=== PATIENT | male | born 1960 | race Caucasian/White ===

== ENCOUNTER → 2019-06-30 11:39 | Outpatient (BNVA) | payer MEDICARE, SELFPAY | PROVIDERS: Family Provider Family Medicine; PCP Family Medicine; Referring Provider Family Medicine; Visit Provider Family Medicine | DX: E11.42 Type 2 diabetes mellitus with diabetic polyneuropathy (principal); M14.60 Charcot's joint, unspecified site; L03.012 Cellulitis of left finger | CPT/HCPCS: 80053; 83036; 84550; 85025 ==

== ENCOUNTER → 2020-03-09 10:37 | Outpatient (BNVA) | payer MEDICARE, SELFPAY | PROVIDERS: Family Provider Family Medicine; PCP Family Medicine; Visit Provider Family Medicine | DX: E11.42 Type 2 diabetes mellitus with diabetic polyneuropathy (principal); I10 Essential (primary) hypertension; E78.00 Pure hypercholesterolemia, unspecified; Z00.00 Encounter for general adult medical examination without abnormal findings; E11.65 Type 2 diabetes mellitus with hyperglycemia; Z79.4 Long term (current) use of insulin; I73.9 Peripheral vascular disease, unspecified | CPT/HCPCS: 80053; 80061; 83036; 83721; 85025 ==

== ENCOUNTER → 2020-03-11 10:19 | Outpatient (BNVA) | payer MEDICARE, SELFPAY | PROVIDERS: Family Provider Family Medicine; PCP Family Medicine; Visit Provider Nurse Practitioner Family | DX: Z20.828 Contact with and (suspected) exposure to other viral communicable diseases (principal); J06.9 Acute upper respiratory infection, unspecified; R43.0 Anosmia | CPT/HCPCS: 87635 ==

== ENCOUNTER 2020-03-16 10:55 | Emergency (ER) | payer MEDICARE, SELFPAY ==
[2020-03-16 11:16] VITALS: BP 192/90; PULSE 70; RESP 18; TEMP 36.2; O2SAT 91; BMI 42.7
--- NOTE | 2020-03-16 11:27 | ED_ITS ---
HPI - COVID General: Chief Complaint: COVID symptoms Stated Complaint: COVID +/needing an infusion Time Seen by Provider: 03/16/20 11:10 Source: patient Mode of arrival: ambulatory Limitations: no limitations Triage information: No fever, cough or shortness of breath . No known COVID + exposure last 14 days History of Present Illness: HPI Narrative: Mr. Springer is a very nice 59-year-old male who comes in with a complaint of increased shortness of breath, cough and flulike symptoms. He tested positive for the Covid virus at the urgent care 2 days ago. He was referred here for the Bamlinivimab infusion. Patient meets criteria by being a diabetic and has body weight. Patient is not hypoxic and not requiring oxygen. I reviewed at length the risks and benefits and possible complications of this infusion and the patient does want to move ahead with this. COVID 19 common symptoms: positive fever(s), chills, non-productive cough, fatigue, body aches and throat pain; negative productive cough, dyspnea, headache(s), nausea, vomiting or diarrhea COVID 19 other sytmptoms: negative chest pain or confusion COVID Results: SARS-CoV-2 RNA (RT-PCR) Detected (NOT DETECTED) A 03/11/20 10:19 03/11/20 Review of Systems Const: Reports: fever(s), chills, body aches, fatigue and malaise; Denies: diaphoresis Eyes: Denies: change in vision, blurry vision, photophobia, eye discomfort, eye discharge, eye redness or yellow eyes ENMT: Reports: throat pain and hoarseness; Denies: odynophagia, swelling of lips/tongue, ear or mastoid pain, ear discharge, change in hearing or nasal discharge Card: Denies: chest pain, palpitations, irregular heart rhythm, edema, lightheadedness, syncope, pre-syncope, dyspnea on exertion or orthopnea Resp: Reports: non-productive cough; Denies: dyspnea, productive cough, wheezing, hemoptysis or chest congestion GI: Denies: abdominal pain, nausea, vomiting, hematemesis, coffee ground emesis, heartburn, diarrhea, constipation, GI cramping, hematochezia or melena : Denies: flank pain, dysuria, urinary frequency, urinary urgency or hematuria Musc: Denies: neck pain, back pain, extremity pain, extremity swelling, joint pain, joint swelling, joint redness, joint warmth or joint stiffness Skin/Breast: Denies: rash, pruritus, erythema, skin pain or skin tenderness Neuro: Denies: headache(s), numbness in extremities, weakness in extremities, sensory changes, lack of coordination, difficulty walking, dizziness, vertigo, confusion, Slurred speech present or seizure-like activity Mike/Lymph: Denies: easy bruising, easy bleeding, petechiae, purpura or enlarged lymph nodes All/Imm: Denies: urticaria, throat swelling, tongue swelling, facial swelling or acute wheezing PFSH ED PFSH: Medical History Acquired absence of other toe(s), unspecified side Cellulitis and abscess of foot Charcot ankle Closed displaced fracture of navicular bone of right foot with routine healing Controlled diabetes mellitus with diabetic polyneuropathy, with long-term current use of insulin Hypercholesteremia Hyperchylomicronemia Hypertension Onychodystrophy Other deformities of toe(s) (acquired), left foot Polyneuropathy, unspecified Tick fever Type 2 diabetes mellitus Family History Other CAD (coronary artery disease) Cancer Diabetes Hypertension Denies family history of Clotting disorder Dementia Hyperlipidemia Psychiatric illness Chronic kidney disease (CKD) Suicide Anesthesia complication Bleeding disorder Family history of premature coronary artery disease Lung disease Stroke Social History Smoking and tobacco status: never smoked Second hand smoke exposure: No Alcohol intake: never Physical Exam Const: COMMON NORMALS: no acute distress, patient oriented x3, no limitations and alert GENERAL APPEARANCE: cooperative HENMT: COMMON NORMALS: normocephalic, atraumatic, external ears normal, EAC's normal and Normal external nose present HEAD & SCALP: normal to inspection, normocephalic and atraumatic FACE & SINUS: normal facial exam and face symmetric NOSE: Normal external nose present and Normal nares present EXTERNAL EAR: Yes external ears normal EXTERNAL AUDITORY CANAL: EAC's normal MOUTH: Normal oral and palatal mucosa present, lip normal and tongue normal Eye: COMMON NORMALS: Equal, round and reactive pupils present and conjunctivae normal GENERAL EYE: appearance normal, both eyes and all related structures ALIGNMENT: Yes alignment normal PERIORBITAL: periorbital findings normal EYELID: eyelids normal CONJUNCTIVA: Yes conjunctivae normal SCLERA: sclerae normal PUPIL: Yes Equal, round and reactive pupils present Neck/C-Spine: COMMON NORMALS: full ROM, no lymphadenopathy, supple, no meningeal signs and no JVD GENERAL: Yes normal visual inspection and Yes trachea midline Chest: COMMONS NORMALS: normal inspection of the chest and normal palpation of entire chest wall Resp: COMMON NORMALS: normal respiratory effort, No retractions, No use of accessory muscles and clear to auscultation bilaterally EFFORT & INSPECTION: Yes able to speak in complete sentences and Yes symmetric chest movement AUSCULTATION: clear to auscultation bilaterally, no crackles, no rales, rhonchi and no wheezes Cardio: COMMON NORMALS: no JVD, regular rate, regular rhythm, S1 normal heart sound present and S2 normal heart sound present RATE: regular rate RHYTHM: regular rhythm HEART SOUNDS: S1 normal heart sound present, S2 normal heart sound present, no click, no gallops, no murmurs and no rubs GI: COMMON NORMALS: Soft to palpation and No hepatosplenomegaly present PALPATION: Yes Soft to palpation, No Tenderness to palpation present (GI), No Guarding due to palpation present (GI), No Rigid due to palpation, Yes No hepatosplenomegaly present, No Hernia present, No Palpable mass present and No Pulsatile mass present : COMMON NORMALS: Yes no CVA tenderness BLADDER/KIDNEY EXAM: Yes no CVA tenderness Back/Pelvis: COMMON NORMALS: no CVA tenderness, thoracic and lumbar spine normal to inspection, no thoracic nor lumbar tenderness and thoraco-lumbar ROM normal Extremity: COMMON NORMALS: normal to inspection, full ROM, capillary refill normal, no joint enlargement, no clubbing, cyanosis or edema and no calf tenderness Neuro: COMMON NORMALS: patient oriented x3, CN's II-XII intact bilaterally, moves all extremities, no focal motor deficits and no sensory deficits noted SENSORIUM/ORIENTATION: Yes alert MENINGEAL SIGNS: Yes no meningeal signs SPEECH: speech normal Psych: COMMON NORMALS: mental status grossly normal, Normal thought process present, cooperative, normal affect, speech normal and activity/motor behavior normal SPEECH: Yes normal speech THOUGHT PROCESS: Normal thought process present Skin: COMMON NORMALS: no rashes or lesions noted, turgor normal, no jaundice, no petechiae and no mottling GENERAL SKIN EXAM: no rashes or lesions noted and turgor normal Course Vital Signs: Vital signs: Vital Signs Temperature 97.2 F L 03/16/20 11:16 Pulse Rate 70 03/16/20 11:16 Respiratory Rate 18 03/16/20 11:16 Blood Pressure 192/90 03/16/20 11:16 Pulse Oximetry 91 03/16/20 11:16 MDM - COVID MDM Narrative: Medical decision making narrative: Patient is appropriate for the Bamlanivimab infusion. I see no need of acute oxygen therapy or lab work or other work-up. Patient wants to go ahead with this infusion. He will be moved to the appropriate bed and we will get him taken care of Differential Diagnosis: Differential diagnosis: Likely COVID 19, influenza, other viral infection, bacterial infection, pneumonia and copd exacerbation COVID Results: SARS-CoV-2 RNA (RT-PCR) Detected (NOT DETECTED) A 03/11/20 10:19 03/11/20 Monoclonal Antibody Treatments Inclusion/Exclusion Criteria weight >/= 40 kg and + direct Sars-Cov-2 test less than 7-10 days ago BMI >/= 35 and has diabetes not requiring hospitalization, not requiring oxygen (if not chronically on oxygen) and no increase oxygen requirement (if chronically on oxygen) Patient education patient/family/caregiver received/reviewed fact sheet, Emergency Use Authorization/unapproved drug status discussed with patient/family/caregiver, alternatives to this treatment discussed with patient/family/caregiver, risks and benefits of medication reviewed with patient/family/caregiver, patient/family/caregiver given opportunity for questions, which were answered and patient consents to receiving Monoclonal Antibody Treatment Plan for treatment Meets criteria for Monoclonal Antibody infusion Ordering Monoclonal Antibody infusion for today and Monoclonal antibody information given Discharge Plan Discharge Patient Disposition: Home Clinical Impression: Viral pneumonia, COVID-19 virus infection Condition: Stable Prescriptions: New Tessalon Perles 100 mg capsule 200 mg PO TID PRN (Reason: cough) Qty: 60 RF: 0 Zofran 4 mg tablet 4 mg PO Q6H PRN (Reason: nausea and vomiting) Qty: 20 RF: 0 No Action mupirocin 2 % ointment 1 applic TOPICAL BID 14 Days Qty: 15 RF: 0 milk thistle 500 mg capsule 500 mg PO BID RF: 0 cholecalciferol (vitamin D3) 25 mcg (1,000 unit) capsule 25 mcg PO DAILY RF: 0 B-complex with vitamin C [Super B Complex-Vitamin C] Tablet 1 tab PO DAILY RF: 0 alpha lipoic acid 200 mg capsule 200 mg PO BID RF: 0 multivitamin [id number] Tablet PO RF: 0 lutein 20 mg capsule 20 mg PO DAILY RF: 0 astragalus root 470 mg capsule PO RF: 0 olive leaf extract 250 mg capsule PO RF: 0 Tonalin CLA 1,000 mg capsule PO RF: 0 Cosamin [place] (with Boswellia) 500-500-33.3-70 mg tablet PO RF: 0 aloe vera 5,000 mg capsule PO RF: 0 morinda citrifolia fruit 250 mg capsule PO RF: 0 cascara sagrada 450 mg capsule PO RF: 0 ashwagandha root extract 300 mg capsule PO RF: 0 methylsulfonylmethane [MSM] 1,000 mg tablet 1,000 mg PO BID RF: 0 acai winslow extract 500 mg capsule PO RF: 0 omega-3 fatty acids 1,000 mg capsule 1,000 mg PO DAILY RF: 0 turmeric root extract 500 mg capsule 500 mg PO DAILY RF: 0 ascorbate calcium (vitamin C) 500 mg tablet 500 mg PO BID RF: 0 ginkgo biloba 120 mg tablet 120 mg PO DAILY RF: 0 selenium 200 mcg capsule 200 mcg PO DAILY RF: 0 metoprolol tartrate 100 mg tablet 100 mg PO DAILY RF: 0 lisinopril 20 mg tablet 20 mg PO BID RF: 0 polyethylene glycol 3350 [Miralax] 17 gram powder in packet 17 gm PO DAILY RF: 0 furosemide 40 mg tablet 40 mg PO DAILY RF: 0 promethazine 25 mg tablet 25 mg PO Q6H PRNRF: 0 ranitidine HCl [Zantac] 150 mg tablet 150 mg PO BID RF: 0 gabapentin 300 mg capsule 300 mg PO BID RF: 0 magnesium oxide 500 mg capsule 500 mg PO DAILY RF: 0 melatonin 3 mg capsule 3 mg PO DAILY RF: 0 potassium 99 mg tablet PO RF: 0 aspirin 81 mg tablet,delayed release (DR/EC) 81 mg PO DAILY RF: 0 hydrochlorothiazide 12.5 mg tablet 12.5 mg PO BID 90 Days Qty: 180 RF: 3 Levemir U-100 Insulin 100 unit/mL solution 80 unit SUBCUT BID 30 Days Qty: 48 RF: 11 insulin aspart U-100 [Novolog U-100 Insulin aspart] 100 unit/mL solution 5 unit SUBCUT TID 30 Days Qty: 4.5 RF: 5 metformin 1,000 mg tablet 1,000 mg PO BID Qty: 180 RF: 0 simvastatin 40 mg tablet 40 mg PO DAILY Qty: 90 RF: 1 ondansetron 4 mg tablet,disintegrating 4 mg PO TID Qty: 20 RF: 0 Discharge Orders: Discharge ED (Routine); Ordered 03/16/20 Ordered By: Tonia Nina Referrals: Leandra Reddy MD [Primary Care Provider] - 4-7 days Discharge Diet: Advance as tolerated Discharge Activity: Increase activity as tolerated Patient Instructions: Viral Pneumonia (ED) Activity Restrictions/Additional Instructions: Please return to the ER immediately for any of the signs or symptoms listed on your discharge instruction sheets, worsening/changing of your symptoms, you are not getting better as quickly as expected, or for ANY other cause or concerns. If you are breathing gets worse at all, your pulse oximetry that you monitor at home falls below 90% for more than 30 seconds continuously or you feel you need to be evaluated for any reason please return to the ER immediately. The health department will contact you about when you are cleared to return to your normal activities. Coding Level of Care Code ED Plastic Cnc Machine Operator for Shira Gamboa
--- NOTE | 2020-03-23 13:34 | DCPLANNER ---
Addendum entered by Veena Arreola 03/30/20 13:21: distributed generation project manager called to check on patient 10 days after infusion. Patient stated that he is doing good. Stated that he davian to his primary care followup, feeling much better. Patient stated that he has not been admitted to the hospital. Addendum entered by Veena Arreola 03/23/20 13:36: distributed generation project manager called [facility], a follow up appointment is scheduled for Sunday, March 29, 2020 at 10:30. distributed generation project manager called patient with appointment information. distributed generation project manager called to check on patient, he stated that he is feeling much better. Stated that his nausea is better not all the way gone but better, still no fever, he is feeling much better all over. Original Note: distributed generation project manager had message that patient received the BAM infusion. distributed generation project manager spoke with patient on 03.18.20 made note on spreadsheet, forgot to make note in chart. late entry -Patient stated that he tolorated the infusion well. Stated that before the infusion that he was really nausetated, did not feel good at all, and was feeling rough all over. He stated that he did not have a fever. After the infusion, patient stated that he does not feel as bad as he did.
== END 2020-03-16 12:00 | disposition home or self-care (01) ==
PROVIDERS: Emergency Provider Emergency Medicine; PCP Family Medicine
DX: U07.1 COVID-19 (principal); J12.89 Other viral pneumonia; Z79.82 Long term (current) use of aspirin; Z79.4 Long term (current) use of insulin; E11.42 Type 2 diabetes mellitus with diabetic polyneuropathy; I10 Essential (primary) hypertension; E11.9 Type 2 diabetes mellitus without complications; Z82.49 Family history of ischemic heart disease and other diseases of the circulatory system; Z83.3 Family history of diabetes mellitus
CPT/HCPCS: 12345; 96365; 99281; J7050

== ENCOUNTER 2020-03-16 12:43 | Day surgery (SDC) | payer MEDICARE, SELFPAY ==
[2020-03-16 12:10] VITALS: BP 197/87; PULSE 78; RESP 18; TEMP 36.7; O2SAT 90
[2020-03-16 12:45] VITALS: BP 200/87; PULSE 72; RESP 18; TEMP 37; O2SAT 90
[2020-03-16 12:58] VITALS: BP 211/98; PULSE 75; RESP 18; TEMP 37; O2SAT 91
[2020-03-16 13:27] VITALS: BP 205/93; PULSE 76; RESP 18; TEMP 37; O2SAT 91
--- NOTE | 2020-03-16 13:30 | SUR.OPER ---
1330 Bam infusion complete. Pt tolerated well. No signs of reaction noted. Pt to be observed for 1 hour and discharged per protocol.
[2020-03-16 14:30] VITALS: BP 200/85; PULSE 74; RESP 18; TEMP 37; O2SAT 91
== END 2020-03-16 14:30 ==
PROVIDERS: PCP Family Medicine; Visit Provider Family Medicine
DX: U07.1 COVID-19 (principal); E11.9 Type 2 diabetes mellitus without complications; I10 Essential (primary) hypertension; Z82.49 Family history of ischemic heart disease and other diseases of the circulatory system; Z83.3 Family history of diabetes mellitus
CPT/HCPCS: 96365; J7050

== ENCOUNTER 2020-05-05 06:19 | Day surgery (SDC) | payer MEDICARE, SELFPAY ==
[2020-05-04 11:10] VITALS: BMI 40.6
[2020-05-05 06:41] VITALS: BP 183/88; PULSE 71; RESP 18; TEMP 36.4; O2SAT 96
[2020-05-05] MEDS: sodium chloride 0.9% 1,000 ML 30 ML IV (07:04)
--- NOTE | 2020-05-05 08:02 | ANES.PREANE2 ---
Pre-Anesthetic Assessment Pre-Anesthetic Assessment: Height/Weight: Height 1.83 m Weight 136.078 kg Temp Pulse Resp BP Pulse Ox 97.5 F L 71 18 183/88 96 05/05/20 06:41 05/05/20 06:41 05/05/20 06:41 05/05/20 06:41 05/05/20 06:41 Preop Diagnosis: screening colonoscopy Proposed Procedure: Operation Date: 05/05/20 08:10 Proposed Procedures p Colonoscopy 57473 Z12.11(Not Applicable) - Joshua Oscar MD Was Beta Buck taken within 24 hours: Yes Last intake: Intake Last Liquid Date 05/04/20 Last Liquid Time 23:30 Last Solid Date 05/03/20 Last Solid Time 21:00 Social: Social History: No alcohol and No tobacco Exam: Pre-Anes Outpt Exam: alert, oriented x 3, clear to auscultation bilaterally and regular rate & rhythm Airway: Submandibular: WNL Cervical ROM: WNL MP: 2 Additional comments: poor dentition Pulmonary: Pulmonary: COPD CV/HEM: CV/HEM: HTN Metabolic: Metabolic: DM and Morbid obesity Anesthetic Plan: ASA status: 3 Anesthesia: MAC Risk of > 500 ml blood loss (7ml/kg in children): No Meds/Allergies Current Medications: Current Medications Generic Name Dose Route Start Last Admin Trade Name Freq PRN Reason Stop Dose Admin Sodium Chloride 1,000 mls @ 30 ml s/hr 05/05/20 06:30 05/05/20 07:04 Sodium Chloride 0.9% IV 05/06/20 06:29 30 mls/hr .Q24H NAM Administration PFSH Anesthesia PFSH: Medical History (Updated 04/19/20 @ 09:57 by Joshua Oscar MD) Acquired absence of other toe(s), unspecified side Cellulitis and abscess of foot Charcot ankle Closed displaced fracture of navicular bone of right foot with routine healing Controlled diabetes mellitus with diabetic polyneuropathy, with long-term current use of insulin COVID-19 virus infection Hypercholesteremia Hyperchylomicronemia Hypertension Onychodystrophy Other deformities of toe(s) (acquired), left foot Polyneuropathy, unspecified Tick fever Type 2 diabetes mellitus Surgical History (Updated 04/19/20 @ 09:53 by Joshua Oscar MD) History of foot surgery History of knee surgery Family History Other CAD (coronary artery disease) Cancer Diabetes Hypertension Denies family history of Clotting disorder Dementia Hyperlipidemia Psychiatric illness Chronic kidney disease (CKD) Suicide Anesthesia complication Bleeding disorder Family history of premature coronary artery disease Lung disease Stroke Social History Smoking and tobacco status: never smoked Second hand smoke exposure: No Alcohol intake: never Data Anesthesia Cardiac Studies: No Data to Display
--- NOTE | 2020-05-05 08:57 | W.PM.OPSUD ---
Surgery/Procedure H&P Update DATE OF PROCEDURE: May 05, 2020 DATE H&P PERFORMED: 04/19/20 H&P UPDATE INFORMATION: I have reviewed H&P completed within last 30 days, I have examined patient prior to procedure and No changes to prior documentation PREOP DIAGNOSIS: screening colonoscopy PLANNED PROCEDURE: Operation Date: 05/05/20 08:10 Proposed Procedures p Colonoscopy 44277 Z12.11(Not Applicable) - Joshua Oscar MD
[2020-05-05 09:29] VITALS: BP 124/55; PULSE 64; RESP 18; TEMP 36.4; O2SAT 96
[2020-05-05 09:44] VITALS: BP 132/74; PULSE 62; RESP 18; O2SAT 97
--- NOTE | 2020-05-05 11:59 | ANE.PACU2 ---
Inpatient post-anesthesia follow up: Airway intact: Yes Vital signs: Temperature 97.6 F Pulse Rate 62 Respiratory Rate 18 Blood Pressure 132/74 Pulse Oximetry 97 Oxygen Delivery Me thod Room Air Oxygen Flow Rate Fraction of Inspir ed Oxygen Hydration adequate: Yes Nausea and vomiting: No Pain level: 1 Mental status: Baseline
[2020-05-05 12:20] LABS: Glucose Point of Care 185 mg/dL (70-110)
== END 2020-05-05 10:04 | disposition home or self-care (01) ==
PROVIDERS: PCP Family Medicine; Visit Provider Surgery
PROC: 0DJD8ZZ Inspection of Lower Intestinal Tract, Via Natural or Artificial Opening Endoscopic (ICD-10-PCS; CPT 45378; principal; 2020-05-05 08:10)
DX: Z12.11 Encounter for screening for malignant neoplasm of colon (principal); K64.8 Other hemorrhoids; K63.5 Polyp of colon; J44.9 Chronic obstructive pulmonary disease, unspecified; I10 Essential (primary) hypertension; E66.01 Morbid (severe) obesity due to excess calories; Z68.41 Body mass index [BMI] 40.0-44.9, adult; E11.42 Type 2 diabetes mellitus with diabetic polyneuropathy; Z79.4 Long term (current) use of insulin; Z86.16 Personal history of COVID-19
CPT/HCPCS: 12345; 36416; 45378; 82962; J7030

== ENCOUNTER → 2020-07-05 10:18 | Outpatient (BNVA) | payer MEDICARE, SELFPAY | PROVIDERS: PCP Family Medicine; Visit Provider Family Medicine | DX: E11.42 Type 2 diabetes mellitus with diabetic polyneuropathy (principal); E78.00 Pure hypercholesterolemia, unspecified; I10 Essential (primary) hypertension; E11.65 Type 2 diabetes mellitus with hyperglycemia; Z79.4 Long term (current) use of insulin | CPT/HCPCS: 36416; 80053; 80061; 82962; 83036 ==

== ENCOUNTER → 2020-11-09 13:58 | Outpatient (BNVA) | payer MEDICARE, SELFPAY | PROVIDERS: PCP Family Medicine; Visit Provider Family Medicine | DX: Z00.00 Encounter for general adult medical examination without abnormal findings (principal); E11.65 Type 2 diabetes mellitus with hyperglycemia; Z79.4 Long term (current) use of insulin | CPT/HCPCS: 83036 ==

== ENCOUNTER 2021-01-04 13:02 | Outpatient (CLI) | payer MEDICARE, SELFPAY | END 2021-01-04 13:03 | disposition home or self-care (01) | LOC: WOUND 13:06 | PROVIDERS: PCP Family Medicine; Visit Provider Nurse Practitioner Family | DX: E11.621 Type 2 diabetes mellitus with foot ulcer (principal); L97.512 Non-pressure chronic ulcer of other part of right foot with fat layer exposed; L97.521 Non-pressure chronic ulcer of other part of left foot limited to breakdown of skin; Z87.891 Personal history of nicotine dependence | CPT/HCPCS: 11042; 87070; 87077; 87176; 87186; 87205; G0463 ==

== ENCOUNTER 2021-01-06 12:58 | Outpatient (CLI) | payer MEDICARE, SELFPAY ==
--- NOTE | 2021-01-06 13:10 | XR_ITS ---
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 Hammertoe deformities. Demineralization. Diffus e soft tissue edema. Vascular calcification. Progressed joint space narrowing involving the first DIP joint with loss of joint space and a few per iarticular erosions. Periarticular lucencies in the adjacent first proximal phalanx. This is new sin e 2019. This may be degenerative in etiology but osteomyelitis not excluded. Recommend correlation wi th area of ulceration. Left second distal phalanx not well visualized due to contracture deformity. Vascular calcification. XR/XR foot LT min 3V* [id number] IMPRESSION: 1. 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 2. Progressed joint space narrowing involving the first DIP joint great toe wi th loss of joint space and a few periarticular erosions. Periarticular lucencie s in the adjacent first proximal phalanx. This may be degenerative in etiology but osteomyelitis not excluded. Recommend correlation with area of ulceration. 3. Left second distal phalanx not well visualized due to contracture. 4. No bony destruction to indicate acute osteomyelitis.
--- NOTE | 2021-01-06 13:10 | XR_ITS ---
WS: [id number] FOOT RIGHT TECHNIQUE: 3 views of the right foot CLINICAL INFORMATION: TYPE II DIABETES WITH FOOT ULCER, R/O OSTEOMYELITIS COMPARISON: 2019 FINDINGS: Diffuse soft tissue edema. Demineralization. Charcot joints with chronic destructive changes involvin g the midfoot tarsal bones and talonavicular articulation. Pes planus. Vascular calcification. No sig nificant changes since 2019 XR/XR foot RT min 3V* [id number] IMPRESSION: 1. No definite evidence of acute osteomyelitis. 2. 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 3. Diffuse soft tissue edema. 4. Pes planus. 5. Demineralization. 6. Vascular calcification.
== END 2021-01-06 12:59 | disposition home or self-care (01) ==
PROVIDERS: PCP Family Medicine; Visit Provider Nurse Practitioner Family
DX: E11.621 Type 2 diabetes mellitus with foot ulcer (principal); Z89.422 Acquired absence of other left toe(s)
CPT/HCPCS: 73630

== ENCOUNTER 2021-01-11 07:40 | Observation (INO) | payer MEDICARE, SELFPAY ==
[2021-01-11] VITALS (20 sets, daily range): BP systolic 165–207; BP diastolic 73–108; PULSE 74–90; RESP 9–20; TEMP 36.6–37; O2SAT 91–98; BMI 43.4
--- NOTE | 2021-01-11 07:47 | ECG_ITS ---
[facility] Test Date: 2021-01-11 Pat Name: Jack Springer Department: Room: Gender: Male Bagman/Woman: : 1960 Requested By: Tyrese Enrique Order Number: [id number] Reading MD: JEFF DANIEL Measurements Intervals [place] Rate: 88 P: 62 MS: 181 QRS: 53 QRSD: 105 T: -13 QT: 368 QTc: 447 Interpretive Statements SINUS RHYTHM NONSPECIFIC ST & T-WAVE ABNORMALITY No previous ECG available for comparison Electronically Signed On 01-11-2021 22:57:19 CDT by JEFF DANIEL [id number]
--- NOTE | 2021-01-11 08:07 | CT_ITS ---
WS: [id number] CT HEAD TECHNIQUE: Noncontrast CT of the head obtained from the skullbase to the vertex. CLINICAL INFORMATION: closed head injury w LOC COMPARISON: None. DLP: 1252.[address] scans at [facility] use at least one of these dose optimization techniques: automated e xposure control; mA and/or kV adjustment per patient size (includes targeted exams where dose is matc hed to clinical indication); or iterative reconstruction. FINDINGS: No evidence of intracranial hemorrhage or mass effect. Ventricular system and basal cisterns are sullivan nt. Mild small vessel changes with moderate parenchymal volume loss. No extra-axial fluid collections . Chronic lacunar infarct right lateral basal ganglia. Chronic lacunar infarct right thalamus. No aliya dence of mass or mass effect. Normal barnard-white differentiation. Paranasal sinuses and mastoid air cells are well aerated. . Soft tissue edema and small scalp hematom a overlying the right frontal calvarium. CT/CT head wo con* [id number] IMPRESSION: 1. No evidence of intracranial hemorrhage or mass effect. 2. Mild small vessel changes. Moderate parenchymal loss. 3. No acute intracranial findings.
--- NOTE | 2021-01-11 08:14 | W.ED.CHESTPA ---
HPI - Chest Pain General: Chief Complaint: Chest Pain Stated Complaint: B/P 213/94 CHEST PAINS AND SOB Time Seen by Provider: 01/11/21 07:46 History of Present Illness: HPI narrative: 60-year-old male presents emergency room with complaints of chest discomfort. 2 days ago he had a syncopal episode he has an abrasion on his right side of his forehead is actually fairly large and he has some ecchymosis around that right eye. There was a brief loss of consciousness. He is not evaluated after this. He is not on any anticoagulants. He is diabetic on insulin and Metformin he states his blood sugars have been erratic lately. He is not had any fever sweats or chills he has had a few episodes of some chest discomfort not related to exertion they are not relieved or exacerbated by any particular activities. He has no known heart disease he cannot recall last time he had an evaluation. Patient had Covid in February 2020 and he has been vaccinated. His blood pressures were markedly elevated at home he has been taking all of his regular antihypertensives. He has not had any recent changes. He is not noticing difficulty speech swallowing gait or coordination. MD complaint: chest discomfort Pertinent past history: other (Diabetes mellitus.) Timing of current episode: episodic Prior episodes: No Onset: during rest Pain location: left chest Pain radiation: none Severity: mild Quality: tightness and aching Relieving factors: nothing Exacerbating factors: nothing Associated symptoms: Deny abdominal pain, diaphoresis, dyspnea, fever(s), leg edema, nausea, palpitations, sense of impending doom, syncope or vomiting Treatment prior to arrival: none Review of Systems Const: Denies: fever(s) or diaphoresis ENMT: Denies: throat pain, ear or mastoid pain, nasal discharge or nasal congestion Card: Denies: palpitations or syncope Resp: Denies: dyspnea GI: Denies: abdominal pain, nausea or vomiting : Denies: flank pain, dysuria, urinary frequency or urinary urgency Skin/Breast: Denies: rash or pruritus PFS ED PFSH: Medical History Acquired absence of other toe(s), unspecified side Cellulitis and abscess of foot Charcot ankle Closed displaced fracture of navicular bone of right foot with routine healing Controlled diabetes mellitus with diabetic polyneuropathy, with long-term current use of insulin COVID-19 virus infection Hypercholesteremia Hyperchylomicronemia Hypertension Onychodystrophy Other deformities of toe(s) (acquired), left foot Polyneuropathy, unspecified Tick fever Type 2 diabetes mellitus Surgical History History of foot surgery History of knee surgery Status post colonoscopy (05/05/20) normal Family History Other CAD (coronary artery disease) Cancer Diabetes Hypertension Denies family history of Clotting disorder Dementia Hyperlipidemia Psychiatric illness Chronic kidney disease (CKD) Suicide Anesthesia complication Bleeding disorder Family history of premature coronary artery disease Lung disease Stroke Social History Smoking and tobacco status: former smoker Second hand smoke exposure: No Alcohol intake: never Physical Exam Const: COMMON NORMALS: no acute distress GENERAL APPEARANCE: cooperative and comfortable ORIENTATION/CONSCIOUSNESS: Yes awake, Yes oriented to person, Yes oriented to place and Yes oriented to time HENMT: COMMON NORMALS: normocephalic, atraumatic and hearing grossly normal bilaterally HEAD & SCALP: normocephalic and atraumatic Eye: COMMON NORMALS: Equal, round and reactive pupils present, EOMs intact bilaterally, conjunctivae normal and no scleral icterus CONJUNCTIVA: Yes conjunctivae normal PUPIL: Yes Equal, round and reactive pupils present Neck/C-Spine: COMMON NORMALS: full ROM, no lymphadenopathy, supple and no JVD Lymph: LYMPHATIC: no lymphadenopathy noted and no lymphedema noted Resp: COMMON NORMALS: normal respiratory effort, No retractions, No use of accessory muscles and clear to auscultation bilaterally AUSCULTATION: clear to auscultation bilaterally Cardio: COMMON NORMALS: no JVD, regular rate, regular rhythm and No murmurs present (Cardio) RATE: regular rate RHYTHM: regular rhythm GI: COMMON NORMALS: Soft to palpation and No hepatosplenomegaly present AUSCULTATION: Yes normoactive bowel sounds PALPATION: Yes Soft to palpation, No Tenderness to palpation present (GI), No Guarding due to palpation present (GI) and Yes No hepatosplenomegaly present Extremity: COMMON NORMALS: normal to inspection, capillary refill normal, no clubbing, cyanosis or edema, no calf tenderness and no pedal edema Neuro: SENSORIUM/ORIENTATION: Yes oriented to person, Yes oriented to place and Yes oriented to time Skin: OTHER: Large abrasion right forehead. Right there is ecchymosis over the upper and lower eyelids. Sclera and conjunctiva are normal there is no subconjunctival hematoma Course Vital Signs: Vital signs: Vital Signs Temperature 98.6 F 01/11/21 08:00 Pulse Rate 81 01/11/21 16:54 Respiratory Rate 16 01/11/21 16:54 Blood Pressure 173/83 01/11/21 16:54 Pulse Oximetry 92 01/11/21 16:54 MDM - Chest Pain MDM Narrative: Medical decision making narrative: Labs and imaging reviewed as found on the chart. No acute ST changes noted on the EKG. Given the patient's significant risk factors and of the syncopal episode combined with episodes of chest pain while at rest we will go ahead and admit him for complete rule out and cardiac stress testing. Lab Data: Labs: Lab Results 01/11/21 01/11/21 01/11/21 08:20 08:20 08:20 WBC 6.7 10^3/uL 10^3/ uL (4.0-10.0) RBC 3.89 10^6/uL L 10 ^6/uL (4.1-5.3) Hgb 11.8 g/dL g/dL (11.7-16.6) Hct 35.3 % L % (42.0-52.0) MCV 90.7 fl fl (80-94) MCH 30.3 pg pg (28.0-34.0) MCHC 33.4 g/dL g/dL (30.0-36.0) RDW 13.5 % % (12.1-15.1) Plt Count 255 10^3/cmm 10^3 /cmm (130-400) MPV 10.5 fL H fL (7.4-10.4) Neut % (Auto) 72.7 % % Lymph % (Auto) 16.3 % % [place] % (Auto) 7.0 % % Eos % (Auto) 2.5 % % Baso % (Auto) 0.6 % % Neut # (Auto) 4.86 10^3/uL 10^3 /uL (1.8-7.7) Lymph # (Auto) 1.1 10^3/uL 10^3/ uL (0.8-4.8) [place] # (Auto) 0.5 10^3/uL 10^3/ uL (0.2-0.9) Eos # (Auto) 0.2 10^3/uL 10^3/ uL (0.0-0.8) Baso # (Auto) 0.0 10^3/uL 10^3/ uL (0.0-0.1) Nucleated RBC % (a uto) 0 % % Nucleated RBCs # 0.0 /100WBC /100W BC Sodium 139 mmol/L mmol/L (136-145) Potassium 4.0 mmol/L mmol/L (3.5-5.1) Chloride 101 mmol/L mmol/L (98-107) Carbon Dioxide 27 mmol/L mmol/L (22-29) Anion Gap 15.0 (5-19) BUN 23 mg/dL mg/dL (8-23) Creatinine 1.2 mg/dL mg/dL (0.7-1.2) GFR Calculation 61.8 mL/min L mL/ min (90-130) Glucose 235 mg/dL H mg/dL (65-115) POC Glucose Calculated Osmolal ity 299 mOsm/kg H mOs m/kg (285-295) Calcium 8.8 mg/dL mg/dL (8.5-10.5) Magnesium Total Bilirubin 0.7 mg/dL mg/dL (0.15-1.2) AST 18 U/L U/L (0-40) ALT 17 U/L U/L (0-41) Alkaline Phosphata se 114 IU/L IU/L (40-130) Troponin T Baselin e 44 ng/L H ng/L (0-15) Troponin T 120 Min nondalton Delta Troponin T NT-Pro-B Natriuret Pep Total Protein 6.8 g/dL g/dL (6.6-8.7) Albumin 3.8 g/dL g/dL (3.5-5.2) Globulin 3.0 g/dL g/dL (1.3-4.6) TSH 01/11/21 01/11/21 01/11/21 11:30 11:30 12:22 WBC RBC Hgb Hct MCV MCH MCHC RDW Plt Count MPV Neut % (Auto) Lymph % (Auto) [place] % (Auto) Eos % (Auto) Baso % (Auto) Neut # (Auto) Lymph # (Auto) [place] # (Auto) Eos # (Auto) Baso # (Auto) Nucleated RBC % (a uto) Nucleated RBCs # Sodium Potassium Chloride Carbon Dioxide Anion Gap BUN Creatinine GFR Calculation Glucose POC Glucose 216 mg/dL H mg/dL (70-110) Calculated Osmolal ity Calcium Magnesium 1.9 mg/dL mg/dL (1.7-2.3) Total Bilirubin AST ALT Alkaline Phosphata se Troponin T Baselin e Troponin T 120 Min nondalton 44.69 ng/L H ng/L (0-15) Delta Troponin T 0.69 ABS# ABS# (0-10) NT-Pro-B Natriuret Pep 2105 pg/mL H pg/m L (0-125) Total Protein Albumin Globulin TSH 4.53 uIU/mL H uIU /mL (0.27-4.20) Discharge Plan Discharge Patient Disposition: Admitted As Inpatient Admit Provider: Ryan Dumont Clinical Impression: Syncope and collapse, Chest pain, Type 2 diabetes mellitus, Hypercholesteremia, Diabetic peripheral neuropathy associated with type 2 diabetes mellitus, Hypertension Condition: Stable Coding Level of Care Code ED 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
[2021-01-11 08:34] LABS: Basophils % 0.6 %; Eosinophils # 0.2 10^3/uL (0.0-0.8); Eosinophils % 2.5 %; Hematocrit 35.3 % (42.0-52.0); Hemoglobin 11.8 g/dL (11.7-16.6); Lymphocytes # 1.1 10^3/uL (0.8-4.8); Lymphocytes % 16.3 %; Mean Corpuscular HGB Conc 33.4 g/dL (30.0-36.0); Mean Corpuscular Hemoglobin 30.3 pg (28.0-34.0); Mean Corpuscular Volume 90.7 fl (80-94); Mean Platelet Volume 10.5 fL (7.4-10.4); Monocytes # 0.5 10^3/uL (0.2-0.9); Neutrophils # 4.86 10^3/uL (1.8-7.7); Neutrophils % 72.7 %; Nucleated Red Blood Cells % 0 %; Platelet Count 255 10^3/cmm (130-400); Red Blood Count 3.89 10^6/uL (4.1-5.3); Red Cell Distribution Width 13.5 % (12.1-15.1); White Blood Count 6.7 10^3/uL (4.0-10.0)
[2021-01-11] MEDS: amlodipine 10 mg Tablet PO (08:42)
[2021-01-11] MEDS: metoprolol tartrate 1 mg/1 mL SDV 5 mL 5 MG IVP (08:43)
[2021-01-11] MEDS: aspirin 81 mg Chew Tablet 324 MG PO (08:52)
[2021-01-11] MEDS: lisinopril 10 mg Tablet 20 MG PO (08:53)
[2021-01-11 09:01] LABS: Troponin(5th) Baseline 44 ng/L (0-15)
[2021-01-11 09:02] LABS: Alanine Aminotransferase 17 U/L (0-41); Albumin Level 3.8 g/dL (3.5-5.2); Alkaline Phosphatase 114 IU/L (40-130); Aspartate Amino Transferase 18 U/L (0-40); Blood Urea Nitrogen 23 mg/dL (8-23); Calcium 8.8 mg/dL (8.5-10.5); Carbon Dioxide 27 mmol/L (22-29); Chloride 101 mmol/L (98-107); Glomerular Filtration Rate 61.8 mL/min (90-130); Glucose 235 mg/dL (65-115); Osmolality Calculated 299 mOsm/kg (285-295); Sodium 139 mmol/L (136-145); Total Bilirubin 0.7 mg/dL (0.15-1.2); Total Protein 6.8 g/dL (6.6-8.7)
--- NOTE | 2021-01-11 09:47 | ECG_ITS ---
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
[2021-01-11] MEDS: hyDRALAzine 20 mg/mL INJ 1 mL IVP (11:55)
[2021-01-11 12:00] LABS: Troponin 5 2HR 44.69 ng/L (0-15); Troponin 5 2HR Delta 0.69 ABS# (0-10)
--- NOTE | 2021-01-11 12:09 | PC.PHAR ---
PT STATES HE TAKES CARE OF HIS OWN MEDICATIONS-PTS VERIFIED ALL HIS MEDS
[2021-01-11 12:26] LABS: Glucose Point of Care 216 mg/dL (70-110)
--- NOTE | 2021-01-11 12:34 | XRR_ITS ---
PROCEDURE INFORMATION: Exam: XR Chest Exam date and time: 01/11/2021 12:34 PM Age: 60 years old Clinical indication: Cough and dyspnea; Additional info: Dyspnea/cough TECHNIQUE: Imaging protocol: XR of the chest. Views: 1 view. COMPARISON: No relevant prior studies available. FINDINGS: Lungs: Unremarkable. No consolidation. Pleural spaces: Unremarkable. No pleural effusion. No pneumothorax. Heart/Mediastinum: Unremarkable. No cardiomegaly. Bones/joints: Unremarkable. XR/XR chest 1V portable [id number] IMPRESSION: No acute findings. Radiation Dose CTDIVOL = (mGy): DLP = (mGy-cm)
[2021-01-11] MEDS: isosorbide mononitrate ER 60 mg Tablet PO (12:59)
--- NOTE | 2021-01-11 13:47 | ECG_ITS ---
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1960 Requested By: Tyrese Enrique Order Number: [id number] Reading MD: JEFF DANIEL Measurements Intervals [place] Rate: 78 P: 53 RI: 177 QRS: 25 QRSD: 106 T: -14 QT: 385 QTc: 439 Interpretive Statements SINUS RHYTHM INFERIOR MYOCARDIAL INFARCTION , OF INDETERMINATE AGE [40+ ms Q WAVE AND/OR ST/T ABNORMALITY IN II/aVF] Compared to ECG 01/11/2021 11:34:18 Myocardial infarct finding now present T-wave abnormality no longer present Electronically Signed On 01-11-2021 22:57:42 CDT by JEFF DANIEL [id number]
--- NOTE | 2021-01-11 14:44 | P.HP_ITS ---
Providers/Chief Complaint Primary Care Provider: Leandra Reddy MD Chief Complaint: B/P 213/94 CHEST PAINS AND SOB History of Present Illness Jack Springer is a 60 year old male with a past medical history of insulin- dependent type 2 diabetes mellitus, hypertension, hyperlipidemia, who presents to [facility] due to complaints of syncope, collapse, chest pain. Patient tells me that about a week ago, he was in his kitchen, and all of a sudden he did not feel well, he might of felt some chest palpitations, some chest tightness, he is on sure, and he slowly sliding to the floor, he denies any head trauma, but he thinks he was on the floor for about a minute, he lost consciousness, when he came to he called his , who came back from work to check up on him. Throughout the week he was not feeling well but is not anxious exactly sure why, he does report intermittent chest palpitations, intermittent chest tightness. Then on Sunday during the anglican service, he was sitting down, when all of a sudden he became pale, diaphoretic, lost consciousness, and fell forward hitting the floor, he had a significant hematoma in carpet rash on his right forehead, and around his orbit, he was passed out for about a minute to 2 minutes, his witnessed this, no preceding seizure-like episodes, no postictal confusion, no strokelike symptoms, no facial droop, no slurring of his words, he immediately came back to consciousness, on the floor he did look quite pale, diaphoretic, were unsure if he had a pulse, or about his breathing status. He does tell me that before passing out he did feel a bit lightheaded and feels unwell. He tells me that when he got home, he continued to have intermittent episodes of chest tightness, and the chest chest tightness and the feeling unwell only increased throughout the morning. In the emergency room, his baseline troponin was 44, EKG no acute ST-T wave changes, hospitalist team was called for admission for chest pain. Review of Systems Const: Reports: malaise; Denies: fever(s), chills or fatigue Eyes: Denies: change in vision or blurry vision ENMT: Denies: nasal congestion Card: Reports: chest pain, palpitations, lightheadedness and syncope; Denies: edema, dyspnea on exertion or orthopnea Resp: Denies: dyspnea, productive cough, non-productive cough or wheezing GI: Denies: abdominal pain, nausea, vomiting, hematemesis, diarrhea, cons tipation, hematochezia or melena : Denies: flank pain, difficulty urinating, dysuria or urinary frequency Musc: Denies: neck pain or back pain Skin/Breast: Denies: rash Neuro: Denies: headache(s), dizziness or vertigo Psych: Denies: anxiety or depression Endo: Denies: polyuria or polydipsia Medications/Allergies Home Medications Medication Instructions Recorded Confirmed Last Taken Type aspirin 81 mg tablet,delayed 81 mg PO BID 06/10/19 01/11/21 01/11/21 06:00 History release B-complex with vitamin C 1 tab PO DAILY 03/09/20 01/11/21 01/10/21 History hydrochlorothiazide 12.5 mg tablet 12.5 mg PO BID 90 Days #180 tab 03/29/20 01/11/21 01/11/21 06:00 Rx Levemir U-100 Insulin 80 unit SUBCUT BID 05/04/20 01/11/21 01/10/21 History ascorbic acid (vitamin C) [Vitamin 1,000 mg PO DAILY 05/04/20 01/11/21 01/10/21 History C] insulin aspart U-100 [Novolog 40 unit SUBCUT BID 05/04/20 01/11/21 01/10/21 History U-100 Insulin aspart] metformin 500 mg tablet 500 mg PO BID 30 Days #60 tab 07/06/20 01/11/21 01/10/21 Rx lisinopril 20 mg PO BID 01/11/21 01/11/21 01/11/21 06:00 History magnesium oxide 400 mg PO DAILY 01/11/21 01/11/21 Unknown History melatonin 10 mg PO BEDTIME 01/11/21 01/11/21 Unknown History metoprolol tartrate 100 mg PO QAM 01/11/21 01/11/21 01/10/21 History morinda citrifolia fruit [Kamilla] 250 mg PO BEDTIME 01/11/21 01/11/21 01/10/21 History multivitamin 1 tab PO QAM 01/11/21 01/11/21 Unknown History potassium gluconate 595 mg PO DAILY 01/11/21 01/11/21 01/10/21 History simvastatin 40 mg PO QAM 01/11/21 01/11/21 01/10/21 History sitagliptin [Januvia] 50 mg PO QAM 01/11/21 01/11/21 01/10/21 History Allergies Allergy/AdvReac Type Severity Reaction Status Date / Time No Known Allergies Allergy Verified 12/01/20 15:40 PFSH Acute PFSH: Medical History Acquired absence of other toe(s), unspecified side Cellulitis and abscess of foot Charcot ankle Closed displaced fracture of navicular bone of right foot with routine healing Controlled diabetes mellitus with diabetic polyneuropathy, with long-term current use of insulin COVID-19 virus infection Hypercholesteremia Hyperchylomicronemia Hypertension Onychodystrophy Other deformities of toe(s) (acquired), left foot Polyneuropathy, unspecified Tick fever Type 2 diabetes mellitus Surgical History History of foot surgery History of knee surgery Status post colonoscopy (05/05/20) normal Family History Other CAD (coronary artery disease) Cancer Diabetes Hypertension Denies family history of Clotting disorder Dementia Hyperlipidemia Psychiatric illness Chronic kidney disease (CKD) Suicide Anesthesia complication Bleeding disorder Family history of premature coronary artery disease Lung disease Stroke Social History Smoking and tobacco status: former smoker Second hand smoke exposure: No Alcohol intake: never Vitals/I&O/Wt Last Vital Signs Temp 98.6 F 01/11/21 08:00 Pulse 77 01/11/21 13:00 Resp 17 01/11/21 12:11 BP 207/91 01/11/21 13:00 Pulse Ox 96 01/11/21 13:00 Weight last 48 hrs Weight 145.15 kg Physical Exam Const: COMMON NORMALS: no acute distress and patient oriented x3 GENERAL APPEARANCE: cooperative and comfortable HENMT: COMMON NORMALS: normocephalic HEAD & SCALP: normocephalic Eye: COMMON NORMALS: Equal, round and reactive pupils present and EOMs intact bilaterally GENERAL EYE: appearance normal, both eyes and all related structures PUPIL: Yes Equal, round and reactive pupils present Neck/C-Spine: COMMON NORMALS: full ROM, no lymphadenopathy, no JVD and Thyroid normal THYROID: Thyroid normal Lymph: LYMPHATIC: no lymphadenopathy noted Resp: COMMON NORMALS: normal respiratory effort, No retractions, No use of accessory muscles and clear to auscultation bilaterally AUSCULTATION: clear t o auscultation bilaterally Cardio: COMMON NORMALS: no JVD, regular rate, regular rhythm, S1 normal heart sound present, S2 normal heart sound present, No gallops present (Cardio), No clicks present (Cardio) and No murmurs present (Cardio) RATE: regular rate RHYTHM: regular rhythm HEART SOUNDS: S1 normal heart sound present and S2 normal heart sound present GI: COMMON NORMALS: Normal to inspection, nondistended, normoactive bowel sounds present, Soft to palpation, non-tender and No hepatosplenomegaly present PALPATION: Yes Soft to palpation and Yes No hepatosplenomegaly present Extremity: COMMON NORMALS: normal to inspection, full ROM and no pedal edema Neuro: COMMON NORMALS: patient oriented x3, CN's II-XII intact bilaterally, moves all extremities and no focal motor deficits Psych: COMMON NORMALS: mental status grossly normal, Normal thought process present and cooperative THOUGHT PROCESS: Normal thought process present Skin: NARRATIVE SKIN EXAM: Patient has a periorbital hematoma, with superficial rash or irritation around her forehead Left lower extremity, big toe, 1 x 1cm erythema, Data : 01/11/21 08:20 01/11/21 08:20 A&P Assessment and plan (1) Syncope and collapse: -Concerning for cardiac etiology, ventricular arrhythmia, NSTEMI, cardiac event Plan: -Admit to cardiac stepdown unit -Currently on nitro drip for hypertensive urgency -Aspirin, statin, beta-sinan, therapeutic Lovenox -Cardiac echo, carotid artery ultrasound -Serial EKGs, serial troponins, monitor for chest pain -Neurochecks -Cardiology consulted for consideration of cardiac catheterization -Full code -Lovenox for DVT prophylaxis Hypertensive urgency, start nitro drip, goal is to lower mean arterial pressure by 25% for the first 2 to 4 hours, goal less than 160/100 Chest pain, as above Type 2 diabetes mellitus, continue Levemir 60 units twice daily, NovoLog 30 units twice daily Hypertension, continue home medications Status: Acute (2) Type 2 diabetes mellitus: Status: Acute Qualifiers: Diabetes mellitus director long term care insulin use: with director long term care use Diabetes mellitus complication status: with hyperglycemia Qualified Code(s): E11.65 - Type 2 diabetes mellitus with hyperglycemia; Z79.4 - 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 (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) use of insulin (3) Hypercholesteremia: Status: Acute (4) Hypertension: Status: Acute Qualifiers: Hypertension type: essential hypertension Qualified Code(s): I10 - Essential (primary) hypertension (5) PVD (peripheral vascular disease): Status: Acute (6) Chest pain: Status: Acute Attestations Medical Necessity Statement*: Requires hospitalization, outpatient with ob servation, for syncope and collapse, chest pain Coding Level of Care Code Acute Negative Spotter for [facility] Fwd Diagnoses Syncope and collapse R55 Type 2 diabetes mellitus E11.65; Z79.4 Diabetes mellitus director long term care insulin use: with jail use Diabetes mellitus complication status: with hyperglycemia Hypercholesteremia E78.00 Hypertension I10 Hypertension type: essential hypertension PVD (peripheral vascular disease) I73.9 Chest pain R07.9
[2021-01-11 15:09] LABS: Magnesium 1.9 mg/dL (1.7-2.3); NT Pro B Type Natriuretic Pept 2105 pg/mL (0-125); Thyroid Stimulating Hormone 4.53 uIU/mL (0.27-4.20)
--- NOTE | 2021-01-11 17:20 | P.CONIM_ITS ---
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 Patient has big bruise around the right eye. According to the patient this is second time when he passed out first time few weeks ago while walking around in his kitchen, this time patient was not feeling well he was little bit sick to stomach because of the constipation sitting in restorationist and all of a sudden his noted him to be on the floor he was out of conscious for 2 minutes. Today they decided to come to emergency room. He was admitted for further evaluation. We have been asked to assist in his care. According to patient occasionally he feels some chest pressure but he denies any chest pain per se. He denies any exertional component to it he denies any chest pain with diaphoresis or any referred pain to the arm or jaw. He denies any palpitation pounding or racing of the heart. Twelve-lead EKG is not significant for any ST?T changes suggestive of ischemia at the moment. There is no significant bump in the troponin, however it is borderline elevated. He was also noted to have high BNP. Review of Systems Const: Reports: malaise; Denies: fever(s), chills, fatigue or diaphoresis Eyes: Denies: change in vision, blurry vision or photophobia ENMT: Denies: throat pain, ear or mastoid pain, nasal discharge or nasal congestion Card: Reports: chest pain, palpitations, lightheadedness and syncope; Denies: edema, dyspnea on exertion or orthopnea Resp: Denies: dyspnea, productive cough, non-productive cough or wheezing GI: Denies: abdominal pain, nausea, vomiting, hematemesis, diarrhea, constipation, hematochezia or melena : Denies: flank pain, difficulty urinating, dysuria, urinary frequency or urinary urgency Musc: Denies: neck pain, back pain or joint warmth Skin/Breast: Denies: rash or pruritus Neuro: Denies: headache(s), dizziness or vertigo Psych: Denies: anxiety or depression Endo: Denies: polyuria or polydipsia All/Imm: Denies: acute wheezing Meds/Allergies Home Medications and Allergies Home Medications Medication Instructions Recorded Confirmed Last Taken Type aspirin 81 mg tablet,delayed 81 mg PO BID 06/10/19 01/11/21 01/11/21 06:00 History release B-complex with vitamin C 1 tab PO DAILY 03/09/20 01/11/21 01/10/21 History hydrochlorothiazide 12.5 mg tablet 12.5 mg PO BID 90 Days #180 tab 03/29/20 01/11/21 01/11/21 06:00 Rx Levemir U-100 Insulin 80 unit SUBCUT BID 05/04/20 01/11/21 01/10/21 History ascorbic acid (vitamin C) [Vitamin 1,000 mg PO DAILY 05/04/20 01/11/21 01/10/21 History C] insulin aspart U-100 [Novolog 40 unit SUBCUT BID 05/04/20 01/11/21 01/10/21 History U-100 Insulin aspart] metformin 500 mg tablet 500 mg PO BID 30 Days #60 tab 07/06/20 01/11/21 01/10/21 Rx lisinopril 20 mg PO BID 01/11/21 01/11/21 01/11/21 06:00 History magnesium oxide 400 mg PO DAILY 01/11/21 01/11/21 Unknown History melatonin 10 mg PO BEDTIME 01/11/21 01/11/21 Unknown History metoprolol tartrate 100 mg PO QAM 01/11/21 01/11/21 01/10/21 History morinda citrifolia fruit [Kamilla] 250 mg PO BEDTIME 01/11/21 01/11/21 01/10/21 History multivitamin 1 tab PO QAM 01/11/21 01/11/21 Unknown History potassium gluconate 595 mg PO DAILY 01/11/21 01/11/21 01/10/21 History simvastatin 40 mg PO QAM 01/11/21 01/11/21 01/10/21 History sitagliptin [Januvia] 50 mg PO QAM 01/11/21 01/11/21 01/10/21 History Allergies Allergy/AdvReac Type Severity Reaction Status Date / Time No Known Allergies Allergy Verified 12/01/20 15:40 PFSH Acute PFSH: Medical History Acquired absence of other toe(s), unspecified side Cellulitis and abscess of foot Charcot ankle Closed displaced fracture of navicular bone of right foot with routine healing Controlled diabetes mellitus with diabetic polyneuropathy, with long-term current use of insulin COVID-19 virus infection Hypercholesteremia Hyperchylomicronemia Hypertension Onychodystrophy Other deformities of toe(s) (acquired), left foot Polyneuropathy, unspecified Tick fever Type 2 diabetes mellitus Surgical History History of foot surgery History of knee surgery Status post colonoscopy (05/05/20) normal Family History Other CAD (coronary artery disease) Cancer Diabetes Hypertension Denies family history of Clotting disorder Dementia Hyperlipidemia Psychiatric illness Chronic kidney disease (CKD) Suicide Anesthesia complication Bleeding disorder Family history of premature coronary artery disease Lung disease Stroke Social History Smoking and tobacco status: former smoker Second hand smoke exposure: No Alcohol intake: never Vitals/I&O/Wt Last Vital Signs Temp 98.6 F 01/11/21 08:00 Pulse 81 01/11/21 16:54 Resp 16 01/11/21 16:54 BP 173/83 01/11/21 16:54 Pulse Ox 92 01/11/21 16:54 Weight last 48 hrs Weight 320 lb Physical Exam Narrative: EXAM NARRATIVE: GENERAL: Patient is alert, awake and oriented x3. NECK: No jugular vein distension. HEENT: No cyanosis. No icterus. No pallor. HEART: Regular S1 and S2. No murmur, rub or gallop. LUNGS: Clear to auscultate bilaterally. ABDOMEN: Soft, nontender and nondistended. Positive bowel sounds. No guarding, rebound or tenderness. CENTRAL NERVOUS SYSTEM: Grossly nonfocal. EXTREMITIES: Lower extremities without edema bilaterally. A&P Assessment and plan (1) Syncope: It appeared to me that patient may have vagal syncope however cannot rule out arrhythmia therefore we will will monitor patient on telemetry. I would like to ask for echocardiogram to assess LV function wall motion abnormality or any valvular abnormality or any structural heart problem that can lead to syncope. Further plan will be devised Status: Acute Qualifiers: Syncope type: unspecified Qualified Code(s): R55 - Syncope and collapse (2) Hypertension: Blood pressure not well controlled we will optimize medicine. Status: Acute Qualifiers: Hypertension type: unspecified Qualified Code(s): I10 - Essential (primary) hypertension (3) Hypercholesteremia: Advised continuing atorvastatin Status: Acute (4) CHF (congestive heart failure): Patient BNP is elevated patient may have slight decompensated heart failure will diurese with 40 mg of IV Lasix. Will ask for echocardiogram to assess LV function. Once reviewing the echo data and telemetry data will decide regarding patient may need to be ruled out from ischemic perspective such as stress test versus left heart cath. Status: Acute Qualifiers: Heart failure chronicity: chronic Heart failure type: unspecified Qualified Code(s): I50.9 - Heart failure, unspecified Consult Attestations Medical Necessity Statement: Patient require continuation hospitalization for above defined care. 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
--- NOTE | 2021-01-11 17:30 | PC.NURSE ---
Pt admitted to room 112-2. Pt resp even and non-labored no distress noted. Pts right eye bruised with abrasion on right side of forehead. Pt stated he fell in latter-day. Pt had no c/o pain or discomfort at the present time. No needs voiced. Call light in reach.
[2021-01-11] MEDS: enoxaparin 150 mg/mL Syringe SUBCUT (20:34)
[2021-01-11] MEDS: docusate sodium 100 mg Capsule PO (20:34)
[2021-01-11] MEDS: famotidine 20 mg Tablet PO (20:34)
[2021-01-11] MEDS: lactulose oral liq 20 gm/30 mL UDC 10 GM PO (20:34)
[2021-01-11] MEDS: lisinopril 20 mg Tablet PO (20:34)
[2021-01-11] MEDS: insulin lispro 100 unit/1 mL 40 UNIT SUBCUT (20:35)
[2021-01-11 21:02] LABS: Glucose Point of Care 307 mg/dL (70-110)
--- NOTE | 2021-01-11 21:52 | PC.NURSE ---
Dr. Laurent notified of patient asking for something to help him sleep. Patient takes Melatonin at home, but we do not carry it in our pharmacy. Ordered Xanax x1.
[2021-01-11] MEDS: ALPRAZolam 0.5 mg Tablet 0.25 MG PO (22:24)
[2021-01-11] MEDS: nitroglycerin drip 50 MG/250 ML PREMIX IV (22:35)
[2021-01-12] VITALS (29 sets, daily range): BP systolic 144–189; BP diastolic 65–88; PULSE 63–81; RESP 12–18; TEMP 36.4–36.9; O2SAT 92–94
--- NOTE | 2021-01-12 02:14 | PC.NURSE ---
Patient c/o chest pain around 2300, stating that it's not bad, it just feels like an ache. One hour later, the pain was gone.
[2021-01-12] MEDS: multivitamin therapeutic Tablet 1 TAB PO (04:38)
[2021-01-12] MEDS: enoxaparin 150 mg/mL Syringe SUBCUT ×2 (04:38→17:31)
[2021-01-12] MEDS: atorvastatin 40 mg Tablet 20 MG PO (04:38)
[2021-01-12] MEDS: metoprolol tartrate 50 mg Tablet 100 MG PO (04:38)
[2021-01-12] MEDS: ondansetron 2 mg/ML SDV 2 mL 4 MG IVP (04:42)
[2021-01-12 04:50] LABS: Basophils # 0.1 10^3/uL (0.0-0.1); Basophils % 0.9 %; Eosinophils # 0.2 10^3/uL (0.0-0.8); Eosinophils % 2.7 %; Hemoglobin 11.5 g/dL (11.7-16.6); Lymphocytes # 1.3 10^3/uL (0.8-4.8); Mean Corpuscular HGB Conc 31.9 g/dL (30.0-36.0); Mean Corpuscular Hemoglobin 29.9 pg (28.0-34.0); Mean Corpuscular Volume 93.5 fl (80-94); Mean Platelet Volume 10.3 fL (7.4-10.4); Monocytes # 0.6 10^3/uL (0.2-0.9); Monocytes % 9.5 %; Neutrophils # 4.14 10^3/uL (1.8-7.7); Neutrophils % 65.3 %; Nucleated Red Blood Cells % 0 %; Platelet Count 257 10^3/cmm (130-400); Red Blood Count 3.85 10^6/uL (4.1-5.3); Red Cell Distribution Width 13.8 % (12.1-15.1); White Blood Count 6.3 10^3/uL (4.0-10.0)
[2021-01-12 05:10] LABS: Anion Gap 15.7 (5-19); Blood Urea Nitrogen 22 mg/dL (8-23); Calcium 8.8 mg/dL (8.5-10.5); Carbon Dioxide 25 mmol/L (22-29); Chloride 104 mmol/L (98-107); Glomerular Filtration Rate 47.7 mL/min (90-130); Glucose 127 mg/dL (65-115); Osmolality Calculated 297 mOsm/kg (285-295); Potassium 3.7 mmol/L (3.5-5.1); Sodium 141 mmol/L (136-145)
[2021-01-12 06:08] LABS: Glucose Point of Care 175 mg/dL (70-110)
[2021-01-12] MEDS: docusate sodium 100 mg Capsule PO ×2 (08:29→17:30)
[2021-01-12] MEDS: b-complex-vitamin c Tablet 1 EACH PO (08:29)
[2021-01-12] MEDS: ascorbic acid 500 mg Tablet 1000 MG PO (08:29)
[2021-01-12] MEDS: lisinopril 20 mg Tablet PO (08:29)
[2021-01-12] MEDS: magnesium oxide 400 mg tablet PO (08:29)
[2021-01-12] MEDS: famotidine 20 mg Tablet PO ×2 (08:30→17:30)
[2021-01-12] MEDS: aspirin 81 mg EC Tablet PO (08:30)
[2021-01-12] MEDS: insulin lispro 100 unit/1 mL 40 UNIT SUBCUT ×2 (08:31→17:31)
[2021-01-12] MEDS: hyDRALAzine 10 mg Tablet PO ×3 (08:48→20:02)
[2021-01-12] MEDS: polyethylene glycol 3350 Pkt 17 gm PO (08:48)
--- NOTE | 2021-01-12 09:20 | PC.NURSE ---
Pts BP 124/51 Pts nitro drip titrated down to 30mcg/min at approximately 0855.
--- NOTE | 2021-01-12 09:41 | PC.CHAP ---
Pastoral Care Encounter/Spiritual Assessment Type of Contact [] Declined sock mender visit [] Patient/Family/Request visit [] Outpatient visit [] Follow-up visit [] Physician referral [] Code/Alert [x] Routine visit [] Staff referral [] Actively dying [] Patient sleeping [] Family support [] [] Out of room [] Palliative care [] [x] Receiving care in room [] Pre-surgical visit [] Trauma [] Long length of stay [] ICU visit [] Other: Relational/Emotional Strength [] Patient feels connected with others/family/visitors/staff [] Distress [] Loneliness/isolation [] Abandonment Spirituality of Patient [] Person of Shona [] Attends Faith of their Sh[place] [] Believes in Prayer [] Reads Bible or Sabianism materials [] There are Spiritual issues to be addressed Supervisor [place]mill Interventions [x] Prayer [] Active listening [] Non-anxious presence [] Spiritual/emotional support [] Crisis/trauma care [] Spiritual counseling [] Bereavement support [] Provided bereavement packet [] Provided Bible/devotional materials [] Provided toy/stuffed animal, coloring book to patient or family member [] Provided Communion [] Anointing/[place] [] Salvation [x] Completed spiritual assessment [] Other: Impact on Illness or Injury [] Angry [] Fearful [] Anxious [] Often cries [] Exhaustion [] Unable to work [] Unable to attend sikh [] Unable to walk/stand [] Unable to read [] Unable to drive [] Unable to eat/drink [] Unable to sleep [] Unable to be with family [] Patient intubated [] Other: Summary Time spent with patient
[2021-01-12 11:00] LABS: Glucose Point of Care 188 mg/dL (70-110)
[2021-01-12] MEDS: spironolactone 25 mg Tablet 50 MG PO (11:46)
--- NOTE | 2021-01-12 13:37 | PM.PN ---
Subjective Subjective: Interval history: Patient was seen this morning, he had one episode of chest tightness this morning, no lightheadedness, dizziness, no nausea, no vomiting Vitals/I&O/Wt Last Vital Signs Temp 97.5 F L 01/12/21 12:00 Pulse 65 01/12/21 12:00 Resp 12 01/12/21 12:00 BP 152/75 01/12/21 12:00 Pulse Ox 94 01/12/21 04:00 01/11/21 01/12/21 01/12/21 22:59 06:59 14:59 Intake Total 0.35 / 0.35 1250.925 / 7526.509 5294 / 1066 Balance 0.35 / 0.35 1250.925 / 8630.390 6291 / 1066 Weight last 48 hrs Weight 145.15 kg Physical Exam Const: COMMON NORMALS: no acute distress and patient oriented x3 Resp: COMMON NORMALS: normal respiratory effort, No retractions, No use of accessory muscles and clear to auscultation bilaterally AUSCULTATION: clear to auscultation bilaterally Cardio: COMMON NORMALS: regular rate, regular rhythm, S1 normal heart sound present and S2 normal heart sound present RATE: regular rate RHYTHM: regular rhythm HEART SOUNDS: S1 normal heart sound present and S2 normal heart sound present GI: COMMON NORMALS: Normal to inspection, nondistended, normoactive bowel sounds present, Soft to palpation and non-tender PALPATION: Yes Soft to palpation Extremity: COMMON NORMALS: no pedal edema Neuro: COMMON NORMALS: patient oriented x3 Psych: COMMON NORMALS: mental status grossly normal Skin: NARRATIVE SKIN EXAM: Patient has a periorbital hematoma, with superficial rash or irritation around her forehead Left lower extremity, big toe, 1 x 1cm erythema, Data : 01/12/21 04:34 01/12/21 04:34 A&P Assessment and plan (1) Syncope and collapse: -Concerning for cardiac etiology, ventricular arrhythmia, NSTEMI, cardiac event Plan: -Admit to cardiac stepdown unit -Currently on nitro drip for hypertensive urgency, being weaned off add hydralazine, spironolactone -Aspirin, statin, beta-sinan, therapeutic Lovenox -Cardiac echo, carotid artery ultrasound pending -Troponin 43.8, delta 0.[address] or T wave changes -Neurochecks -Cardiology consulted for consideration of cardiac catheterization versus stress testing -Full code -Lovenox for DVT prophylaxis Hypertensive urgency, weaning off nitro drip Chest pain, as above Type 2 diabetes mellitus, continue Levemir 60 units twice daily, NovoLog 30 units twice daily Hypertension, continue home medications Left lower extremity diabetic ulcers, consult podiatry Status: Acute (2) Type 2 diabetes mellitus: Status: Acute (3) Hypercholesteremia: Status: Acute (4) Hypertension: Status: Acute Qualifiers: Hypertension type: unspecified Qualified Code(s): I10 - Essential (primary) hypertension (5) PVD (peripheral vascular disease): Status: Acute (6) Chest pain: Status: Acute Attestations Medical Necessity Statement*: Patient requires hospitalization, inpatient, greater than 2 midnights, for syncope and collapse Coding Level of Care Code Acute Fruit Room Hand for [facility] Fwd Diagnoses Syncope and collapse R55 Type 2 diabetes mellitus E11.9 Hypercholesteremia E78.00 Hypertension I10 Hypertension type: unspecified PVD (peripheral vascular disease) I73.9 Chest pain R07.9
[2021-01-12 17:00] LABS: Glucose Point of Care 133 mg/dL (70-110)
--- NOTE | 2021-01-12 17:18 | USCV_ITS ---
Jack Springer Age: 60 Gender: M : 1960 Exam Date: 01/12/2021 06:10 Ordering Phys: Ryan Dumont MD Technologist: Cora Gordillo Exam Location: [facility] [place] Indication: Syncope BP: 159 / 71 HR: 57 Rhythm: Sinus Technical Quality: Technically difficult study MEASUREMENTS (Male / Female) Normal Values 2D ECHO LV Diastolic Diameter PLAX 4.2 cm 4.2 - 5.9 / 3.9 - 5.3 cm LV Systolic Diameter PLAX 3.0 cm IVS Diastolic Thickness 1.4 cm 0.6 - 1.0 / 0.6 - 0.9 cm IVS Systolic Thickness 1.8 cm LVPW Diastolic Thickness 1.8 cm 0.6 - 1.0 / 0.6 - 0.9 cm LVPW Systolic Thickness 2.3 cm LVOT Diameter 2.0 cm LV Ejection Fraction 2D Teich 54.3 % LV Ejection Fraction MOD 2C 39.3 % LV Ejection Fraction 2C AL 45.2 % LA Diameter 3.2 cm LA Width 3.7 cm LA Height 4.7 cm RA Width 3.3 cm RA Height 5.1 cm Aorta at Sinotubular Diameter 2.5 cm DOPPLER AV Peak Velocity 111.0 cm/s LVOT Peak Velocity 95.0 cm/s AV Area Cont Eq vti 2.5 cm squared AV Area Cont Eq pk 2.8 cm squared MV Area PHT 4.2 cm squared Mitral E to A Ratio 1.6 MV E' Velocity 54.2 cm/s Mitral E to MV E' Ratio 15.0 Mitral E to LV E' Lateral Ratio 17.1 Mitral E to LV E' Septal Ratio 13.4 TR Peak Velocity 213.0 cm/s TR Peak Gradient 18.1 mmHg TV Peak E Velocity 56.0 cm/s Right Atrial Pressure 8.0 mmHg Pulmonary Artery Systolic Pressu 26.1 mmHg PV Peak Velocity 92.0 cm/s RV Acceleration Time 0.1 s RV Ejection Time 0.3 s RV AcT/ET 0.2 FINDINGS Left Ventricle Small ventricular cavity, severe left ventricular hypertrophy of concentric type. Left ventricular ejection fraction is estimated at 65 %. Grade II/IV diastolic dysfunction, moderately elevated filling pressures. No systolic anterior motion of mitral valve was noted, left ventricle cavity near obliteration during systole however no significant LVOT obstruction noted, please note that this study suboptimal quality therefore may need transesophageal echocardiogram for further details at some point. Right Ventricle The right ventricle is normal in size and function. Right Atrium The right atrium is normal in size. Left Atrium The left atrium is normal in size. Mitral Valve Structurally normal mitral valve without significant stenosis or prolapse. There is no mitral regurgitation. Aortic Valve Structurally normal aortic valve without significant sclerosis or stenosis. There is no aortic regurgitation. Tricuspid Valve Structurally normal tricuspid valve without significant stenosis or regurgitation. Pulmonary artery systolic pressure is normal. Pulmonic Valve Structurally normal pulmonic valve without significant stenosis. There is no pulmonic regurgitation. Pericardium Normal pericardium without effusion. Aorta Normal ascending aorta dimension. CONCLUSIONS 1-Small ventricular cavity, severe left ventricular hypertrophy of concentric type. Left ventricular ejection fraction is estimated at 65 %. Grade II/IV diastolic dysfunction, moderately elevated filling pressures. No systolic anterior motion of mitral valve was noted, left ventricle cavity near obliteration during systole however no significant LVOT obstruction noted, please note that this study suboptimal quality therefore may need transesophageal echocardiogram for further details at some point. 2-No significant valve abnormalities. 3-There is no pericardial effusion. 4-Pulmonary artery systolic pressure is within normal limits. 5-Right atrial pressure is around 0-5 mm of mercury. 6-There are no prior echocardiogram studies to compare. Charlie Pardo MD (Electronically Signed) Final Date: 12 January 2021 19:38 S
--- NOTE | 2021-01-12 17:18 | USCV_ITS ---
Jack Springer Age: 60 Gender: M : 1960 Exam Date: 01/12/2021 05:50 Ordering Phys: Ryan Dumont MD Technologist: Cora Gordillo Exam Location: [facility] [place] Indication: Syncope Risk Factors: Previous Vascular Surgery: Right Brachial BP: / Left Brachial BP: / Right Left Velocity (cm/s) Spectral Plaque Velocity (cm/s) Spectral Plaque Syst/Diast Broadening Syst/Diast Broadening 68.90/ 16.60 Prox CCA 72.80 / 14.30 86.20/ 20.20 Mid CCA 75.00 / 13.20 74.60/ 9.30 Distal CCA 91.50 / 15.40 77.20/ 17.60 Prox ICA 82.70 / 18.70 66.20/ 18.70 Mid ICA 73.90 / 17.60 72.80/ 18.70 Distal ICA 44.70 / 16.10 121.30 ECA 90.40 0.90 ICA/CCA 1.10 Antegrade Vertebral Antegrade 81.05/ 22.65 cm/s 81.60/ 22.10 cm/s Tri Subclavian Tri 102.5 101.4 0 0 CONCLUSIONS Right ICA stenosis <50%. Mild atheromatous plaque right carotid bulb/ICA. Left ICA stenosis <50%. Mild atheromatous plaque left carotid bulb/ICA. Normal antegrade Doppler flow noted in the right vertebral artery. Normal antegrade Doppler flow noted in the left vertebral artery. Alvin José MD (Electronically Signed) Final Date: 12 January 2021 17:32 S
[2021-01-12] MEDS: cefdinir 300 MG CAPSULE PO (17:30)
[2021-01-12] MEDS: lactulose oral liq 20 gm/30 mL UDC PO (17:53)
[2021-01-12] MEDS: cloNIDine 0.1 mg Tablet PO (17:53)
[2021-01-12 20:30] LABS: Glucose Point of Care 122 mg/dL (70-110)
--- NOTE | 2021-01-12 22:26 | PM.PN ---
Subjective Subjective: Interval history: No overnight event recorded no arrhythmia or heart block noted on the telemetry. Vitals/I&O/Wt Last Vital Signs Temp 98.3 F 01/12/21 19:54 Pulse 79 01/12/21 19:54 Resp 12 01/12/21 19:54 BP 162/76 01/12/21 19:54 Pulse Ox 92 01/12/21 19:54 01/12/21 01/12/21 01/12/21 06:59 14:59 22:59 Intake Total 1250.925 / 6680.464 5181.6 / 1159.6 Balance 1250.925 / 0208.082 7637.6 / 1159.6 Weight last 48 hrs Weight 320 lb Physical Exam Narrative: EXAM NARRATIVE: GENERAL: Patient is alert, awake and oriented x3. NECK: No jugular vein distension. HEENT: No cyanosis. No icterus. No pallor. HEART: Regular S1 and S2. No murmur, rub or gallop. LUNGS: Clear to auscultate bilaterally. ABDOMEN: Soft, nontender and nondistended. Positive bowel sounds. No guarding, rebound or tenderness. CENTRAL NERVOUS SYSTEM: Grossly nonfocal. EXTREMITIES: Lower extremities without edema bilaterally. Data : 01/12/21 04:34 01/12/21 04:34 A&P Assessment and plan (1) Syncope: Echocardiogram is suggestive of severe left ventricle concentric hypertrophy. It may can explain syncope as patient is on diuretics, volume contraction may can lead to further sinking of cavity and LVOT obstruction. At this point we will discontinue spironolactone and hydrochlorothiazide. BNP can be misleading. We will start patient on IV fluid. 100 mL/h for next 12 hours. Status: Acute Qualifiers: Syncope type: unspecified Qualified Code(s): R55 - Syncope and collapse (2) Hypertension: Hydralazine is increased to 25 mg 3 times daily. Status: Acute Qualifiers: Hypertension type: unspecified Qualified Code(s): I10 - Essential (primary) hypertension (3) Hypercholesteremia: Advised continuing atorvastatin Status: Acute (4) CHF (congestive heart failure): Patient appeared to be dry now discontinue diuretics continue IV fluid Status: Acute Qualifiers: Heart failure type: unspecified Heart failure chronicity: chronic Qualified Code(s): I50.9 - Heart failure, unspecified (5) MATEO (acute kidney injury): Discontinue diuretics continue IV fluid Status: Acute Attestations Medical Necessity Statement*: Patient require continuation hospitalization for above defined care. 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
[2021-01-12] MEDS: hyDRALAzine 10 mg Tablet 15 MG PO (23:03)
[2021-01-12] MEDS: sodium chloride 0.9% 1,000 ML 100 ML IV (23:03)
--- NOTE | 2021-01-12 23:59 | PC.NURSE ---
Dr. Laurent notified of blood pressure of 171/81. Ordered PO Amlodipine x1.
[2021-01-13] VITALS (15 sets, daily range): BP systolic 168–192; BP diastolic 69–96; PULSE 70–85; RESP 18–26; TEMP 36.8; O2SAT 94–96
[2021-01-13] MEDS: amlodipine 10 mg Tablet PO ×2 (00:26→09:24)
--- NOTE | 2021-01-13 01:22 | PC.NURSE ---
Dr. Laurent notified of blood pressure of 185/96. Patient is asymptomatic.
--- NOTE | 2021-01-13 01:29 | PC.NURSE ---
Dr. Laurent notified of patient asking for a suppository, stating that he still has not had a bowel movement and that he feels very impacted.
--- NOTE | 2021-01-13 03:51 | PC.NURSE ---
Awaiting pharmacy to verify nitropaste and suppository.
[2021-01-13] MEDS: enoxaparin 150 mg/mL Syringe SUBCUT (04:09)
[2021-01-13] MEDS: lactulose oral liq 20 gm/30 mL UDC PO (04:09)
[2021-01-13] MEDS: bisacodyl 10 mg Supp PR (04:09)
[2021-01-13] MEDS: multivitamin therapeutic Tablet 1 TAB PO (04:09)
[2021-01-13] MEDS: nitroglycerin 1 gm/inch oint Pkt 1 INCH TOPICAL ×2 (04:09→08:51)
[2021-01-13] MEDS: atorvastatin 40 mg Tablet 20 MG PO (04:10)
[2021-01-13] MEDS: metoprolol tartrate 50 mg Tablet 100 MG PO (04:10)
[2021-01-13 06:45] LABS: Glucose Point of Care 169 mg/dL (70-110)
--- NOTE | 2021-01-13 07:22 | PM.CONSULT ---
Providers/Reason For Consult Consulting Physician/Specialty*: Jeromy Capps D.P.M. Reason for Consult*: Diabetic foot ulcer left and right foot. Attending Physician: Ryan Dumont MD Primary Care Provider: Leandra Reddy MD History of Present Illness History of Present Illness Jack Springer is a 60 year old male admitted to the hospital service due to a syncopal episode 01/11/2021 occurred at home. Due to being admitted to the hospital he missed his follow-up at wound care in regards to wounds at his feet. He has a wound at his right great toe and left second toe. He is anticipating possible discharge today. Patient denies any subjective nausea, vomiting, fever, chills, shortness of breath or chest pain. Review of Systems General: Reports: 10 or more systems reviewed and unremarkable except in HPI and below Const: Denies: fever(s) or chills Card: Denies: chest pain or palpitations Resp: Denies: productive cough GI: Denies: abdominal pain, nausea or vomiting : Denies: flank pain Musc: Reports: extremity swelling, joint pain, joint stiffness, limited range of motion and deformity Skin/Breast: Reports: nail changes and change in hair; Denies: rash or sores Neuro: Reports: numbness in extremities, sensory changes and difficulty walking Psych: Denies: suicidal ideation Mike/Lymph: Denies: easy bruising Meds/Allergies Home Medications and Allergies Home Medications Medication Instructions Recorded Confirmed Last Taken Type aspirin 81 mg tablet,delayed 81 mg PO BID 06/10/19 01/11/21 01/11/21 06:00 History release B-complex with vitamin C 1 tab PO DAILY 03/09/20 01/11/21 01/10/21 History hydrochlorothiazide 12.5 mg tablet 12.5 mg PO BID 90 Days #180 tab 03/29/20 01/11/21 01/11/21 06:00 Rx Levemir U-100 Insulin 80 unit SUBCUT BID 05/04/20 01/11/21 01/10/21 History ascorbic acid (vitamin C) [Vitamin 1,000 mg PO DAILY 05/04/20 01/11/21 01/10/21 History C] insulin aspart U-100 [Novolog 40 unit SUBCUT BID 05/04/20 01/11/21 01/10/21 History U-100 Insulin aspart] metformin 500 mg tablet 500 mg PO BID 30 Days #60 tab 07/06/20 01/11/21 01/10/21 Rx lisinopril 20 mg PO BID 01/11/21 01/11/21 01/11/21 06:00 History magnesium oxide 400 mg PO DAILY 01/11/21 01/11/21 Unknown History melatonin 10 mg PO BEDTIME 01/11/21 01/11/21 Unknown History metoprolol tartrate 100 mg PO QAM 01/11/21 01/11/21 01/10/21 History morinda citrifolia fruit [Kamilla] 250 mg PO BEDTIME 01/11/21 01/11/21 01/10/21 History multivitamin 1 tab PO QAM 01/11/21 01/11/21 Unknown History potassium gluconate 595 mg PO DAILY 01/11/21 01/11/21 01/10/21 History simvastatin 40 mg PO QAM 01/11/21 01/11/21 01/10/21 History sitagliptin [Januvia] 50 mg PO QAM 01/11/21 01/11/21 01/10/21 History Allergies Allergy/AdvReac Type Severity Reaction Status Date / Time No Known Allergies Allergy Verified 12/01/20 15:40 Current Medications Current Medications Generic Name Dose Route Start Last Admin Trade Name Freq PRN Reason Stop Dose Admin Ascorbic Acid 1,000 mg 01/12/21 09:00 01/12/21 08:29 Ascorbic Acid 500 Mg Tablet PO 1,000 mg DAILY NAM Administration Aspirin 81 mg 01/12/21 09:00 01/12/21 08:30 Aspirin 81 Mg Ec Tablet PO 81 mg DAILY NAM Administration Atorvastatin Calcium 20 mg 01/12/21 06:00 01/13/21 04:10 Atorvastatin 40 Mg Tablet PO 20 mg QAM NAM Administration Bisacodyl 10 mg 01/13/21 02:51 01/13/21 04:09 Bisacodyl 10 Mg Supp [place] 10 mg DAILY PRN Administration CONSTIPATION Cefdinir 300 mg 01/12/21 18:00 01/12/21 17:30 Cefdinir 300 Mg Capsule PO 300 mg BID NAM Administration Protocol Clonidine HCl 0.1 mg 01/12/21 18:00 01/12/21 17:53 Clonidine 0.1 Mg Tablet PO 0.1 mg BID NAM Administration Docusate Sodium 100 mg 01/11/21 18:00 01/12/21 17:30 Docusate Sodium 100 Mg Capsule PO 100 mg BID [facility] Administration Enoxaparin Sodium 150 mg 01/11/21 17:18 01/13/21 04:09 Enoxaparin 150 Mg/Ml Syringe SUBCUT 150 mg Q12H NAM Administration Famotidine 20 mg 01/11/21 18:00 01/12/21 17:30 Famotidine 20 Mg Tablet PO 20 mg BID NAM Administration Hydralazine HCl 25 mg 01/12/21 22:30 01/12/21 22:37 Hydralazine 10 Mg Tablet PO Not Given TID [facility] Sodium Chloride 1,000 mls @ 100 mls/hr 01/12/21 22:30 01/12/21 23:03 Sodium Chloride 0.9% IV 100 mls/hr .Q10H NAM Administration Insulin Detemir 60 unit 01/11/21 18:00 01/12/21 17:31 Insulin Detemir 100 Units/1 Ml SUBCUT 60 unit BID NAM Administration Insulin Human Lispro 40 unit 01/11/21 18:00 01/12/21 17:31 Insulin Lispro 100 Unit/1 Ml SUBCUT 40 unit BID NAM Administration Lactulose 20 gm 01/12/21 18:00 01/13/21 04:09 Lactulose Oral Liq 20 Gm/30 Ml Udc PO 20 gm Q12H NAM Administration Lisinopril 20 mg 01/11/21 18:00 01/12/21 08:29 Lisinopril 20 Mg Tablet PO 20 mg BID NAM Administration Magnesium Oxide 400 mg 01/12/21 09:00 01/12/21 08:29 Magnesium Oxide 400 Mg Tablet PO 400 mg DAILY NAM Administration Metoprolol Tartrate 100 mg 01/12/21 06:00 01/13/21 04:10 Metoprolol Tartrate 50 Mg Tablet PO 100 mg QAM [facility] Administration Multivitamins 1 each 01/12/21 09:00 01/12/21 08:29 N-Zqwqxsz-Vquqpyl C Tablet PO 1 each DAILY NAM Administration Multivitamins Therapeutic 1 tab 01/12/21 06:00 01/13/21 04:09 Multivitamin Therapeutic Tablet PO 1 tab QAM [facility] Administration Nitroglycerin 1 inch 01/13/21 03:00 01/13/21 04:09 Nitroglycerin 1 Gm/Inch Oint Pkt TOPICAL 1 inch Q6H NAM Administration Ondansetron HCl 4 mg 01/11/21 17:18 01/12/21 04:42 Ondansetron 2 Mg/Ml Sdv 2 Ml IVP 4 mg Q6H PRN Administration NAUSEA AND VOMITING Polyethylene Glycol 17 gm 01/12/21 09:00 01/12/21 08:48 Polyethylene Glycol 3350 Pkt 17 Gm PO 17 gm DAILY NAM Administration PFSH Acute PFSH: Medical History Acquired absence of other toe(s), unspecified side Cellulitis and abscess of foot Charcot ankle Closed displaced fracture of navicular bone of right foot with routine healing Controlled diabetes mellitus with diabetic polyneuropathy, with long-term current use of insulin COVID-19 virus infection Hypercholesteremia Hyperchylomicronemia Hypertension Onychodystrophy Other deformities of toe(s) (acquired), left foot Polyneuropathy, unspecified Tick fever Type 2 diabetes mellitus Surgical History History of foot surgery History of knee surgery Status post colonoscopy (05/05/20) normal Family History Other CAD (coronary artery disease) Cancer Diabetes Hypertension Denies family history of Clotting disorder Dementia Hyperlipidemia Psychiatric illness Chronic kidney disease (CKD) Suicide Anesthesia complication Bleeding disorder Family history of premature coronary artery disease Lung disease Stroke Social History Smoking and tobacco status: former smoker Second hand smoke exposure: No Alcohol intake: never Vitals/I&O/Wt Last Vital Signs Temp 98.3 F 01/13/21 03:51 Pulse 78 01/13/21 05:10 Resp 26 H 01/13/21 03:51 BP 168/84 01/13/21 05:28 Pulse Ox 94 01/13/21 03:51 01/12/21 01/13/21 01/13/21 22:59 06:59 14:59 Intake Total 800 / 1959.6 Output Total 1100 / 1100 Balance -300 / 859.6 Weight last 48 hrs Weight 320 lb Physical Exam Narrative: EXAM NARRATIVE: GENERAL: Patient is alert and oriented ?3 and in no acute distress. The following is a focused bilateral lower extremity exam. VASCULAR: Dorsalis pedis palpable bilaterally, posterior tibial arteries palpable. Capillary refill time less than 3 seconds to the distal hallux bilaterally. Calf is supple and nontender proximally and distally. Decreased pedal hair growth. Mild pitting edema to the lower extremities. Tested at the lower one third of the anterior tibial crest. NEUROLOGICAL: Protective sensation intact 0/10 sites, tested with [place] monofilament to bilateral feet. DERMATOLOGICAL: Grade 2 ulcer distal tuft of left second toe measures 3 mm x 3 mm x 2 mm has fibrogranular base and does not probe to bone, tunnel or undermine. No surrounding erythema no purulence. Grade 2 ulcer at the right great toe plantarly measures 1.5 cm x 1.2 cm x 0.2 cm with fibrogranular base, localized erythema without purulent drainage, does not probe to bone. Ingrowing medial border of the right great toe with mild purulence and localized erythema. No wound at the right midfoot. Chronic skin pigmentation changes in a gaiter distribution bilateral legs without open wounds. No water blisters no weeping. MUSCULOSKELETAL: Status post left second toe amputation. Digital contractures of toes 2, 4 and 5 on the left and 2 through 5 on the right. Hallux valgus bilaterally. Collapse of the medial longitudinal arch right foot, no rocker-bottom deformity. Muscle strength 5 out of 5 in all 3 cardinal planes to the bilateral foot and ankle. Data Other Data: Other data: Jack Springer 60 M [address] [id number] ReportSigned Patient: Jack Springer MUn #: [id number]: 1Acct#:[id number]/Sex: 60 / MADM Date: 01/06/21Loc: [facility]/Bed:Attending Dr: Edelmira Hernandez RN Ordering Provider/Ordering MD: Edelmira Hernandez NP Date of Service: 01/06/21 Procedure(s): XR foot RT min 3V* 92437 Accession Number(s): [id number] Report Number: [id number] WS: [id number] FOOT RIGHT TECHNIQUE: 3 views of the right foot CLINICAL INFORMATION: TYPE II DIABETES WITH FOOT ULCER, R/O OSTEOMYELITIS COMPARISON: 2019 FINDINGS: Diffuse soft tissue edema. Demineralization. Charcot joints with chronic destructive changes involving the midfoot tarsal bones and talonavicular articulation. Pes planus. Vascular calcification. No significant changes since 2019 XR/XR foot RT min 3V* 35612 IMPRESSION: 1. No definite evidence of acute osteomyelitis. 2. Neuropathic arthropathy involving the talonavicular and tarsal articulations. 3. Diffuse soft tissue edema. 4. Pes planus. 5. Demineralization. 6. Vascular calcification. Dictated By:Alvin José MDSigned By:Alvin José MDSigned Date/Time:01/06/211446DD/ [address] [id number] ReportSigned Patient: Jack Springer #: [id number]: 1960cct#:[id number]/Sex: 60 / MADM Date: 01/06/21Loc: [facility]/Bed:Attending Dr: Edelmira Hernandez RN Ordering Provider/Ordering MD: Edelmira Hernandez NP Date of Service: 01/06/21 Procedure(s): XR foot LT min 3V* 65888 Accession Number(s): [id number] Report Number: [id number] WS: [id number] FOOT LEFT TECHNIQUE: 3 views of the left foot CLINICAL INFORMATION: TYPE II DIABETES WITH FOOT ULCER, R/O OSTEOMYELITIS COMPARISON: 2019 FINDINGS: Prior amputation of the third digit at the MTP joint. Hammertoe deformities. Demineralization. Diffuse soft tissue edema. Vascular calcification. Progressed joint space narrowing involving the first DIP joint with loss of joint space and a few periarticular erosions. Periarticular lucencies in the adjacent first proximal phalanx. This is new since 2019. This may be degenerative in etiology but osteomyelitis not excluded. Recommend correlation with area of ulceration. Left second distal phalanx not well visualized due to contracture deformity. Vascular calcification. XR/XR foot LT min 3V* 89601 IMPRESSION: 1. 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 2. Progressed joint space narrowing involving the first DIP joint great toe with loss of joint space and a few periarticular erosions. Periarticular lucencies in the adjacent first proximal phalanx. This may be degenerative in etiology but osteomyelitis not excluded. Recommend correlation with area of ulceration. 3. Left second distal phalanx not well visualized due to contracture. 4. No bony destruction to indicate acute osteomyelitis. Dictated By:Alvin José MDSigned By:Alvin José MDSigned Date/Time:01/06/21 1453DD/ 1447 A&P Assessment and plan (1) History of amputation of toe: Status: Acute (2) Diabetic peripheral neuropathy associated with type 2 diabetes mellitus: Status: Acute (3) PVD (peripheral vascular disease): Status: Acute (4) Charcot's arthropathy: Status: Acute (5) Chronic ulcer of great toe of right foot with fat layer exposed: Status: Acute (6) Chronic ulcer of left foot with fat layer exposed: Status: Acute 60-year-old insulin-dependent diabetic male admitted to the hospital service for syncopal episode. I was consulted for evaluation and management of diabetic foot ulcer left and right. X-rays negative for osteomyelitis, clinically wounds do not probe to bone, stable wound at the right plantar hallux and distal tuft of the left second toe, ingrowing medial border right hallux with some purulence when nail was avulsed. Ulceration to the right hallux and left second toe sharply debrided excisionally nature utilizing a sterile dermal curette down to and including subcutaneous tissue and fat layer. Wound was debrided of hyperkeratosis, biofilm, fibrin, slough, devitalized epidermis, dermis and subcutaneous tissue. Hemostasis via manual pressure, no anesthesia was required secondary to neuropathy. Wounds were dressed with Hydrofera Blue, sterile gauze and Kerlix. Ingrowing medial border right hallux was avulsed and some purulence was encountered no remaining purulence expressed following avulsion, no anesthesia was required secondary to neuropathy patient tolerated procedure well. This was also dressed with Hydrofera Blue. Will send a 7-day course of Keflex to [facility] pharmacy for the ingrowing nail at the right hallux medial border. Patient currently scheduled follow-up in wound care he will be seen in wound care Sunday next week for continued management of bilateral diabetic foot ulcers. Patient has appointment scheduled in podiatry clinic for routine follow-up as well. Consult Attestations Medical Necessity Statement: Diabetic foot ulcer left and right, onychocryptosis. 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
--- NOTE | 2021-01-13 07:53 | PC.NURSE ---
During bedside report Pt presents sitting up in bed talking to staff. Pt had no c/o pain or discomfort at the present time. No needs voiced. Call light in reach. Will cont to monitor.
[2021-01-13] MEDS: sodium chloride 0.9% 1,000 ML 100 ML IV (08:48)
[2021-01-13] MEDS: ascorbic acid 500 mg Tablet 1000 MG PO (08:51)
[2021-01-13] MEDS: magnesium oxide 400 mg tablet PO (08:51)
[2021-01-13] MEDS: aspirin 81 mg EC Tablet PO (08:51)
[2021-01-13] MEDS: b-complex-vitamin c Tablet 1 EACH PO (08:51)
[2021-01-13] MEDS: famotidine 20 mg Tablet PO (08:51)
[2021-01-13] MEDS: docusate sodium 100 mg Capsule PO (08:51)
[2021-01-13] MEDS: cloNIDine 0.1 mg Tablet PO (08:52)
[2021-01-13] MEDS: cefdinir 300 MG CAPSULE PO (08:52)
[2021-01-13] MEDS: hyDRALAzine 10 mg Tablet 25 MG PO (08:53)
[2021-01-13] MEDS: polyethylene glycol 3350 Pkt 17 gm PO (08:54)
[2021-01-13] MEDS: insulin lispro 100 unit/1 mL 40 UNIT SUBCUT (08:54)
[2021-01-13] MEDS: magnesium citrate Btl 296 mL 150 ML PO (09:24)
[2021-01-13 09:51] LABS: Basophils # 0.1 10^3/uL (0.0-0.1); Basophils % 0.7 %; Eosinophils # 0.2 10^3/uL (0.0-0.8); Hematocrit 37.9 % (42.0-52.0); Hemoglobin 11.9 g/dL (11.7-16.6); Lymphocytes # 1.3 10^3/uL (0.8-4.8); Lymphocytes % 18.7 %; Mean Corpuscular HGB Conc 31.4 g/dL (30.0-36.0); Mean Corpuscular Hemoglobin 29.6 pg (28.0-34.0); Mean Corpuscular Volume 94.3 fl (80-94); Mean Platelet Volume 10.4 fL (7.4-10.4); Monocytes # 0.5 10^3/uL (0.2-0.9); Monocytes % 7.6 %; Neutrophils # 4.64 10^3/uL (1.8-7.7); Neutrophils % 69.4 %; Nucleated Red Blood Cells % 0 %; Platelet Count 278 10^3/cmm (130-400); Red Blood Count 4.02 10^6/uL (4.1-5.3); Red Cell Distribution Width 13.6 % (12.1-15.1); White Blood Count 6.7 10^3/uL (4.0-10.0)
[2021-01-13 10:27] LABS: Alanine Aminotransferase 11 U/L (0-41); Albumin Level 3.6 g/dL (3.5-5.2); Alkaline Phosphatase 88 IU/L (40-130); Anion Gap 12.7 (5-19); Aspartate Amino Transferase 12 U/L (0-40); Blood Urea Nitrogen 22 mg/dL (8-23); Calcium 9.1 mg/dL (8.5-10.5); Carbon Dioxide 28 mmol/L (22-29); Chloride 101 mmol/L (98-107); Globulin 2.8 g/dL (1.3-4.6); Glomerular Filtration Rate 51.7 mL/min (90-130); Glucose 276 mg/dL (65-115); Osmolality Calculated 297 mOsm/kg (285-295); Potassium 4.7 mmol/L (3.5-5.1); Sodium 137 mmol/L (136-145); Total Bilirubin 0.8 mg/dL (0.15-1.2); Total Protein 6.4 g/dL (6.6-8.7)
--- NOTE | 2021-01-13 13:33 | PM.PN ---
Subjective Subjective: Interval history: No overnight event Vitals/I&O/Wt Last Vital Signs Temp 98.3 F 01/13/21 03:51 Pulse 78 01/13/21 13:28 Resp 18 01/13/21 13:28 BP 168/84 01/13/21 13:28 Pulse Ox 96 01/13/21 13:28 01/12/21 01/13/21 01/13/21 22:59 06:59 14:59 Intake Total 800 / 1959.6 975 / 975 Output Total 1100 / 1100 175 / 175 Balance -300 / 859.6 800 / 800 Physical Exam Narrative: EXAM NARRATIVE: GENERAL: Patient is alert, awake and oriented x3. NECK: No jugular vein distension. HEENT: No cyanosis. No icterus. No pallor. HEART: Regular S1 and S2. No murmur, rub or gallop. LUNGS: Clear to auscultate bilaterally. ABDOMEN: Soft, nontender and nondistended. Positive bowel sounds. No guarding, rebound or tenderness. CENTRAL NERVOUS SYSTEM: Grossly nonfocal. EXTREMITIES: Lower extremities without edema bilaterally. Data : 01/13/21 09:23 01/13/21 09:23 A&P Assessment and plan (1) Syncope: Echocardiogram is suggestive of severe left ventricle concentric hypertrophy. It may can explain syncope as patient is on diuretics, volume contraction may can lead to further sinking of cavity and LVOT obstruction. At this point we will discontinue spironolactone and hydrochlorothiazide. BNP can be misleading. We will start patient on IV fluid. 100 mL/h for next 12 hours. Continue plan as above we will discontinue diuretics Status: Acute Qualifiers: Syncope type: unspecified Qualified Code(s): R55 - Syncope and collapse (2) Hypertension: Hydralazine is increased to 25 mg 3 times daily. [facility]imize medicine unable switch patient to valsartan and as an outpatient upon discharge we will add valsartan 160 mg daily. Status: Acute Qualifiers: Hypertension type: unspecified Qualified Code(s): I10 - Essential (primary) hypertension (3) Hypercholesteremia: Advised continuing atorvastatin Status: Acute (4) CHF (congestive heart failure): Appear to be on the dry side will discontinue any diuretics we will see him back in our clinic in couple of weeks with myself Status: Acute Qualifiers: Heart failure type: unspecified Heart failure chronicity: chronic Qualified Code(s): I50.9 - Heart failure, unspecified (5) MATEO (acute kidney injury): Discontinue diuretics continue IV fluid Status: Acute Attestations Medical Necessity Statement*: From cardiovascular perspective patient can discharge home Coding Level of Care Code Acute Compliance Field Technician for [facility] Fwd Diagnoses Syncope R55 Syncope type: unspecified Hypertension I10 Hypertension type: unspecified Hypercholesteremia E78.00 CHF (congestive heart failure) I50.9 Heart failure type: unspecified Heart failure chronicity: chronic MATEO (acute kidney injury) N17.9
--- NOTE | 2021-01-13 14:04 | P.DS_ITS ---
Discharge Providers Date of Admission: 01/11/21 12:34 Date of Discharge: January 13, 2021 Attending Provider at Admission: Ryan Dumont MD Attending Provider at Discharge: Ryan Dumont MD Primary Care Provider: Leandra Reddy MD Diagnoses at Discharge Discharge Diagnosis (1) Syncope: Status: Acute Qualifiers: Syncope type: unspecified Qualified Code(s): R55 - Syncope and collapse (2) Hypertension: Status: Acute Qualifiers: Hypertension type: unspecified Qualified Code(s): I10 - Essential (primary) hypertension (3) Hypercholesteremia: Status: Acute (4) CHF (congestive heart failure): Status: Acute Qualifiers: Heart failure chronicity: chronic Heart failure type: unspecified Qualified Code(s): I50.9 - Heart failure, unspecified (5) MATEO (acute kidney injury): Status: Acute Reason for Visit Reason for Visit: B/P 213/94 CHEST PAINS AND SOB Hospital Course Hospital Course Jack Springer is a 60 year old male with a past medical history of insulin- dependent type 2 diabetes mellitus, hypertension, hyperlipidemia, who presents to [facility] due to complaints of syncope, collapse, chest pain. Patient was admitted to [facility] for syncope and chest pain secondary to left ventricular concentric hypertrophy, with dehydration leading to volume contraction sinking of cavity and left ventricular up outflow obstruction. CT of the head was negative for acute stroke, carotid artery ultrasound did not show hemodynamically significant stenosis, no clinically significant delta troponin, EKG did show slight ST depressions in lateral leads. Patient's diuretics were discharged continued on discharge including spironolactone, hydrochlorothiazide. Patient will follow with cardiology in 1 week, discharged with event monitor, if you have recurrent syncope or chest pain come back to emergency room. For hypertensive urgency, managed with nitro drip as inpatient, discharged on clonidine 0.1 twice daily, Norvasc 10 mg daily, hydralazine 25 mg 3 times daily, valsartan 80 mg twice daily, metoprolol 100 mg daily, with close follow-up with primary care provider for recheck blood pressure Patient was also found to have diabetic wounds, bilateral lower extremities, podiatry was consulted, had bedside debridement, discharged on cefdinir for 7 remaining days, follow-up with wound care. Physical Exam Const: COMMON NORMALS: no acute distress and patient oriented x3 Resp: COMMON NORMALS: normal respiratory effort, No retractions, No use of accessory muscles and clear to auscultation bilaterally AUSCULTATION: clear to auscultation bilaterally Cardio: COMMON NORMALS: regular rate, regular rhythm, S1 normal heart sound present and S2 normal heart sound present RATE: regular rate RHYTHM: regular rhythm HEART SOUNDS: S1 normal heart sound present and S2 normal heart sound present GI: COMMON NORMALS: Normal to inspection, nondistended, normoactive bowel sounds present, Soft to palpation and non-tender PALPATION: Yes Soft to palpation Extremity: COMMON NORMALS: no pedal edema Neuro: COMMON NORMALS: patient oriented x3 Psych: COMMON NORMALS: mental status grossly normal Discharge Data Data Completed and Pending: Completed Studies During Hospitalization Category Date Time Status CT head wo con* 7 0450 Stat Cat Scan 01/11/21 08:07 Completed XR chest 1V argenis ble [id number] Stat Exams 01/11/21 12:34 Completed CV carotid duplex BI* [id number] Routine Ultrasound 01/12/21 17:18 Completed CV. echo complete * [id number] Routine Ultrasound 01/12/21 17:18 Completed Labs from last 24 hours 01/13/21 01/13/21 01/13/21 09:23 09:23 06:38 WBC 6.7 RBC 4.02 L Hgb 11.9 Hct 37.9 L MCV 94.3 H MCH 29.6 MCHC 31.4 RDW 13.6 Plt Count 278 MPV 10.4 Neut % (Auto) 69.4 Lymph % (Auto) 18.7 [place] % (Auto) 7.6 Eos % (Auto) 3.0 Baso % (Auto) 0.7 Neut # (Auto) 4.64 Lymph # (Auto) 1.3 [place] # (Auto) 0.5 Eos # (Auto) 0.2 Baso # (Auto) 0.1 Nucleated RBC % (a uto) 0 Nucleated RBCs # 0.0 Sodium 137 Potassium 4.7 Chloride 101 Carbon Dioxide 28 Anion Gap 12.7 BUN 22 Creatinine 1.4 H GFR Calculation 51.7 L Glucose 276 H POC Glucose 169 H Calculated Osmolal ity 297 H Calcium 9.1 Total Bilirubin 0.8 AST 12 ALT 11 Alkaline Phosphata se 88 Total Protein 6.4 L Albumin 3.6 Globulin 2.8 01/12/21 01/12/21 20:01 16:51 WBC RBC Hgb Hct MCV MCH MCHC RDW Plt Count MPV Neut % (Auto) Lymph % (Auto) [place] % (Auto) Eos % (Auto) Baso % (Auto) Neut # (Auto) Lymph # (Auto) [place] # (Auto) Eos # (Auto) Baso # (Auto) Nucleated RBC % (a uto) Nucleated RBCs # Sodium Potassium Chloride Carbon Dioxide Anion Gap BUN Creatinine GFR Calculation Glucose POC Glucose 122 H 133 H Calculated Osmolal ity Calcium Total Bilirubin AST ALT Alkaline Phosphata se Total Protein Albumin Globulin Vitals: Last Vital Signs Temp 98.3 F 01/13/21 03:51 Pulse 78 01/13/21 13:28 Resp 18 01/13/21 13:28 BP 168/84 01/13/21 13:28 Pulse Ox 96 01/13/21 13:28 Discharge Plan Discharge Patient Disposition: Home Condition: Stable Prescriptions: New clonidine HCl 0.1 mg Tablet 0.1 mg PO BID 30 Days Qty: 60 RF: 0 polyethylene glycol 3350 17 gram Powder In Packet 17 g PO DAILY 30 Days Qty: 30 RF: 0 amlodipine 10 mg Tablet 10 mg PO DAILY 30 Days Qty: 30 RF: 0 cefdinir 300 mg Capsule 300 mg PO BID 7 Days Qty: 14 RF: 0 hydralazine 25 mg tablet 25 mg PO TID 30 Days Qty: 90 RF: 0 valsartan 80 mg tablet 80 mg PO BID Qty: 60 RF: 4 Continued B-complex with vitamin C [Super B Complex-Vitamin C] Tablet 1 tab PO DAILY RF: 0 aspirin 81 mg tablet,delayed release (DR/EC) 81 mg PO BID RF: 0 metformin 500 mg tablet 500 mg PO BID 30 Days Qty: 60 RF: 5 ascorbic acid (vitamin C) [Vitamin C] 1,000 mg Tablet 1,000 mg PO DAILY RF: 0 insulin aspart U-100 [Novolog U-100 Insulin aspart] 100 unit/mL solution 40 unit SUBCUT BID RF: 0 Levemir U-100 Insulin 100 unit/mL solution 80 unit SUBCUT BID RF: 0 multivitamin Tablet 1 tab PO QAM RF: 0 potassium gluconate 595 mg (99 mg) Tablet 595 mg PO DAILY RF: 0 morinda citrifolia fruit 250 mg Capsule 250 mg PO BEDTIME RF: 0 melatonin 10 mg Tablet 10 mg PO BEDTIME RF: 0 magnesium oxide 200 mg magnesium Tablet 400 mg PO DAILY RF: 0 metoprolol tartrate 100 mg tablet 100 mg PO QAM RF: 0 simvastatin 40 mg tablet 40 mg PO QAM RF: 0 Januvia 50 mg tablet 50 mg PO QAM RF: 0 Discontinued hydrochlorothiazide 12.5 mg tablet 12.5 mg PO BID 90 Days Qty: 180 RF: 3 lisinopril 20 mg tablet 20 mg PO BID RF: 0 Discharge Orders: Discharge Order (Routine); Ordered 01/13/21 Ordered By: Ryan Dumont Other Ambulatory Orders: CA cardiac event monitor (Routine) Timeframe: 1 Day Facility: [facility] - Location: Cardiac Diagnostic Laboratory Ordered By: Ryan Dumont Referrals: Barbara Irvin FNP [Nurse Practitioner] - 01/20/21 12:45 pm (You have an appointment with MINERVA Lemon at [facility] on , January 20 12:45pm) WOUND [facility]ARE [facility], [Staff Physician] - 01/18/21 1:15 pm (Please keep your appintment at Wound Care on January 18 at 1:15pm [phone]) Discharge Diet: Cardiac Discharge Activity: Resume usual activity Patient Instructions: Lisinopril (By mouth), Clonidine (By mouth), Hydralazine (By mouth), Amlodipine (By mouth), Cefdinir (By mouth), Polyethylene Glycol 3350 (By mouth), Opioid Safety Activity Restrictions/Additional Instructions: -For now avoid Lasix or diuretics -If you have recurrent syncopal episodes please go to the emergency room -Monitor blood pressures twice daily, bring blood pressure log to primary care physician's office -Follow-up with wound care Upon Discharge, Please go directly Down to Heart Care Services to bw fitted with a Cardiac Event Monitor. Thank you Discharge Attestations Time Spent in Discharge Care*: less than 30 min Quality Metrics Clinical Quality Measures During this hospital stay, did patient experience: None Coding Level of Care Code Acute Chg FW DC note Exam Detailed Diagnoses Syncope R55 Syncope type: unspecified Hypertension I10 Hypertension type: unspecified Hypercholesteremia E78.00 CHF (congestive heart failure) I50.9 Heart failure chronicity: chronic Heart failure type: unspecified MATEO (acute kidney injury) N17.9
--- NOTE | 2021-01-13 14:45 | PC.NURSE ---
Pt discharged home. IV removed no redness or swelling noted. Pts discharge instructions given along with prescriptions and follow up appointments. Pt had no c/o pain or discomfort at the time of discharge.
== END 2021-01-13 14:40 | disposition home or self-care (01) ==
LOC: ER 13:16 → CSU 15:57
PROVIDERS: Admitting Provider Family Medicine; Emergency Provider Family Medicine; PCP Family Medicine; Visit Provider Family Medicine
DX: R55 Syncope and collapse (principal); E78.00 Pure hypercholesterolemia, unspecified; I11.0 Hypertensive heart disease with heart failure; I50.9 Heart failure, unspecified; N17.9 Acute kidney failure, unspecified; E11.42 Type 2 diabetes mellitus with diabetic polyneuropathy; E78.5 Hyperlipidemia, unspecified; Z79.82 Long term (current) use of aspirin; Z79.4 Long term (current) use of insulin; Z89.429 Acquired absence of other toe(s), unspecified side; I73.9 Peripheral vascular disease, unspecified; M14.60 Charcot's joint, unspecified site; L97.512 Non-pressure chronic ulcer of other part of right foot with fat layer exposed; L97.522 Non-pressure chronic ulcer of other part of left foot with fat layer exposed; I65.23 Occlusion and stenosis of bilateral carotid arteries; Z86.16 Personal history of COVID-19; Z82.49 Family history of ischemic heart disease and other diseases of the circulatory system; Z83.3 Family history of diabetes mellitus; Z87.891 Personal history of nicotine dependence
CPT/HCPCS: 36415; 36416; 70450; 71045; 80048; 80053; 82962; 83735; 83880; 84443; 84484; 85025; 93005; 93306; 93880; 96361; 96365; 96366; 96372; 96375; 99285; G0378; J0360; J1650; J1815; J2405; J3490; J7030

== ENCOUNTER 2021-01-25 08:23 | Outpatient (CLI) | payer MEDICARE, SELFPAY | END 2021-01-25 08:24 | disposition home or self-care (01) | LOC: WOUND 08:24 | PROVIDERS: PCP Family Medicine; Visit Provider Thoracic Surgery (Cardiothoracic Vascular Surgery) | DX: E11.621 Type 2 diabetes mellitus with foot ulcer (principal); L97.512 Non-pressure chronic ulcer of other part of right foot with fat layer exposed; L97.521 Non-pressure chronic ulcer of other part of left foot limited to breakdown of skin; I10 Essential (primary) hypertension; Z87.891 Personal history of nicotine dependence | CPT/HCPCS: 11042; 97597 ==

== ENCOUNTER 2021-01-27 08:46 | Outpatient (CLI) | payer MEDICARE, SELFPAY ==
--- NOTE | 2021-01-27 08:53 | USCV_ITS ---
Jack Springer Age: 60 Gender: M : 1960 Exam Date: 01/27/2021 09:26 Ordering Phys: Edelmira Hernandez RN Technologist: Anayeli Carlos [place] [facility] [place]: HISTORY: Lower extremity swelling. PROCEDURES: Venous duplex imaging was performed in bilateral lower extremities. Serial compression, augmentation maneuvers, and spectral Doppler flow evaluation were performed. Grayscale and doppler images were obtained. Reflux maneuvers were performed with patient in the standing position. Bilateral duplex Venous Insufficiency study of the Deep and Superficial systems was carried out according to normal protocol with the patient in supine positon for deep system and dependent position for the superficial system. FINDINGS: Significant venous reflux were noted of the right popliteal, distal to the greater saphenous and below-knee greater saphenous vein segments. On the left side, significant venous reflux were noted to the mid, distal and below-knee segments of the greater saphenous vein CONCLUSIONS 1. Significant venous reflux of greater than 500 ms were noted in the right popliteal vein. 2. Significant venous reflux were noted at the distal and below-knee segments of the greater saphenous vein on the right side. However these segments were found to be less than 1 cm deep from the surface. 3. On the left side, no significant of deep venous reflux were noted. The mid, distal and below-knee greater saphenous vein segments were found to have significant reflux. The venous segments where greater than 1 cm at the mid and distal greater saphenous vein segment. Below knee segment of the greater saphenous vein was found to be less than 1 cm deep from the surface. 4. The reflux time were found to be greater than 2000 ms bilaterally in the superficial veins. The venous segments were measuring .35 to 0[address] Cory Gomez MD [facility] (Electronically Signed) Final Date: 28 January 2021 00:59 S
== END 2021-01-27 08:47 | disposition home or self-care (01) ==
LOC: RAD 08:49
PROVIDERS: PCP Family Medicine; Visit Provider Nurse Practitioner Family
DX: E11.621 Type 2 diabetes mellitus with foot ulcer (principal); M79.89 Other specified soft tissue disorders; I87.2 Venous insufficiency (chronic) (peripheral)
CPT/HCPCS: 93970

== ENCOUNTER 2021-02-01 14:34 | Outpatient (CLI) | payer MEDICARE, SELFPAY | END 2021-02-01 14:35 | disposition home or self-care (01) | LOC: WOUND 14:35 | PROVIDERS: PCP Family Medicine; Visit Provider Thoracic Surgery (Cardiothoracic Vascular Surgery) | DX: E11.621 Type 2 diabetes mellitus with foot ulcer (principal); L97.511 Non-pressure chronic ulcer of other part of right foot limited to breakdown of skin; L97.521 Non-pressure chronic ulcer of other part of left foot limited to breakdown of skin; Z87.891 Personal history of nicotine dependence | CPT/HCPCS: 97597 ==

== ENCOUNTER 2021-02-07 08:46 | Outpatient (CLI) | payer MEDICARE, SELFPAY ==
--- NOTE | 2021-02-07 09:30 | USCV_ITS ---
Racheal Jack Age: 60 Gender: M : 1960 Exam Date: 02/07/2021 09:38 Ordering Phys: Edelmira Hernandez RN Technologist: Yuki Ewing [place] [facility] [facility] [place]ication: bilateral toe ulcers , diabetes Risk Factors: diabetes, foot ulcer, bilateral Previous Vascular Surgery: RIGHT LEFT BP: 195.0 / BP: 195.0/ 0 0 Waveform Velocity (cm/s) Velocity (cm/s) Waveform Triphasic 78.0 Iliac Prox 134.9 Triphasic Triphasic 90.0 Iliac Mid 145.7 Triphasic Triphasic 77.0 Iliac Distal 131.3 Triphasic Triphasic 83.7 DIE ATTACHING MACHINE TENDER 101.0 Triphasic Triphasic 82.7 SFA Prox 153.8 Triphasic Triphasic 93.7 SFA Mid 118.1 Triphasic Triphasic 83.8 SFA Dist 88.7 Triphasic Triphasic 47.4 POP 102.5 Triphasic Biphasic 154.7 BAND MAKER 102.5 Biphasic Monophasic 91.7 DPA 28.9 Monophasic FINDINGS pressures greater than 220 bilaterally. No LORELEI done TBI and pressures are on separate study Polyphasic waveforms bilaterally Noncompressible vessels at the ankle bilaterally CONCLUSIONS 1. Patent iliac, femoral, popliteal and infrapopliteal vessels bilaterally with no evidence of any significant obstruction Dr Cory Gomez MD [facility] (Electronically Signed) Final Date: 07 February 2021 20:36 S
== END 2021-02-07 08:47 | disposition home or self-care (01) ==
LOC: US 08:49
PROVIDERS: PCP Family Medicine; Visit Provider Nurse Practitioner Family
DX: E11.621 Type 2 diabetes mellitus with foot ulcer (principal); L97.529 Non-pressure chronic ulcer of other part of left foot with unspecified severity; L97.519 Non-pressure chronic ulcer of other part of right foot with unspecified severity
CPT/HCPCS: 93925

== ENCOUNTER 2021-02-08 08:12 | Outpatient (CLI) | payer MEDICARE, SELFPAY | END 2021-02-08 08:13 | disposition home or self-care (01) | PROVIDERS: PCP Family Medicine; Visit Provider Emergency Medicine | DX: E11.621 Type 2 diabetes mellitus with foot ulcer (principal); L97.522 Non-pressure chronic ulcer of other part of left foot with fat layer exposed; I10 Essential (primary) hypertension; Z87.891 Personal history of nicotine dependence; R60.0 Localized edema | CPT/HCPCS: 11042; 73630; 87070; 87176; 87205; 99212 ==

== ENCOUNTER 2021-02-08 13:23 | Outpatient (CLI) | payer MEDICARE, SELFPAY ==
--- NOTE | 2021-02-08 13:51 | XR_ITS ---
WS: [id number] LEFT FOOT: 3 VIEW(S) TECHNIQUE: AP, oblique and lateral. HISTORY: TYPE II DIABETES MELLITUS WITH FOOT ULCER COMPARISON: 05/09/2020 Marked deformity with hyperflexion at the second DIP joint. There is overlying soft tissue swelling a round the distal second toe. No acute fracture is identified. Severe joint space narrowing at the fir st IP joint with partial subluxation. The lucency at the head of the proximal phalanx is similar to t he prior study. Prior amputation of the third toe. Extensive soft tissue edema. Extensive peripheral arterial calcifications. XR/XR foot LT min 3V* [id number] IMPRESSION: 1. No acute fracture identified involving the second toe. 2. Soft tissue edema around the second toe with marked hyperflexion of the sec ond DIP joint. 3. Partial subluxation at the first IP joint and the lucencies are stable.
== END 2021-02-08 13:24 | disposition home or self-care (01) ==
PROVIDERS: PCP Family Medicine; Visit Provider Emergency Medicine
DX: E11.621 Type 2 diabetes mellitus with foot ulcer (principal); R60.0 Localized edema
CPT/HCPCS: 73630

== ENCOUNTER 2021-02-15 07:53 | Outpatient (CLI) | payer MEDICARE, SELFPAY | END 2021-02-15 07:54 | disposition home or self-care (01) | LOC: WOUND 07:54 | PROVIDERS: PCP Family Medicine; Visit Provider Nurse Practitioner Family | DX: E11.621 Type 2 diabetes mellitus with foot ulcer (principal); L97.512 Non-pressure chronic ulcer of other part of right foot with fat layer exposed; L97.522 Non-pressure chronic ulcer of other part of left foot with fat layer exposed; I10 Essential (primary) hypertension; Z87.891 Personal history of nicotine dependence | CPT/HCPCS: 11042 ==

== ENCOUNTER 2021-02-22 08:13 | Outpatient (CLI) | payer MEDICARE, SELFPAY | END 2021-02-22 08:14 | disposition home or self-care (01) | LOC: WOUND 08:14 | PROVIDERS: PCP Family Medicine; Visit Provider Nurse Practitioner Family | DX: E11.621 Type 2 diabetes mellitus with foot ulcer (principal); L97.511 Non-pressure chronic ulcer of other part of right foot limited to breakdown of skin; L97.522 Non-pressure chronic ulcer of other part of left foot with fat layer exposed; I10 Essential (primary) hypertension; Z87.891 Personal history of nicotine dependence | CPT/HCPCS: 11042 ==

== ENCOUNTER 2021-03-01 08:01 | Outpatient (CLI) | payer MEDICARE, SELFPAY | END 2021-03-01 08:02 | disposition home or self-care (01) | LOC: WOUND 08:05 | PROVIDERS: PCP Family Medicine; Visit Provider Thoracic Surgery (Cardiothoracic Vascular Surgery) | DX: E11.621 Type 2 diabetes mellitus with foot ulcer (principal); L97.511 Non-pressure chronic ulcer of other part of right foot limited to breakdown of skin; L97.521 Non-pressure chronic ulcer of other part of left foot limited to breakdown of skin; S80.812A Abrasion, left lower leg, initial encounter; X58.XXXA Exposure to other specified factors, initial encounter; Z87.891 Personal history of nicotine dependence | CPT/HCPCS: 97597 ==

== ENCOUNTER → 2021-03-02 12:23 | Outpatient (BNVA) | payer MEDICARE, SELFPAY | PROVIDERS: PCP Family Medicine; Visit Provider Family Medicine | DX: E11.51 Type 2 diabetes mellitus with diabetic peripheral angiopathy without gangrene (principal); Z79.4 Long term (current) use of insulin | CPT/HCPCS: 36416; 82962 ==

== ENCOUNTER 2021-03-08 07:58 | Outpatient (CLI) | payer MEDICARE, SELFPAY | END 2021-03-08 07:59 | disposition home or self-care (01) | LOC: WOUND 07:59 | PROVIDERS: PCP Family Medicine; Visit Provider Thoracic Surgery (Cardiothoracic Vascular Surgery) | DX: E11.621 Type 2 diabetes mellitus with foot ulcer (principal); Z11.52 Encounter for screening for COVID-19; L97.512 Non-pressure chronic ulcer of other part of right foot with fat layer exposed; Z20.822 Contact with and (suspected) exposure to COVID-19; L97.522 Non-pressure chronic ulcer of other part of left foot with fat layer exposed; R55 Syncope and collapse; S80.812A Abrasion, left lower leg, initial encounter; X58.XXXA Exposure to other specified factors, initial encounter; Z87.891 Personal history of nicotine dependence | CPT/HCPCS: 87635; 97597 ==

== ENCOUNTER 2021-03-08 08:49 | Outpatient (CLI) | payer MEDICARE, SELFPAY ==
[2021-03-08 09:33] LABS: Basophils # 0.1 10^3/uL (0.0-0.1); Basophils % 0.7 %; Eosinophils # 0.2 10^3/uL (0.0-0.8); Eosinophils % 2.9 %; Hematocrit 37.4 % (42.0-52.0); Hemoglobin 12.1 g/dL (11.7-16.6); Lymphocytes # 1.1 10^3/uL (0.8-4.8); Mean Corpuscular HGB Conc 32.4 g/dL (30.0-36.0); Mean Corpuscular Hemoglobin 28.9 pg (28.0-34.0); Mean Corpuscular Volume 89.5 fl (80-94); Mean Platelet Volume 10.5 fL (7.4-10.4); Monocytes # 0.5 10^3/uL (0.2-0.9); Monocytes % 7.2 %; Neutrophils # 5.53 10^3/uL (1.8-7.7); Neutrophils % 73.5 %; Nucleated Red Blood Cells % 0 %; Platelet Count 263 10^3/cmm (130-400); Red Blood Count 4.18 10^6/uL (4.1-5.3); White Blood Count 7.5 10^3/uL (4.0-10.0)
[2021-03-08 09:45] LABS: INR 0.95 (0.83-1.21)
[2021-03-08 09:50] LABS: Anion Gap 18.6 (5-19); Blood Urea Nitrogen 38 mg/dL (8-23); Calcium 8.8 mg/dL (8.5-10.5); Carbon Dioxide 24 mmol/L (22-29); Chloride 104 mmol/L (98-107); Glomerular Filtration Rate 38.7 mL/min (90-130); Glucose 116 mg/dL (65-115); Osmolality Calculated 304 mOsm/kg (285-295); Potassium 4.6 mmol/L (3.5-5.1); Sodium 142 mmol/L (136-145)
== END 2021-03-08 08:50 | disposition home or self-care (01) ==
LOC: LAB 08:53
PROVIDERS: PCP Family Medicine; Visit Provider Internal Medicine Cardiovascular Disease
DX: R55 Syncope and collapse (principal)
CPT/HCPCS: 36415; 80048; 85025; 85610; 86850; 86900

== ENCOUNTER 2021-03-10 05:30 | Outpatient (CLI) | payer MEDICARE, SELFPAY ==
[2021-03-10] VITALS (11 sets, daily range): BP systolic 117–162; BP diastolic 65–92; PULSE 65–77; RESP 9–23; TEMP 36.8; O2SAT 90–94; BMI 44.6
--- NOTE | 2021-03-10 07:25 | W.PM.OPSUD ---
Surgery/Procedure H&P Update DATE OF PROCEDURE: March 10, 2021 DATE H&P PERFORMED: 02/28/21 H&P UPDATE INFORMATION: I have reviewed H&P completed within last 30 days, I have examined patient prior to procedure and No changes to prior documentation PREOP DIAGNOSIS: Sinus node dysfunction PRIMARY INDICATION FOR PROCEDURE: Syncope/symptomatic bradycardia PLANNED PROCEDURE: Operation Date: 03/10/21 07:00 Proposed Procedures p Pacemaker Insertion(Bilateral) - Cory Gomez MD PATIENT REASSESSED PRIOR TO SEDATION, WITH NO CHANGE NOTED: Yes PHYSICAL EXAM: alert, clear to auscultation bilaterally, regular rate & rhythm and operative site marked AIRWAY EVAL/ANESTHESIA PLAN: normal airway, see other exam findings, ASA II, Monitored Anesthesia, Local Anesthesia, Risks, benefits & alternatives of sedation and/or procedure discussed and Patient agrees to continue as planned
--- NOTE | 2021-03-10 09:00 | PC.NURSE ---
Verbal order received from Dr. Gomez for NS to run at 100ml/hr until discharge home in 2 hrs.
--- NOTE | 2021-03-10 09:11 | XR_ITS ---
WS: [id number] XR chest 1V portable [id number] REASON FOR EXAM: post procedure/ r/o pneumothorax FINDINGS: The chest is essentially unchanged compared to the previous examination of 01/11/2021. There is cardiomegaly and moderate tortuosity and ectasia of the thoracic aorta. There is calcified granulomatous disease in both hemithoraces. No active pulmonary parenchymal or pleural disease. No pneumothorax. XR/XR chest 1V portable [id number] IMPRESSION: Stable chest. No pneumothorax.
--- NOTE | 2021-03-10 09:18 | PC.NURSE ---
Received patient from post pacemaker insertion. During procedure access was unobtainable and procedure was stopped. Pressure dressing noted to left upper chest. No signs of hematoma, dressing clean dry and intact. Pt placed on bedside career center director. Orders placed for portable chest xray as verbal order from Dr. Gomez. Patient home in 2 hours as verbal orders by Dr. Gomez. Patient drowsy but awakens easliy to verbal stimuli. Breathing even and non-labored with no reports of pain.
--- NOTE | 2021-03-10 09:30 | PC.NURSE ---
Left chest dressing remains clean, dry, and intact. No signs of hematoma. Pt reports no pain
--- NOTE | 2021-03-10 10:29 | PC.NURSE ---
Left chest dressing clean, dry ,and intact. No signs of hematoma. Pt reports no pain.
== END 2021-03-10 11:15 | disposition home or self-care (01) ==
PROVIDERS: PCP Family Medicine; Visit Provider Internal Medicine Cardiovascular Disease
DX: R55 Syncope and collapse (principal); R00.1 Bradycardia, unspecified; Z53.8 Procedure and treatment not carried out for other reasons; E11.621 Type 2 diabetes mellitus with foot ulcer; E11.42 Type 2 diabetes mellitus with diabetic polyneuropathy; E78.00 Pure hypercholesterolemia, unspecified; I10 Essential (primary) hypertension; E78.5 Hyperlipidemia, unspecified; Z79.82 Long term (current) use of aspirin; Z79.84 Long term (current) use of oral hypoglycemic drugs; Z86.16 Personal history of COVID-19; Z79.4 Long term (current) use of insulin
CPT/HCPCS: 36415; 71045; C1769; C1894; J0690; J2250; J3010; J7030; J7050; Q9967

== ENCOUNTER 2021-03-14 19:54 | Observation (INO) | payer MEDICARE, SELFPAY ==
[2021-03-14 19:56] VITALS: BP 134/60; PULSE 39; RESP 20; TEMP 36.6; O2SAT 96; BMI 43.4
--- NOTE | 2021-03-14 20:03 | ECG_ITS ---
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 Measurements Intervals [place] Rate: 70 P: 66 IA: 199 QRS: 47 QRSD: 106 T: 3 QT: 392 QTc: 423 Interpretive Statements SINUS RHYTHM Compared to ECG 01/11/2021 15:48:34 Myocardial infarct finding no longer present Electronically Signed On 03-15-2021 17:55:36 SECURITY OPERATIONS MANAGER by Mya Covarrubias M.D. [id number]
--- NOTE | 2021-03-14 20:03 | XRR_ITS ---
PROCEDURE INFORMATION: Exam: XR Chest Exam date and time: 03/14/2021 8:03 PM Age: 60 years old Clinical indication: Cough; Additional info: Bradycardia TECHNIQUE: Imaging protocol: XR of the chest. Views: 1 view. COMPARISON: CR XR chest 1V portable [id number] 03/10/2021 9:15 AM FINDINGS: Lungs: Mild left basilar bronchopneumonia. Pleural spaces: Unremarkable. No pleural effusion. No pneumothorax. Heart/Mediastinum: Unremarkable. No cardiomegaly. Bones/joints: Unremarkable. Other findings: Patient rotation to the left. XR/XR chest 1V portable [id number] IMPRESSION: Mild left basilar bronchopneumonia.
--- NOTE | 2021-03-14 20:10 | W.ED.GENADLT ---
HPI - General Adult General: Chief complaint: General Medical Stated complaint: low BP, and HR Time Seen by Provider: 03/14/21 19:55 Source: patient Mode of arrival: ambulatory Limitations: no limitations History of Present Illness: HPI narrative: 60-year-old male does have a history of hypertension states he has been having some bradycardia lately they tried to place a pacemaker last week and was unsuccessful. States that today he had some slight lightheadedness his blood pressure 190s his heart rate was in the 30s and 40s he is on metoprolol 100 mg daily. He denies any worsening improving factors he states that he feels better currently heart rate right now is in the 50s. He never had any chest pain or shortness of breath. Associated symptoms: Deny chest pain, dyspnea, headache(s), nausea, rash or vomiting Review of Systems Const: Denies: fever(s), chills, body aches or change in appetite Eyes: Denies: blurry vision or eye discomfort ENMT: Denies: throat pain or dental pain Card: Denies: chest pain Resp: Denies: dyspnea GI: Denies: abdominal pain, nausea, vomiting or diarrhea : Denies: dysuria Musc: Denies: neck pain or back pain Skin/Breast: Denies: rash Neuro: Denies: headache(s) Psych: Denies: depression Mike/Lymph: Denies: easy bruising All/Imm: Denies: urticaria PFSH ED PFSH: Medical History Acquired absence of other toe(s), unspecified side Cellulitis and abscess of foot Charcot ankle Closed displaced fracture of navicular bone of right foot with routine healing Controlled diabetes mellitus with diabetic polyneuropathy, with long-term current use of insulin COVID-19 virus infection Hypercholesteremia Hyperchylomicronemia Hypertension Onychodystrophy Other deformities of toe(s) (acquired), left foot Polyneuropathy, unspecified Tick fever Type 2 diabetes mellitus Surgical History History of foot surgery History of knee surgery Status post colonoscopy (05/05/20) normal Family History Mother CAD (coronary artery disease) in older years, pacemaker Other Cancer Diabetes Hypertension Denies family history of Clotting disorder Dementia Hyperlipidemia Psychiatric illness Chronic kidney disease (CKD) Suicide Anesthesia complication Bleeding disorder Family history of premature coronary artery disease Lung disease Stroke Social History Smoking and tobacco status: never smoked Second hand smoke exposure: No Alcohol intake: never Physical Exam Const: COMMON NORMALS: no acute distress, patient oriented x3 and healthy appearing HENMT: COMMON NORMALS: normocephalic and atraumatic HEAD & SCALP: normocephalic and atraumatic Eye: COMMON NORMALS: Equal, round and reactive pupils present and EOMs intact bilaterally PUPIL: Yes Equal, round and reactive pupils present Neck/C-Spine: COMMON NORMALS: full ROM and supple Chest: COMMONS NORMALS: normal inspection of the chest and normal palpation of entire chest wall Resp: COMMON NORMALS: normal respiratory effort, No retractions, No use of accessory muscles and clear to auscultation bilaterally AUSCULTATION: clear to auscultation bilaterally Cardio: COMMON NORMALS: regular rate, regular rhythm and No murmurs present (Cardio) RATE: regular rate and bradycardic RHYTHM: regular rhythm GI: COMMON NORMALS: Normal to inspection, nondistended, normoactive bowel sounds present, Soft to palpation, non-tender and no masses PALPATION: Yes Soft to palpation Extremity: COMMON NORMALS: normal to inspection and full ROM Neuro: COMMON NORMALS: patient oriented x3, moves all extremities and no focal motor deficits Psych: COMMON NORMALS: mental status grossly normal, Normal thought process present and cooperative THOUGHT PROCESS: Normal thought process present Skin: COMMON NORMALS: no rashes or lesions noted and no wounds GENERAL SKIN EXAM: no rashes or lesions noted Course Vital Signs: Vital signs: Vital Signs Temperature 97.9 F 03/14/21 19:56 Pulse Rate 39 L 03/14/21 19:56 Respiratory Rate 20 H 03/14/21 19:56 Blood Pressure 134/60 03/14/21 19:56 Pulse Oximetry 96 03/14/21 19:56 MDM - General Adult MDM Narrative: Medical decision making narrative: Patient presents with bradycardia had bradycardia into the 30s at home initial pressure here was 39 but was unable to EKG at that time an EKG was done 15 minutes later patient is now in normal sinus rhythm heart rate is 70. He has had no such monitor showing sinus pauses he had an attempted pacemaker last week but did not have the pacemaker placed. He is on metoprolol could be causing his bradycardia although an arrhythmia could be possible that we did not catch. Patient also here has slight acute kidney injury with creatinine of 2.1 and hyperkalemia with potassium of 5.8 spoke to hospitalist will admit for observation due to his bradycardia and his hyperkalemia. Lab Data: Labs: Lab Results 03/14/21 03/14/21 03/14/21 20:10 20:10 20:10 WBC 11.0 10^3/uL H 10 ^3/uL (4.0-10.0) RBC 4.15 10^6/uL 10^6 /uL (4.1-5.3) Hgb 12.3 g/dL g/dL (11.7-16.6) Hct 36.9 % L % (42.0-52.0) MCV 88.9 fl fl (80-94) MCH 29.6 pg pg (28.0-34.0) MCHC 33.3 g/dL g/dL (30.0-36.0) RDW 14.2 % % (12.1-15.1) Plt Count 292 10^3/cmm 10^3 /cmm (130-400) MPV 10.7 fL H fL (7.4-10.4) Neut % (Auto) 81.3 % % Lymph % (Auto) 12.2 % % [place] % (Auto) 4.1 % % Eos % (Auto) 1.3 % % Baso % (Auto) 0.5 % % Neut # (Auto) 8.97 10^3/uL H 10 ^3/uL (1.8-7.7) Lymph # (Auto) 1.4 10^3/uL 10^3/ uL (0.8-4.8) [place] # (Auto) 0.5 10^3/uL 10^3/ uL (0.2-0.9) Eos # (Auto) 0.1 10^3/uL 10^3/ uL (0.0-0.8) Baso # (Auto) 0.1 10^3/uL 10^3/ uL (0.0-0.1) Nucleated RBC % (a uto) 0 % % Nucleated RBCs # 0.0 /100WBC /100W BC Sodium 133 mmol/L L mmol /L (136-145) Potassium 5.8 mmol/L H mmol /L (3.5-5.1) Chloride 98 mmol/L mmol/L (98-107) Carbon Dioxide 19 mmol/L L mmol/ L (22-29) Anion Gap 21.8 H (5-19) BUN 37 mg/dL H mg/dL (8-23) Creatinine 2.1 mg/dL H mg/dL (0.7-1.2) GFR Calculation 32.4 mL/min L mL/ min (90-130) Glucose 320 mg/dL H mg/dL (65-115) Calculated Osmolal ity 297 mOsm/kg H mOs m/kg (285-295) Calcium 8.4 mg/dL L mg/dL (8.5-10.5) Total Bilirubin 0.6 mg/dL mg/dL (0.15-1.2) AST 16 U/L U/L (0-40) ALT 13 U/L U/L (0-41) Alkaline Phosphata se 93 IU/L IU/L (40-130) Troponin T Baselin e 44 ng/L H ng/L (0-15) Total Protein 7.6 g/dL g/dL (6.6-8.7) Albumin 4.2 g/dL g/dL (3.5-5.2) Globulin 3.4 g/dL g/dL (1.3-4.6) EKG Data^: EKG 1: Attestation: I personally reviewed and interpreted this EKG as follows: EKG interpretation date: 03/14/21 EKG interpretation time: 20:19 Interpretation: nsr hr [address] or t wave abnormalities qrs 106 qtc 412 Computer generated interpretation: Chest X-Ray 03/14/21 20:03 IMPRESSION: Mild left basilar bronchopneumonia. Discharge Plan Discharge Patient Disposition: Placed in Observation Admit Provider: Kevan Kramer Clinical Impression: Bradycardia, Hyperkalemia, Acute kidney injury Coding Level of Care Code ED Physically Impaired Teacher for Chg Fwd Exam Comprehensive
[2021-03-14 20:22] LABS: Basophils # 0.1 10^3/uL (0.0-0.1); Basophils % 0.5 %; Eosinophils # 0.1 10^3/uL (0.0-0.8); Eosinophils % 1.3 %; Hematocrit 36.9 % (42.0-52.0); Hemoglobin 12.3 g/dL (11.7-16.6); Lymphocytes # 1.4 10^3/uL (0.8-4.8); Lymphocytes % 12.2 %; Mean Corpuscular HGB Conc 33.3 g/dL (30.0-36.0); Mean Corpuscular Hemoglobin 29.6 pg (28.0-34.0); Mean Corpuscular Volume 88.9 fl (80-94); Mean Platelet Volume 10.7 fL (7.4-10.4); Monocytes # 0.5 10^3/uL (0.2-0.9); Monocytes % 4.1 %; Neutrophils # 8.97 10^3/uL (1.8-7.7); Neutrophils % 81.3 %; Nucleated Red Blood Cells % 0 %; Platelet Count 292 10^3/cmm (130-400); Red Blood Count 4.15 10^6/uL (4.1-5.3); Red Cell Distribution Width 14.2 % (12.1-15.1)
[2021-03-14 20:45] LABS: Troponin(5th) Baseline 44 ng/L (0-15)
[2021-03-14 20:47] LABS: Alanine Aminotransferase 13 U/L (0-41); Albumin Level 4.2 g/dL (3.5-5.2); Alkaline Phosphatase 93 IU/L (40-130); Anion Gap 21.8 (5-19); Aspartate Amino Transferase 16 U/L (0-40); Blood Urea Nitrogen 37 mg/dL (8-23); Calcium 8.4 mg/dL (8.5-10.5); Carbon Dioxide 19 mmol/L (22-29); Chloride 98 mmol/L (98-107); Globulin 3.4 g/dL (1.3-4.6); Glomerular Filtration Rate 32.4 mL/min (90-130); Glucose 320 mg/dL (65-115); Osmolality Calculated 297 mOsm/kg (285-295); Potassium 5.8 mmol/L (3.5-5.1); Sodium 133 mmol/L (136-145); Total Bilirubin 0.6 mg/dL (0.15-1.2); Total Protein 7.6 g/dL (6.6-8.7)
[2021-03-14 21:02] VITALS: BP 171/73; PULSE 66; RESP 18; O2SAT 97
[2021-03-14] MEDS: sodium chloride 0.9% 1,000 ML 999 ML IV (21:11)
[2021-03-14] MEDS: insulin regular-human 100 units/1 mL 5 UNIT IVP (21:12)
[2021-03-14 22:00] VITALS: BP 174/84; PULSE 65; RESP 18; O2SAT 97
[2021-03-14 22:19] LABS: Troponin 5 2HR 42.09 ng/L (0-15)
[2021-03-14 22:20] LABS: Troponin 5 2HR Delta -1.91 ABS# (0-10)
[2021-03-14 23:02] VITALS: BP 169/83; PULSE 64; RESP 18; O2SAT 98
--- NOTE | 2021-03-14 23:08 | PM.HP ---
Providers/Chief Complaint Admitting Physician: Kevan Kramer Primary Care Provider: Leandra Reddy MD Chief Complaint: low BP, and HR History of Present Illness 60 year old male with past medical history significant for hypertension, hyperlipidemia, chronic stage 3 kidney disease with creatinine of 1.8, diabetes mellitus, CHF, recurrent syncopal episodes, paroxysmal atrial fibrillation with multiple sinus pauses who is presenting to ER with bradycardia. Patient stated this has been an ongoing issues. Previously was on metoprolol which was discontinued a few weeks prior and clonidine which as discontinued 1 day prior. He was also on valstartan dose of which was cut in half due to hypotension. He was seen by Dr. Gomez on 03/10 during which time a pacemaker placement was attempted however unsuccessful. He noted his HR in the 30s which prompted ER eval. Denied chest pain or dyspnea. Also noted mild lightheadedness however denied syncopal episode. Also denied recent fever, chills, nausea or vomiting. Review of Systems General: Reports: 10 or more systems reviewed and unremarkable except in HPI and below Medications/Allergies Home Medications Medication Instructions Recorded Confirmed Last Taken Type aspirin 81 mg tablet,delayed 81 mg PO BID 06/10/19 03/15/21 03/14/21 09:00 History release B-complex with vitamin C 1 tab PO DAILY 03/09/20 03/15/21 03/14/21 09:00 History ascorbic acid (vitamin C) [Vitamin 1,000 mg PO DAILY 05/04/20 03/15/21 03/14/21 09:00 History C] insulin aspart U-100 [Novolog 40 unit SUBCUT BID 05/04/20 03/15/21 03/14/21 09:00 History U-100 Insulin aspart] Januvia 50 mg PO QAM 01/11/21 03/15/21 03/14/21 09:00 History magnesium oxide 400 mg PO DAILY 01/11/21 03/15/21 03/14/21 09:00 History melatonin 10 mg PO BEDTIME 01/11/21 03/15/21 03/13/21 21:00 History multivitamin 1 tab PO QAM 01/11/21 03/15/21 03/14/21 09:00 History potassium gluconate 595 mg PO DAILY 01/11/21 03/15/21 03/14/21 09:00 History simvastatin 40 mg PO QAM 01/11/21 03/15/21 03/14/21 09:00 History metformin 500 mg tablet See Rx Instructions .ROUTE 01/18/21 03/15/21 03/14/21 12:00 Rx .COMPLEX #60 tab furosemide 20 mg tablet 20 mg PO DAILY #90 tab 01/20/21 03/15/21 03/14/21 09:00 Rx amlodipine 10 mg tablet 10 mg PO DAILY #90 tab 02/14/21 03/15/21 03/14/21 09:00 Rx hydralazine 100 mg tablet 100 mg PO TID #90 tab 02/28/21 03/15/21 03/14/21 12:00 Rx insulin detemir U-100 100 unit/mL See Rx Instructions .ROUTE 02/28/21 03/15/21 03/14/21 09:00 Rx subcutaneous solution .COMPLEX #50 ml dapagliflozin 5 mg tablet 5 mg PO DAILY #30 tab 03/02/21 03/15/21 03/14/21 09:00 Rx valsartan 160 mg tablet 80 mg PO BID #90 tab 03/14/21 03/15/21 03/14/21 09:00 Rx Allergies Allergy/AdvReac Type Severity Reaction Status Date / Time No Known Allergies Allergy Verified 03/09/21 10:40 PFSH Acute PFSH: Medical History Acquired absence of other toe(s), unspecified side Cellulitis and abscess of foot Charcot ankle Closed displaced fracture of navicular bone of right foot with routine healing Controlled diabetes mellitus with diabetic polyneuropathy, with long-term current use of insulin COVID-19 virus infection Hypercholesteremia Hyperchylomicronemia Hypertension Onychodystrophy Other deformities of toe(s) (acquired), left foot Polyneuropathy, unspecified Tick fever Type 2 diabetes mellitus Surgical History History of foot surgery History of knee surgery Status post colonoscopy (05/05/20) normal Family History Mother CAD (coronary artery disease) in older years, pacemaker Other Cancer Diabetes Hypertension Denies family history of Clotting disorder Dementia Hyperlipidemia Psychiatric illness Chronic kidney disease (CKD) Suicide Anesthesia complication Bleeding disorder Family history of premature coronary artery disease Lung disease Stroke Social History Smoking and tobacco status: never smoked Second hand smoke exposure: No Alcohol intake: never Vitals/I&O/Wt Last Vital Signs Temp 97.4 F L 03/15/21 04:26 Pulse 98 03/15/21 04:26 Resp 16 03/15/21 04:26 BP 165/70 03/15/21 04:26 Pulse Ox 97 03/15/21 04:26 03/14/21 03/14/21 03/15/21 14:59 22:59 06:59 Intake Total 240 / 240 Balance 240 / 240 Weight last 48 hrs Weight 145.15 kg Weight 145.15 kg Physical Exam Narrative: EXAM NARRATIVE: General : Alert awake, no distress HEENT : Grossly unremarkable CVS : RRR Chest : CTABL ABD; Soft NT,ND Ext. B/L LE edema Data : 03/15/21 02:22 03/15/21 02:22 A&P Assessment and plan (1) Bradycardia: Status: Acute (2) Hyperkalemia: Status: Acute (3) CHF (congestive heart failure): Status: Acute Qualifiers: Heart failure type: unspecified Heart failure chronicity: chronic Qualified Code(s): I50.9 - Heart failure, unspecified (4) Type 2 diabetes mellitus: Status: Acute Qualifiers: Diabetes mellitus retirement insulin use: with retirement use Diabetes mellitus complication status: with circulatory complication Diabetes mellitus complication detail: with peripheral angiopathy without gangrene Qualified Code(s): E11.51 - Type 2 diabetes mellitus with diabetic peripheral angiopathy without gangrene; Z79.4 - snf (current) use of insulin (5) Hypertension: Status: Acute Qualifiers: Hypertension type: unspecified Qualified Code(s): I10 - Essential (primary) hypertension (6) Hypercholesteremia: Status: Acute (7) PVD (peripheral vascular disease): Status: Acute (8) Diabetic peripheral neuropathy associated with type 2 diabetes mellitus: Status: Acute Additional A&P Information Sinus Bradycardia Metoprolol/Clonidine discontinue Unsuccessful PPM placement attempted 1 wk prior Consult cardiology in am Currently asymptomatic Monitor on telemetry Hyperkalemia K 5.8 - Repeat 4.8 Repeat BMP in am Additional Medical Problems Paroxysmal Atrial Fib Hypertension Dyslipidemia Diabetes Mellitus Hx of COVID-19 DVT ppx Heparin Attestations Medical Necessity Statement*: Anticipate less than 2 midnight stay in hospital for eval and treatment Time Spent in Patient Care: Greater than 35 minutes (>than 50% of time spent in counselling and/or direct pt care on unit). Coding Level of Care Code Acute Electrical Engineering Director for g Fwd Diagnoses Bradycardia R00.1 Hyperkalemia E87.5 CHF (congestive heart failure) I50.9 Heart failure type: unspecified Heart failure chronicity: chronic Type 2 diabetes mellitus E11.51; Z79.4 Diabetes mellitus watermelon inspector insulin use: with retirement use Diabetes mellitus complication status: with circulatory complication Diabetes mellitus complication detail: with peripheral angiopathy without gangrene Hypertension I10 Hypertension type: unspecified Hypercholesteremia E78.00 PVD (peripheral vascular disease) I73.9 Diabetic peripheral neuropathy associated with type 2 diabetes mellitus E11.42
[2021-03-14 23:18] LABS: Anion Gap 19.8 (5-19); Blood Urea Nitrogen 36 mg/dL (8-23); Calcium 8.4 mg/dL (8.5-10.5); Carbon Dioxide 20 mmol/L (22-29); Chloride 102 mmol/L (98-107); Glomerular Filtration Rate 36.3 mL/min (90-130); Glucose 243 mg/dL (65-115); Osmolality Calculated 300 mOsm/kg (285-295); Potassium 4.8 mmol/L (3.5-5.1); Sodium 137 mmol/L (136-145)
[2021-03-15] VITALS (11 sets, daily range): BP systolic 157–188; BP diastolic 69–91; PULSE 46–98; RESP 16–22; TEMP 36.2–37; O2SAT 92–97; BMI 43.4
--- NOTE | 2021-03-15 02:03 | ECG_ITS ---
[facility] Test Date: 2021-03-15 Pat Name: Jack Springer Department: Room: 250 Gender: Male Legal Recovery Specialist: : 1960 Requested By: Linda Ayala Order Number: [id number] Mary MD: Mya Covarrubias M.D. Measurements Intervals Thomson Rate: 59 P: 67 IA: 176 QRS: 42 QRSD: 92 T: 9 QT: 410 QTc: 409 Interpretive Statements SINUS BRADYCARDIA WITH SINUS ARRHYTHMIA Compared to ECG 03/14/2021 20:19:28 Sinus rhythm no longer present Electronically Signed On 03-15-2021 17:57:21 HANGING FLAGS DECORATOR by Mya Covarrubias M.D. [email or web address] merced dominican campusMy Study [email or web address]/store/[id number]
[2021-03-15 03:24] LABS: Troponin 5 6HR 42.96 ng/L (0-15)
[2021-03-15 03:26] LABS: Troponin 5 6HR Delta -1.04 ng/L (0-12)
[2021-03-15 04:13] LABS: Basophils % 0.5 %; Eosinophils # 0.2 10^3/uL (0.0-0.8); Eosinophils % 2.3 %; Hematocrit 35.9 % (42.0-52.0); Hemoglobin 11.8 g/dL (11.7-16.6); Lymphocytes # 1.4 10^3/uL (0.8-4.8); Lymphocytes % 18.8 %; Mean Corpuscular HGB Conc 32.9 g/dL (30.0-36.0); Mean Corpuscular Hemoglobin 29.3 pg (28.0-34.0); Mean Corpuscular Volume 89.1 fl (80-94); Mean Platelet Volume 10.7 fL (7.4-10.4); Monocytes # 0.5 10^3/uL (0.2-0.9); Monocytes % 6.5 %; Neutrophils # 5.48 10^3/uL (1.8-7.7); Neutrophils % 71.4 %; Nucleated Red Blood Cells % 0 %; Platelet Count 241 10^3/cmm (130-400); Red Blood Count 4.03 10^6/uL (4.1-5.3); Red Cell Distribution Width 14.1 % (12.1-15.1); White Blood Count 7.7 10^3/uL (4.0-10.0)
[2021-03-15 04:24] LABS: Anion Gap 19.6 (5-19); Blood Urea Nitrogen 36 mg/dL (8-23); Calcium 8.3 mg/dL (8.5-10.5); Carbon Dioxide 19 mmol/L (22-29); Chloride 105 mmol/L (98-107); Glomerular Filtration Rate 41.3 mL/min (90-130); Glucose 180 mg/dL (65-115); Magnesium 2.6 mg/dL (1.7-2.3); Osmolality Calculated 301 mOsm/kg (285-295); Potassium 4.6 mmol/L (3.5-5.1); Sodium 139 mmol/L (136-145)
[2021-03-15] MEDS: heparin 5,000 unit/mL INJ 1 mL 5000 UNIT SUBCUT ×2 (04:55→11:07)
[2021-03-15 06:48] LABS: Glucose Point of Care 198 mg/dL (70-110)
[2021-03-15 08:29] LABS: Magnesium 2.6 mg/dL (1.7-2.3); Thyroid Stimulating Hormone 8.72 uIU/mL (0.27-4.20)
[2021-03-15] MEDS: aspirin 81 mg EC Tablet PO ×2 (09:09→17:12)
[2021-03-15] MEDS: hyDRALAzine 50 mg Tablet PO ×3 (09:09→20:12)
[2021-03-15] MEDS: FUROsemide 20 mg Tablet PO (09:09)
[2021-03-15] MEDS: insulin glargine 100 units/1 mL 40 UNIT SUBCUT ×2 (09:09→17:13)
[2021-03-15] MEDS: insulin lispro 100 unit/1 mL SUBCUT ×4 (09:10→20:12)
--- NOTE | 2021-03-15 10:32 | PC.NURSE ---
notified Dr Hernandez that patient's heart rate is running between 38-48
--- NOTE | 2021-03-15 11:01 | PC.NURSE ---
report called to CSU and given to ANITA Tejada
[2021-03-15 11:03] LABS: Glucose Point of Care 340 mg/dL (70-110)
--- NOTE | 2021-03-15 12:00 | PM.PN ---
Subjective Subjective: Interval history: Patient was seen and examined this morning, heart rate is ranging between 40 to 60s, he is asymptomatic, blood pressure is stable, no active shortness of breath chest pain or confusion Patient is stating that he would like to see Dr. Gomez who is coming in tomorrow, he does not want to see on-call scheduling manager today Telemetry shows sinus bradycardia Requested nurse to transfer him to CSU, apply pacer pads, patient is asymptomatic Vitals/I&O/Wt Last Vital Signs Temp 97.5 F L 03/15/21 11:16 Pulse 46 L 03/15/21 11:16 Resp 16 03/15/21 11:16 BP 160/70 03/15/21 11:16 Pulse Ox 92 03/15/21 11:16 03/14/21 03/15/21 03/15/21 22:59 06:59 14:59 Intake Total 240 / 240 1360 / 1360 Balance 240 / 240 1360 / 1360 Weight last 48 hrs Weight 145.15 kg Weight 145.15 kg Physical Exam Narrative: EXAM NARRATIVE: Sitting in his bed Saturating well on room air No active chest pain or shortness of breath Patient does have clinical signs of fluid overload which is chronic 1+ pitting edema bilateral lower extremity Venous stasis dermatitis No audible stridor or wheezing Distended abdomen, visceral obesity Data : 03/15/21 02:22 03/15/21 02:22 A&P Assessment and plan (1) Hyperkalemia: Status: Acute (2) Acute kidney injury: Status: Acute (3) Somnolence, daytime: Status: Acute (4) Bradycardia: Status: Acute (5) Recurrent syncope: Status: Acute Additional A&P Information Bradycardia Sinus rhythm Requested mag level, potassium improved Requested TSH which came back abnormal, will request free T4 level Patient would like to follow-up with Dr. Gomez, Dr. Gomez is not available today, he will consult him tomorrow, Transfer him to CSU apply pacer pads, patient is asymptomatic Clinically looks fluid overloaded Would use low-dose diuretics for now Clinical signs of fluid overload Would use CPAP overnight We will make him n.p.o. after midnight Hold DVT prophylaxis in anticipation of pacemaker placement tomorrow full code Attestations Medical Necessity Statement*: continue med management Time Spent in Patient Care: less than 15 minutes Coding Level of Care Code Acute Hydrogen Power Plant Engineer for Chg Fwd Diagnoses Hyperkalemia E87.5 Acute kidney injury N17.9 Somnolence, daytime R40.0 Bradycardia R00.1 Recurrent syncope R55
[2021-03-15 12:40] LABS: Free T4 Free Thyroxine 0.96 ng/dL (0.82-1.77)
--- NOTE | 2021-03-15 12:47 | PC.NURSE ---
patient taken to CSU 103.
--- NOTE | 2021-03-15 15:20 | PC.NURSE ---
Patient arrived to the floor at 1300. Patient alert and oriented. Patient has been oriented to surroundings and use of call smith. Patient is doing well and resting in bed at this time. Vital signs are stable.
[2021-03-15 16:45] LABS: Glucose Point of Care 318 mg/dL (70-110)
--- NOTE | 2021-03-15 19:30 | PC.NURSE ---
Received report from ANITA Tejada. Patient resting in bed. Spouse at bedside. Patient denies any discomforts. Patient's heart rate in the upper 70s at this time. Discussed plan for the night. Patient verbalized complete understanding. New IV obtained to left wrist as documented. Pacer pads placed. No distress observed. Will continue to monitor.
[2021-03-15] MEDS: atorvastatin 40 mg Tablet PO (20:12)
[2021-03-15 20:44] LABS: Glucose Point of Care 305 mg/dL (70-110)
--- NOTE | 2021-03-15 21:16 | PC.NURSE ---
Observed patient SpO2 at 83% sustained. Assessed patient and found him to lying on his left side snoring. Asked patient if he uses CPAP at home and patient denies this. Placed NC at 1.5L. Patient's SpO2 is currently 97%. Informed RT of change. No other distress observed. Will continue to monitor.
--- NOTE | 2021-03-15 23:16 | PC.NURSE ---
Noted patient's heart rate dropping into the 30s. Patient denies any dizziness or lightheadedness. He said he might feel dizzy if up walking. No distress observed. Pacer pads are in place. BP elevated to 188/89. Informed Dr Kramer and waiting for orders.
[2021-03-16] VITALS (18 sets, daily range): BP systolic 133–195; BP diastolic 66–102; PULSE 52–80; RESP 1–22; TEMP 36.6–36.9; O2SAT 93–97
[2021-03-16] MEDS: atropine 0.1 mg/mL Syr 10 mL 0.5 MG IVP (00:11)
--- NOTE | 2021-03-16 00:13 | PC.NURSE ---
Noted patient to be having 3sec pauses on telemetry with decreased heart rate to 30s. On initial assessment patient denies any symptoms. With multiple pauses however patient is starting to feel dizzy, lightheaded and nauseous stating, I just don't feel good. Informed Dr Kramer of patient's condition and doctor placed transfer orders to ICU for possible transcutaneous pacing. Patient current BP down to 138/68 with heart rate at 45. Atropine 0.5mg IVP was given per Dr Kramer's instructions. Heart currently at 53. Instructed patient on use of Atropine and move to ICU for closer monitoring and possible external pacing. Patient verbalized complete understanding.
--- NOTE | 2021-03-16 00:43 | PC.NURSE ---
Report called to DORA Faith. Updates to DORA Miles. Patient taken to ICU via bed by ICU staff. Patient AAOx4 and verbalized complete understanding of transfer.
[2021-03-16] MEDS: ondansetron 2 mg/ML SDV 2 mL 4 MG IVP (01:44)
--- NOTE | 2021-03-16 02:48 | ECG_ITS ---
[facility] Test Date: 2021-03-16 Pat Name: Jack Springer Department: Room: [facility] Gender: Male Application Integration Specialist: : [id number] Requested By: Kevan Kramer Order Number: [id number] Mary MD: Pancho Vergara M.D. Measurements Intervals Terry Rate: 76 P: 43 MT: 192 QRS: 30 QRSD: 107 T: 43 QT: 383 QTc: 432 Interpretive Statements SINUS RHYTHM Compared to ECG 03/15/2021 02:05:34 Sinus bradycardia no longer present Sinus arrhythmia no longer present Electronically Signed On 03-17-2021 8:52:44 FRICTION WELDING MACHINE OPERATOR by Pancho Vergara M.D. [id number]
[2021-03-16] MEDS: hyDRALAzine 50 mg Tablet 100 MG PO ×4 (04:51→20:52)
[2021-03-16 05:16] LABS: Basophils % 0.4 %; Eosinophils # 0.2 10^3/uL (0.0-0.8); Hematocrit 36.7 % (42.0-52.0); Hemoglobin 11.7 g/dL (11.7-16.6); Lymphocytes # 1.1 10^3/uL (0.8-4.8); Lymphocytes % 14.7 %; Mean Corpuscular HGB Conc 31.9 g/dL (30.0-36.0); Mean Corpuscular Hemoglobin 28.8 pg (28.0-34.0); Mean Corpuscular Volume 90.4 fl (80-94); Mean Platelet Volume 10.6 fL (7.4-10.4); Monocytes # 0.5 10^3/uL (0.2-0.9); Monocytes % 6.1 %; Neutrophils # 5.71 10^3/uL (1.8-7.7); Neutrophils % 75.1 %; Nucleated Red Blood Cells % 0 %; Platelet Count 251 10^3/cmm (130-400); Red Blood Count 4.06 10^6/uL (4.1-5.3); Red Cell Distribution Width 14.1 % (12.1-15.1); White Blood Count 7.6 10^3/uL (4.0-10.0)
[2021-03-16 05:48] LABS: Anion Gap 17.7 (5-19); Blood Urea Nitrogen 34 mg/dL (8-23); Calcium 8.5 mg/dL (8.5-10.5); Carbon Dioxide 21 mmol/L (22-29); Chloride 104 mmol/L (98-107); Glomerular Filtration Rate 38.7 mL/min (90-130); Glucose 174 mg/dL (65-115); Magnesium 2.4 mg/dL (1.7-2.3); Osmolality Calculated 298 mOsm/kg (285-295); Potassium 4.7 mmol/L (3.5-5.1); Sodium 138 mmol/L (136-145)
--- NOTE | 2021-03-16 06:01 | PC.NURSE ---
Patient condition improved. Patient no longer nauseated and no longer experiencing pauses in cardiac rhythm. Patient's blood pressure remains elevated. Hydralazine dosage doubled. If patient continues to be hypertensive, RN will need to call to receive orders for Nitro drip per
[2021-03-16 07:42] LABS: Glucose Point of Care 178 mg/dL (70-110)
[2021-03-16] MEDS: insulin lispro 100 unit/1 mL SUBCUT ×3 (08:49→20:54)
[2021-03-16] MEDS: aspirin 81 mg EC Tablet PO ×2 (08:49→17:19)
[2021-03-16] MEDS: FUROsemide 20 mg Tablet PO (08:49)
[2021-03-16] MEDS: insulin glargine 100 units/1 mL 40 UNIT SUBCUT ×2 (09:14→17:19)
--- NOTE | 2021-03-16 09:48 | PC.CHAP ---
Pastoral Care Encounter/Spiritual Assessment Type of Contact [] Declined software development leader visit [] Patient/Family/Request visit [] Outpatient visit [] Follow-up visit [] Physician referral [] Code/Alert [x] Routine visit [] Staff referral [] Actively dying [] Patient sleeping [x] Family support [] [] Out of room [] Palliative care [] [] Receiving care in room [] Pre-surgical visit [] Trauma [] Long length of stay [x] ICU visit [] Other: Relational/Emotional Strength [] Patient feels connected with others/family/visitors/staff [] Distress [] Loneliness/isolation [] Abandonment Spirituality of Patient [] Person of Shona [] Attends Jehovah'S Witness of their Shona [] Believes in Prayer [] Reads Bible or Catholic materials [] There are Spiritual issues to be addressed Deposition Operator Interventions [x] Prayer [x] Active listening [x] Non-anxious presence [x] Spiritual/emotional support [] Crisis/trauma care [] Spiritual counseling [] Bereavement support [] Provided bereavement packet [] Provided Bible/devotional materials [] Provided toy/stuffed animal, coloring book to patient or family member [] Provided Communion [] Anointing/Sherman [] Salvation [x] Completed spiritual assessment [] Other: Impact on Illness or Injury [] Angry [] Fearful [] Anxious [] Often cries [] Exhaustion [] Unable to work [] Unable to attend anabaptist [] Unable to walk/stand [] Unable to read [] Unable to drive [] Unable to eat/drink [] Unable to sleep [] Unable to be with family [] Patient intubated [] Other: Summary patient feeling somewhat stronger... gifted with chocolate Time spent with patient 10 min
--- NOTE | 2021-03-16 11:44 | PM.PN ---
Subjective Subjective: Interval history: Patient is a dose of atropine for bradycardia however he was asymptomatic, after atropine he became hypotensive, no chest pain shortness of breath, he still has fluid overloaded state, requested Dr. Gomez to evaluate him today, Dr. Gomez recommended him to go to [facility] however his insurance would not cover, Vitals/I&O/Wt Last Vital Signs Temp 98.2 F 03/16/21 07:00 Pulse 79 03/16/21 09:00 Resp 14 03/16/21 09:00 BP 156/75 03/16/21 09:00 Pulse Ox 94 03/16/21 09:00 03/15/21 03/16/21 03/16/21 22:59 06:59 14:59 Intake Total 336 / 1696 100 / 100 Output Total 1400 / 1400 750 / 750 Balance -1064 / 296 -650 / -650 Weight last 48 hrs Weight 145.15 kg Weight 145.15 kg Physical Exam Narrative: EXAM NARRATIVE: Patient is laying comfortably in his bed He is n.p.o. S1, S2 Heart rate in 70s Telemetry showed bradycardia in low 50s No active chest pain or shortness of breath Clinically fluid overloaded EOMI, PERRLA Nonfocal neuro exam Data : 03/16/21 04:29 03/16/21 04:29 A&P Assessment and plan (1) Hyperkalemia: Status: Acute (2) Acute kidney injury: Status: Acute (3) Recurrent syncope: Status: Acute (4) Bradycardia: Status: Acute (5) Sinus pause: Status: Acute Additional A&P Information Hyperkalemia: Improved Sinus bradycardia, needs pacemaker, sinus pauses, Dr. Gomez to evaluate him today Full code We will keep him n.p.o. until Dr. Gomez's recommendation Acute on chronic kidney injury cardiorenal continue diuretics N.p.o. Advance diet if no plan for intervention by Dr. Jason Gomez has spoken with a pharmaceutical laboratory technician in [place], we are waiting for their call back, for now we will monitor in ICU, in case patient becomes unstable overnight please update Dr. Gomez Attestations Medical Necessity Statement*: Continue management Time Spent in Patient Care: less than 15 minutes Coding Level of Care Code Acute Trial Consultant for [facility] Fwd Diagnoses Hyperkalemia E87.5 Acute kidney injury N17.9 Recurrent syncope R55 Bradycardia R00.1 Sinus pause I45.5
[2021-03-16 12:21] LABS: Glucose Point of Care 160 mg/dL (70-110)
[2021-03-16 17:17] LABS: Glucose Point of Care 190 mg/dL (70-110)
--- NOTE | 2021-03-16 18:29 | PM.TDS ---
Transfer Summary Providers Date of Admission: 03/15/21 00:22 Date of Discharge: 03/16/21 Attending Provider at Admission: Kevan Kramer Attending Provider at Transfer: Charlie Hernandez MD Primary Care Provider: Leandra Reddy MD Anticipated Date of Transfer: Anticipated date of transfer: 03/16/21 Receiving Facility & Provider: Receiving Provider: [] Receiving facility: [] Diagnoses at Discharge Discharge Diagnosis (1) Hyperkalemia: Status: Acute (2) Acute kidney injury: Status: Acute (3) Recurrent syncope: Status: Acute (4) Bradycardia: Status: Acute (5) Sinus pause: Status: Acute Reason for Visit Reason for Visit: low BP, and HR Hospital Course Hospital Course History of Present Illness by Dr. Patterson 60 year old male with past medical history significant for hypertension, hyperlipidemia, chronic stage 3 kidney disease with creatinine of 1.8, diabetes mellitus, CHF, recurrent syncopal episodes, paroxysmal atrial fibrillation with multiple sinus pauses who is presenting to ER with bradycardia. Patient stated this has been an ongoing issues. Previously was on metoprolol which was discontinued a few weeks prior and clonidine which as discontinued 1 day prior. He was also on valstartan dose of which was cut in half due to hypotension. He was seen by Dr. Gomez on 03/10 during which time a pacemaker placement was attempted however unsuccessful. He noted his HR in the 30s which prompted ER eval. Denied chest pain or dyspnea. Also noted mild lightheadedness however denied syncopal episode. Also denied recent fever, chills, nausea or vomiting. Hospital course Patient was admitted for evaluation and management of sinus bradycardia, on telemetry sinus pauses of 3 to 5 seconds were noted, patient wanted to see Dr. Gomez who evaluated him on Sunday and recommended transfer to [place] as previous pacemaker placement attempt was unsuccessful. Dr. Gomez talked with Dr. Dumas at [facility] because his insurance is not covering visit at [facility]. Dr. Dumas has accepted and planning for outpatient procedure/pacemaker placement before noon on 03/17. Reason to transfer the patient: Unsuccessful pacemaker placement attempt by Dr. Jason Gomez has spoken with Dr. Dumas and updated me Patient and his updated in ICU around 6:30 PM, ICU nurse updated as well Physical Exam Narrative: EXAM NARRATIVE: Patient is laying comfortably in his bed He is n.p.o. S1, S2 Heart rate in 70s Telemetry showed bradycardia in low 50s No active chest pain or shortness of breath Clinically fluid overloaded EOMI, PERRLA Nonfocal neuro exam Patient is hemodynamically stable at the time of transfer TS Data Data Completed and Pending: Completed Studies During Hospitalization Category Date Time Status XR chest 1V argenis ble [id number] Stat Exams 03/14/21 20:03 Completed Pending at discharge Category Date Time Status Basic Metabolic P kun AM LABS Lab 03/17/21 04:00 Ordered Labs from last 24 hours 03/16/21 03/16/21 03/16/21 17:14 12:09 07:36 WBC RBC Hgb Hct MCV MCH MCHC RDW Plt Count MPV Neut % (Auto) Lymph % (Auto) [place] % (Auto) Eos % (Auto) Baso % (Auto) Neut # (Auto) Lymph # (Auto) [place] # (Auto) Eos # (Auto) Baso # (Auto) Nucleated RBC % (a uto) Nucleated RBCs # Sodium Potassium Chloride Carbon Dioxide Anion Gap BUN Creatinine GFR Calculation Glucose POC Glucose 190 H 160 H 178 H Calculated Osmolal ity Calcium Magnesium 03/16/21 03/16/21 03/15/21 04:29 04:29 19:47 WBC 7.6 RBC 4.06 L Hgb 11.7 Hct 36.7 L MCV 90.4 MCH 28.8 MCHC 31.9 RDW 14.1 Plt Count 251 MPV 10.6 H Neut % (Auto) 75.1 Lymph % (Auto) 14.7 [place] % (Auto) 6.1 Eos % (Auto) 3.0 Baso % (Auto) 0.4 Neut # (Auto) 5.71 Lymph # (Auto) 1.1 [place] # (Auto) 0.5 Eos # (Auto) 0.2 Baso # (Auto) 0.0 Nucleated RBC % (a uto) 0 Nucleated RBCs # 0.0 Sodium 138 Potassium 4.7 Chloride 104 Carbon Dioxide 21 L Anion Gap 17.7 BUN 34 H Creatinine 1.8 H GFR Calculation 38.7 L Glucose 174 H POC Glucose 305 H Calculated Osmolal ity 298 H Calcium 8.5 Magnesium 2.4 H Vitals: Last Vital Signs Temp 98.4 F 03/16/21 15:00 Pulse 77 03/16/21 16:00 Resp 15 03/16/21 16:00 BP 166/83 03/16/21 16:00 Pulse Ox 95 03/16/21 16:00 TS Medications Medications Home Medications aspirin 81 mg tablet,delayed release 81 mg PO BID 06/10/19 [History Confirmed 03/15/21] B-complex with vitamin C 1 tab PO DAILY 03/09/20 [History Confirmed 03/15/21] ascorbic acid (vitamin C) [Vitamin C] 1,000 mg PO DAILY 05/04/20 [History Confirmed 03/15/21] insulin aspart U-100 [Novolog U-100 Insulin aspart] 40 unit SUBCUT BID 05/04/20 [History Confirmed 03/15/21] Januvia 50 mg PO QAM 01/11/21 [History Confirmed 03/15/21] magnesium oxide 400 mg PO DAILY 01/11/21 [History Confirmed 03/15/21] melatonin 10 mg PO BEDTIME 01/11/21 [History Confirmed 03/15/21] multivitamin 1 tab PO QAM 01/11/21 [History Confirmed 03/15/21] potassium gluconate 595 mg PO DAILY 01/11/21 [History Confirmed 03/15/21] simvastatin 40 mg PO QAM 01/11/21 [History Confirmed 03/15/21] metformin 500 mg tablet See Rx Instructions .ROUTE .COMPLEX #60 tab 01/18/21 [Rx Confirmed 03/15/21] furosemide 20 mg tablet 20 mg PO DAILY #90 tab 01/20/21 [Rx Confirmed 03/15/21] amlodipine 10 mg tablet 10 mg PO DAILY #90 tab 02/14/21 [Rx Confirmed 03/15/21] hydralazine 100 mg tablet 100 mg PO TID #90 tab 02/28/21 [Rx Confirmed 03/15/21] insulin detemir U-100 100 unit/mL subcutaneous solution See Rx Instructions .ROUTE .COMPLEX #50 ml 02/28/21 [Rx Confirmed 03/15/21] dapagliflozin 5 mg tablet 5 mg PO DAILY #30 tab 03/02/21 [Rx Confirmed 03/15/21] valsartan 160 mg tablet 80 mg PO BID #90 tab 03/14/21 [Rx Confirmed 03/15/21] Active Medications Acetaminophen (Acetaminophen 325 Mg Tablet) 650 mg PO Q6H PRN PRN Reason: Mild/Mod Pain Or Temp >/= 101 Aspirin (Aspirin 81 Mg Ec Tablet) 81 mg PO BID [facility] Last Admin: 03/16/21 17:19 Dose: 81 mg Documented by: Atorvastatin Calcium (Atorvastatin 40 Mg Tablet) 40 mg PO BEDTIME [facility] Last Admin: 03/15/21 20:12 Dose: 40 mg Documented by: Atropine Sulfate (Atropine 0.1 Mg/Ml Syr 10 Ml) 0.5 mg IVP ONCE PRN PRN Reason: Symptomatic bradycardia Last Admin: 03/16/21 00:11 Dose: 0.5 mg Documented by: Dextrose (Dextrose 50% Syringe 50 Ml) 25 ml IVP ONCE PRN; Protocol PRN Reason: hypoglycemia protocol Dextrose (Dextrose 50% Syringe 50 Ml) 50 ml IVP PRN PRN; Protocol PRN Reason: hypoglycemia protocol Furosemide (Furosemide 20 Mg Tablet) 20 mg PO DAILY [facility] Last Admin: 03/16/21 08:49 Dose: 20 mg Documented by: Glucagon (Glucagon 1 Mg/Ml Inj 1 Ml) 1 mg IM ONCE PRN; Protocol PRN Reason: Adult Acute Hypoglycemia Prot. Hydralazine HCl (Hydralazine 50 Mg Tablet) 100 mg PO TID [facility] Last Admin: 03/16/21 15:08 Dose: 100 mg Documented by: Dextrose (D5w) 500 mls @ 100 mls/hr IV ONCE PRN; Protocol PRN Reason: Adult Acute Hypoglycemia Prot Insulin Glargine (Insulin Glargine 100 Units/1 Ml) 40 unit SUBCUT BID [facility] Last Admin: 03/16/21 17:19 Dose: 40 unit Documented by: Insulin Human Lispro (Insulin Lispro 100 Unit/1 Ml) 0 unit SUBCUT WM&BEDTIME [facility]; Protocol Last Admin: 03/16/21 17:19 Dose: 4 unit Documented by: Ondansetron HCl (Ondansetron 2 Mg/Ml Sdv 2 Ml) 4 mg IVP Q8H PRN PRN Reason: vomiting, or N/V if npo Last Admin: 03/16/21 01:44 Dose: 4 mg Documented by: Discharge Plan Discharge Patient Disposition: Home Condition: Stable Prescriptions: Continued B-complex with vitamin C [Super B Complex-Vitamin C] Tablet 1 tab PO DAILY RF: 0 Farxiga 5 mg tablet 5 mg PO DAILY Qty: 30 RF: 0 aspirin 81 mg tablet,delayed release (DR/EC) 81 mg PO BID RF: 0 furosemide 20 mg tablet 20 mg PO DAILY Qty: 90 RF: 2 hydralazine 100 mg tablet 100 mg PO TID Qty: 90 RF: 3 metformin 500 mg tablet See Rx Instructions .ROUTE .COMPLEX Qty: 60 RF: 4 Hold Instructions: Resume on 03/13/21. amlodipine 10 mg tablet 10 mg PO DAILY Qty: 90 RF: 2 Levemir U-100 Insulin 100 unit/mL solution See Rx Instructions .ROUTE .COMPLEX Qty: 50 RF: 10 valsartan 160 mg tablet 80 mg PO BID Qty: 90 RF: 4 ascorbic acid (vitamin C) [Vitamin C] 1,000 mg Tablet 1,000 mg PO DAILY RF: 0 insulin aspart U-100 [Novolog U-100 Insulin aspart] 100 unit/mL solution 40 unit SUBCUT BID RF: 0 multivitamin Tablet 1 tab PO QAM RF: 0 potassium gluconate 595 mg (99 mg) Tablet 595 mg PO DAILY RF: 0 melatonin 10 mg Tablet 10 mg PO BEDTIME RF: 0 magnesium oxide 200 mg magnesium Tablet 400 mg PO DAILY RF: 0 simvastatin 40 mg tablet 40 mg PO QAM RF: 0 Januvia 50 mg tablet 50 mg PO QAM RF: 0 Discharge Orders: Transfer Out of Facility (Order); Ordered 03/16/21 Ordered By: Charlie Hernandez Referrals: Leandra Reddy MD [Primary Care Provider] - Patient Instructions: Opioid Safety Transfer Attestations Time Spent in Transfer Care*: other Quality Metrics Clinical Quality Measures: During this hospital stay, did patient experience: None Coding Level of Care Code Acute Turf Manager for g Fwd Diagnoses Hyperkalemia E87.5 Acute kidney injury N17.9 Recurrent syncope R55 Bradycardia R00.1 Sinus pause I45.5
--- NOTE | 2021-03-16 19:17 | PM.CONSULT ---
Providers/Reason For Consult Consulting Physician/Specialty*: MILA Gomez MD/cardiology Reason for Consult*: Patient with a symptomatic bradycardia/pauses Attending Physician: Charlie Hernandez MD Primary Care Provider: Leandra Reddy MD History of Present Illness History of Present Illness Jack Springer is a 60 year old male with a history of hypertension, diabetes, dyslipidemia, history of diastolic heart failure, presented with recurrent episodes of near syncope. He was found to have episodes of bradycardia with a heart rate in the 30s and 40s. He also had prolonged pauses of up to 7 seconds on the event monitor. His clinical features are consistent with a sinus ayden dysfunction. Patient was brought to the outpatient department last week for elective pacemaker implantation. Multiple attempts were made to have venous access to the left subclavian. Because of the difficulty in getting the access, the procedure was aborted. The plan was to have perform this procedure with a surgical backup at a later time. Our cardiac surgeon is currently not available. This patient was seen in the emergency room day before yesterday when he presents with complaints of dizziness/weakness and uncontrolled blood pressure. His systolic blood pressure was in the 190s. Heart rate was in the 30s and 40s. For these complaints, he is admitted to the hospital. On the telemetry, he was found to have pauses of more than 3 seconds multiple times. He denies any chest pain or chest tightness. His blood pressure seems to be slowly getting under control. He is known to have chronic kidney disease as well, of stage III. Patient was on beta-sinan in the past that was taken off. Currently he is not on any AV ayden blocking agents. Review of Systems Narrative: CONSTITUTIONAL: No fever or chills. Feeling of fatigue/tiredness EYES: No blurring of vision or other visual disturbances lately. ENT: No hoarseness of voice, auditory disturbances or sore throat. CARDIOVASCULAR: As mentioned above. RESPIRATORY: No significant cough. GASTROINTESTINAL: No hematemesis or melena. GENITOURINARY: History of chronic kidney disease INTEGUMENTARY: No skin rashes or history of skin cancer. NEURO: No transient ischemic attacks or amaurosis. PSYCHIATRIC: No history of psychosis or major depression. HEMATOLOGIC: No bleeding disorders or significant anemia. ENDOCRINE: History of type 2 diabetes MUSCULOSKELETAL: No recent joint pain or swelling. ALLERGY/IMMUNOLOGY: As mentioned above. Meds/Allergies Home Medications and Allergies Home Medications Medication Instructions Recorded Confirmed Last Taken Type aspirin 81 mg tablet,delayed 81 mg PO BID 06/10/19 03/15/21 03/14/21 09:00 History release B-complex with vitamin C 1 tab PO DAILY 03/09/20 03/15/21 03/14/21 09:00 History ascorbic acid (vitamin C) [Vitamin 1,000 mg PO DAILY 05/04/20 03/15/21 03/14/21 09:00 History C] insulin aspart U-100 [Novolog 40 unit SUBCUT BID 05/04/20 03/15/21 03/14/21 09:00 History U-100 Insulin aspart] Januvia 50 mg PO QAM 01/11/21 03/15/21 03/14/21 09:00 History magnesium oxide 400 mg PO DAILY 01/11/21 03/15/21 03/14/21 09:00 History melatonin 10 mg PO BEDTIME 01/11/21 03/15/21 03/13/21 21:00 History multivitamin 1 tab PO QAM 01/11/21 03/15/21 03/14/21 09:00 History potassium gluconate 595 mg PO DAILY 01/11/21 03/15/21 03/14/21 09:00 History simvastatin 40 mg PO QAM 01/11/21 03/15/21 03/14/21 09:00 History metformin 500 mg tablet See Rx Instructions .ROUTE 01/18/21 03/15/21 03/14/21 12:00 Rx .COMPLEX #60 tab furosemide 20 mg tablet 20 mg PO DAILY #90 tab 01/20/21 03/15/21 03/14/21 09:00 Rx amlodipine 10 mg tablet 10 mg PO DAILY #90 tab 02/14/21 03/15/21 03/14/21 09:00 Rx hydralazine 100 mg tablet 100 mg PO TID #90 tab 02/28/21 03/15/21 03/14/21 12:00 Rx insulin detemir U-100 100 unit/mL See Rx Instructions .ROUTE 02/28/21 03/15/21 03/14/21 09:00 Rx subcutaneous solution .COMPLEX #50 ml dapagliflozin 5 mg tablet 5 mg PO DAILY #30 tab 03/02/21 03/15/21 03/14/21 09:00 Rx valsartan 160 mg tablet 80 mg PO BID #90 tab 03/14/21 03/15/21 03/14/21 09:00 Rx Allergies Allergy/AdvReac Type Severity Reaction Status Date / Time No Known Allergies Allergy Verified 03/09/21 10:40 Current Medications Current Medications Generic Name Dose Route Start Last Admin Trade Name Freq PRN Reason Stop Dose Admin Aspirin 81 mg 03/15/21 09:00 03/16/21 17:19 Aspirin 81 Mg Ec Tablet PO 81 mg BID NAM Administration Atorvastatin Calcium 40 mg 03/15/21 21:00 03/15/21 20:12 Atorvastatin 40 Mg Tablet PO 40 mg BEDTIME NAM Administration Atropine Sulfate 0.5 mg 03/15/21 18:10 03/16/21 00:11 Atropine 0.1 Mg/Ml Syr 10 Ml IVP 0.5 mg ONCE PRN Administration Symptomatic bradycardia Furosemide 20 mg 03/15/21 09:00 03/16/21 08:49 Furosemide 20 Mg Tablet PO 20 mg DAILY NAM Administration Hydralazine HCl 100 mg 03/16/21 04:00 03/16/21 15:08 Hydralazine 50 Mg Tablet PO 100 mg TID NAM Administration Insulin Glargine 40 unit 03/15/21 09:00 03/16/21 17:19 Insulin Glargine 100 Units/1 Ml SUBCUT 40 unit BID NAM Administration Insulin Human Lispro 0 unit 03/15/21 08:00 03/16/21 17:19 Insulin Lispro 100 Unit/1 Ml SUBCUT 4 unit WM&BEDTIME NAM Administration Protocol Ondansetron HCl 4 mg 03/15/21 04:03 03/16/21 01:44 Ondansetron 2 Mg/Ml Sdv 2 Ml IVP 4 mg Q8H PRN Administration vomiting, or N/V if npo PFSH Acute PFSH: Medical History Acquired absence of other toe(s), unspecified side Cellulitis and abscess of foot Charcot ankle Closed displaced fracture of navicular bone of right foot with routine healing Controlled diabetes mellitus with diabetic polyneuropathy, with long-term current use of insulin COVID-19 virus infection Hypercholesteremia Hyperchylomicronemia Hypertension Onychodystrophy Other deformities of toe(s) (acquired), left foot Polyneuropathy, unspecified Tick fever Type 2 diabetes mellitus Surgical History History of foot surgery History of knee surgery Status post colonoscopy (05/05/20) normal Family History Mother CAD (coronary artery disease) in older years, pacemaker Other Cancer Diabetes Hypertension Denies family history of Clotting disorder Dementia Hyperlipidemia Psychiatric illness Chronic kidney disease (CKD) Suicide Anesthesia complication Bleeding disorder Family history of premature coronary artery disease Lung disease Stroke Social History Smoking and tobacco status: never smoked Second hand smoke exposure: No Alcohol intake: never Vitals/I&O/Wt Last Vital Signs Temp 98.4 F 03/16/21 15:00 Pulse 77 03/16/21 16:00 Resp 15 03/16/21 16:00 BP 166/83 03/16/21 16:00 Pulse Ox 95 03/16/21 16:00 03/16/21 03/16/21 03/16/21 06:59 14:59 22:59 Intake Total 100 / 100 500 / 600 Output Total 1550 / 1550 900 / 2450 Balance -1450 / -1450 -400 / -1850 Weight last 48 hrs Weight 320 lb Weight 320 lb Physical Exam Narrative: EXAM NARRATIVE: GENERAL: The patient is alert and oriented times three. Not in any acute distress. HEENT: No significant pallor, icterus or lymphadenopathy.Oral cavity: There are no mucous membrane lesions. NECK: Trachea appears to be central. No masses noted. No JVD or thyromegaly appreciated. RESPIRATORY: Chest is symmetrical. No intercostals muscle retraction or any accessory muscle activation. There is no chest wall tenderness. Breath sounds are heard bilaterally. No rales or rhonchi heard. No evidence of any consolidation. BREASTS: Deferred. HEART: The heart sounds are normal. No S3 or S4. No significant murmurs. No pericardial rub ABDOMEN: No vessel pulsations or distention. No tenderness. No organomegaly appreciated. Bowel sounds are normally heard. : Deferred. RECTAL: Deferred. LYMPHATIC: No lymphadenopathy noted in the neck or groin. EXTREMITIES: No edema or cyanosis. No clubbing. Peripheral pulses are palpated in fairly good volume and amplitude MUSCULOSKELETAL: No acute joint deformities or swelling SKIN: There are no significant rashes or ecchymosis NEUROPSYCHIATRIC: The patient is alert and oriented x3. Appears to be in a good mood. No tremors or rigidity noted. Data Labs: Other Labs: Laboratory Last Values WBC 7.6 10^3/uL (4.0- 10.0) 03/16/21 04:29 RBC 4.06 10^6/uL (4.1 -5.3) L 03/16/21 04:29 Hgb 11.7 g/dL (11.7-1 6.6) 03/16/21 04:29 Hct 36.7 % (42.0-52.0 ) L 03/16/21 04:29 MCV 90.4 fl (80-94) 03/16/21 04:29 MCH 28.8 pg (28.0-34. 0) 03/16/21 04:29 MCHC 31.9 g/dL (30.0-3 6.0) 03/16/21 04:29 RDW 14.1 % (12.1-15.1 ) 03/16/21 04:29 Plt Count 251 10^3/cmm (130 -400) 03/16/21 04:29 MPV 10.6 fL (7.4-10.4 ) H 03/16/21 04:29 Neut % (Auto) 75.1 % 03/16/21 04:29 Lymph % (Auto) 14.7 % 03/16/21 04:29 [place] % (Auto) 6.1 % 03/16/21 04:29 Eos % (Auto) 3.0 % 03/16/21 04:29 Baso % (Auto) 0.4 % 03/16/21 04:29 Neut # (Auto) 5.71 10^3/uL (1.8 -7.7) 03/16/21 04:29 Lymph # (Auto) 1.1 10^3/uL (0.8- 4.8) 03/16/21 04:29 [place] # (Auto) 0.5 10^3/uL (0.2- 0.9) 03/16/21 04:29 Eos # (Auto) 0.2 10^3/uL (0.0- 0.8) 03/16/21 04:29 Baso # (Auto) 0.0 10^3/uL (0.0- 0.1) 03/16/21 04:29 Nucleated RBC % (a uto) 0 % 03/16/21 04:29 Nucleated RBCs # 0.0 /100WBC 03/16/21 04:29 Sodium 138 mmol/L (136-1 45) 03/16/21 04:29 Potassium 4.7 mmol/L (3.5-5 .1) 03/16/21 04:29 Chloride 104 mmol/L (98-10 7) 03/16/21 04:29 Carbon Dioxide 21 mmol/L (22-29) L 03/16/21 04:29 Anion Gap 17.7 (5-19) 03/16/21 04:29 BUN 34 mg/dL (8-23) H 03/16/21 04:29 Creatinine 1.8 mg/dL (0.7-1. 2) H 03/16/21 04:29 GFR Calculation 38.7 mL/min (90-1 30) L 03/16/21 04:29 Glucose 174 mg/dL (65-115 ) H 03/16/21 04:29 POC Glucose 248 mg/dL (70-110 ) H 03/16/21 19:25 Calculated Osmolal ity 298 mOsm/kg (285- 295) H 03/16/21 04:29 Calcium 8.5 mg/dL (8.5-10 .5) 03/16/21 04:29 Magnesium 2.4 mg/dL (1.7-2. 3) H 03/16/21 04:29 Total Bilirubin 0.6 mg/dL (0.15-1 .2) 03/14/21 20:10 AST 16 U/L (0-40) 03/14/21 20:10 ALT 13 U/L (0-41) 03/14/21 20:10 Alkaline Phosphata se 93 IU/L (40-130) 03/14/21 20:10 Troponin T Baselin e 44 ng/L (0-15) H 03/14/21 20:10 Troponin T 120 Min dolores 42.09 ng/L (0-15) H 03/14/21 21:52 Delta Troponin T -1.91 ABS# (0-10) L 03/14/21 21:52 Troponin T Hi Sens 6Hr 42.96 ng/L (0-15) H 03/15/21 02:22 Troponin T Hi Sens 6Hr Delta -1.04 ng/L (0-12) L 03/15/21 02:22 Total Protein 7.6 g/dL (6.6-8.7 ) 03/14/21 20:10 Albumin 4.2 g/dL (3.5-5.2 ) 03/14/21 20:10 Globulin 3.4 g/dL (1.3-4.6 ) 03/14/21 20:10 TSH 8.72 uIU/mL (0.27 -4.20) H 03/15/21 02:22 Free T4 0.96 ng/dL (0.82- 1.77) 03/15/21 02:22 Imaging^: Echo: My impression: 01/12/21 Echo complete 1-Small ventricular cavity, severe left ventricular hypertrophy of concentric type. Left ventricular ejection fraction is estimated at 65 %. Grade II/IV diastolic dysfunction, moderately elevated filling pressures. No systolic anterior motion of mitral valve was noted, left ventricle cavity near obliteration during systole however no significant LVOT obstruction noted, please note that this study suboptimal quality therefore may need transesophageal echocardiogram for further details at some point. 2-No significant valve abnormalities. 3-There is no pericardial effusion. 4-Pulmonary artery systolic pressure is within normal limits. 5-Right atrial pressure is around 0-5 mm of mercury. 6-There are no prior echocardiogram studies to compare. EKG^: EKG 1: My Interpretation: Done on 03/15/2021 revealed Sinus bradycardia at the rate of [address] Ts. Patient had telemetry rhythm strips today which revealed a several episodes of pauses of more than 3 seconds, through the night. A&P Assessment and plan (1) Symptomatic bradycardia: Patient has clinical features of sinus node dysfunction. In view of his symptomatic bradycardia, prolonged pauses on telemetry, he requires a permanent pacemaker plantation, for further management of his condition. In view of the difficulty in getting the venous access, I the procedure needs to be done with surgical backup. Since we do not have cardiac surgery available it would be better to have this done at a facility where his surgical backup is available. This was discussed with the patient detail which is understood well. Status: Acute (2) Type 2 diabetes mellitus: May continue on the current management. Status: Acute Qualifiers: Diabetes mellitus equipment operator intermodal yard insulin use: with detention use Diabetes mellitus complication status: with circulatory complication Diabetes mellitus complication detail: with peripheral angiopathy without gangrene Qualified Code(s): E11.51 - Type 2 diabetes mellitus with diabetic peripheral angiopathy without gangrene; Z79.4 - terminal carman (current) use of insulin (3) Hypercholesteremia: Continue on the current medications. Status: Acute (4) Hypertension: The blood pressure is a stage II. Try to optimize the antihypertensive medications. Status: Acute Qualifiers: Hypertension type: unspecified Qualified Code(s): I10 - Essential (primary) hypertension (5) CHF (congestive heart failure): Currently he is compensated. Status: Acute Qualifiers: Heart failure type: unspecified Heart failure chronicity: chronic Qualified Code(s): I50.9 - Heart failure, unspecified Additional A&P Information I contacted the on-call cardiology service at the [facility]. Dr. Dumas, the cosmetic counselor accepted his transfer for further management. It was advised to transfer the patient in the morning . He will be kept n.p.o. after midnight. Consult Attestations Medical Necessity Statement: Patient requires continued hospital stay for close monitoring and further management Coding Level of Care Code Acute Handstitching Machine Armhole Feller for g Fwd History Detailed Exam Detailed Medical Decision Making Moderate Complexity Diagnoses Symptomatic bradycardia R00.1 Type 2 diabetes mellitus E11.51; Z79.4 Diabetes mellitus equipment operator intermodal yard insulin use: with equipment operator intermodal yard use Diabetes mellitus complication status: with circulatory complication Diabetes mellitus complication detail: with peripheral angiopathy without gangrene Hypercholesteremia E78.00 Hypertension I10 Hypertension type: unspecified CHF (congestive heart failure) I50.9 Heart failure type: unspecified Heart failure chronicity: chronic
[2021-03-16 19:29] LABS: Glucose Point of Care 248 mg/dL (70-110)
[2021-03-16] MEDS: atorvastatin 40 mg Tablet PO (20:52)
[2021-03-17] VITALS (7 sets, daily range): BP systolic 116–174; BP diastolic 70–89; PULSE 76–85; RESP 10–16; TEMP 36.8; O2SAT 94–96
--- NOTE | 2021-03-17 00:19 | PC.NURSE ---
This nurse contacted [facility] per dr. granados, and spoke to [facility] who informed this nurse the primary physician has not contacted them and need to happen prior to accepting but file will be kept open. this nurse will pass to next shift.
[2021-03-17 05:00] LABS: Blood Urea Nitrogen 24 mg/dL (8-23); Calcium 8.7 mg/dL (8.5-10.5); Carbon Dioxide 22 mmol/L (22-29); Chloride 105 mmol/L (98-107); Glomerular Filtration Rate 47.7 mL/min (90-130); Glucose 104 mg/dL (65-115); Osmolality Calculated 296 mOsm/kg (285-295); Sodium 141 mmol/L (136-145)
[2021-03-17 08:21] LABS: Glucose Point of Care 123 mg/dL (70-110)
[2021-03-17] MEDS: hyDRALAzine 50 mg Tablet 100 MG PO (08:26)
[2021-03-17] MEDS: FUROsemide 20 mg Tablet PO (08:26)
--- NOTE | 2021-04-05 08:41 | P.OP_ITS ---
Operative Report Date of procedure: April 05, 2021 Pre-op Diagnosis: Sinus node dysfunction Procedure: Jack Springer is a 60 year old male , brought to the cardiac catheterization lab today for a scheduled permanent pacer implantation. Patient was prepped and draped in a sterile fashion in the cardiac Mobile Application Developer. We performed a left subclavian venogram by injecting 20 cc of dye into the basilic vein on the left side. The subclavian vein was visualized. I made multiple attempts to access the vein using a micropuncture needle system. Apparently I could not get the venous access. The vein appears to be very deep. Since multiple attempts were unsuccessful, I decided to abort the procedure. It was thought to be appropriate to repeat the procedure with surgical backup. I discussed this with the patient in detail. Patient understood this well. Patient remained stable throughout the hospital stay. There were no complications. Plan: Discharge home today. I contacted Dr. Navarrete at the [facility] in [place]. Dr. Navarrete's office will be arranging for this procedure, and contacting the patient.
== END 2021-03-17 10:33 | disposition home or self-care (01) ==
LOC: ER 21:35 → MEDSURG 22:21 → CSU 03-15 12:52 → ICU 03-16 07:46 → MEDSURG 03-16 07:46
PROVIDERS: Admitting Provider Hospitalist; Emergency Provider Emergency Medicine; PCP Family Medicine; Visit Provider Internal Medicine
DX: R00.1 Bradycardia, unspecified (principal); E87.5 Hyperkalemia; I45.5 Other specified heart block; E11.22 Type 2 diabetes mellitus with diabetic chronic kidney disease; N18.30 Chronic kidney disease, stage 3 unspecified; I10 Essential (primary) hypertension; E78.5 Hyperlipidemia, unspecified; I48.0 Paroxysmal atrial fibrillation; Z79.82 Long term (current) use of aspirin; Z79.84 Long term (current) use of oral hypoglycemic drugs; Z79.4 Long term (current) use of insulin; Z86.16 Personal history of COVID-19; E78.00 Pure hypercholesterolemia, unspecified; E11.51 Type 2 diabetes mellitus with diabetic peripheral angiopathy without gangrene
CPT/HCPCS: 36415; 36416; 71045; 80048; 80053; 82962; 83735; 84439; 84443; 84484; 85025; 93005; 96361; 96372; 96374; 99285; G0378; J0461; J1644; J1815 ×2; J2405; J7030

== ENCOUNTER 2021-03-28 08:40 | Outpatient (CLI) | payer MEDICARE, SELFPAY | END 2021-03-28 08:41 | disposition home or self-care (01) | LOC: WOUND 08:41 | PROVIDERS: PCP Family Medicine; Visit Provider Thoracic Surgery (Cardiothoracic Vascular Surgery) | DX: E11.621 Type 2 diabetes mellitus with foot ulcer (principal); L97.511 Non-pressure chronic ulcer of other part of right foot limited to breakdown of skin; L97.521 Non-pressure chronic ulcer of other part of left foot limited to breakdown of skin; Z87.891 Personal history of nicotine dependence | CPT/HCPCS: 97597 ==

== ENCOUNTER 2021-03-28 16:26 | Outpatient (CLI) | payer MEDICARE, SELFPAY ==
--- NOTE | 2021-03-28 | USR_ITS ---
PROCEDURE INFORMATION: Exam: US Duplex Left Upper Extremity Veins, Limited Exam date and time: 03/28/2021 4:37 PM Age: 60 years old Clinical indication: Swelling (edema) of limb; Upper extremity, left; Prior surgery; Surgery date: <1 month; Surgery type: Patient had pace maker placed 03/17/2021; Additional info: Pain left forearm, swelling left arm TECHNIQUE: Imaging protocol: Real-time Duplex ultrasound of the Left Upper Extremity with 2-D barnard scale, color Doppler flow and spectral waveform analysis with image documentation. Limited exam focused on the left upper extremity veins. COMPARISON: No relevant prior studies available. FINDINGS: Left deep veins: Unremarkable. Axillary and brachial veins are patent throughout without thrombus. Normal Doppler waveforms. Normal compressibility and/or augmentation response. Visualized internal jugular and subclavian veins are patent. Left superficial veins: Unremarkable. Visualized cephalic and basilic veins are patent without thrombus. Soft tissues: Unremarkable. US/[place] [id number] IMPRESSION: No evidence of deep vein thrombosis.
== END 2021-03-28 16:27 | disposition home or self-care (01) ==
LOC: RAD 16:32
PROVIDERS: PCP Family Medicine; Visit Provider Thoracic Surgery (Cardiothoracic Vascular Surgery)
DX: M79.632 Pain in left forearm (principal); R22.32 Localized swelling, mass and lump, left upper limb
CPT/HCPCS: 93971

== ENCOUNTER 2021-04-04 07:58 | Outpatient (CLI) | payer MEDICARE, SELFPAY | END 2021-04-04 07:59 | disposition home or self-care (01) | LOC: WOUND 07:59 | PROVIDERS: PCP Family Medicine; Visit Provider Thoracic Surgery (Cardiothoracic Vascular Surgery) | DX: E11.621 Type 2 diabetes mellitus with foot ulcer (principal); L97.519 Non-pressure chronic ulcer of other part of right foot with unspecified severity; L97.521 Non-pressure chronic ulcer of other part of left foot limited to breakdown of skin; I10 Essential (primary) hypertension; Z87.891 Personal history of nicotine dependence | CPT/HCPCS: 36416; 82962; 87070; 87077; 87176; 87186; 87205; 97597 ==

== ENCOUNTER 2021-04-04 10:53 | Emergency (ER) | payer MEDICARE, SELFPAY ==
[2021-04-04 10:54] VITALS: BP 190/86; PULSE 75; RESP 18; TEMP 36.6; O2SAT 97; BMI 44.7
[2021-04-04 11:06] LABS: Glucose Point of Care 116 mg/dL (70-110)
--- NOTE | 2021-04-04 11:17 | W.ED.GENADLT ---
HPI - General Adult General: Chief complaint: General Medical Stated complaint: AMS Time Seen by Provider: 04/04/21 10:59 Source: patient and EMS Mode of arrival: EMS Limitations: no limitations History of Present Illness: HPI narrative: 60-year-old male presents to the emergency department chief complaint of low blood sugar. The patient was in on a routine physical work-up by his primary care doctor that noted his blood sugar was 38 mg/dL patient reported he had no symptoms. He reports he did eat this morning as well as take his insulin as prescribed patient reports he recently went through a pacemaker replacement due to having a low heart rate within the past couple of weeks he reports uneventful postoperative period reporting he has been dealing with a mild infection noted to his left arm since the surgery that he is currently on antibiotics for the patient does not report having any other associated symptoms. Upon EMS arrival patient had an IV established in which he was provided dextrose which his blood sugar raised up. Onset (ago): hour(s) (1) Associated symptoms: Deny chest pain, dyspnea, headache(s), malaise, nausea, rash, palpitations or vomiting Review of Systems General: Reports: 10 or more systems reviewed and unremarkable except in HPI and below Const: Denies: fever(s), chills, fatigue or malaise Eyes: Denies: change in vision or blurry vision Card: Denies: chest pain or palpitations Resp: Denies: dyspnea or productive cough GI: Denies: abdominal pain, nausea or vomiting : Denies: flank pain Musc: Denies: extremity pain or extremity swelling Skin/Breast: Denies: rash or pruritus Neuro: Denies: headache(s) Psych: Denies: anxiety or depression Mike/Lymph: Denies: easy bleeding All/Imm: Denies: urticaria, throat swelling or facial swelling PFS ED PFSH: Medical History Acquired absence of other toe(s), unspecified side Bradycardia Cellulitis and abscess of foot Charcot ankle CHF (congestive heart failure) Closed displaced fracture of navicular bone of right foot with routine healing Controlled diabetes mellitus with diabetic polyneuropathy, with long-term current use of insulin COVID-19 virus infection Diabetic peripheral neuropathy associated with type 2 diabetes mellitus Hypercholesteremia Hyperchylomicronemia Hypertension Onychodystrophy Other deformities of toe(s) (acquired), left foot Polyneuropathy, unspecified PVD (peripheral vascular disease) Recurrent syncope Somnolence, daytime Tick fever Type 2 diabetes mellitus Surgical History History of foot surgery History of knee surgery Status post colonoscopy (05/05/20) normal Family History Mother CAD (coronary artery disease) in older years, pacemaker Other Cancer Diabetes Hypertension Denies family history of Clotting disorder Dementia Hyperlipidemia Psychiatric illness Chronic kidney disease (CKD) Suicide Anesthesia complication Bleeding disorder Family history of premature coronary artery disease Lung disease Stroke Social History Smoking and tobacco status: never smoked Second hand smoke exposure: No Alcohol intake: never Physical Exam Narrative: EXAM NARRATIVE: Patient appears nontoxic appears no acute distress with no focal neurodeficits appreciated. Const: COMMON NORMALS: no acute distress, patient oriented x3 and healthy appearing HENMT: COMMON NORMALS: normocephalic and atraumatic HEAD & SCALP: normocephalic and atraumatic Eye: COMMON NORMALS: Equal, round and reactive pupils present and EOMs intact bilaterally PUPIL: Yes Equal, round and reactive pupils present Neck/C-Spine: COMMON NORMALS: full ROM, supple and no JVD Lymph: LYMPHATIC: no lymphadenopathy noted Chest: COMMONS NORMALS: normal inspection of the chest and normal palpation of entire chest wall Resp: COMMON NORMALS: normal respiratory effort, No retractions and clear to auscultation bilaterally EFFORT & INSPECTION: Yes able to speak in complete sentences and Yes symmetric chest movement AUSCULTATION: clear to auscultation bilaterally Cardio: COMMON NORMALS: no JVD, regular rate and regular rhythm RATE: regular rate RHYTHM: regular rhythm GI: COMMON NORMALS: Normal to inspection, nondistended, normoactive bowel sounds present, Soft to palpation and non-tender INSPECTION: Yes normal to inspection PALPATION: Yes Soft to palpation : COMMON NORMALS: Yes no CVA tenderness BLADDER/KIDNEY EXAM: Yes no CVA tenderness Back/Pelvis: COMMON NORMALS: no CVA tenderness Extremity: COMMON NORMALS: normal to inspection and full ROM Neuro: COMMON NORMALS: patient oriented x3, CN's II-XII intact bilaterally, moves all extremities and no focal motor deficits Psych: COMMON NORMALS: mental status grossly normal, Normal thought process present, cooperative and normal affect THOUGHT PROCESS: Normal thought process present Skin: COMMON NORMALS: no rashes or lesions noted GENERAL SKIN EXAM: no rashes or lesions noted Course ED course: Due to the patient's symptom condition IV will be established basic lab work will be obtained while patient will go through an observation period to reconfirm his blood sugar will not drop. We will continue to follow. Patient was observed emergency department for over 2 hours no additional episodes of hypoglycemia were noted patient was able to eat and drink lab work also came back reassuring. At this time patient will be subsequently discharged home we did advise any further follow-up with his primary care doctor in 2 to 3 days for further assessment and management and to frequently check his blood sugar throughout the daytime and document the current findings. Patient was advised to return in the interim if any of the symptoms persist or worsen. Vital Signs: Vital signs: Vital Signs Temperature 97.8 F 04/04/21 13:35 Pulse Rate 80 04/04/21 13:35 Respiratory Rate 18 04/04/21 13:35 Blood Pressure 181/80 04/04/21 13:35 Pulse Oximetry 96 04/04/21 13:35 MDM - General Adult Lab Data: Labs: Lab Results 04/04/21 04/04/21 04/04/21 11:02 11:38 11:39 WBC 7.7 10^3/uL 10^3/ uL (4.0-10.0) RBC 3.62 10^6/uL L 10 ^6/uL (4.1-5.3) Hgb 10.3 g/dL L g/dL (11.7-16.6) Hct 32.6 % L % (42.0-52.0) MCV 90.1 fl fl (80-94) MCH 28.5 pg pg (28.0-34.0) MCHC 31.6 g/dL g/dL (30.0-36.0) RDW 13.5 % % (12.1-15.1) Plt Count 307 10^3/cmm 10^3 /cmm (130-400) MPV 10.1 fL fL (7.4-10.4) Neut % (Auto) 81.4 % % Lymph % (Auto) 8.0 % % [place] % (Auto) 7.2 % % Eos % (Auto) 2.2 % % Baso % (Auto) 0.5 % % Neut # (Auto) 6.23 10^3/uL 10^3 /uL (1.8-7.7) Lymph # (Auto) 0.6 10^3/uL L 10^ 3/uL (0.8-4.8) [place] # (Auto) 0.6 10^3/uL 10^3/ uL (0.2-0.9) Eos # (Auto) 0.2 10^3/uL 10^3/ uL (0.0-0.8) Baso # (Auto) 0.0 10^3/uL 10^3/ uL (0.0-0.1) Nucleated RBC % (a uto) 0 % % Nucleated RBCs # 0.0 /100WBC /100W BC Sodium Potassium Chloride Carbon Dioxide Anion Gap BUN Creatinine GFR Calculation Glucose POC Glucose 116 mg/dL H mg/dL 105 mg/dL mg/dL (70-110) (70-110) Calculated Osmolal ity Calcium Total Bilirubin AST ALT Alkaline Phosphata se Total Protein Albumin Globulin Urine Color Urine Appearance Urine pH Ur Specific Gravit y Urine Protein Urine Glucose (UA) Urine Ketones Urine Blood Urine Nitrate Urine Bilirubin Urine Urobilinogen Ur Leukocyte Hope ase Urine RBC Urine WBC Ur Squamous Epith Cells Amorphous Sediment Urine Bacteria 04/04/21 04/04/21 04/04/21 11:39 12:15 13:01 WBC RBC Hgb Hct MCV MCH MCHC RDW Plt Count MPV Neut % (Auto) Lymph % (Auto) [place] % (Auto) Eos % (Auto) Baso % (Auto) Neut # (Auto) Lymph # (Auto) [place] # (Auto) Eos # (Auto) Baso # (Auto) Nucleated RBC % (a uto) Nucleated RBCs # Sodium 141 mmol/L mmol/L (136-145) Potassium 3.9 mmol/L mmol/L (3.5-5.1) Chloride 102 mmol/L mmol/L (98-107) Carbon Dioxide 27 mmol/L mmol/L (22-29) Anion Gap 15.9 (5-19) BUN 43 mg/dL H mg/dL (8-23) Creatinine 2.0 mg/dL H mg/dL (0.7-1.2) GFR Calculation 34.3 mL/min L mL/ min (90-130) Glucose 94 mg/dL mg/dL (65-115) POC Glucose 142 mg/dL H mg/dL (70-110) Calculated Osmolal ity 303 mOsm/kg H mOs m/kg (285-295) Calcium 8.7 mg/dL mg/dL (8.5-10.5) Total Bilirubin 0.3 mg/dL mg/dL (0.15-1.2) AST 13 U/L U/L (0-40) ALT 9 U/L U/L (0-41) Alkaline Phosphata se 90 IU/L IU/L (40-130) Total Protein 6.6 g/dL g/dL (6.6-8.7) Albumin 3.9 g/dL g/dL (3.5-5.2) Globulin 2.7 g/dL g/dL (1.3-4.6) Urine Color Straw (Yellow) Urine Appearance Clear (CLEAR) Urine pH 6.5 (5-7) Ur Specific Gravit y 1.005 (1.005-1.030) Urine Protein 1+ H (Negative) Urine Glucose (UA) Norm (Normal) Urine Ketones Negative (Negative) Urine Blood Neg (Negative) Urine Nitrate Negative (Negative) Urine Bilirubin Neg (Negative) Urine Urobilinogen Norm mg/dL mg/dL (Negative) Ur Leukocyte Hope ase Negative (Negative) Urine RBC None /hpf /hpf (0-2) Urine WBC None /hpf /hpf (0-5) Ur Squamous Epith Cells None /hpf /hpf (0-5) Amorphous Sediment Not Reportable Urine Bacteria Trace /hpf /hpf (NONE) Discharge Plan Discharge Patient Disposition: Home Clinical Impression: Hypoglycemic episode in patient with diabetes mellitus Condition: Stable Prescriptions: No Action B-complex with vitamin C [Super B Complex-Vitamin C] Tablet 1 tab PO DAILY RF: 0 Farxiga 5 mg tablet 5 mg PO DAILY Qty: 30 RF: 0 aspirin 81 mg tablet,delayed release (DR/EC) 81 mg PO BID RF: 0 hydralazine 100 mg tablet 100 mg PO TID Qty: 90 RF: 3 furosemide 40 mg tablet 40 mg PO DAILY Qty: 90 RF: 1 potassium gluconate 595 mg (99 mg) tablet 1,785 mg PO DAILY Qty: 90 RF: 0 cefdinir 300 mg capsule 300 mg PO BID Qty: 20 RF: 0 metformin 500 mg tablet See Rx Instructions .ROUTE .COMPLEX Qty: 60 RF: 4 Hold Instructions: Resume on 03/13/21. amlodipine 10 mg tablet 10 mg PO DAILY Qty: 90 RF: 2 Levemir U-100 Insulin 100 unit/mL solution See Rx Instructions .ROUTE .COMPLEX Qty: 50 RF: 10 valsartan 160 mg tablet 80 mg PO BID Qty: 90 RF: 4 ascorbic acid (vitamin C) [Vitamin C] 1,000 mg Tablet 1,000 mg PO DAILY RF: 0 insulin aspart U-100 [Novolog U-100 Insulin aspart] 100 unit/mL solution 40 unit SUBCUT BID RF: 0 multivitamin Tablet 1 tab PO QAM RF: 0 melatonin 10 mg Tablet 10 mg PO BEDTIME RF: 0 magnesium oxide 200 mg magnesium Tablet 400 mg PO DAILY RF: 0 simvastatin 40 mg tablet 40 mg PO QAM RF: 0 Januvia 50 mg tablet 50 mg PO QAM RF: 0 Discharge Orders: Discharge ED (Routine); Ordered 04/04/21 Ordered By: Beto Kaur Referrals: Leandra Reddy MD [Primary Care Provider] - Discharge Activity: Resume usual activity Patient Instructions: Hypoglycemia in a Person with Diabetes (ED) Activity Restrictions/Additional Instructions: Is advised for you to further follow-up with primary care doctor in 2 to 3 days as needed take your medications as prescribed as well as your blood sugar several times throughout the day to confirm your sugars do not continue to drop in which you advised to return the interim if any of your symptoms persist or worse. Coding Level of Care Code ED Operations Controller for Shira Fwd Exam Comprehensive
[2021-04-04 11:40] LABS: Glucose Point of Care 105 mg/dL (70-110)
--- NOTE | 2021-04-04 11:45 | PC.NURSE ---
patient given turkey sandwich and two orange juices. patient with intermittent dozing off upon talking to patient. Provider [employer].
[2021-04-04 12:05] LABS: Basophils % 0.5 %; Eosinophils # 0.2 10^3/uL (0.0-0.8); Eosinophils % 2.2 %; Hematocrit 32.6 % (42.0-52.0); Hemoglobin 10.3 g/dL (11.7-16.6); Lymphocytes # 0.6 10^3/uL (0.8-4.8); Mean Corpuscular HGB Conc 31.6 g/dL (30.0-36.0); Mean Corpuscular Hemoglobin 28.5 pg (28.0-34.0); Mean Corpuscular Volume 90.1 fl (80-94); Mean Platelet Volume 10.1 fL (7.4-10.4); Monocytes # 0.6 10^3/uL (0.2-0.9); Monocytes % 7.2 %; Neutrophils # 6.23 10^3/uL (1.8-7.7); Neutrophils % 81.4 %; Nucleated Red Blood Cells % 0 %; Platelet Count 307 10^3/cmm (130-400); Red Blood Count 3.62 10^6/uL (4.1-5.3); Red Cell Distribution Width 13.5 % (12.1-15.1); White Blood Count 7.7 10^3/uL (4.0-10.0)
[2021-04-04 12:14] LABS: Alanine Aminotransferase 9 U/L (0-41); Albumin Level 3.9 g/dL (3.5-5.2); Alkaline Phosphatase 90 IU/L (40-130); Anion Gap 15.9 (5-19); Aspartate Amino Transferase 13 U/L (0-40); Blood Urea Nitrogen 43 mg/dL (8-23); Calcium 8.7 mg/dL (8.5-10.5); Carbon Dioxide 27 mmol/L (22-29); Chloride 102 mmol/L (98-107); Globulin 2.7 g/dL (1.3-4.6); Glomerular Filtration Rate 34.3 mL/min (90-130); Glucose 94 mg/dL (65-115); Osmolality Calculated 303 mOsm/kg (285-295); Potassium 3.9 mmol/L (3.5-5.1); Sodium 141 mmol/L (136-145); Total Bilirubin 0.3 mg/dL (0.15-1.2); Total Protein 6.6 g/dL (6.6-8.7)
[2021-04-04 12:34] LABS: Bilirubin Urine Neg (Negative); Blood Urine Neg (Negative); Glucose Urine UA Norm (Normal); Ketones Urine Negative (Negative); Leukocyte Esterase Urine Negative (Negative); Nitrate Urine Negative (Negative); Protein Urine 1+ (Negative); Specific Gravity, Urine 1.005 (1.005-1.030); Urine Appearance Clear (CLEAR); Urine Color Straw (Yellow); Urobilinogen Urine Norm (Negative); pH Urine 6.5 (5-7)
[2021-04-04 12:35] LABS: Add Urine Microscopic? YES
[2021-04-04 12:36] LABS: Add Urine Culture? No; Bacteria Urine TRACE /hpf
[2021-04-04 13:02] VITALS: BP 147/63; PULSE 78; RESP 18; TEMP 36.4; O2SAT 96
[2021-04-04 13:35] VITALS: BP 181/80; PULSE 80; RESP 18; TEMP 36.6; O2SAT 96
[2021-04-04 13:37] LABS: Glucose Point of Care 142 mg/dL (70-110)
[2021-04-04 13:38] VITALS: BP 181/80; PULSE 76; RESP 18; TEMP 36.6; O2SAT 96
== END 2021-04-04 13:39 | disposition home or self-care (01) ==
PROVIDERS: Emergency Provider Emergency Medicine; PCP Family Medicine
DX: E11.649 Type 2 diabetes mellitus with hypoglycemia without coma (principal); Z79.4 Long term (current) use of insulin; Z79.84 Long term (current) use of oral hypoglycemic drugs; Z79.82 Long term (current) use of aspirin; I11.0 Hypertensive heart disease with heart failure; I50.9 Heart failure, unspecified; E11.42 Type 2 diabetes mellitus with diabetic polyneuropathy; E11.621 Type 2 diabetes mellitus with foot ulcer; L97.519 Non-pressure chronic ulcer of other part of right foot with unspecified severity; L97.521 Non-pressure chronic ulcer of other part of left foot limited to breakdown of skin; I10 Essential (primary) hypertension; Z87.891 Personal history of nicotine dependence
CPT/HCPCS: 36416; 80053; 81001; 82962; 85025; 87070; 87077; 87176; 87186; 87205; 97597; 99283

== ENCOUNTER 2021-04-11 08:00 | Outpatient (CLI) | payer MEDICARE, SELFPAY | END 2021-04-11 08:01 | disposition home or self-care (01) | PROVIDERS: PCP Family Medicine; Visit Provider Nurse Practitioner Family | DX: E11.621 Type 2 diabetes mellitus with foot ulcer (principal); L97.522 Non-pressure chronic ulcer of other part of left foot with fat layer exposed; I10 Essential (primary) hypertension; Z87.891 Personal history of nicotine dependence | CPT/HCPCS: 11042 ==

== ENCOUNTER 2021-04-18 08:02 | Outpatient (CLI) | payer MEDICARE, SELFPAY | END 2021-04-18 08:03 | disposition home or self-care (01) | LOC: WOUND 08:03 | PROVIDERS: PCP Family Medicine; Visit Provider Thoracic Surgery (Cardiothoracic Vascular Surgery) | DX: E11.621 Type 2 diabetes mellitus with foot ulcer (principal); L97.521 Non-pressure chronic ulcer of other part of left foot limited to breakdown of skin; I10 Essential (primary) hypertension; Z87.891 Personal history of nicotine dependence | CPT/HCPCS: 97597 ==

== ENCOUNTER 2021-04-25 07:54 | Outpatient (CLI) | payer MEDICARE, SELFPAY | END 2021-04-25 07:55 | disposition home or self-care (01) | LOC: WOUND 07:55 | PROVIDERS: PCP Family Medicine; Visit Provider Thoracic Surgery (Cardiothoracic Vascular Surgery) | DX: Z09 Encounter for follow-up examination after completed treatment for conditions other than malignant neoplasm (principal); E11.9 Type 2 diabetes mellitus without complications; I10 Essential (primary) hypertension; Z87.891 Personal history of nicotine dependence | CPT/HCPCS: 99212 ==

== ENCOUNTER 2021-04-30 11:21 | Emergency (ER) | payer MEDICARE, SELFPAY ==
[2021-04-30 12:15] VITALS: BP 190/84; PULSE 74; RESP 18; TEMP 36.7; O2SAT 96; BMI 43.5
[2021-04-30 14:32] LABS: Add Urine Microscopic? YES; Bilirubin Urine Neg (Negative); Blood Urine Neg (Negative); Glucose Urine UA 4+ (Normal); Ketones Urine Negative (Negative); Leukocyte Esterase Urine Negative (Negative); Nitrate Urine Negative (Negative); Protein Urine Trace (Negative); Urine Appearance Clear (CLEAR); Urine Color Colorless (Yellow); Urobilinogen Urine Norm (Negative); pH Urine 5 (5-7)
[2021-04-30 14:33] LABS: Add Urine Culture? No; Bacteria Urine TRACE /hpf
[2021-04-30 15:47] LABS: Basophils % 0.3 %; Eosinophils # 0.2 10^3/uL (0.0-0.8); Eosinophils % 2.9 %; Hematocrit 34.3 % (42.0-52.0); Hemoglobin 11.3 g/dL (11.7-16.6); Lymphocytes % 15.7 %; Mean Corpuscular HGB Conc 32.9 g/dL (30.0-36.0); Mean Corpuscular Volume 87.9 fl (80-94); Mean Platelet Volume 10.9 fL (7.4-10.4); Monocytes # 0.5 10^3/uL (0.2-0.9); Monocytes % 7.7 %; Neutrophils # 4.83 10^3/uL (1.8-7.7); Neutrophils % 73.1 %; Nucleated Red Blood Cells % 0 %; Platelet Count 230 10^3/cmm (130-400); Red Cell Distribution Width 13.7 % (12.1-15.1); White Blood Count 6.6 10^3/uL (4.0-10.0)
--- NOTE | 2021-04-30 15:53 | ED_ITS ---
HPI - Weakness General: Chief complaint: Weakness Stated complaint: R thumb swelling; decreased mobility; sent from Time Seen by Provider: 04/30/21 15:18 History of Present Illness: right thumb pain and swelling, increased weakness MD Complaint: generalized weakness Review of Systems General: Reports: 10 or more systems reviewed and unremarkable except in HPI and below Musc: Reports: joint pain (right thumb DIP ), joint stiffness and muscle weakness PFSH ED PFSH: Medical History Acquired absence of other toe(s), unspecified side Bradycardia Cellulitis and abscess of foot Charcot ankle CHF (congestive heart failure) Closed displaced fracture of navicular bone of right foot with routine healing Controlled diabetes mellitus with diabetic polyneuropathy, with long-term curren t use of insulin COVID-19 virus infection Diabetic peripheral neuropathy associated with type 2 diabetes mellitus Hypercholesteremia Hyperchylomicronemia Hypertension Onychodystrophy Other deformities of toe(s) (acquired), left foot Polyneuropathy, unspecified PVD (peripheral vascular disease) Recurrent syncope Somnolence, daytime Tick fever Type 2 diabetes mellitus Surgical History History of foot surgery History of knee surgery Status post colonoscopy (05/05/20) normal Family History Mother CAD (coronary artery disease) in older years, pacemaker Other Cancer Diabetes Hypertension Denies family history of Clotting disorder Dementia Hyperlipidemia Psychiatric illness Chronic kidney disease (CKD) Suicide Anesthesia complication Bleeding disorder Family history of premature coronary artery disease Lung disease Stroke Social History Smoking and tobacco status: former smoker Second hand smoke exposure: No Alcohol intake: never Physical Exam Const: COMMON NORMALS: no acute distress, patient oriented x3, no limitations and alert GENERAL APPEARANCE: cooperative and comfortable ORIENTATION/ CONSCIOUSNESS: Yes awake, Yes oriented to person, Yes oriented to place and Yes oriented to time HENMT: COMMON NORMALS: normocephalic, atraumatic, external ears normal, EAC's normal, TM's normal bilaterally and Normal external nose present HEAD & SCALP: normal to inspection, normocephalic and atraumatic FACE & SINUS: normal facial exam, sinuses nontender and face symmetric NOSE: Normal external nose present, Normal nares present and No nasal discharge present EXTERNAL EAR: Yes external ears normal EXTERNAL AUDITORY CANAL: EAC's normal TYMPANIC MEMBRANE: TM's normal bilaterally MOUTH: Normal oral and palatal mucosa present, lip normal and tongue normal THROAT: posterior oropharynx normal, tonsils normal and uvula midline Eye: COMMON NORMALS: Equal, round and reactive pupils present, EOMs intact bilaterally and conjunctivae normal GENERAL EYE: appearance normal, both eyes and all related structures and normal light reflex EYELID: eyelids normal CONJUNCTIVA: Yes conjunctivae normal PUPIL: Yes Equal, round and reactive pupils present EOM: Yes EOM abnormal DIRECT OPHTHALMOSCOPY: Yes normal light reflex Neck/C-Spine: COMMON NORMALS: full ROM, no lymphadenopathy, supple, no meningeal signs, no JVD and Thyroid normal GENERAL: Yes normal visual inspection THYROID: Thyroid normal CERVICAL SPINE: Yes cervical ROM normal and Yes normal cervical lordosis Lymph: LYMPHATIC: no lymphadenopathy noted Chest: COMMONS NORMALS: normal inspection of the chest and normal palpation of entire chest wall Resp: COMMON NORMALS: normal respiratory effort, No retractions and clear to auscultation bilaterally AUSCULTATION: clear to auscultation bilaterally Cardio: COMMON NORMALS: no JVD, regular rate, regular rhythm, S1 normal heart sound present, S2 normal heart sound present, No gallops present (Cardio), No clicks present (Cardio), No murmurs present (Cardio), No rub (Cardio) and Peripheral pulses 2+ throughout RATE: regular rate RHYTHM: regular rhythm HEART SOUNDS: S1 normal heart sound present and S2 normal heart sound present PERIPHERAL PULSES: Peripheral pulses 2+ throughout GI: COMMON NORMALS: Normal to inspection, nondistended, normoactive bowel s ounds present, Soft to palpation, non-tender and no masses PALPATION: Yes Soft to palpation : COMMON NORMALS: Yes no CVA tenderness BLADDER/KIDNEY EXAM: Yes no CVA tenderness Back/Pelvis: COMMON NORMALS: no CVA tenderness, thoracic and lumbar spine normal to inspection, no thoracic nor lumbar tenderness and thoraco-lumbar ROM normal Extremity: COMMON NORMALS: normal to inspection, full ROM, capillary refill normal, no joint enlargement, no clubbing, cyanosis or edema, no calf tenderness and no pedal edema GENERAL: Yes normal exam except as noted RIGHT UPPER EXTREMITY: Yes hand & digits (right thumb DIP swelling and redness ) Neuro: COMMON NORMALS: patient oriented x3, moves all extremities, no focal motor deficits, no sensory deficits noted and gait normal SENSORIUM/ORIENTATION: Yes alert, Yes oriented to person, Yes oriented to place and Yes oriented to time MENINGEAL SIGNS: Yes no meningeal signs Psych: COMMON NORMALS: mental status grossly normal, Normal thought process present, cooperative, normal affect, speech normal and activity/motor behavior normal SPEECH: Yes normal speech THOUGHT PROCESS: Normal thought process present Skin: COMMON NORMALS: no rashes or lesions noted, no wounds and turgor normal GENERAL SKIN EXAM: no rashes or lesions noted and turgor normal Course ED course: Pt presents with right thumb pain and increased weakness x 1 week. He was sent from with stable vitals but requiring further work up. Reevaluation(s): Reevaluation #1: Pt labs are reflective of his CKD but all are stable. Due to his kidney function we will do steroids to help with his right thumb likely gout. He will follow up with PCP on Sunday. Vital Signs: Vital signs: Vital Signs Temperature 98.1 F 04/30/21 12:15 Pulse Rate 74 04/30/21 12:15 Respiratory Rate 18 04/30/21 12:15 Blood Pressure 190/84 04/30/21 12:15 Pulse Oximetry 96 04/30/21 12:15 MDM - Weakness Medical Decision Making needs follow up with CKD and gout tx Lab Data : 04/30/21 15:07 04/30/21 15:07 Laboratory Results WBC 6.6 10^3/uL (4.0-10.0) 04/30/21 15:07 RBC 3.90 10^6/uL (4.1-5.3) L 04/30/21 15:07 Hgb 11.3 g/dL (11.7-16.6) L 04/30/21 15:07 Hct 34.3 % (42.0-52.0) L 04/30/21 15:07 MCV 87.9 fl (80-94) 04/30/21 15:07 MCH 29.0 pg (28.0-34.0) 04/30/21 15:07 MCHC 32.9 g/dL (30.0-36.0) 04/30/21 15:07 RDW 13.7 % (12.1-15.1) 04/30/21 15:07 Plt Count 230 10^3/cmm (130-400) 04/30/21 15:07 MPV 10.9 fL (7.4-10.4) H 04/30/21 15:07 Neut % (Auto) 73.1 % 04/30/21 15:07 Lymph % (Auto) 15.7 % 04/30/21 15:07 Granite % (Auto) 7.7 % 04/30/21 15:07 Eos % (Auto) 2.9 % 04/30/21 15:07 Baso % (Auto) 0.3 % 04/30/21 15:07 Neut # (Auto) 4.83 10^3/uL (1.8-7.7) 04/30/21 15:07 Lymph # (Auto) 1.0 10^3/uL (0.8-4.8) 04/30/21 15:07 [place]ite # (Auto) 0.5 10^3/uL (0.2-0.9) 04/30/21 15:07 Eos # (Auto) 0.2 10^3/uL (0.0-0.8) 04/30/21 15:07 Baso # (Auto) 0.0 10^3/uL (0.0-0.1) 04/30/21 15:07 Nucleated RBC % (auto) 0 % 04/30/21 15:07 Nucleated RBCs # 0.0 /100WBC 04/30/21 15:07 Sodium 136 mmol/L (136-145) 04/30/21 15:07 Potassium 4.4 mmol/L (3.5-5.1) 04/30/21 15:07 Chloride 100 mmol/L (98-107) 04/30/21 15:07 Carbon Dioxide 22 mmol/L (22-29) 04/30/21 15:07 Anion Gap 18.4 (5-19) 04/30/21 15:07 BUN 34 mg/dL (8-23) H 04/30/21 15:07 Creatinine 1.9 mg/dL (0.7-1.2) H 04/30/21 15:07 GFR Calculation 36.3 mL/min (90-130) L 04/30/21 15:07 Glucose 251 mg/dL (65-115) H 04/30/21 15:07 Calculated Osmolality 298 mOsm/kg (285-295) H 04/30/21 15:07 Uric Acid 8.9 mg/dL (3.4-7.0) H 04/30/21 15:07 Calcium 9.4 mg/dL (8.5-10.5) 04/30/21 15:07 Total Bilirubin 0.6 mg/dL (0.15-1.2) 04/30/21 15:07 AST 12 U/L (0-40) 04/30/21 15:07 ALT 10 U/L (0-41) 04/30/21 15:07 Alkaline Phosphatase 127 IU/L (40-130) 04/30/21 15:07 Creatine Kinase 48 U/L (39-308) 04/30/21 15:07 NT-Pro-B Natriuret Pep 305 pg/mL (0-125) H 04/30/21 15:07 Total Protein 6.8 g/dL (6.6-8.7) 04/30/21 15:07 Albumin 4.4 g/dL (3.5-5.2) 04/30/21 15:07 Globulin 2.4 g/dL (1.3-4.6) 04/30/21 15:07 TSH 4.19 uIU/mL (0.27-4.20) 04/30/21 15:07 Urine Color Colorless (Yellow) 04/30/21 14:05 Urine Appearance Clear (CLEAR) 04/30/21 14:05 Urine pH 5 (5-7) 04/30/21 14:05 Ur Specific [place] 1.010 (1.005-1.030) 04/30/21 14:05 Urine Protein Trace (Negative) 04/30/21 14:05 Urine Glucose (UA) 4+ (Normal) H 04/30/21 14:05 Urine Ketones Negative (Negative) 04/30/21 14:05 Urine Blood Neg (Negative) 04/30/21 14:05 Urine Nitrate Negative (Negative) 04/30/21 14:05 Urine Bilirubin Neg (Negative) 04/30/21 14:05 Urine Urobilinogen Norm mg/dL (Negative) 04/30/21 14:05 Ur Leukocyte Esterase Negative (Negative) 04/30/21 14:05 Urine RBC None /hpf (0-2) 04/30/21 14:05 Urine WBC 5-10 /hpf (0-5) H 04/30/21 14:05 Ur Squamous Epith Cells None /hpf (0-5) 04/30/21 14:05 Amorphous Sediment Not Reportable 04/30/21 14:05 Urine Bacteria Trace /hpf (NONE) 04/30/21 14:05 Discharge Plan Discharge Patient Disposition: Home Clinical Impression: Gout Condition: Stable Prescriptions: New methylprednisolone [Medrol (Cj)] 4 mg tablets,dose pack See Rx Instructions .ROUTE .COMPLEX Qty: 21 0RF Rx Instructions: orally per package directions cephalexin [Keflex] 750 mg capsule 750 mg PO BID 7 Days Qty: 14 0RF No Action B-complex with vitamin C [Super B Complex-Vitamin C] Tablet 1 tab PO DAILY 0RF Farxiga 5 mg tablet 5 mg PO DAILY Qty: 90 1RF Rx Instructions: 340 B: this in addition to januvia and insulin. aspirin 81 mg tablet,delayed release (DR/EC) 81 mg PO BID 0RF hydralazine 100 mg tablet 100 mg PO TID Qty: 90 3RF furosemide 40 mg tablet 40 mg PO DAILY Qty: 90 1RF potassium gluconate 595 mg (99 mg) tablet 1,785 mg PO DAILY Qty: 90 0RF cefdinir 300 mg capsule 300 mg PO BID Qty: 20 0RF metformin 500 mg tablet See Rx Instructions .ROUTE .COMPLEX Qty: 60 4RF Hold Instructions: Resume on 03/13/21. Dose Instruction: TAKE 1 TABLET BY MOUTH TWICE DAILY Rx Instructions: TAKE 1 TABLET BY MOUTH TWICE DAILY amlodipine 10 mg tablet 10 mg PO DAILY Qty: 90 2RF Levemir U-100 Insulin 100 unit/mL solution See Rx Instructions .ROUTE .COMPLEX Qty: 50 10RF Dose Instruction: INJECT 80 UNITS SUBCUTANEOUSLY TWICE DAILY Rx Instructions: INJECT 80 UNITS SUBCUTANEOUSLY TWICE DAILY valsartan 160 mg tablet 80 mg PO BID Qty: 90 4RF ascorbic acid (vitamin C) [Vitamin C] 1,000 mg Tablet 1,000 mg PO DAILY 0RF insulin aspart U-100 [Novolog U-100 Insulin aspart] 100 unit/mL solution 40 unit SUBCUT BID 0RF multivitamin Tablet 1 tab PO QAM 0RF melatonin 10 mg Tablet 10 mg PO BEDTIME 0RF magnesium oxide 200 mg magnesium Tablet 400 mg PO DAILY 0RF simvastatin 40 mg tablet 40 mg PO QAM 0RF Januvia 50 mg tablet 50 mg PO QAM 0RF Discharge Orders: Discharge ED (Routine); Ordered 04/30/21 Ordered By: Edelmira Hernandez Referrals: Leandra Reddy MD [Primary Care Provider] - Discharge Diet: Usual diet Discharge Activity: Increase activity as tolerated Patient Instructions: Opioid Safety Coding Level of Care Code ED Sales And Marketing Assistant for Chg Fwd History Expanded Problem Focused Exam Comprehensive Medical Decision Making Straight Forward Time Spent (min) 120
[2021-04-30 16:40] LABS: NT Pro B Type Natriuretic Pept 305 pg/mL (0-125); Uric Acid 8.9 mg/dL (3.4-7.0)
[2021-04-30 16:42] LABS: Alanine Aminotransferase 10 U/L (0-41); Albumin Level 4.4 g/dL (3.5-5.2); Alkaline Phosphatase 127 IU/L (40-130); Anion Gap 18.4 (5-19); Aspartate Amino Transferase 12 U/L (0-40); Blood Urea Nitrogen 34 mg/dL (8-23); Calcium 9.4 mg/dL (8.5-10.5); Carbon Dioxide 22 mmol/L (22-29); Chloride 100 mmol/L (98-107); Creatine Phosphokinase 48 U/L (39-308); Globulin 2.4 g/dL (1.3-4.6); Glomerular Filtration Rate 36.3 mL/min (90-130); Glucose 251 mg/dL (65-115); Osmolality Calculated 298 mOsm/kg (285-295); Potassium 4.4 mmol/L (3.5-5.1); Sodium 136 mmol/L (136-145); Thyroid Stimulating Hormone 4.19 uIU/mL (0.27-4.20); Total Bilirubin 0.6 mg/dL (0.15-1.2); Total Protein 6.8 g/dL (6.6-8.7)
[2021-04-30 17:41] VITALS: PULSE 68; RESP 18; O2SAT 98
[2021-04-30] MEDS: cephALEXin 500 mg Capsule PO (17:41)
[2021-04-30] MEDS: predniSONE 20 mg Tablet 40 MG PO (17:41)
== END 2021-04-30 17:42 | disposition home or self-care (01) ==
PROVIDERS: Emergency Medicine; Emergency Provider Nurse Practitioner Family; PCP Family Medicine
DX: M10.9 Gout, unspecified (principal); Z79.82 Long term (current) use of aspirin; Z79.84 Long term (current) use of oral hypoglycemic drugs; Z79.4 Long term (current) use of insulin; I11.0 Hypertensive heart disease with heart failure; I50.9 Heart failure, unspecified; E11.42 Type 2 diabetes mellitus with diabetic polyneuropathy; Z87.891 Personal history of nicotine dependence
CPT/HCPCS: 36415; 80053; 81001; 82550; 83880; 84443; 84550; 85025; 99283; J7512

== ENCOUNTER → 2021-05-18 10:40 | Outpatient (BNVA) | payer MEDICARE, SELFPAY | PROVIDERS: PCP Family Medicine; Visit Provider Internal Medicine Cardiovascular Disease | DX: R55 Syncope and collapse (principal); R06.02 Shortness of breath; I50.33 Acute on chronic diastolic (congestive) heart failure | CPT/HCPCS: 80048; 83880 ==

== ENCOUNTER 2021-05-23 09:17 | Outpatient (CLI) | payer MEDICARE, SELFPAY | END 2021-05-23 09:18 | disposition home or self-care (01) | LOC: WOUND 09:17 | PROVIDERS: PCP Family Medicine; Visit Provider Thoracic Surgery (Cardiothoracic Vascular Surgery) | DX: Z09 Encounter for follow-up examination after completed treatment for conditions other than malignant neoplasm (principal); E11.8 Type 2 diabetes mellitus with unspecified complications; Z87.891 Personal history of nicotine dependence | CPT/HCPCS: 36416; 73120; 82962; 99212 ==

== ENCOUNTER 2021-05-25 02:08 | Observation (INO) | payer MEDICARE, SELFPAY ==
[2021-05-25] VITALS (12 sets, daily range): BP systolic 146–208; BP diastolic 52–86; PULSE 69–89; RESP 14–18; TEMP 36.5–37.2; O2SAT 91–96; BMI 43.4
--- NOTE | 2021-05-25 02:41 | CTR_ITS ---
PROCEDURE INFORMATION: Exam: CT Abdomen And Pelvis Without Contrast Exam date and time: 05/25/2021 2:41 AM Age: 60 years old Clinical indication: Nausea and vomiting; Patient HX: Patient having n/v for several days and unable to have any intake. No contrast due to non dialysis patient with creat of 2.6. ; Additional info: Diffuse abd pain, n/v TECHNIQUE: Imaging protocol: Computed tomography of the abdomen and pelvis without contrast. Radiation optimization: All CT scans at this facility use at least one of these dose optimization techniques: automated exposure control; mA and/or kV adjustment per patient size (includes targeted exams where dose is matched to clinical indication); or iterative reconstruction. COMPARISON: US gall bladder [id number] 01/10/2018 11:34 AM RADIATION DOSE METRICS: Total DLP (mGy-cm): 1769.03 FINDINGS: Tubes, catheters and devices: Pacemaker leads are seen to the heart. Liver: Normal. No mass. Gallbladder and bile ducts: Normal. No calcified stones. No ductal dilation. Pancreas: Normal. No ductal dilation. Spleen: Normal. No splenomegaly. Adrenal glands: Normal. No mass. Kidneys and ureters: Normal. No hydronephrosis. Stomach and bowel: Unremarkable. No obstruction. No mucosal thickening. Appendix: No evidence of appendicitis. Intraperitoneal space: Unremarkable. No free air. No significant fluid collection. Vasculature: Unremarkable. No abdominal aortic aneurysm. Lymph nodes: Unremarkable. No enlarged lymph nodes. Urinary bladder: Unremarkable as visualized. Reproductive: Unremarkable as visualized. Bones/joints: No acute fracture. Soft tissues: Skin thickening in periumbilical region can be correlated for infectious/inflammatory change or injection sites. CT/CT abdomen pelvis con [id number] IMPRESSION: Skin thickening in periumbilical region can be correlated for infectious/inflammatory change or injection sites. No acute intra-abdominal findings.
--- NOTE | 2021-05-25 02:42 | ECG_ITS ---
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 Measurements Intervals [place] Rate: 72 P: 58 NH: 201 QRS: 33 QRSD: 112 T: 10 QT: 375 QTc: 411 Interpretive Statements SINUS RHYTHM MODERATE INTRAVENTRICULAR CONDUCTION DELAY [110+ ms QRS DURATION] NONSPECIFIC T-WAVE ABNORMALITY Compared to ECG 03/16/2021 03:01:39 Intraventricular conduction delay now present T-wave abnormality now present Electronically Signed On 05-25-2021 16:01:06 PRE K TEACHER by Pancho Vergara M.D. [id number]
--- NOTE | 2021-05-25 02:43 | W.ED.NAVMDI ---
Documented by User: MINERVA Montelongo 05/25/21 18:07 HPI - Nausea/Vomiting/Diarrhea General: Chief complaint: Nausea/Vomiting/Diarrhea Stated complaint: dry heaving, aching Time Seen by Provider: 05/25/21 02:50 History of Present Illness: 60-year-old male patient comes in today with nausea vomiting for the last 2 days. Patient reports unable to hold anything down except a biscuit and some soup this evening. Patient reports that he has consistently vomited to the point that he is just dry heaving at this time. Patient reports unable to rest and lay down flat due to the retching. Patient does have a history of diabetes mellitus, renal insufficiency, hyperlipidemia, hypertension. Patient denies any constipation or diarrhea. Patient does report some chest tightness. Patient appears unwell but not toxic. Patient appears in moderate discomfort. Patient denies any abdominal surgery. Patient does report a pacemaker. MD elicited complaint: nausea and vomiting Onset (ago): day(s) Description of vomiting: food contents and watery Associated nausea: Yes Associated abdominal pain: Yes Location of pain: Epigastric Radiation: chest Pain consistency: intermittent Exacerbating factors: eating and vomiting Relieving factors: none Associated symtoms: Reports chest pain, malaise and nausea Review of Systems General: Reports: 10 or more systems reviewed and unremarkable except in HPI and below Const: Reports: malaise; Denies: fever(s) Card: Reports: chest pain GI: Reports: abdominal pain, nausea and vomiting [facility] ED PFSH: Medical History Acquired absence of other toe(s), unspecified side Bradycardia Cellulitis and abscess of foot Charcot ankle CHF (congestive heart failure) Closed displaced fracture of navicular bone of right foot with routine healing Controlled diabetes mellitus with diabetic polyneuropathy, with long-term current use of insulin COVID-19 virus infection Diabetic peripheral neuropathy associated with type 2 diabetes mellitus Hypercholesteremia Hyperchylomicronemia Hypertension Onychodystrophy Other deformities of toe(s) (acquired), left foot Polyneuropathy, unspecified PVD (peripheral vascular disease) Recurrent syncope Somnolence, daytime Tick fever Type 2 diabetes mellitus Surgical History History of foot surgery History of knee surgery Status post colonoscopy (05/05/20) normal Family History Mother CAD (coronary artery disease) in older years, pacemaker Other Cancer Diabetes Hypertension Denies family history of Clotting disorder Dementia Hyperlipidemia Psychiatric illness Chronic kidney disease (CKD) Suicide Anesthesia complication Bleeding disorder Family history of premature coronary artery disease Lung disease Stroke Social History Smoking and tobacco status: former smoker Second hand smoke exposure: No Alcohol intake: never Physical Exam Const: COMMON NORMALS: alert HENMT: COMMON NORMALS: atraumatic and TM's normal bilaterally HEAD & SCALP: atraumatic TYMPANIC MEMBRANE: TM's normal bilaterally MOUTH: Normal oral and palatal mucosa present THROAT: posterior oropharynx normal Resp: COMMON NORMALS: normal respiratory effort Cardio: COMMON NORMALS: regular rate and regular rhythm RATE: regular rate RHYTHM: regular rhythm GI: COMMON NORMALS: Soft to palpation INSPECTION: Yes normal to inspection (Obese) AUSCULTATION: Yes Hyperactive bowel sounds present PALPATION: Yes Soft to palpation, Yes Tenderness to palpation present (GI) Details: RUQ, No Guarding due to palpation present (GI) and No Rebound tenderness present Extremity: COMMON NORMALS: normal to inspection (+1 pedal edema) Neuro: SENSORIUM/ORIENTATION: Yes alert Psych: COMMON NORMALS: cooperative Skin: COMMON NORMALS: no rashes or lesions noted GENERAL SKIN EXAM: no rashes or lesions noted Course Vital Signs: Vital signs: Vital Signs Temperature 98.9 F 05/25/21 16:00 Pulse Rate 72 05/25/21 16:00 Respiratory Rate 14 05/25/21 16:00 Blood Pressure 176/76 05/25/21 16:00 Pulse Oximetry 93 05/25/21 16:00 MDM - Nausea/Vomiting/Diarrhea Lab Data : 05/25/21 02:45 05/25/21 14:00 Radiology Impressions Abdomen/Pelvis CT 05/25/21 02:41 IMPRESSION: Skin thickening in periumbilical region can be correlated for infectious/inflammatory change or injection sites. No acute intra-abdominal findings. Foot X-Ray 05/25/21 05:54 Impression: 1. Amputation of the left third toe. 2. Flexion deformities of the first, second fourth and fifth distal phalanges. 3. 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 Chest X-Ray 05/25/21 05:58 IMPRESSION: 1. Stable cardiomegaly. 2. Moderate chronic emphysematous changes. 3. No acute pulmonary infiltrates. No focal pneumonia or pleural fluid. Laboratory Results WBC 6.8 10^3/uL (4.0-10.0) 05/25/21 02:45 RBC 3.72 10^6/uL (4.1-5.3) L 05/25/21 02:45 Hgb 10.5 g/dL (11.7-16.6) L 05/25/21 02:45 Hct 31.6 % (42.0-52.0) L 05/25/21 02:45 MCV 84.9 fl (80-94) 05/25/21 02:45 MCH 28.2 pg (28.0-34.0) 05/25/21 02:45 MCHC 33.2 g/dL (30.0-36.0) 05/25/21 02:45 RDW 13.3 % (12.1-15.1) 05/25/21 02:45 Plt Count 262 10^3/cmm (130-400) 05/25/21 02:45 MPV 9.2 fL (7.4-10.4) 05/25/21 02:45 Neut % (Auto) 80.6 % 05/25/21 02:45 Lymph % (Auto) 12.2 % 05/25/21 02:45 Daniels % (Auto) 4.9 % 05/25/21 02:45 Eos % (Auto) 0.6 % 05/25/21 02:45 Baso % (Auto) 0.4 % 05/25/21 02:45 Neut # (Auto) 5.48 10^3/uL (1.8-7.7) 05/25/21 02:45 Lymph # (Auto) 0.8 10^3/uL (0.8-4.8) 05/25/21 02:45 Daniels # (Auto) 0.3 10^3/uL (0.2-0.9) 05/25/21 02:45 Eos # (Auto) 0.0 10^3/uL (0.0-0.8) 05/25/21 02:45 Baso # (Auto) 0.0 10^3/uL (0.0-0.1) 05/25/21 02:45 Nucleated RBC % (auto) 0 % 05/25/21 02:45 Nucleated RBCs # 0.0 /100WBC 05/25/21 02:45 Sodium 124 mmol/L (136-145) L 05/25/21 02:45 Potassium 4.9 mmol/L (3.5-5.1) 05/25/21 02:45 Chloride 87 mmol/L (98-107) L 05/25/21 02:45 Carbon Dioxide 22 mmol/L (22-29) 05/25/21 02:45 Anion Gap 19.9 (5-19) H 05/25/21 02:45 BUN 37 mg/dL (8-23) H 05/25/21 02:45 Creatinine 2.6 mg/dL (0.7-1.2) H 05/25/21 02:45 GFR Calculation 25.3 mL/min (90-130) L 05/25/21 02:45 Glucose 154 mg/dL (65-115) H 05/25/21 02:45 POC Glucose 157 mg/dL (70-110) H 05/25/21 02:41 Calculated Osmolality 270 mOsm/kg (285-295) L 05/25/21 02:45 Calcium 8.5 mg/dL (8.5-10.5) 05/25/21 02:45 Total Bilirubin 0.6 mg/dL (0.15-1.2) 05/25/21 02:45 AST 15 U/L (0-40) 05/25/21 02:45 ALT 11 U/L (0-41) 05/25/21 02:45 Alkaline Phosphatase 95 IU/L (40-130) 05/25/21 02:45 Troponin T Baseline 32 ng/L (0-15) H 05/25/21 02:45 Total Protein 6.6 g/dL (6.6-8.7) 05/25/21 02:45 Albumin 4.3 g/dL (3.5-5.2) 05/25/21 02:45 Globulin 2.3 g/dL (1.3-4.6) 05/25/21 02:45 Lipase 36 U/L (13-60) 05/25/21 02:45 Urine Color Yellow (Yellow) 05/25/21 04:10 Urine Appearance Clear (CLEAR) 05/25/21 04:10 Urine pH 7 (5-7) 05/25/21 04:10 Ur Specific [place] 1.005 (1.005-1.030) 05/25/21 04:10 Urine Protein 1+ (Negative) H 05/25/21 04:10 Urine Glucose (UA) 4+ (Normal) H 05/25/21 04:10 Urine Ketones Negative (Negative) 05/25/21 04:10 Urine Blood Neg (Negative) 05/25/21 04:10 Urine Nitrate Negative (Negative) 05/25/21 04:10 Urine Bilirubin Neg (Negative) 05/25/21 04:10 Urine Urobilinogen Norm mg/dL (Negative) 05/25/21 04:10 Ur Leukocyte Esterase Negative (Negative) 05/25/21 04:10 Urine RBC 0-4 /hpf (0-2) H 05/25/21 04:10 Urine WBC 0-4 /hpf (0-5) H 05/25/21 04:10 Ur Squamous Epith Cells 0-4 /hpf (0-5) H 05/25/21 04:10 Amorphous Sediment Not Reportable 05/25/21 04:10 Urine Bacteria Trace /hpf (NONE) 05/25/21 04:10 Serum Ketones Negative (Negative) 05/25/21 02:45 Discharge Plan Discharge Admit Provider: Barron Faust Clinical Impression: Acute hyponatremia, Vomiting Condition: Stable Coding Level of Care Code ED Regional Account Director for Chg Fwd Exam Comprehensive Documented by User: Linda Ayala MD 05/25/21 05:07 HPI - Nausea/Vomiting/Diarrhea General: Chief complaint: Nausea/Vomiting/Diarrhea Stated complaint: dry heaving, aching Time Seen by Provider: 05/25/21 02:50 PFSH ED PFSH: Medical History Acquired absence of other toe(s), unspecified side Bradycardia Cellulitis and abscess of foot Charcot ankle CHF (congestive heart failure) Closed displaced fracture of navicular bone of right foot with routine healing Controlled diabetes mellitus with diabetic polyneuropathy, with long-term current use of insulin COVID-19 virus infection Diabetic peripheral neuropathy associated with type 2 diabetes mellitus Hypercholesteremia Hyperchylomicronemia Hypertension Onychodystrophy Other deformities of toe(s) (acquired), left foot Polyneuropathy, unspecified PVD (peripheral vascular disease) Recurrent syncope Somnolence, daytime Tick fever Type 2 diabetes mellitus Surgical History History of foot surgery History of knee surgery Status post colonoscopy (05/05/20) normal Family History Mother CAD (coronary artery disease) in older years, pacemaker Other Cancer Diabetes Hypertension Denies family history of Clotting disorder Dementia Hyperlipidemia Psychiatric illness Chronic kidney disease (CKD) Suicide Anesthesia complication Bleeding disorder Family history of premature coronary artery disease Lung disease Stroke Social History Smoking and tobacco status: former smoker Second hand smoke exposure: No Alcohol intake: never Course Vital Signs: Vital signs: Vital Signs Temperature 98.9 F 05/25/21 16:00 Pulse Rate 72 05/25/21 16:00 Respiratory Rate 14 05/25/21 16:00 Blood Pressure 176/76 05/25/21 16:00 Pulse Oximetry 93 05/25/21 16:00 MDM - Nausea/Vomiting/Diarrhea Medical Decision Making Patient presents here with vomiting CT scan here shows no obstruction and is normal. Patient does have hyponatremia here will admit for further hydration and correction of his hyponatremia. Lab Data : 05/25/21 02:45 05/25/21 14:00 Radiology Impressions Abdomen/Pelvis CT 05/25/21 02:41 IMPRESSION: Skin thickening in periumbilical region can be correlated for infectious/inflammatory change or injection sites. No acute intra-abdominal findings. Foot X-Ray 05/25/21 05:54 Impression: 1. Amputation of the left third toe. 2. Flexion deformities of the first, second fourth and fifth distal phalanges. 3. 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 Chest X-Ray 05/25/21 05:58 IMPRESSION: 1. Stable cardiomegaly. 2. Moderate chronic emphysematous changes. 3. No acute pulmonary infiltrates. No focal pneumonia or pleural fluid. Laboratory Results WBC 6.8 10^3/uL (4.0-10.0) 05/25/21 02:45 RBC 3.72 10^6/uL (4.1-5.3) L 05/25/21 02:45 Hgb 10.5 g/dL (11.7-16.6) L 05/25/21 02:45 Hct 31.6 % (42.0-52.0) L 05/25/21 02:45 MCV 84.9 fl (80-94) 05/25/21 02:45 MCH 28.2 pg (28.0-34.0) 05/25/21 02:45 MCHC 33.2 g/dL (30.0-36.0) 05/25/21 02:45 RDW 13.3 % (12.1-15.1) 05/25/21 02:45 Plt Count 262 10^3/cmm (130-400) 05/25/21 02:45 MPV 9.2 fL (7.4-10.4) 05/25/21 02:45 Neut % (Auto) 80.6 % 05/25/21 02:45 Lymph % (Auto) 12.2 % 05/25/21 02:45 Daniels % (Auto) 4.9 % 05/25/21 02:45 Eos % (Auto) 0.6 % 05/25/21 02:45 Baso % (Auto) 0.4 % 05/25/21 02:45 Neut # (Auto) 5.48 10^3/uL (1.8-7.7) 05/25/21 02:45 Lymph # (Auto) 0.8 10^3/uL (0.8-4.8) 05/25/21 02:45 Daniels # (Auto) 0.3 10^3/uL (0.2-0.9) 05/25/21 02:45 Eos # (Auto) 0.0 10^3/uL (0.0-0.8) 05/25/21 02:45 Baso # (Auto) 0.0 10^3/uL (0.0-0.1) 05/25/21 02:45 Nucleated RBC % (auto) 0 % 05/25/21 02:45 Nucleated RBCs # 0.0 /100WBC 05/25/21 02:45 Sodium 124 mmol/L (136-145) L 05/25/21 02:45 Potassium 4.9 mmol/L (3.5-5.1) 05/25/21 02:45 Chloride 87 mmol/L (98-107) L 05/25/21 02:45 Carbon Dioxide 22 mmol/L (22-29) 05/25/21 02:45 Anion Gap 19.9 (5-19) H 05/25/21 02:45 BUN 37 mg/dL (8-23) H 05/25/21 02:45 Creatinine 2.6 mg/dL (0.7-1.2) H 05/25/21 02:45 GFR Calculation 25.3 mL/min (90-130) L 05/25/21 02:45 Glucose 154 mg/dL (65-115) H 05/25/21 02:45 POC Glucose 157 mg/dL (70-110) H 05/25/21 02:41 Calculated Osmolality 270 mOsm/kg (285-295) L 05/25/21 02:45 Calcium 8.5 mg/dL (8.5-10.5) 05/25/21 02:45 Total Bilirubin 0.6 mg/dL (0.15-1.2) 05/25/21 02:45 AST 15 U/L (0-40) 05/25/21 02:45 ALT 11 U/L (0-41) 05/25/21 02:45 Alkaline Phosphatase 95 IU/L (40-130) 05/25/21 02:45 Troponin T Baseline 32 ng/L (0-15) H 05/25/21 02:45 Total Protein 6.6 g/dL (6.6-8.7) 05/25/21 02:45 Albumin 4.3 g/dL (3.5-5.2) 05/25/21 02:45 Globulin 2.3 g/dL (1.3-4.6) 05/25/21 02:45 Lipase 36 U/L (13-60) 05/25/21 02:45 Urine Color Yellow (Yellow) 05/25/21 04:10 Urine Appearance Clear (CLEAR) 05/25/21 04:10 Urine pH 7 (5-7) 05/25/21 04:10 Ur Specific [place] 1.005 (1.005-1.030) 05/25/21 04:10 Urine Protein 1+ (Negative) H 05/25/21 04:10 Urine Glucose (UA) 4+ (Normal) H 05/25/21 04:10 Urine Ketones Negative (Negative) 05/25/21 04:10 Urine Blood Neg (Negative) 05/25/21 04:10 Urine Nitrate Negative (Negative) 05/25/21 04:10 Urine Bilirubin Neg (Negative) 05/25/21 04:10 Urine Urobilinogen Norm mg/dL (Negative) 05/25/21 04:10 Ur Leukocyte Esterase Negative (Negative) 05/25/21 04:10 Urine RBC 0-4 /hpf (0-2) H 05/25/21 04:10 Urine WBC 0-4 /hpf (0-5) H 05/25/21 04:10 Ur Squamous Epith Cells 0-4 /hpf (0-5) H 05/25/21 04:10 Amorphous Sediment Not Reportable 05/25/21 04:10 Urine Bacteria Trace /hpf (NONE) 05/25/21 04:10 Serum Ketones Negative (Negative) 05/25/21 02:45 EKG Data EKG 1: I personally reviewed and interpreted this EKG as follows: EKG interpretation date: 05/25/21 EKG interpretation time: 02:51 Interpretation: nsr hr [address] or t wave abnormalities qrs 112 qtc 399 EKG 2: I personally reviewed and interpreted this EKG as follows: EKG interpretation date: 05/25/21 EKG interpretation time: 04:39 Interpretation: nsr hr [address] or t wave abnormalities qrs 123 qtc 403 Discharge Plan Discharge Admit Provider: Barron Faust Clinical Impression: Acute hyponatremia, Vomiting Condition: Stable Coding Level of Care Code ED Regional Account Director for Chg Fwd Exam Comprehensive
[2021-05-25 02:45] LABS: Glucose Point of Care 157 mg/dL (70-110)
[2021-05-25] MEDS: ondansetron 2 mg/ML SDV 2 mL 4 MG IVP ×2 (02:46→06:08)
[2021-05-25] MEDS: sodium chloride 0.9% 1,000 ML 999 ML IV (02:46)
--- NOTE | 2021-05-25 02:47 | PC.NURSE ---
patient received with N/V since Sunday, states keeping some food and fluids down but not much. reports pain to abdomen and chest. history of DM. speech clear, sentences complete. respirations even equal and unlabored.
[2021-05-25 02:48] LABS: Basophils % 0.4 %; Eosinophils % 0.6 %; Hematocrit 31.6 % (42.0-52.0); Hemoglobin 10.5 g/dL (11.7-16.6); Lymphocytes # 0.8 10^3/uL (0.8-4.8); Lymphocytes % 12.2 %; Mean Corpuscular HGB Conc 33.2 g/dL (30.0-36.0); Mean Corpuscular Hemoglobin 28.2 pg (28.0-34.0); Mean Corpuscular Volume 84.9 fl (80-94); Mean Platelet Volume 9.2 fL (7.4-10.4); Monocytes # 0.3 10^3/uL (0.2-0.9); Monocytes % 4.9 %; Neutrophils # 5.48 10^3/uL (1.8-7.7); Neutrophils % 80.6 %; Nucleated Red Blood Cells % 0 %; Platelet Count 262 10^3/cmm (130-400); Red Blood Count 3.72 10^6/uL (4.1-5.3); Red Cell Distribution Width 13.3 % (12.1-15.1); White Blood Count 6.8 10^3/uL (4.0-10.0)
[2021-05-25] MEDS: morphine 4 mg/mL SDV 1 mL IVP (02:57)
[2021-05-25 03:10] LABS: Troponin(5th) Baseline 32 ng/L (0-15)
[2021-05-25 03:14] LABS: Alanine Aminotransferase 11 U/L (0-41); Albumin Level 4.3 g/dL (3.5-5.2); Alkaline Phosphatase 95 IU/L (40-130); Anion Gap 19.9 (5-19); Aspartate Amino Transferase 15 U/L (0-40); Blood Urea Nitrogen 37 mg/dL (8-23); Calcium 8.5 mg/dL (8.5-10.5); Carbon Dioxide 22 mmol/L (22-29); Chloride 87 mmol/L (98-107); Globulin 2.3 g/dL (1.3-4.6); Glomerular Filtration Rate 25.3 mL/min (90-130); Glucose 154 mg/dL (65-115); Lipase 36 U/L (13-60); Osmolality Calculated 270 mOsm/kg (285-295); Potassium 4.9 mmol/L (3.5-5.1); Sodium 124 mmol/L (136-145); Total Bilirubin 0.6 mg/dL (0.15-1.2); Total Protein 6.6 g/dL (6.6-8.7)
--- NOTE | 2021-05-25 04:42 | ECG_ITS ---
[facility] Test Date: 2021-05-25 Pat Name: Jack Springer Department: Room: Gender: Male Cell Support Operator: : 1960 Requested By: Damien Perera Order Number: [id number] Mary MD: Panhco Vergara M.D. Measurements Intervals [place] Rate: 71 P: 61 ID: [id number] QRS: 42 QRSD: 123 T: 21 QT: 381 QTc: 415 Interpretive Statements SINUS RHYTHM MODERATE INTRAVENTRICULAR CONDUCTION DELAY [110+ ms QRS DURATION] NONSPECIFIC T-WAVE ABNORMALITY Compared to ECG 05/25/2021 02:51:36 No significant changes Electronically Signed On 05-25-2021 16:06:37 PHONE CIRCUIT OPERATOR by Pancho Vergara M.D. [id number]
[2021-05-25 04:48] LABS: Add Urine Culture? No; Add Urine Microscopic? YES; Bacteria Urine TRACE /hpf; Bilirubin Urine Neg (Negative); Blood Urine Neg (Negative); Glucose Urine UA 4+ (Normal); Ketones Urine Negative (Negative); Leukocyte Esterase Urine Negative (Negative); Nitrate Urine Negative (Negative); Protein Urine 1+ (Negative); RBC Urine 0-4 /hpf (0-2); Specific Gravity, Urine 1.005 (1.005-1.030); Squamous Epithelial Cell Urine 0-4 /hpf (0-5); Urine Appearance Clear (CLEAR); Urine Color Yellow (Yellow); Urobilinogen Urine Norm (Negative); WBC Urine 0-4 /hpf (0-5); pH Urine 7 (5-7)
[2021-05-25 05:18] LABS: Troponin 5 2HR 35.59 ng/L (0-15)
[2021-05-25 05:27] LABS: Troponin 5 2HR Delta 3.59 ABS# (0-10)
--- NOTE | 2021-05-25 05:54 | XR_ITS ---
WS: [id number] Left foot, 3 views, 05/25/2021 Clinical Data: s/p amputation Comparison: Left foot, 02/08/2021. Findings: The left third toe has been amputated. There is flexion deformity of the DIP joints of the left secon d, fourth and fifth toes. There is osteoarthritic change of the left first IP joint with lateral subl uxation. No bone destruction or erosion is seen. There are no fractures or dislocations. There is vascular calcification from diabetes. XR/XR foot LT min 3V* [id number] Impression: 1. Amputation of the left third toe. 2. Flexion deformities of the first, second fourth and fifth distal phalanges. 3. 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
--- NOTE | 2021-05-25 05:54 | PM.HP ---
Providers/Chief Complaint Admitting Physician: Barron Faust DO Primary Care Provider: Leandra Reddy MD Chief Complaint: dry heaving, aching History of Present Illness The patient is a 60-year-old male who presents with chief complaint of nausea, emesis, generalized weakness. He states he started feeling unwell possibly 40 hours prior to hospitalization. He admits to onset of rigors, cough which is nonproductive, dyspnea, lightheadedness, chest pain localized to the substernal area described as a pressure. He states since the time of onset and it was constant and denies radiation. As worst is rated 5 out of 10 currently rates 5 out of 10. He did not take any medication for this pain at home. Since the time of onset of his chest pain has been intermittent. The patient denies fever, wheeze, abdominal pain, diarrhea, myalgia, dizziness, new palpitations, new sensation of rapid heartbeat, new sensation of irregular heartbeat although he has a documented history of paroxysmal atrial for ablation. He presents for further evaluation Review of Systems General: Reports: 10 or more systems reviewed and unremarkable except in HPI and below Medications/Allergies Home Medications Medication Instructions Recorded Confirmed Last Taken Type aspirin 81 mg tablet,delayed 81 mg PO BID 06/10/19 05/23/21 03/14/21 09:00 History release B-complex with vitamin C (Super B 1 tab PO DAILY 03/09/20 05/23/21 03/14/21 09:00 History Complex-Vitamin C) ascorbic acid (vitamin C) 1,000 mg 1,000 mg PO DAILY 05/04/20 05/23/21 03/14/21 09:00 History tablet (Vitamin C) magnesium oxide 400 mg PO DAILY 01/11/21 05/23/21 03/14/21 09:00 History melatonin 10 mg tablet 10 mg PO BEDTIME 01/11/21 05/23/21 03/13/21 21:00 History multivitamin 1 tab PO QAM 01/11/21 05/23/21 03/14/21 09:00 History simvastatin 40 mg tablet 40 mg PO QAM 01/11/21 05/23/21 03/14/21 09:00 History sitagliptin 50 mg tablet (Januvia) 50 mg PO QAM 01/11/21 05/23/21 03/14/21 09:00 History metformin 500 mg tablet See Rx Instructions .ROUTE 01/18/21 05/23/21 03/14/21 12:00 Rx .COMPLEX #60 tab amlodipine 10 mg tablet 10 mg PO DAILY #90 tab 02/14/21 05/23/21 03/14/21 09:00 Rx hydralazine 100 mg tablet 100 mg PO TID #90 tab 02/28/21 05/23/21 03/14/21 12:00 Rx insulin detemir U-100 100 unit/mL See Rx Instructions .ROUTE 02/28/21 05/23/21 03/14/21 09:00 Rx subcutaneous solution (Levemir .COMPLEX #50 ml U-100 Insulin) dapagliflozin 5 mg tablet (Farxiga) 5 mg PO DAILY #90 tab 04/05/21 05/23/21 Unknown Rx acetylcysteine 600 mg capsule (NAC) 600 mg PO DAILY 05/17/21 05/23/21 Unknown History sulfamethoxazole 800 1 tab PO BID #20 tab 05/17/21 05/23/21 Unknown Rx mg-trimethoprim 160 mg tablet (Bactrim DS) vitamin K2 100 mcg capsule 100 mcg PO DAILY 05/17/21 05/23/21 Unknown History acetylcarnitine 500 mg-alpha cap PO 05/18/21 05/23/21 Unknown History lipoic acid 200 mg capsule carvedilol 12.5 mg tablet (Coreg) 12.5 mg PO BID #60 tab 05/18/21 05/23/21 Unknown Rx furosemide 40 mg tablet 40 mg PO BID tab 05/18/21 05/23/21 Unknown History insulin aspart U-100 100 unit/mL See Rx Instructions .ROUTE 05/18/21 05/23/21 Unknown Rx subcutaneous solution (Novolog .COMPLEX #80 milliliter U-100 Insulin aspart) potassium gluconate 595 mg (99 mg) 1,190 mg PO TID tab 05/18/21 05/23/21 Unknown History tablet rye grass extract 500 mg-quercetin tab PO 05/18/21 05/23/21 Unknown History 250 mg tablet valsartan 160 mg tablet 160 mg PO BID #60 tab 05/18/21 05/23/21 Unknown Rx Allergies Allergy/AdvReac Type Severity Reaction Status Date / Time No Known Allergies Allergy Verified 05/23/21 10:16 PFSH Acute PFSH: Medical History Acquired absence of other toe(s), unspecified side Bradycardia Cellulitis and abscess of foot Charcot ankle CHF (congestive heart failure) Closed displaced fracture of navicular bone of right foot with routine healing Controlled diabetes mellitus with diabetic polyneuropathy, with long-term current use of insulin COVID-19 virus infection Diabetic peripheral neuropathy associated with type 2 diabetes mellitus Hypercholesteremia Hyperchylomicronemia Hypertension Onychodystrophy Other deformities of toe(s) (acquired), left foot Polyneuropathy, unspecified PVD (peripheral vascular disease) Recurrent syncope Somnolence, daytime Tick fever Type 2 diabetes mellitus Surgical History History of foot surgery History of knee surgery Status post colonoscopy (05/05/20) normal Family History Mother CAD (coronary artery disease) in older years, pacemaker Other Cancer Diabetes Hypertension Denies family history of Clotting disorder Dementia Hyperlipidemia Psychiatric illness Chronic kidney disease (CKD) Suicide Anesthesia complication Bleeding disorder Family history of premature coronary artery disease Lung disease Stroke Social History Smoking and tobacco status: former smoker Second hand smoke exposure: No Alcohol intake: never Vitals/I&O/Wt Last Vital Signs Temp 98.1 F 05/25/21 02:16 Pulse 89 05/25/21 05:09 Resp 18 05/25/21 05:09 BP 166/69 05/25/21 05:09 Pulse Ox 92 05/25/21 05:09 Weight last 48 hrs Weight 145.15 kg Physical Exam Const: COMMON NORMALS: no acute distress, average body habitus, patient oriented x3, no limitations, healthy appearing, alert and well nourished HENMT: COMMON NORMALS: normocephalic, atraumatic, hearing grossly normal bilaterally, external ears normal, EAC's normal, TM's normal bilaterally, Normal external nose present, Normal nasal mucous membranes and turbinates present, moist oral mucous membranes, oropharynx normal, dentition normal and gingiva normal HEAD & SCALP: normal to inspection FACE & SINUS: normal facial exam NOSE: Normal external nose present Eye: COMMON NORMALS: Equal, round and reactive pupils present, EOMs intact bilaterally, conjunctivae normal, no scleral icterus, no papilledema, normal visual little by confrontation and fundi normal bilaterally GENERAL EYE: appearance normal, both eyes and all related structures VISUAL ACUITY: Yes acuity normal EOM: Yes EOM abnormal Neck/C-Spine: COMMON NORMALS: full ROM, no lymphadenopathy, supple, no meningeal signs, no JVD, Thyroid normal and No carotid bruits Chest: COMMONS NORMALS: normal inspection of the chest, normal palpation of entire chest wall, normal inspection of the breasts and normal palpation of the breasts Resp: COMMON NORMALS: normal respiratory effort, No retractions, No use of accessory muscles, clear to auscultation bilaterally and percussion normal Cardio: COMMON NORMALS: no JVD, regular rate, regular rhythm, S1 normal heart sound present, S2 normal heart sound present, No gallops present (Cardio), No clicks present (Cardio), No murmurs present (Cardio), No rub (Cardio) and Peripheral pulses 2+ throughout GI: COMMON NORMALS: Normal to inspection, nondistended, normoactive bowel sounds present, Soft to palpation, non-tender, No hepatosplenomegaly present, no masses and no bruits INSPECTION: Yes normal to inspection AUSCULTATION: Yes normoactive bowel sounds : COMMON NORMALS: Yes no CVA tenderness, Yes normal external exam, Yes Testes normal, Yes scrotum normal, Yes no scrotal swelling and Yes No hernias present Back/Pelvis: COMMON NORMALS: no CVA tenderness, thoracic and lumbar spine normal to inspection, no thoracic nor lumbar tenderness, thoraco-lumbar ROM normal and straight leg raise negative bilaterally Extremity: COMMON NORMALS: normal to inspection, full ROM, capillary refill normal, no joint enlargement, no clubbing, cyanosis or edema, no calf tenderness and no pedal edema Neuro: COMMON NORMALS: patient oriented x3, CN's II-XII intact bilaterally, moves all extremities, no focal motor deficits, no sensory deficits noted, deep tendon reflexes 2+ bilaterally and gait normal SENSORIUM/ORIENTATION: Yes alert CRANIAL NERVES: Yes CN normal except as noted DEEP TENDON REFLEXES: Right triceps reflex intensity grade: 2+, Left triceps reflex intensity grade: 2+, Rt Biceps (C5, C6): 2+, Left biceps reflex intensity grade: 2+, Right brachioradialis reflex intensity grade: 2+, Left brachioradialis reflex intensity grade: 2+, Right patellar reflex intensity grade: 2+, Left patellar reflex intensity grade: 2+, Right ankle reflex intensity grade: 2+ and Left ankle reflex intensity grade: 2+ PUPIL EXAM: Normal pupillary reactivity/response: bilateral, Dilated: bilateral, Pinpoint: bilateral, Mid position: bilateral, Sluggish: bilateral and Fixed/non-reactive: bilateral Psych: COMMON NORMALS: mental status grossly normal, Normal thought process present, cooperative, normal affect, speech normal, activity/motor behavior normal, denies hallucinations, denies homicidal ideation and denies suicidal ideation Skin: COMMON NORMALS: no rashes or lesions noted, no wounds, turgor normal, no jaundice, no petechiae and no mottling Data : 05/25/21 02:45 05/25/21 02:45 A&P Assessment and plan (1) Acute hyponatremia: Status: Acute Plan Chest pain, rule out ACS. Will monitor patient on telemetry and checks her cardiac enzymes. TSH, free T4 pending. In the morning we will recheck EKG and check fasting lipid panel. Chest x-ray?portable pending. Aspirin 81 Mill grams by mouth daily plus Nitropaste 1 inch every 6 hours plus metoprolol 25 Mill grams by mouth twice a day plus Lipitor 80 Mill grams by mouth daily at bedtime. Depending on patient symptomatology and results, we may consider echocardiogram and Lexiscan scan however I do not feel it is warranted at this time Paroxysmal atrial for ablation, status post pacemaker placement. Telemetry monitoring History of sinus bradycardia, status post pacemaker placement Neuropathy Acute on chronic kidney disease. Baseline creatinine possibly 1.5. Will monitor creatinine intermittently. IV normal saline 100 ML's per hour Hyponatremia. We will monitor sodium levels every 4 hours with BMP. IV normal saline 100 ML's per hour. This likely due to continued diuretic use on top of dehydration Hypothyroidism. TSH, free T4 pending History of hyperuricemia Anemia. We will monitor hemoglobin level intermittently. Check serum ferritin, iron panel, fecal occult blood Grade 2 diastolic dysfunction Diabetes. Will check fasting glucose every before meals and at bedtime and provide insulin sliding scale plus Levemir 80 units subcu tensely twice a day Hyperlipidemia. Fasting lipid panel pending. Lipitor 80 mg by mouth daily at bedtime Hypertension/hypertensive emergency. Metoprolol 25 Mill grams by mouth twice a day +1 inch every 6 hours plus hydralazine 100 Mill grams by mouth 3 times a day Obesity. The patient becomes regarding lifestyle modification Peripheral vascular disease. Aspirin 81 Mill grams by mouth daily plus Lipitor 80 mg by mouth daily at bedtime Patient status post left third toe amputation. X-ray of the left foot pending DVT Proflex is. Bilateral SCD Attestations Medical Necessity Statement*: Hospitalization is medically necessary Coding Level of Care Code Acute Cement Based Materials Pump Tender for Shira Gamboa Diagnoses Acute hyponatremia E87.1
--- NOTE | 2021-05-25 05:58 | XR_ITS ---
WS: [id number] CHEST XRAY TECHNIQUE: Portable chest. CLINICAL INFORMATION: COMPARISON: March 14, 2021 FINDINGS: Heart: Stable cardiomegaly. Cardiac pacer. Lung: Chronic emphysematous changes. No acute pulmonary infiltrates. No focal pneumonia or pleural fl uid. Bones: Hypertrophic changes thoracic spine. XR/XR chest 1V portable [id number] IMPRESSION: 1. Stable cardiomegaly. 2. Moderate chronic emphysematous changes. 3. No acute pulmonary infiltrates. No focal pneumonia or pleural fluid.
[2021-05-25] MEDS: sodium chloride 0.9% 1,000 ML 100 ML IV ×3 (06:08→17:55)
[2021-05-25] MEDS: nitroglycerin 1 gm/inch oint Pkt 1 INCH TOPICAL ×3 (06:15→20:06)
[2021-05-25 06:17] LABS: Ketone (Acetest) Serum Negative (Negative)
[2021-05-25 06:27] LABS: Glucose Point of Care 146 mg/dL (70-110)
[2021-05-25 06:34] LABS: Blood Urea Nitrogen 34 mg/dL (8-23); Calcium 8.8 mg/dL (8.5-10.5); Carbon Dioxide 18 mmol/L (22-29); Chloride 89 mmol/L (98-107); Ferritin 316 ng/mL (30-400); Glomerular Filtration Rate 27.8 mL/min (90-130); Glucose 145 mg/dL (65-115); Iron 77 ug/dL (59-158); Osmolality Calculated 268 mOsm/kg (285-295); Percent Saturation 30.4 % (20-50); Sodium 124 mmol/L (136-145); Thyroid Stimulating Hormone 3.62 uIU/mL (0.27-4.20); Total Iron Binding Capacity 253 mcg/dl; Unsaturated Iron Binding 176 ug/dL (112-347)
[2021-05-25 06:57] LABS: Free T4 Free Thyroxine 1.15 ng/dL (0.82-1.77)
--- NOTE | 2021-05-25 07:47 | ECG_ITS ---
[facility] Test Date: 2021-05-25 Pat Name: Jack Springer Department: Room: 251 Gender: Male Credit Consultant: : 1960 Requested By: Barron Faust Order Number: [id number] Mary MD: Pancho Vergara M.D. Measurements Intervals [place] Rate: 73 P: 226 MT: 109 QRS: 17 QRSD: 117 T: 44 QT: 374 QTc: 412 Interpretive Statements SINUS RHYTHM WITH SHORT MT INTERVAL Compared to ECG 05/25/2021 04:39:05 Short MT interval now present Intraventricular conduction delay no longer present T-wave abnormality no longer present Electronically Signed On 05-25-2021 16:05:24 DESK CLERK by Pancho Vergara M.D. [id number]
[2021-05-25 09:57] LABS: Troponin 5 6HR 30.13 ng/L (0-15)
[2021-05-25 09:58] LABS: Troponin 5 6HR Delta -1.87 ng/L (0-12)
[2021-05-25] MEDS: aspirin 81 mg EC Tablet PO ×2 (10:03→17:54)
[2021-05-25] MEDS: hyDRALAzine 50 mg Tablet 100 MG PO ×3 (10:03→20:06)
--- NOTE | 2021-05-25 10:03 | PC.CHAP ---
Pastoral Care Encounter/Spiritual Assessment Type of Contact [] Declined rn ed visit [] Patient/Family/Request visit [] Outpatient visit [] Follow-up visit [] Physician referral [] Code/Alert [x] Routine visit [] Staff referral [] Actively dying [] Patient sleeping [] Family support [] [] Out of room [] Palliative care [] [] Receiving care in room [] Pre-surgical visit [] Trauma [] Long length of stay [] ICU visit [] Other: Relational/Emotional Strength [x] Patient feels connected with others/family/visitors/staff [] Distress [] Loneliness/isolation [] Abandonment Spirituality of Patient [x] Person of Shona [] Attends Mosque of their Shona [x] Believes in Prayer [] Reads Bible or Mandaeism materials [] There are Spiritual issues to be addressed Last Puller Interventions [] Prayer [] Active listening [] Non-anxious presence [] Spiritual/emotional support [] Crisis/trauma care [] Spiritual counseling [] Bereavement support [] Provided bereavement packet [] Provided Bible/devotional materials [] Provided toy/stuffed animal, coloring book to patient or family member [] Provided Communion [] Anointing/[place]ob[place] [] Salvation [x] Completed spiritual assessment [] Other: Impact on Illness or Injury [] Angry [] Fearful [x] Anxious [] Often cries [] Exhaustion [] Unable to work [] Unable to attend gnosticism [] Unable to walk/stand [] Unable to read [] Unable to drive [] Unable to eat/drink [] Unable to sleep [] Unable to be with family [] Patient intubated [] Other: Summary Time spent with patient 10 min
[2021-05-25 10:35] LABS: Blood Urea Nitrogen 33 mg/dL (8-23); Calcium 8.9 mg/dL (8.5-10.5); Carbon Dioxide 17 mmol/L (22-29); Chloride 90 mmol/L (98-107); Glomerular Filtration Rate 27.8 mL/min (90-130); Glucose 139 mg/dL (65-115); Osmolality Calculated 266 mOsm/kg (285-295); Sodium 123 mmol/L (136-145)
[2021-05-25 11:00] LABS: Glucose Point of Care 145 mg/dL (70-110)
[2021-05-25] MEDS: metoclopramide 5 mg/mL SDV 2 mL 10 MG IVP (11:21)
--- NOTE | 2021-05-25 11:47 | ECG_ITS ---
Test Date: 2021-05-25 Pat Name: Jack Springer Department: Room: 251 Gender: Male Order Picker/Assembler: : 1960 Requested By: Barron Faust Order Number: [id number] Mary MD: Pancho Vergara M.D. Measurements Intervals [place] Rate: 73 P: 55 NE: 209 QRS: 16 QRSD: 105 T: 13 QT: 364 QTc: 403 Interpretive Statements SINUS RHYTHM INFERIOR MYOCARDIAL INFARCTION , PROBABLY OLD [40+ ms Q WAVE AND/OR ST/T ABNORMALITY IN II/aVF] Compared to ECG 05/25/2021 08:03:22 Myocardial infarct finding now present Short NE interval no longer present Electronically Signed On 05-25-2021 16:04:57 PARKS AND RECREATION WORKER by Pancho Vergara M.D. [email or web address] [facility] [email or web address]/store/[id number]
[2021-05-25 14:34] LABS: Anion Gap 17.7 (5-19); Blood Urea Nitrogen 31 mg/dL (8-23); Calcium 8.1 mg/dL (8.5-10.5); Carbon Dioxide 20 mmol/L (22-29); Chloride 92 mmol/L (98-107); Glomerular Filtration Rate 32.4 mL/min (90-130); Glucose 131 mg/dL (65-115); Osmolality Calculated 268 mOsm/kg (285-295); Potassium 4.7 mmol/L (3.5-5.1); Sodium 125 mmol/L (136-145)
[2021-05-25 17:49] LABS: Glucose Point of Care 124 mg/dL (70-110)
[2021-05-25 18:34] LABS: Anion Gap 19.7 (5-19); Blood Urea Nitrogen 31 mg/dL (8-23); Calcium 9.2 mg/dL (8.5-10.5); Carbon Dioxide 18 mmol/L (22-29); Chloride 93 mmol/L (98-107); Glomerular Filtration Rate 29.2 mL/min (90-130); Glucose 132 mg/dL (65-115); Osmolality Calculated 270 mOsm/kg (285-295); Potassium 4.7 mmol/L (3.5-5.1); Sodium 126 mmol/L (136-145)
[2021-05-25] MEDS: atorvastatin 40 mg Tablet 80 MG PO (20:05)
[2021-05-25 20:35] LABS: Glucose Point of Care 204 mg/dL (70-110)
[2021-05-25] MEDS: insulin lispro 100 unit/1 mL SUBCUT (20:55)
--- NOTE | 2021-05-25 21:56 | PM.PN ---
Subjective Subjective: Nauseated, dry heaving. Reports mild headache. Denies abdominal pain. Soft stool, but not diarrhea. Some chills. Vitals/I&O/Wt Last Vital Signs Temp 98.1 F 05/25/21 19:02 Pulse 80 05/25/21 19:02 Resp 17 05/25/21 19:02 BP 171/56 05/25/21 19:02 Pulse Ox 92 05/25/21 19:02 05/25/21 05/25/21 05/25/21 06:59 14:59 22:59 Intake Total 1000 / 1000 1120.000 / 1120.000 918.333 / 2038.333 Output Total 800 / 800 Balance 1000 / 1000 320.000 / 320.000 918.333 / 1238.333 Weight last 48 hrs Weight 145.15 kg Data : 05/25/21 02:45 05/25/21 18:04 Micro: Microbiology 05/25/21 09:12 Blood Culture - Preliminary Blood SPECIMEN COLLECTED 05/25/21 09:05 Blood Culture - Preliminary Blood SPECIMEN COLLECTED A&P Assessment and plan (1) Vomiting: Possibly side effect of Bactrim. Hold. Antiemetics as needed. Bowel rest. Reports mild headache, chills Check COVID-19 PCR. Status: Acute (2) Acute hyponatremia: Possibly secondary to Bactrim. Hold. Receiving IV saline while NPO. Mild improvement. Status: Acute (3) Acute kidney injury superimposed on CKD: Fluid challenge. Monitor I&O. Possibly due to Bactrim. Hold. Hold valsartan. Avoid nephrotoxins. Status: Acute Plan Chest pressure: Reports chest pressure, no pain, not radiating anywhere. Troponin series not suggestive of acute HI. Suspect secondary to vomiting. Monitor condition. Paroxysmal atrial for ablation, status post pacemaker placement. Telemetry monitoring History of sinus bradycardia, status post pacemaker placement Neuropathy Hypothyroidism. TSH, free T4 Normal History of hyperuricemia Anemia. We will monitor hemoglobin level intermittently. Not iron deficient. Pending Hemoccult. Grade 2 diastolic dysfunction Diabetes. Continue SSI. Levemir on hold for now. Hyperlipidemia. Lipitor 80 mg by mouth daily at bedtime Hypertension/hypertensive emergency. Improved with treatment. Continue hydralazine. Obesity. Follow-up regarding lifestyle modification Peripheral vascular disease. Aspirin 81 Mill grams by mouth daily plus Lipitor 80 mg by mouth daily at bedtime Patient status post left third toe amputation. 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 Recent right hallux cellulitis: With improvement. Continue with local metabolic abnormalities, discontinue Bactrim. Avoid use with chronic kidney disease. DVT PPx bilateral SCD Attestations Medical Necessity Statement*: Continue admission for assessment and management of persistent nausea and vomiting, hyponatremia, MATEO on CKD. Coding Level of Care Code Acute Watchmaking Teacher for g Fwd Diagnoses Acute hyponatremia E87.1 Vomiting R11.10 Acute kidney injury superimposed on CKD N17.9; N18.9
[2021-05-25 22:32] LABS: Anion Gap 14.5 (5-19); Blood Urea Nitrogen 37 mg/dL (8-23); Carbon Dioxide 23 mmol/L (22-29); Chloride 93 mmol/L (98-107); Glomerular Filtration Rate 26.5 mL/min (90-130); Glucose 182 mg/dL (65-115); Osmolality Calculated 275 mOsm/kg (285-295); Potassium 4.5 mmol/L (3.5-5.1); Sodium 126 mmol/L (136-145)
[2021-05-26 01:30] LABS: Adenovirus Not Detected (NOT DETECT); Chlamydia Pneumoniae Not Detected (NOT DETECT); Coronavirus 229E,HKU1,NL63,OC4 Not Detected (NOT DETECT); Human Metapneumovirus Not Detected (NOT DETECT); Human Rhinovirus/Enterovirus Not Detected (NOT DETECT); Influenza A Not Detected (NOT DETECT); Influenza A H1 Not Detected (NOT DETECT); Influenza A H1-2009 Not Detected (NOT DETECT); Influenza A H3 Not Detected (NOT DETECT); Influenza B Not Detected (NOT DETECT); Mycoplasma Pneumoniae Not Detected (NOT DETECT); Parainfluenza Virus Type 1 Not Detected (NOT DETECT); Parainfluenza Virus Type 2 Not Detected (NOT DETECT); Parainfluenza Virus Type 3 Not Detected (NOT DETECT); Parainfluenza Virus Type 4 Not Detected (NOT DETECT); Respiratory Syncytial Virus A Not Detected (NOT DETECT); Respiratory Syncytial Virus B Not Detected (NOT DETECT); SARS-COV-2 Not Detected (NOT DETECT)
[2021-05-26] MEDS: nitroglycerin 1 gm/inch oint Pkt 1 INCH TOPICAL ×2 (02:17→08:14)
[2021-05-26 02:38] LABS: Anion Gap 13.5 (5-19); Blood Urea Nitrogen 39 mg/dL (8-23); Carbon Dioxide 23 mmol/L (22-29); Chloride 96 mmol/L (98-107); Glomerular Filtration Rate 25.3 mL/min (90-130); Glucose 124 mg/dL (65-115); Osmolality Calculated 277 mOsm/kg (285-295); Potassium 4.5 mmol/L (3.5-5.1); Sodium 128 mmol/L (136-145)
[2021-05-26] MEDS: sodium chloride 0.9% 1,000 ML 100 ML IV (03:29)
[2021-05-26 04:00] VITALS: BP 158/50; PULSE 70; RESP 17; TEMP 36.9; O2SAT 90
[2021-05-26 05:43] LABS: Basophils % 0.6 %; Eosinophils # 0.1 10^3/uL (0.0-0.8); Eosinophils % 1.7 %; Hematocrit 35.4 % (42.0-52.0); Hemoglobin 10.6 g/dL (11.7-16.6); Lymphocytes # 1.2 10^3/uL (0.8-4.8); Lymphocytes % 17.2 %; Mean Corpuscular HGB Conc 29.9 g/dL (30.0-36.0); Mean Corpuscular Hemoglobin 28.7 pg (28.0-34.0); Mean Corpuscular Volume 95.9 fl (80-94); Mean Platelet Volume 9.4 fL (7.4-10.4); Monocytes # 0.5 10^3/uL (0.2-0.9); Monocytes % 7.4 %; Neutrophils # 5.04 10^3/uL (1.8-7.7); Neutrophils % 71.8 %; Nucleated Red Blood Cells % 0 %; Platelet Count 264 10^3/cmm (130-400); Red Blood Count 3.69 10^6/uL (4.1-5.3)
[2021-05-26 05:59] VITALS: PULSE 73
--- NOTE | 2021-05-26 06:00 | ECG_ITS ---
[facility] Test Date: 2021-05-26 Pat Name: Jack Springer Department: Room: 251 Gender: Male Web Operations Specialist: : 1960 Requested By: Barron Faust Order Number: [id number] Mary MD: Cory Gomez M.D. Measurements Intervals [place] Rate: 65 P: 18 CO: 200 QRS: 44 QRSD: 111 T: 31 QT: 391 QTc: 408 Interpretive Statements SINUS RHYTHM MODERATE INTRAVENTRICULAR CONDUCTION DELAY [110+ ms QRS DURATION] NONSPECIFIC T-WAVE ABNORMALITY Compared to ECG 05/25/2021 10:43:20 Intraventricular conduction delay now present T-wave abnormality now present Myocardial infarct finding no longer present Electronically Signed On 05-26-2021 17:49:51 OUTBOARD MOTORS EXPERIMENTAL MECHANIC by Cory Gomez M.D. [id number]
[2021-05-26 06:08] LABS: Alanine Aminotransferase 9 U/L (0-41); Albumin Level 3.7 g/dL (3.5-5.2); Alkaline Phosphatase 86 IU/L (40-130); Anion Gap 16.5 (5-19); Aspartate Amino Transferase 14 U/L (0-40); Blood Urea Nitrogen 37 mg/dL (8-23); Calcium 8.3 mg/dL (8.5-10.5); Carbon Dioxide 20 mmol/L (22-29); Chloride 97 mmol/L (98-107); Chol HDL Ratio 4.36 mg/dL (1.0-5.00); Cholesterol 109 mg/dL (0-200); Globulin 2.9 g/dL (1.3-4.6); Glomerular Filtration Rate 27.8 mL/min (90-130); Glucose 142 mg/dL (65-115); HDL Cholesterol 25 mg/dL (60-100); LDL Cholesterol Calculated 45 mg/dL (50-129); Osmolality Calculated 279 mOsm/kg (285-295); Potassium 4.5 mmol/L (3.5-5.1); Sodium 129 mmol/L (136-145); Total Bilirubin 0.4 mg/dL (0.15-1.2); Total Protein 6.6 g/dL (6.6-8.7); Triglycerides 196 mg/dL (0-150)
[2021-05-26 06:19] LABS: Glucose Point of Care 156 mg/dL (70-110)
[2021-05-26 07:04] VITALS: BP 150/65; PULSE 70; RESP 13; TEMP 37.1; O2SAT 93
[2021-05-26] MEDS: insulin lispro 100 unit/1 mL SUBCUT ×2 (08:14→12:31)
[2021-05-26] MEDS: aspirin 81 mg EC Tablet PO (08:14)
[2021-05-26] MEDS: hyDRALAzine 50 mg Tablet 100 MG PO (08:14)
[2021-05-26 11:08] LABS: Anion Gap 16.9 (5-19); Blood Urea Nitrogen 37 mg/dL (8-23); Calcium 7.9 mg/dL (8.5-10.5); Carbon Dioxide 21 mmol/L (22-29); Chloride 98 mmol/L (98-107); Glomerular Filtration Rate 29.2 mL/min (90-130); Glucose 233 mg/dL (65-115); Osmolality Calculated 288 mOsm/kg (285-295); Potassium 4.9 mmol/L (3.5-5.1); Sodium 131 mmol/L (136-145)
--- NOTE | 2021-05-26 11:15 | PC.CHAP ---
Pastoral Care Encounter/Spiritual Assessment Type of Contact [] Declined critical care cns visit [] Patient/Family/Request visit [] Outpatient visit [] Follow-up visit [] Physician referral [] Code/Alert [x] Routine visit [] Staff referral [] Actively dying [] Patient sleeping [] Family support [] [] Out of room [] Palliative care [] [x] Receiving care in room [] Pre-surgical visit [] Trauma [x] Long length of stay [] ICU visit [] Other: Relational/Emotional Strength [x] Patient feels connected with others/family/visitors/staff [x] Distress [] Loneliness/isolation [] Abandonment Spirituality of Patient [x] Person of Shona [] Attends Christianity of their Shona [x] Believes in Prayer [] Reads Bible or Muslim materials [] There are Spiritual issues to be addressed Technical Manager Interventions [x] Prayer [x] Active listening [x] Non-anxious presence [x] Spiritual/emotional support [] Crisis/trauma care [x] Spiritual counseling [] Bereavement support [] Provided bereavement packet [] Provided Bible/devotional materials [] Provided toy/stuffed animal, coloring book to patient or family member [] Provided Communion [] Anointing/[place] [] Salvation [x] Completed spiritual assessment [] Other: Impact on Illness or Injury [] Angry [] Fearful [] Anxious [] Often cries [] Exhaustion [x] Unable to work [] Unable to attend jain [] Unable to walk/stand [] Unable to read [] Unable to drive [] Unable to eat/drink [] Unable to sleep [] Unable to be with family [] Patient intubated [] Other: Summary Negative feelings not sure about her health Time spent with patient 19 mins
[2021-05-26 11:55] LABS: Glucose Point of Care 205 mg/dL (70-110)
--- NOTE | 2021-05-26 15:58 | PC.NURSE ---
patient verbalized understanding of discharge instructions, home medications, and follow up appointments. Patient requested to wait for ride at [facility].
[2021-05-26 16:02] VITALS: BP 150/65; PULSE 70; RESP 13; TEMP 37.1; O2SAT 93
--- NOTE | 2021-05-26 21:06 | P.DS_ITS ---
Discharge Providers Date of Admission: 05/25/21 04:37 Date of Discharge: May 26, 2021 Attending Provider at Admission: Barron Faust DO Attending Provider at Discharge: Chato Nelson Primary Care Provider: Leandra Reddy MD Diagnoses at Discharge Discharge Diagnosis (1) Vomiting: Status: Acute (2) Acute hyponatremia: Status: Acute (3) Acute kidney injury superimposed on CKD: Status: Acute Reason for Visit Reason for Visit: dry heaving, aching Hospital Course Hospital Course Pleasant 60-year-old gentleman was observed in the hospital after presenting with nausea, vomiting, generalized weakness, also with chills, headache, substernal pain, presentation noted with acute hyponatremia, sodium down to 124. Also with acute kidney injury on chronic kidney disease, creatinine recently increased to 2.5, on presentation up to 2.6. Recent baseline difficult to determine but appears to be possibly around 2-2.4. Troponin and EKG series, symptoms were not suggestive of acute AK. He received initially supportive care with bowel rest, antiemetics, gentle IV hydration, with gradual improvement in sodium level. COVID-19 was assessed by PCR and was negative. He recently had been started on a course of Bactrim due to erythema, swelling of periarticular swelling and redness over the joint of the right thumb which was thought to be possibly due to infection, this was lanced, but no pus came out. He states he was almost done with Bactrim. He is asked to discontinue Bactrim as it appears to be temporally linked with onset of his symptoms with nausea and vomiting as well as hyponatremia. Would avoid Bactrim in the setting of chronic kidney disease. Renal function did show gradual mild improvement, with creatinine coming down as low as 2.3, with possibly component of prerenal MATEO with poor oral intake, nausea and vomiting. Would agree with follow-up with nephrology as discussed with him. Sodium improved to as high as 131 today. Nausea and vomiting resolved. He is tolerating trial of oral intake. He is feeling much better, and requests to go home. Recent periarticular swelling of right thumb, but also notes distal phalangeal joint similar swelling on the dorsal surface on the index finger, as well as in the index finger on the proximal condyle joint of the left hand, etiology of these is not clear. Erythema is nearly resolved currently, and for now he is not continued on further antibiotic therapy. Whether the etiology is infectious or inflammatory will still need to be determined. Blood cultures were requested while in the hospital, however, so far negative, but would expect would be affected by recent antibiotics. Consider reassessment with survey blood cultures. Additionally this would not be typical distribution for gout, howev er, multiple joints affected may suggest inflammatory etiology. As discussed with him we agree with referral for additional assessment by rheumatology. In case of inflammatory etiology would avoid NSAIDs due to renal dysfunction. We will also be very cautious with steroid use in case there was infectious etiology. Careful monitoring with reassessment in case of recurrence may be consideration, possible assessment by MRI. Would agree also with referral to orthopedics as had been originally considered. He also reports chronic left arm swelling which appears to have started after pacemaker placement. Etiology of this is not entirely clear currently as well. Continue follow-up. Continue follow-up of left second toe wound with wound care clinic. The wound appears clean, dry without any drainage or surrounding erythema. Physical Exam Const: COMMON NORMALS: no acute distress and patient oriented x3 GENERAL APPEARANCE: cooperative and comfortable NUTRITIONAL APPEARANCE: obese OTHER: Today he is feeling much better, he is in good spirits. HENMT: COMMON NORMALS: oropharynx normal Neck/C-Spine: COMMON NORMALS: no JVD Resp: COMMON NORMALS: normal respiratory effort and clear to auscultation bilaterally AUSCULTATION: clear to auscultation bilaterally Cardio: COMMON NORMALS: no JVD, regular rhythm, S1 normal heart sound present, S2 normal heart sound present and No murmurs present (Cardio) RHYTHM: regular rhythm HEART SOUNDS: S1 normal heart sound present and S2 normal heart sound present GI: COMMON NORMALS: Normal to inspection, nondistended, normoactive bowel sounds present, Soft to palpation and non-tender PALPATION: Yes Soft to palpation Extremity: COMMON NORMALS: no joint enlargement and no pedal edema Neuro: COMMON NORMALS: patient oriented x3 and moves all extremities Skin: WOUNDS: Yes amputation site (Healed) and Yes wounds noted (Distal second left toe, dry, clean, but with some callus formation) OTHER: Minimal/pale erythema of tissue overlying the right thumb fungal joint. Small area over the distal chondral joint on the index finger in the right, proximal collodion joint index finger in the left. Discharge Data Studies Completed and Pending Completed Studies During Hospitalization Category Date Time Status CT abdomen pelvis wo con [id number] Urgent Cat Scan 05/25/21 02:41 Completed XR chest 1V portable [id number] Routine Exams 05/25/21 05:58 Completed XR foot LT min 3V* [id number] Routine Exams 05/25/21 05:54 Completed Pending at discharge Category Date Time Status Blood Culture Stat Lab 05/25/21 09:12 Results Radiology Impressions Abdomen/Pelvis CT 05/25/21 02:41 IMPRESSION: Skin thickening in periumbilical region can be correlated for infectious/inflammatory change or injection sites. No acute intra-abdominal findings. Foot X-Ray 05/25/21 05:54 Impression: 1. Amputation of the left third toe. 2. Flexion deformities of the first, second fourth and fifth distal phalanges. 3. 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 Chest X-Ray 05/25/21 05:58 IMPRESSION: 1. Stable cardiomegaly. 2. Moderate chronic emphysematous changes. 3. No acute pulmonary infiltrates. No focal pneumonia or pleural fluid. Laboratory Results WBC 7.0 10^3/uL (4.0-10.0) 05/26/21 05:20 RBC 3.69 10^6/uL (4.1-5.3) L 05/26/21 05:20 Hgb 10.6 g/dL (11.7-16.6) L 05/26/21 05:20 Hct 35.4 % (42.0-52.0) L 05/26/21 05:20 MCV 95.9 fl (80-94) H D 05/26/21 05:20 MCH 28.7 pg (28.0-34.0) 05/26/21 05:20 MCHC 29.9 g/dL (30.0-36.0) L D 05/26/21 05:20 RDW 14.0 % (12.1-15.1) 05/26/21 05:20 Plt Count 264 10^3/cmm (130-400) 05/26/21 05:20 MPV 9.4 fL (7.4-10.4) 05/26/21 05:20 Neut % (Auto) 71.8 % 05/26/21 05:20 Lymph % (Auto) 17.2 % 05/26/21 05:20 [place] % (Auto) 7.4 % 05/26/21 05:20 Eos % (Auto) 1.7 % 05/26/21 05:20 Baso % (Auto) 0.6 % 05/26/21 05:20 Neut # (Auto) 5.04 10^3/uL (1.8-7.7) 05/26/21 05:20 Lymph # (Auto) 1.2 10^3/uL (0.8-4.8) 05/26/21 05:20 [place] # (Auto) 0.5 10^3/uL (0.2-0.9) 05/26/21 05:20 Eos # (Auto) 0.1 10^3/uL (0.0-0.8) 05/26/21 05:20 Baso # (Auto) 0.0 10^3/uL (0.0-0.1) 05/26/21 05:20 Nucleated RBC % (auto) 0 % 05/26/21 05:20 Nucleated RBCs # 0.0 /100WBC 05/26/21 05:20 Sodium 131 mmol/L (136-145) L 05/26/21 10:27 Potassium 4.9 mmol/L (3.5-5.1) 05/26/21 10:27 Chloride 98 mmol/L (98-107) 05/26/21 10:27 Carbon Dioxide 21 mmol/L (22-29) L 05/26/21 10:27 Anion Gap 16.9 (5-19) 05/26/21 10:27 BUN 37 mg/dL (8-23) H 05/26/21 10:27 Creatinine 2.3 mg/dL (0.7-1.2) H 05/26/21 10:27 GFR Calculation 29.2 mL/min (90-130) L 05/26/21 10:27 Glucose 233 mg/dL (65-115) H 05/26/21 10:27 POC Glucose 205 mg/dL (70-110) H 05/26/21 11:31 Calculated Osmolality 288 mOsm/kg (285-295) 05/26/21 10:27 Calcium 7.9 mg/dL (8.5-10.5) L 05/26/21 10:27 Iron 77 ug/dL (59-158) 05/25/21 04:43 TIBC 253 mcg/dl 05/25/21 04:43 % Saturation 30.4 % (20-50) 05/25/21 04:43 Unsat Iron Binding 176 ug/dL (112-347) 05/25/21 04:43 Ferritin 316 ng/mL (30-400) 05/25/21 04:43 Total Bilirubin 0.4 mg/dL (0.15-1.2) 05/26/21 05:20 AST 14 U/L (0-40) 05/26/21 05:20 ALT 9 U/L (0-41) 05/26/21 05:20 Alkaline Phosphatase 86 IU/L (40-130) 05/26/21 05:20 Troponin T Baseline 32 ng/L (0-15) H 05/25/21 02:45 Troponin T 120 Minute 35.59 ng/L (0-15) H 05/25/21 04:42 Delta Troponin T 3.59 ABS# (0-10) 05/25/21 04:42 Troponin T Hi Sens 6Hr 30.13 ng/L (0-15) H 05/25/21 09:05 Troponin T Hi Sens 6Hr Delta -1.87 ng/L (0-12) L 05/25/21 09:05 Total Protein 6.6 g/dL (6.6-8.7) 05/26/21 05:20 Albumin 3.7 g/dL (3.5-5.2) 05/26/21 05:20 Globulin 2.9 g/dL (1.3-4.6) 05/26/21 05:20 Triglycerides 196 mg/dL (0-150) H 05/26/21 05:20 Cholesterol 109 mg/dL (0-200) 05/26/21 05:20 LDL Cholesterol, Calc 45 mg/dL (50-129) L 05/26/21 05:20 HDL Cholesterol 25 mg/dL (60-100) L 05/26/21 05:20 LDL/HDL Ratio 1.80 RATIO (0.00-3.22) 05/26/21 05:20 Cholesterol/HDL Ratio 4.36 mg/dL (1.0-5.00) 05/26/21 05:20 Lipase 36 U/L (13-60) 05/25/21 02:45 TSH 3.62 uIU/mL (0.27-4.20) 05/25/21 04:43 Free T4 1.15 ng/dL (0.82-1.77) 05/25/21 04:43 Urine Color Yellow (Yellow) 05/25/21 04:10 Urine Appearance Clear (CLEAR) 05/25/21 04:10 Urine pH 7 (5-7) 05/25/21 04:10 Ur Specific [place] 1.005 (1.005-1.030) 05/25/21 04:10 Urine Protein 1+ (Negative) H 05/25/21 04:10 Urine Glucose (UA) 4+ (Normal) H 05/25/21 04:10 Urine Ketones Negative (Negative) 05/25/21 04:10 Urine Blood Neg (Negative) 05/25/21 04:10 Urine Nitrate Negative (Negative) 05/25/21 04:10 Urine Bilirubin Neg (Negative) 05/25/21 04:10 Urine Urobilinogen Norm mg/dL (Negative) 05/25/21 04:10 Ur Leukocyte Esterase Negative (Negative) 05/25/21 04:10 Urine RBC 0-4 /hpf (0-2) H 05/25/21 04:10 Urine WBC 0-4 /hpf (0-5) H 05/25/21 04:10 Ur Squamous Epith Cells 0-4 /hpf (0-5) H 05/25/21 04:10 Amorphous Sediment Not Reportable 05/25/21 04:10 Urine Bacteria Trace /hpf (NONE) 05/25/21 04:10 Serum Ketones Negative (Negative) 05/25/21 02:45 Coronavirus 229E (PCR) Not detected (NOT DETECT) 05/25/21 23:15 SARS-CoV-2 (PCR) Not detected (NOT DETECT) 05/25/21 23:15 Vitals Last Vital Signs Temp 98.7 F 05/26/21 16:02 Pulse 70 05/26/21 16:02 Resp 13 05/26/21 16:02 BP 150/65 05/26/21 16:02 Pulse Ox 93 05/26/21 16:02 Discharge Plan Discharge Patient Disposition: Home Condition: Stable Prescriptions: Continued B-complex with vitamin C [Super B Complex-Vitamin C] Tablet 1 tab PO DAILY 0RF Farxiga 5 mg tablet 5 mg PO DAILY Qty: 90 1RF Rx Instructions: 340 B: this in addition to januvia and insulin. aspirin 81 mg tablet,delayed release (DR/EC) 81 mg PO BID 0RF hydralazine 100 mg tablet 100 mg PO TID Qty: 90 3RF potassium gluconate 595 mg (99 mg) tablet 1,190 mg PO TID 0RF carvedilol [Coreg] 12.5 mg tablet 12.5 mg PO BID Qty: 60 5RF Rx Instructions: must administer with a meal/food acetylcysteine [NAC] 600 mg capsule 600 mg PO DAILY 0RF vitamin K2 100 mcg capsule 100 mcg PO DAILY 0RF amlodipine 10 mg tablet 10 mg PO DAILY Qty: 90 2RF pyridoxine (vitamin B6) 200 mg Tablet Extended Release 200 mg PO DAILY 0RF Colace 100 mg Capsule 100 mg PO DAILY 0RF alpha lipoic acid 1 tab PO DAILY 0RF Novolog U-100 Insulin aspart 100 unit/mL solution 40 unit SUBCUT BID 0RF Levemir U-100 Insulin 100 unit/mL solution 70 unit SUBCUT BID 0RF ascorbic acid (vitamin C) [Vitamin C] 1,000 mg Tablet 1,000 mg PO DAILY 0RF multivitamin Tablet 1 tab PO QAM 0RF melatonin 10 mg Tablet 10 mg PO BEDTIME 0RF magnesium oxide 200 mg magnesium Tablet 400 mg PO DAILY 0RF simvastatin 40 mg tablet 40 mg PO QAM 0RF Januvia 50 mg tablet 50 mg PO QAM 0RF Held furosemide 40 mg tablet 40 mg PO BID 0RF Hold Instructions: Resume on 05/31/21. valsartan 160 mg tablet 160 mg PO BID Qty: 60 5RF Hold Instructions: Resume on 06/02/21. metformin 500 mg tablet 500 mg PO BID 0RF Hold Instructions: Resume on 06/01/21. Discontinued sulfamethoxazole-trimethoprim [Bactrim DS] 800-160 mg tablet 1 tab PO BID Qty: 20 0RF Rx Instructions: rx filled 05/17/21 10d/s Discharge Orders: Discharge Order (Routine); Ordered 05/26/21 Ordered By: Chato Nelson Referrals: Leandra Reddy MD [Primary Care Provider] - 06/01/21 10:30 am Discharge Diet: Diabetic Discharge Activity: Increase activity as tolerated Patient Instructions: Acute Kidney Injury (GEN), Chronic Kidney Disease (GEN), Hyponatremia (GEN), Vomiting - Adult Activity Restrictions/Additional Instructions: Nausea, vomiting and low sodium have improved. Would avoid Bactrim in setting of chronic kidney disease, now with some acute ki dney injury as well, and with nausea, vomiting, low sodium level possibly resulting from toxic effect. Avoid NSAIDs or any minor medications that may lead to kidney injury. Agree with setting up follow-up with kidney specialist, continue arrangements with your primary doctor. Agree with consideration of additional assessment by rheumatology, possibly orthopedics given unclear cause of redness, swelling at joints of her fingers. Consider assessment by MRI. Consider follow-up survey blood cultures 2-3 weeks after antibiotic completion. Blood cultures were obtained during this hospitalization, and they are still pending final results, but may be affected by recent antibiotic treatment. Continue efforts to optimize diabetes control. Metformin, valsartan for now on hold until renal function stabilizes. Use caution with Farxiga, can sometimes cause acute kidney injury. Continue follow-up with regards to left upper extremity swelling. Continue wound care and follow-up for wound on distal left second toe. Discharge Attestations Time Spent in Discharge Care*: greater than 30 min Quality Metrics Clinical Quality Measures [ No reported AMI, CVA or VTE this stay] Coding Level of Care Code Acute Chg FW DC note Diagnoses Vomiting R11.10 Acute hyponatremia E87.1 Acute kidney injury superimposed on CKD N17.9; N18.9
== END 2021-05-26 15:55 | disposition home or self-care (01) ==
LOC: ER 04:49 → MEDSURG 05:44
PROVIDERS: Nurse Practitioner Family; Admitting Provider Internal Medicine; Emergency Provider Emergency Medicine; PCP Family Medicine; Visit Provider Internal Medicine
DX: R11.10 Vomiting, unspecified (principal); E87.1 Hypo-osmolality and hyponatremia; N17.9 Acute kidney failure, unspecified; N18.9 Chronic kidney disease, unspecified; R07.89 Other chest pain; Z95.0 Presence of cardiac pacemaker; E03.9 Hypothyroidism, unspecified; D64.9 Anemia, unspecified; E11.9 Type 2 diabetes mellitus without complications; Z79.4 Long term (current) use of insulin; Z79.84 Long term (current) use of oral hypoglycemic drugs; E78.5 Hyperlipidemia, unspecified; I10 Essential (primary) hypertension; E66.9 Obesity, unspecified; Z68.41 Body mass index [BMI] 40.0-44.9, adult; I73.9 Peripheral vascular disease, unspecified
CPT/HCPCS: 36415; 36416; 71045; 73630; 74176; 80048; 80053; 80061; 81001; 82009; 82728; 82962; 83540; 83550; 83690; 84439; 84443; 84484; 85025; 87040; 87635; 93005; 96372; G0378; J1815; J2270; J2405; J2765; J7030

== ENCOUNTER → 2021-06-03 08:11 | Outpatient (BNVA) | payer MEDICARE, SELFPAY | PROVIDERS: PCP Family Medicine; Visit Provider Family Medicine | DX: N17.9 Acute kidney failure, unspecified (principal); N18.9 Chronic kidney disease, unspecified | CPT/HCPCS: 80048 ==

== ENCOUNTER → 2021-06-08 08:34 | Outpatient (BNVA) | payer MEDICARE, SELFPAY | PROVIDERS: PCP Family Medicine; Visit Provider Family Medicine | DX: E11.42 Type 2 diabetes mellitus with diabetic polyneuropathy (principal); R60.9 Edema, unspecified; N19 Unspecified kidney failure; E11.22 Type 2 diabetes mellitus with diabetic chronic kidney disease | CPT/HCPCS: 36416; 82962 ==

== ENCOUNTER → 2021-06-10 09:07 | Outpatient (BNVA) | payer MEDICARE, SELFPAY | PROVIDERS: PCP Family Medicine; Visit Provider Family Medicine | DX: N17.9 Acute kidney failure, unspecified (principal); N18.9 Chronic kidney disease, unspecified | CPT/HCPCS: 80048 ==

== ENCOUNTER → 2021-06-27 08:52 | Outpatient (BNVA) | payer MEDICARE, SELFPAY | PROVIDERS: PCP Family Medicine; Visit Provider Family Medicine | DX: E11.65 Type 2 diabetes mellitus with hyperglycemia (principal); N17.9 Acute kidney failure, unspecified; N18.9 Chronic kidney disease, unspecified; I12.9 Hypertensive chronic kidney disease with stage 1 through stage 4 chronic kidney disease, or unspecified chronic kidney disease; E11.22 Type 2 diabetes mellitus with diabetic chronic kidney disease | CPT/HCPCS: 36416; 80048; 82962 ==

== ENCOUNTER → 2021-06-29 09:44 | Outpatient (BNVA) | payer MEDICARE, SELFPAY | PROVIDERS: PCP Family Medicine; Visit Provider Internal Medicine Rheumatology | DX: E11.610 Type 2 diabetes mellitus with diabetic neuropathic arthropathy (principal); E11.22 Type 2 diabetes mellitus with diabetic chronic kidney disease; I12.9 Hypertensive chronic kidney disease with stage 1 through stage 4 chronic kidney disease, or unspecified chronic kidney disease; N18.30 Chronic kidney disease, stage 3 unspecified; Z11.59 Encounter for screening for other viral diseases; Z11.1 Encounter for screening for respiratory tuberculosis; Z79.4 Long term (current) use of insulin; Z79.899 Other long term (current) drug therapy | CPT/HCPCS: 36415; 73130; 73630; 80076; 82306; 84550; 85025; 85651; 86038; 86140; 86200; 86431; 86480; 86704; 86803; 87340; 99214 ==

== ENCOUNTER → 2021-09-19 12:14 | Outpatient (BNVA) | payer MEDICARE, SELFPAY | PROVIDERS: PCP Family Medicine; Visit Provider Family Medicine | DX: E11.65 Type 2 diabetes mellitus with hyperglycemia (principal); I10 Essential (primary) hypertension; M19.90 Unspecified osteoarthritis, unspecified site | CPT/HCPCS: 80053; 84550 ==

== ENCOUNTER → 2021-09-28 13:02 | Outpatient (BNVA) | payer MEDICARE, SELFPAY | PROVIDERS: PCP Family Medicine; Visit Provider Internal Medicine Rheumatology | DX: M1A.9XX1 Chronic gout, unspecified, with tophus (tophi) (principal); R76.8 Other specified abnormal immunological findings in serum; M19.90 Unspecified osteoarthritis, unspecified site; E11.22 Type 2 diabetes mellitus with diabetic chronic kidney disease; N18.30 Chronic kidney disease, stage 3 unspecified; Z79.899 Other long term (current) drug therapy | CPT/HCPCS: 36415; 86160; 86162; 86235; 86255; 86376; 99214 ==

== ENCOUNTER → 2021-10-12 07:59 | Outpatient (BNVA) | payer MEDICARE, SELFPAY | PROVIDERS: PCP Family Medicine; Visit Provider Thoracic Surgery (Cardiothoracic Vascular Surgery) | DX: E11.622 Type 2 diabetes mellitus with other skin ulcer (principal); L97.821 Non-pressure chronic ulcer of other part of left lower leg limited to breakdown of skin; I96 Gangrene, not elsewhere classified | CPT/HCPCS: 97597; 97598; 99213; A6252 ==

== ENCOUNTER → 2021-10-14 11:00 | Outpatient (BNVA) | payer MEDICARE, SELFPAY | PROVIDERS: PCP Family Medicine; Visit Provider Nurse Practitioner Family | DX: I87.2 Venous insufficiency (chronic) (peripheral) (principal); E11.622 Type 2 diabetes mellitus with other skin ulcer; L97.829 Non-pressure chronic ulcer of other part of left lower leg with unspecified severity | CPT/HCPCS: 29581; A6021; A6252 ==

== ENCOUNTER → 2021-10-19 08:12 | Outpatient (BNVA) | payer MEDICARE, SELFPAY | PROVIDERS: PCP Family Medicine; Visit Provider Nurse Practitioner Family | DX: I87.2 Venous insufficiency (chronic) (peripheral) (principal); E11.622 Type 2 diabetes mellitus with other skin ulcer; L97.822 Non-pressure chronic ulcer of other part of left lower leg with fat layer exposed; I96 Gangrene, not elsewhere classified | CPT/HCPCS: 11042; 11045; 80048; A6021; A6252 ==

== ENCOUNTER → 2021-10-26 07:57 | Outpatient (BNVA) | payer MEDICARE, SELFPAY | PROVIDERS: PCP Family Medicine; Visit Provider Nurse Practitioner Family | DX: I87.2 Venous insufficiency (chronic) (peripheral) (principal); E11.622 Type 2 diabetes mellitus with other skin ulcer; L97.522 Non-pressure chronic ulcer of other part of left foot with fat layer exposed; I96 Gangrene, not elsewhere classified | CPT/HCPCS: 29581 ==

== ENCOUNTER → 2021-11-02 08:05 | Outpatient (BNVA) | payer MEDICARE, SELFPAY | PROVIDERS: PCP Family Medicine; Visit Provider Thoracic Surgery (Cardiothoracic Vascular Surgery) | DX: I87.2 Venous insufficiency (chronic) (peripheral) (principal); E11.622 Type 2 diabetes mellitus with other skin ulcer; L97.822 Non-pressure chronic ulcer of other part of left lower leg with fat layer exposed | CPT/HCPCS: 99212 ==

== ENCOUNTER → 2022-01-18 13:00 | Outpatient (BNVA) | payer MEDICARE, SELFPAY | PROVIDERS: PCP Family Medicine; Visit Provider Internal Medicine Rheumatology | DX: M1A.9XX1 Chronic gout, unspecified, with tophus (tophi) (principal); R76.8 Other specified abnormal immunological findings in serum; Z79.899 Other long term (current) drug therapy; N18.30 Chronic kidney disease, stage 3 unspecified; E11.22 Type 2 diabetes mellitus with diabetic chronic kidney disease; Z79.4 Long term (current) use of insulin | CPT/HCPCS: 99214 ==

== ENCOUNTER → 2022-03-13 16:33 | Outpatient (BNVA) | payer MEDICARE, SELFPAY | PROVIDERS: PCP Family Medicine; Visit Provider Family Medicine | DX: N19 Unspecified kidney failure (principal); E11.622 Type 2 diabetes mellitus with other skin ulcer; L97.929 Non-pressure chronic ulcer of unspecified part of left lower leg with unspecified severity; E11.65 Type 2 diabetes mellitus with hyperglycemia; I10 Essential (primary) hypertension | CPT/HCPCS: 80048 ==

== ENCOUNTER → 2023-02-22 09:42 | Outpatient (BNVA) | payer MEDICARE, SELFPAY | PROVIDERS: PCP Family Medicine; Visit Provider Family Medicine | DX: I50.9 Heart failure, unspecified (principal); E11.65 Type 2 diabetes mellitus with hyperglycemia; I10 Essential (primary) hypertension; E11.8 Type 2 diabetes mellitus with unspecified complications; N17.9 Acute kidney failure, unspecified; N18.9 Chronic kidney disease, unspecified; E11.42 Type 2 diabetes mellitus with diabetic polyneuropathy; Z95.0 Presence of cardiac pacemaker | CPT/HCPCS: 80053; 83036; 85025 ==

== ENCOUNTER → 2023-05-23 09:32 | Outpatient (BNVA) | payer MEDICARE, SELFPAY | PROVIDERS: PCP Family Medicine; Visit Provider Family Medicine | DX: E11.42 Type 2 diabetes mellitus with diabetic polyneuropathy (principal); I10 Essential (primary) hypertension; E11.65 Type 2 diabetes mellitus with hyperglycemia | CPT/HCPCS: 80053; 83036; 85025 ==

== ENCOUNTER → 2023-08-03 09:11 | Outpatient (BNVA) | payer MEDICARE, SELFPAY | PROVIDERS: PCP Family Medicine; Visit Provider Family Medicine | DX: N18.30 Chronic kidney disease, stage 3 unspecified (principal); E11.622 Type 2 diabetes mellitus with other skin ulcer; L97.929 Non-pressure chronic ulcer of unspecified part of left lower leg with unspecified severity; M19.90 Unspecified osteoarthritis, unspecified site; E78.00 Pure hypercholesterolemia, unspecified; I50.9 Heart failure, unspecified; E11.42 Type 2 diabetes mellitus with diabetic polyneuropathy; E11.65 Type 2 diabetes mellitus with hyperglycemia | CPT/HCPCS: 80053; 83036; 85025 ==

== ENCOUNTER 2023-08-09 09:41 | Outpatient (CLI) | payer MEDICARE, SELFPAY ==
--- NOTE | 2023-08-09 09:49 | XR_ITS ---
WS: [id number] PA and lateral chest, 08/09/2023 Clinical Data: productive cough worsening heart failure Comparison: Portable chest, 05/25/2021 Findings: No nodules, masses or effusions are seen. The heart remains enlarged. There is bilateral o pacity in both lungs especially the lower lobes which may represent pulmonary vascular congestion, at electasis and/or pneumonia. No pneumothorax is seen. The aortic arch and descending thoracic aorta sh ow tortuosity. There is a cardiac pacemaker unchanged in position. XR/XR chest 2V* [id number] Impression: 1. Bilateral lower lobe pulmonary opacities. 2. Cardiomegaly, atherosclerosis and cardiac pacemaker.
== END 2023-08-09 09:42 | disposition home or self-care (01) ==
LOC: RAD 09:42
PROVIDERS: PCP Family Medicine; Visit Provider Family Medicine
DX: I50.9 Heart failure, unspecified (principal); R91.8 Other nonspecific abnormal finding of lung field; E11.65 Type 2 diabetes mellitus with hyperglycemia; E11.622 Type 2 diabetes mellitus with other skin ulcer; I10 Essential (primary) hypertension; N17.9 Acute kidney failure, unspecified; N18.9 Chronic kidney disease, unspecified; L97.929 Non-pressure chronic ulcer of unspecified part of left lower leg with unspecified severity; I51.7 Cardiomegaly; Z95.0 Presence of cardiac pacemaker
CPT/HCPCS: 71046; 80053; 83880; 84484; 85025

== ENCOUNTER 2023-08-09 12:15 | Inpatient (IN) | payer MEDICARE, SELFPAY ==
--- NOTE | 2023-08-09 12:41 | USCV_ITS ---
Jack Springer Age: 62 Gender: M : 1960 Exam Date: 08/09/2023 18:15 Ordering Phys: Tyrese Benavidez DO Technologist: DANIELA Exam Location: [facility] [place] Indication: 3+ pitting edema BLE, chronic. No history of DVT per patient. HISTORY: 3+ pitting edema BLE, chronic. No history of DVT per patient. PROCEDURES: Venous duplex imaging was performed in bilateral lower extremities. The following venous structures were evaluated: common femoral vein, profunda vein, proximal portion of the greater saphenous vein, superficial femoral vein, and the popliteal vein. In addition, the posterior tibial and peroneal veins were evaluated. Serial compression, augmentation maneuvers, and spectral Doppler flow evaluation were performed, which were normal. Bilaterally, the common femoral, superficial femoral, profunda femoral, popliteal, posterior tibial, greater saphenous veins, and the peroneal veins were identified and interrogated in the standard fashion. These veins were found to be easily compressible with spontaneous blood flow. No evidence of thrombus noted. CONCLUSIONS No evidence of right lower extremity DVT. No evidence of left lower extremity DVT. Alvin José MD (Electronically Signed) Final Date: 10 Aug 2023 10:29 S
[2023-08-09 12:42] VITALS: BP 134/66; PULSE 82; RESP 18; TEMP 36.6; O2SAT 93
--- NOTE | 2023-08-09 12:42 | ECG_ITS ---
[facility] Test Date: 2023-08-09 Pat Name: Jack Springer Department: Room: Gender: Male [employer]: : 1960 Requested By: Tyrese Enrique Order Number: [id number] Mary MD: Cory Gomez M.D. Measurements Intervals [place] Rate: 81 P: 32 MA: 177 QRS: 20 QRSD: 101 T: 30 QT: 314 QTc: 367 Interpretive Statements SINUS RHYTHM NONSPECIFIC ST & T-WAVE ABNORMALITY Compared to ECG 05/26/2021 04:54:41 Intraventricular conduction delay no longer present T-wave abnormality still present Electronically Signed On 08-10-2023 0:05:22 CDT by Cory Gomez M.D. [id number]
--- NOTE | 2023-08-09 12:55 | P.HP_ITS ---
Providers/Chief Complaint Primary Care Provider: Leandra Reddy MD Chief Complaint: dr davila, sob, swelling and wounds on legs History of Present Illness Jack Springer is a 62 year old male with history of diastolic CHF, status p ost pacemaker, presented from PCP clinic for worsening of congestive heart failure, patient takes 80 mg of Lasix in the morning and 40 at night, he has been noticing orthopnea PND, he does not watch his sodium intake for eats frozen food, drinks 2 L of fluid a day, no active chest pain shortness of breath fever or worsening of fever, does not use oxygen at home. Patient stating that he has lost weight but he has still a long way to go. Review of Systems Const: Denies: fever(s) Eyes: Denies: change in vision ENMT: Denies: throat pain Card: Reports: swelling of feet/ankles Resp: Reports: dyspnea GI: Denies: abdominal pain : Denies: flank pain Medications/Allergies Home Medications Medication Instructions Recorded Confirmed Last Taken Type aspirin 81 mg tablet,delayed 81 mg PO BID 06/10/19 08/09/23 03/14/21 09:00 History release B-complex with vitamin C (Super B 1 tab PO DAILY 03/09/20 08/09/23 03/14/21 09:00 History Complex-Vitamin C tablet) ascorbic acid (vitamin C) 1,000 mg 1,000 mg PO DAILY 05/04/20 08/09/23 03/14/21 09:00 History tablet (Vitamin C) magnesium oxide 400 mg PO DAILY 01/11/21 08/09/23 03/14/21 09:00 History melatonin 10 mg tablet 10 mg PO BEDTIME 01/11/21 08/09/23 03/13/21 21:00 History multivitamin 1 tab PO QAM 01/11/21 08/09/23 03/14/21 09:00 History acetylcysteine 600 mg capsule (NAC) 600 mg PO DAILY 05/17/21 08/09/23 Unknown History vitamin K2 100 mcg capsule 100 mcg PO DAILY 05/17/21 08/09/23 Unknown History potassium gluconate 595 mg (99 mg) 1,190 mg PO TID 05/18/21 08/09/23 Unknown History tablet insulin detemir U-100 100 unit/mL 70 unit SUBCUT BID 05/25/21 08/09/23 Unknown History subcutaneous solution (Levemir U-100 Insulin) pyridoxine (vitamin B6) 200 mg 200 mg PO DAILY 05/25/21 08/09/23 Unknown History tablet,extended release diclofenac sodium 1 % topical gel 4 g topical QID #100 grams 06/29/21 08/09/23 Unknown Rx black seed oil .Route 09/13/21 08/09/23 Unknown History zoie piptaste .Route 09/13/21 08/09/23 Unknown History amoxicillin 875 mg-potassium 1 tab PO BID 5 days #10 tabs 10/09/21 08/09/23 Unknown Rx clavulanate 125 mg tablet allopurinol 300 mg tablet See Rx Instructions .Route 02/22/23 08/09/23 Unknown Rx .COMPLEX #90 tabs amlodipine 10 mg tablet 10 mg .Route .COMPLEX #90 tabs 02/22/23 08/09/23 Unknown Rx hydralazine 100 mg tablet 50 mg (1/2 x 100 mg) PO TID #135 02/22/23 08/09/23 Unknown Rx tabs valsartan 80 mg tablet 80 mg PO .COMPLEX PRN blood 02/22/23 08/09/23 Unknown Rx pressure #180 tabs diabetic shoes/inserts #1 ea 03/21/23 08/09/23 Unknown Rx insulin regular hum U-500 conc 500 50 unit (0.1 mL) SUBCUT .before 04/24/23 08/09/23 Unknown Rx unit/mL(3 mL) subcut pen (Humulin meals #6 mL R U-500 (Conc) Insulin Kwikpen) carvedilol 12.5 mg tablet See Rx Instructions .Route 06/17/23 08/09/23 Unknown Rx .COMPLEX #60 tabs furosemide 40 mg tablet 120 mg (3 x 40 mg) PO DAILY 90 06/20/23 08/09/23 Unknown Rx days #270 tabs metolazone 5 mg tablet 5 mg PO DAILY #30 tabs 07/31/23 08/09/23 Unknown Rx Allergies Allergy/AdvReac Type Severity Reaction Status Date / Time No Known Allergies Allergy Verified 08/09/23 12:45 PFSH Acute PFSH: Medical History High risk medication use Positive LIZBETH (antinuclear antibody) Chronic tophaceous gout of both hands CKD (chronic kidney disease) stage 3, GFR 30-59 ml/min Inflammatory arthritis Poorly controlled type 2 diabetes mellitus Somnolence, daytime Bradycardia Recurrent syncope CHF (congestive heart failure) COVID-19 virus infection Type 2 diabetes mellitus Hypercholesteremia PVD (peripheral vascular disease) Diabetic peripheral neuropathy associated with type 2 diabetes mellitus Tick fever Hypertension Cellulitis and abscess of foot Polyneuropathy, unspecified Hyperchylomicronemia Other deformities of toe(s) (acquired), left foot Controlled diabetes mellitus with diabetic polyneuropathy, with long-term current use of insulin Onychodystrophy Charcot ankle Acquired absence of other toe(s), unspecified side Closed displaced fracture of navicular bone of right foot with routine healing Surgical History Status post colonoscopy (05/05/20) normal History of foot surgery History of knee surgery Family History Mother CAD (coronary artery disease) in older years, pacemaker Other Cancer Diabetes Hypertension Lung disease Denies family history of Rheumatoid arthritis Lupus Clotting disorder Dementia Hyperlipidemia Psychiatric illness Chronic kidney disease (CKD) Suicide Anesthesia complication Bleeding disorder Family history of premature coronary artery disease Stroke Social History Smoking and tobacco/nicotine status: never used tobacco/nicotine Second hand smoke exposure: No Alcohol intake: never Substance/Drug Use: never Vitals/I&O/Wt Last Vital Signs Temp 97.8 F 08/09/23 12:42 Pulse 82 08/09/23 12:42 Resp 18 08/09/23 12:42 BP 134/66 08/09/23 12:42 Pulse Ox 93 08/09/23 12:42 O2 Del Method Room Air 08/09/23 12:42 Weight last 48 hrs Weight 138.346 kg Physical Exam Narrative: Patient is awake and alert Anasarca Bilateral lower extremity nonpurulent cellulitis Venous stasis dermatitis Venous stasis ulcer Awake and alert Currently on room air Lower extremity swelling, sign of CHF present Hemodynamically stable Pleasant cough No active chest pain No active focal deficit No active wheezing or crackles A&P Assessment and plan (1) Hypertension: Qualifiers: Hypertension type: unspecified Qualified Code(s): I10 - Essential (primary) hypertension (2) CHF (congestive heart failure): Qualifiers: Heart failure type: unspecified Heart failure chronicity: chronic Qualified Code(s): I50.9 - Heart failure, unspecified (3) History of permanent cardiac pacemaker placement: (4) Poorly controlled type 2 diabetes mellitus: (5) Diabetic ulcer of left lower leg: (6) Acute kidney injury superimposed on CKD: (7) Diabetic peripheral neuropathy associated with type 2 diabetes mellitus: (8) NSTEMI (non-ST elevated myocardial infarction): Plan Acute diastolic CHF exacerbation Start IV Lasix 60 mg every 12 hours if we do not see good response we will start him on Lasix drip No active chest pain Troponin noted Will request troponin and EKG Request venous Doppler Non-STEMI No active chest pain Requested echo No active chest pain at all no active symptoms Type II [place]? Underlying chronic kidney disease as well Requested D-dimer and TSH Replenish potassium twice a day Continue magnesium, Hypertensive urgency Hold amlodipine Continue antiplatelet regimen hydralazine and Coreg hold valsartan Acute on chronic kidney disease Anticipate improvement with IV diuresis Place Banks catheter Anasarca IV Lasix for now Nonpurulent cellulitis of lower extremities Will use topical dressing, compression wraps, compression stockings Patient is a cane for ambulation Consistent carb diet with insulin and sliding scale Fluid restriction Attestations Medical Necessity Statement*: More than 2 midnights anticipated Diagnoses Hypertension, unspecified type I10 Hypertension type: unspecified Chronic congestive heart failure, unspecified heart failure type I50.9 Heart failure type: unspecified Heart failure chronicity: chronic History of permanent cardiac pacemaker placement Z95.0 Poorly controlled type 2 diabetes mellitus E11.65 Diabetic ulcer of left lower leg E11.622; L97.929 Acute kidney injury superimposed on CKD N17.9; N18.9 Diabetic peripheral neuropathy associated with type 2 diabetes mellitus E11.42 NSTEMI (non-ST elevated myocardial infarction) I21.4
--- NOTE | 2023-08-09 12:58 | USCV_ITS ---
Jack Springer Age: 62 Gender: M : 1960 Exam Date: 08/09/2023 16:05 Ordering Phys: Charlie Hernandez MD Technologist: Exam Location: [facility] – [place] Indication: sob chest pain BP: 148 / 74 HR: 89 Rhythm: Sinus Technical Quality: Adequate MEASUREMENTS (Male / Female) Normal Values 2D ECHO LV Diastolic Diameter PLAX 5.0 cm 4.2 - 5.9 / 3.9 - 5.3 cm IVS Diastolic Thickness 1.3 cm 0.6 - 1.0 / 0.6 - 0.9 cm IVS Systolic Thickness 2.1 cm LVPW Diastolic Thickness 1.5 cm 0.6 - 1.0 / 0.6 - 0.9 cm LVPW Systolic Thickness 1.7 cm LVOT Diameter 2.8 cm LV Ejection Fraction 2D Teich 54.8 % LA Diameter 5.2 cm RA Systolic Volume 4C AL 102.9 ml RA Systolic Volume 4C MOD 105.1 ml Aorta at Sinotubular Diameter 2.8 cm IVC Diameter 2.3 cm M-MODE LA Ao Ratio MM 1.3 AV Cusp Separation MM 2.4 cm DOPPLER AV Peak Velocity 130.0 cm/s LVOT Peak Velocity 99.0 cm/s AV Area Cont Eq vti 5.1 cm squared AV Area Cont Eq pk 4.5 cm squared MV Peak Velocity 130.0 cm/s MV Area PHT 3.4 cm squared Mitral E to A Ratio 1.9 TR Peak Velocity 160.0 cm/s TR Peak Gradient 10.2 mmHg TV Peak E Velocity 117.0 cm/s PV Peak Velocity 104.0 cm/s FINDINGS Left Ventricle Normal left ventricular size and systolic function, EF 55%.mild left ventricular hypertrophy. No regional wall motion abnormalities. Grade III/IV diastolic dysfunction (restrictive filling pattern), severely elevated filling pressures. Right Ventricle The right ventricle is normal in size and function. Right Atrium The right atrium is normal in size. Left Atrium Moderately increased left atrial size. Mitral Valve Moderate mitral annular calcification. Trace to mild mitral valve regurgitation. Aortic Valve Thickened aortic valve. Tricuspid Valve Trace tricuspid valve regurgitation. Pulmonic Valve Pulmonic valve not well visualized. Pericardium No pericardial effusion. Aorta Normal aortic annulus size. IVC Normal inferior vena cava. CONCLUSIONS Normal left ventricular size and systolic function, EF 55%. mild left ventricular hypertrophy. No regional wall motion abnormalities. Moderate mitral annular calcification. Trace to mild mitral valve regurgitation. Moderately increased left atrial size. Moderate mitral annular calcification. Trace to mild mitral valve regurgitation. Thickened aortic valve. Trace tricuspid valve regurgitation. There is no pericardial effusion. No similar previous studies are available for comparison Dr Cory Gomez MD [facility] (Electronically Signed) Final Date: 09 Aug 2023 22:30 S
[2023-08-09 13:09] LABS: Troponin(5th) Baseline 112 ng/L (0-15)
--- NOTE | 2023-08-09 13:09 | ED_ITS ---
HPI - General Adult General: Chief complaint: General Medical Stated complaint: dr davila, sob, swelling adn wounds on legs Time Seen by Provider: 08/09/23 12:41 Source: patient Mode of arrival: ambulatory History of Present Illness: 62-year-old male presents to the emergen cy room from his doctor's office. He has clinically shown evidence of congestive heart failure and fluid overload he was encouraged to go to the emergency room on a follow-up visit today he had significantly abnormal labs with worsening creatinine function elevated BNP significant lower extremity edema with skin breakdown and serous drainage. Swelling to the level of the thighs. He occasionally has some chest discomfort the troponin that Dr. Reddy had done at the office was slightly elevated as well. Patient has no known history of coronary artery disease. No previous bypass or stenting. Onset (ago): day(s) Relieving factors: none Exacerbating factors: none Associated symptoms: Reports chest pain, cough, dyspnea, malaise and short of breath; Deny confusion, diaphoresis, decreased appetite, fevers/chills, headache(s), nausea, rash, palpitations, seizures, syncope, vomiting or weakness Review of Systems Const: Reports: malaise; Denies: diaphoresis Card: Reports: chest pain; Denies: palpitations or syncope Resp: Reports: dyspnea, productive cough and wheezing GI: Denies: nausea or vomiting : Denies: dysuria, urinary frequency or urinary urgency Musc: Denies: neck pain or back pain Skin/Breast: Denies: rash Neuro: Denies: headache(s) or confusion PFS ED PFSH: Medical History High risk medication use Positive LIZBETH (antinuclear antibody) Chronic tophaceous gout of both hands CKD (chronic kidney disease) stage 3, GFR 30-59 ml/min Inflammatory arthritis Poorly controlled type 2 diabetes mellitus Somnolence, daytime Bradycardia Recurrent syncope CHF (congestive heart failure) COVID-19 virus infection Type 2 diabetes mellitus Hypercholesteremia PVD (peripheral vascular disease) Diabetic peripheral neuropathy associated with type 2 diabetes mellitus Tick fever Hypertension Cellulitis and abscess of foot Polyneuropathy, unspecified Hyperchylomicronemia Other deformities of toe(s) (acquired), left foot Controlled diabetes mellitus with diabetic polyneuropathy, with long-term current use of insulin Onychodystrophy Charcot ankle Acquired absence of other toe(s), unspecified side Closed displaced fracture of navicular bone of right foot with routine healing Surgical History Status post colonoscopy (05/05/20) normal History of foot surgery History of knee surgery Family History Mother CAD (coronary artery disease) in older years, pacemaker Other Cancer Diabetes Hypertension Lung disease Denies family history of Rheumatoid arthritis Lupus Clotting disorder Dementia Hyperlipidemia Psychiatric illness Chronic kidney disease (CKD) Suicide Anesthesia complication Bleeding disorder Family history of premature coronary artery disease Stroke Social History Smoking and tobacco/nicotine status: never used tobacco/nicotine Second hand smoke exposure: No Alcohol intake: never Substance/Drug Use: never Physical Exam Const: GENERAL APPEARANCE: cooperative and comfortable ORIENTATION/CONSCIOUSNESS: Yes awake, Yes oriented to person, Yes oriented to place and Yes oriented to time HENMT: COMMON NORMALS: normocephalic, atraumatic and hearing grossly normal bilaterally HEAD & SCALP: normocephalic and atraumatic Resp: COMMON NORMALS: normal respiratory effort, No retractions, No use of accessory muscles and clear to auscultation bilaterally AUSCULTATION: clear to auscultation bilaterally Cardio: COMMON NORMALS: regular rate, regular rhythm and No murmurs present (Cardio) RATE: regular rate RHYTHM: regular rhythm GI: COMMON NORMALS: Soft to palpation and No hepatosplenomegaly present AUSCULTATION: Yes normoactive bowel sounds PALPATION: Yes Soft to palpation, No Tenderness to palpation present (GI), No Guarding due to palpation present (GI) and Yes No hepatosplenomegaly present Extremity: COMMON NORMALS: normal to inspection, capillary refill normal and no calf tenderness GENERAL: Yes edema (3+ edema) Neuro: SENSORIUM/ORIENTATION: Yes oriented to person, Yes oriented to place and Yes oriented to time Skin: OTHER: Skin breakdown ulceration lower extremities venous stasis edema +3 Course Vital Signs: Vital signs: Vital Signs Temperature 97.8 F 08/09/23 12:42 Pulse Rate 83 08/09/23 13:30 Respiratory Rate 19 H 08/09/23 13:30 Blood Pressure 143/72 08/09/23 13:30 Pulse Oximetry 92 08/09/23 13:30 Oxygen Delivery Me thod Room Air 08/09/23 13:30 MDM - General Adult Medical Decision Making Skin breakdown with fluid drainage. 3+ edema lower extremities chest x-ray shows vascular congestion. BNP elevated creatinine increased. Patient in decompensated heart failure give IV Lasix admit discussed with hospitalist orders written Medical Records I reviewed the patient's medical records. Lab Data I reviewed the patient's lab results. Laboratory Results D-Dimer 1.43 ug/mLFEU (0-0.59) H 08/09/23 13:06 Troponin T Baseline 112 ng/L (0-15) H* 08/09/23 09:23 Troponin T 120 Minute 99.64 ng/L (0-15) H 08/09/23 13:06 Delta Troponin T -12.36 ABS# (0-10) L 08/09/23 13:06 TSH 4.31 uIU/mL (0.27-4.20) H 08/09/23 13:06 All radiology interpretation(s) finalized by discharge Discharge Plan Discharge Patient Disposition: Admitted As Inpatient Admit Provider: Charlie Hernandez Clinical Impression: Acute kidney injury superimposed on CKD, Poorly controlled type 2 diabetes mellitus CHF (congestive heart failure) Qualifiers: Heart failure type: unspecified Heart failure chronicity: chronic Qualified Code(s): I50.9 - Heart failure, unspecified Hypertension Qualifiers: Hypertension type: unspecified Qualified Code(s): I10 - Essential (primary) hypertension Condition: Stable Coding Level of Care Code ED Physicians Assistant for Shira Gamboa
[2023-08-09 13:20] VITALS: PULSE 83; RESP 18; O2SAT 94
[2023-08-09] MEDS: FUROsemide 10 mg/mL SDV 10mL 60 MG IVP (13:22)
[2023-08-09] MEDS: enoxaparin 40 mg/0.4 mL Syringe SUBCUT (13:22)
[2023-08-09 13:30] VITALS: BP 143/72; PULSE 83; RESP 19; O2SAT 92
[2023-08-09 13:30] LABS: D Dimer 1.43 ug/mLFEU (0-0.59)
[2023-08-09 13:33] LABS: Troponin 5 2HR 99.64 ng/L (0-15)
[2023-08-09 13:34] LABS: Troponin 5 2HR Delta -12.36 ABS# (0-10)
[2023-08-09 13:41] LABS: Thyroid Stimulating Hormone 4.31 uIU/mL (0.27-4.20)
--- NOTE | 2023-08-09 14:40 | PC.NURSE ---
Output: 475mL emptied from alicea catheter at 1400.
--- NOTE | 2023-08-09 14:42 | ECG_ITS ---
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 Measurements Intervals [place] Rate: 86 P: 44 WA: 184 QRS: 21 QRSD: 111 T: 30 QT: 366 QTc: 439 Interpretive Statements SINUS RHYTHM POSSIBLE INFERIOR MYOCARDIAL INFARCTION , PROBABLY OLD [30 ms Q WAVE IN II/aVF] Compared to ECG 08/09/2023 13:05:24 Myocardial infarct finding now present T-wave abnormality no longer present Electronically Signed On 08-10-2023 0:34:44 CDT by Cory Gomez M.D. [id number]
[2023-08-09 15:31] VITALS: BP 143/72; PULSE 83; RESP 19; O2SAT 92
[2023-08-09 15:41] LABS: Troponin 5 6HR 92.08 ng/L (0-15); Troponin 5 6HR Delta -19.92 ng/L (0-12)
[2023-08-09 15:57] VITALS: BP 148/73; PULSE 90; RESP 18; TEMP 36.8; O2SAT 92; BMI 40.8
[2023-08-09] MEDS: enoxaparin 100 mg/mL Syringe SUBCUT (16:14)
[2023-08-09] MEDS: amoxicillin-clav 875-125 mg Tablet 1 TAB PO (16:14)
[2023-08-09] MEDS: potassium chloride ER 20 mEq Tablet 40 MEQ PO (16:14)
[2023-08-09] MEDS: carvedilol 12.5 mg Tablet PO (16:15)
[2023-08-09] MEDS: aspirin 81 mg EC Tablet PO (16:15)
[2023-08-09 17:54] LABS: Glucose Point of Care 153 mg/dL (70-110)
[2023-08-09] MEDS: ondansetron 2 mg/ML SDV 2 mL 4 MG IVP (19:06)
[2023-08-09 19:39] VITALS: BP 137/65; PULSE 62; RESP 18; TEMP 37.1; O2SAT 91
[2023-08-09 20:11] LABS: Glucose Point of Care 185 mg/dL (70-110)
--- NOTE | 2023-08-09 20:30 | ECG_ITS ---
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 Measurements Intervals [place] Rate: 74 P: 104 MT: 217 QRS: 51 QRSD: 105 T: 33 QT: 380 QTc: 422 Interpretive Statements ELECTRONIC ATRIAL PACEMAKER NONSPECIFIC ST & T-WAVE ABNORMALITY Abnormal EKG Electronically Signed On 08-10-2023 8:22:11 CDT by Jeanine Garner M.D. [id number]
[2023-08-09] MEDS: neomycin-poly-bacitracin oint 28 gm 1 APPLIC TOPICAL (21:35)
[2023-08-09] MEDS: insulin glargine 100 units/1 mL 50 UNIT SUBCUT (21:36)
[2023-08-09] MEDS: hyDRALAzine 50 mg Tablet PO (21:36)
[2023-08-10] VITALS (8 sets, daily range): BP systolic 100–142; BP diastolic 51–70; PULSE 61–84; RESP 18–23; TEMP 36.6–37.6; O2SAT 91–95
[2023-08-10] MEDS: acetaminophen 500 mg Tablet PO ×2 (00:03→21:22)
[2023-08-10] MEDS: FUROsemide 10 mg/mL SDV 10mL 60 MG IVP ×2 (00:34→12:25)
[2023-08-10 05:20] LABS: Basophils % 0.5 %; Eosinophils # 0.1 10^3/uL (0.0-0.8); Eosinophils % 0.9 %; Hematocrit 29.5 % (37-53); Lymphocytes # 0.8 10^3/uL (0.8-4.8); Mean Corpuscular HGB Conc 31.2 g/dL (30-55); Mean Corpuscular Hemoglobin 28.8 pg (27-33); Mean Corpuscular Volume 92.5 fl (82-101); Mean Platelet Volume 9.8 fL (7.4-10.4); Monocytes % 11.6 %; Neutrophils # 6.61 10^3/uL (1.8-7.7); Neutrophils % 77.3 %; Nucleated Red Blood Cells % 0 %; Platelet Count 299 10^3/cmm (157-399); Red Blood Count 3.19 10^6/uL (3.85-5.65); Red Cell Distribution Width 14.4 % (12.1-15.1); White Blood Count 8.55 10^3/uL (3.29-11.43)
[2023-08-10 05:38] LABS: Anion Gap 18.8 (5-19); Calcium 8.7 mg/dL (8.5-10.5); Carbon Dioxide 21 mmol/L (22-29); Chloride 98 mmol/L (98-107); Glomerular Filtration Rate 15.3 mL/min (90-130); Glucose 158 mg/dL (65-115); Magnesium 2.3 mg/dL (1.7-2.3); Osmolality Calculated 305 mOsm/kg (285-295); Phosphorus 6.8 mg/dL (2.5-4.5); Potassium 4.8 mmol/L (3.5-5.1); Sodium 133 mmol/L (136-145)
[2023-08-10 06:13] LABS: Blood Urea Nitrogen 85 mg/dL (8-23); Creatinine Clr Calc Pharmacy 27.4101
[2023-08-10 06:37] LABS: Glucose Point of Care 172 mg/dL (70-110)
[2023-08-10] MEDS: magnesium oxide 400 mg tablet PO (08:01)
[2023-08-10] MEDS: amoxicillin-clav 875-125 mg Tablet 1 TAB PO ×2 (08:01→17:49)
[2023-08-10] MEDS: potassium chloride ER 20 mEq Tablet 40 MEQ PO (08:01)
[2023-08-10] MEDS: allopurinol 300 mg Tablet 200 MG PO (08:02)
[2023-08-10] MEDS: sennosides-docusate Tablet 1 TAB PO (08:02)
[2023-08-10] MEDS: hyDRALAzine 50 mg Tablet PO ×3 (08:02→21:22)
[2023-08-10] MEDS: carvedilol 12.5 mg Tablet PO ×2 (08:02→17:49)
[2023-08-10] MEDS: metOLazone 5 MG Tablet PO (08:02)
[2023-08-10] MEDS: aspirin 81 mg EC Tablet PO ×2 (08:03→17:50)
[2023-08-10] MEDS: insulin glargine 100 units/1 mL 50 UNIT SUBCUT ×2 (08:03→17:50)
--- NOTE | 2023-08-10 08:46 | PC.NURSE ---
Upon bedside rounding this morning patient appears very drowsy and overall uncomfortable. Patient states that he just doesn't feel good today, reports nausea but says it may just be because he is hungry. Nurse administered all morning medications per orders. Nurse will follow up in regards to complaints of nausea.
--- NOTE | 2023-08-10 09:33 | PC.CHAP ---
Pastoral Care Encounter/Spiritual Assessment Type of Contact [] Declined nurse coordinator visit [] Patient/Family/Request visit [] Outpatient visit [] Follow-up visit [] Physician referral [] Code/Alert [x] Routine visit [] Staff referral [] Actively dying [] Patient sleeping [] Family support [] [] Out of room [] Palliative care [] [] Receiving care in room [] Pre-surgical visit [] Trauma [] Long length of stay [] ICU visit [] Other: Relational/Emotional Strength [x] Patient feels connected with others/family/visitors/staff [] Distress [] Loneliness/isolation [] Abandonment Spirituality of Patient [x] Person of Shona [] Attends Sikh of their Shona [x] Believes in Prayer [] Reads Bible or Episcopalian materials [] There are Spiritual issues to be addressed Horticultural Manager Interventions [x] Prayer [] Active listening [] Non-anxious presence [] Spiritual/emotional support [] Crisis/trauma care [] Spiritual counseling [] Bereavement support [] Provided bereavement packet [] Provided Bible/devotional materials [] Provided toy/stuffed animal, coloring book to patient or family member [] Provided Communion [] Anointing/[place] [] Salvation [x] Completed spiritual assessment [] Other: Impact on Illness or Injury [] Angry [] Fearful [] Anxious [] Often cries [] Exhaustion [] Unable to work [] Unable to attend tenriism [] Unable to walk/stand [] Unable to read [] Unable to drive [] Unable to eat/drink [] Unable to sleep [] Unable to be with family [] Patient intubated [] Other: Summary Time spent with patient 5 min
--- NOTE | 2023-08-10 09:51 | P.PN_ITS ---
Subjective 2 Subjective: Patient is stating that he is feeling a difference He was able to rest comfortably Currently on 3 L nasal cannula 1700 mL urine output No leukocytosis D-dimer 1.4 Legs have been wrapped Echo showing preserved ejection fraction without marked emotional abnormality Venous Doppler was taken, report is pending Vitals/I&O/Wt Last Vital Signs Temp 97.8 F 08/10/23 07:43 Pulse 72 08/10/23 09:15 Resp 20 H 08/10/23 09:15 BP 125/67 08/10/23 07:43 Pulse Ox 94 08/10/23 09:15 O2 Del Method Nasal Cannula 08/10/23 09:15 O2 Flow Rate 3 08/10/23 09:15 08/09/23 08/10/23 08/10/23 22:59 06:59 14:59 Intake Total 600 / 600 240 / 240 Output Total 1350 / 1350 350 / 1700 Balance -750 / -750 -350 / -1100 240 / 240 Weight last 48 hrs Weight 136.616 kg Weight 136.803 kg Weight 138.346 kg Physical Exam 2 Narrative: Signs of fluid load present No significant improvement in anasarca Currently on 2 L Hemodynamics Abdomen soft Lower extremity wrapped with compression wraps GCS 15 pleasant cooperative S1, S2 Hemodynamically stable Urinary Catheter Management: Banks: Cath Placed During This Visit: yes Reason for Continuing Indwelling Catheter: Accurate Measurement of Urinary Output in Critically Ill Patients Urinary Catheter Date of Insertion: 08/09/23 Urinary Catheter Time of Insertion: 14:01 Data 08/10/23 04:55 08/10/23 04:55 A&P Assessment and plan (1) Hypertension: Qualifiers: Hypertension type: unspecified Qualified Code(s): I10 - Essential (primary) hypertension (2) CHF (congestive heart failure): Qualifiers: Heart failure type: unspecified Heart failure chronicity: chronic Qualified Code(s): I50.9 - Heart failure, unspecified (3) NSTEMI (non-ST elevated myocardial infarction): (4) History of permanent cardiac pacemaker placement: (5) Poorly controlled type 2 diabetes mellitus: (6) Diabetic ulcer of left lower leg: (7) Acute kidney injury superimposed on CKD: (8) Diabetic peripheral neuropathy associated with type 2 diabetes mellitus: Plan Acute CHF exacerbation Preserved ejection fraction heart failure exacerbation Adequate urine output Continue IV Lasix at this point Banks catheter for accurate output measurement Acute on chronic kidney disease Patient Insisted on 1.8-2.2, creatinine peaking at this point Cardiorenal in nature Continue diuresis Nonpurulent cellulitis of legs compression wrap plus antibiotics on board Acute hypoxia related to CHF exacerbation and hypoventilation currently on 3 L Wean off oxygen gradually Non-STEMI: No wall motion abnormality no chest pain, type II MT? Will keep him on therapeutic Lovenox once daily secondary to creatinine worsening D-dimer is high Venous Doppler results pending Hypertension: Normotensive for now History of gout continue allopurinol with diuresis Disposition plan: Will discharge him back home once we are able to diurese him aggressively, plan to keep him here till end of the weekend creatinine has not trending down towards normal Attestations 2 Medical Necessity Statement*: Continue medical management Diagnoses Hypertension, unspecified type I10 Hypertension type: unspecified Chronic congestive heart failure, unspecified heart failure type I50.9 Heart failure type: unspecified Heart failure chronicity: chronic NSTEMI (non-ST elevated myocardial infarction) I21.4 History of permanent cardiac pacemaker placement Z95.0 Poorly controlled type 2 diabetes mellitus E11.65 Diabetic ulcer of left lower leg E11.622; L97.929 Acute kidney injury superimposed on CKD N17.9; N18.9 Diabetic peripheral neuropathy associated with type 2 diabetes mellitus E11.42
[2023-08-10] MEDS: enoxaparin 150 mg/mL Syringe 140 MG SUBCUT (10:28)
--- NOTE | 2023-08-10 10:29 | PC.SOCIAL ---
IMM Update Pg. 2 of IMM Updated and reviewed with patient, who verbalized understanding. Copy provided.
[2023-08-10 10:48] LABS: Glucose Point of Care 212 mg/dL (70-110)
--- NOTE | 2023-08-10 12:12 | PC.NURSE ---
Patient has a BUN of 85 and creatinine of 4.0 Patient has 60mg of IVP Lasix due at 1300. Clarified order per physician and will continue with current orders.
[2023-08-10] MEDS: sodium bicarbonate 650 mg Tablet PO ×2 (16:34→21:22)
[2023-08-10 16:38] LABS: Glucose Point of Care 218 mg/dL (70-110)
[2023-08-10 20:27] LABS: Glucose Point of Care 187 mg/dL (70-110)
[2023-08-11] VITALS (7 sets, daily range): BP systolic 105–141; BP diastolic 52–68; PULSE 69–83; RESP 16–25; TEMP 36.5–36.9; O2SAT 92–96; BMI 40.8
[2023-08-11] MEDS: FUROsemide 10 mg/mL SDV 10mL 60 MG IVP (01:06)
[2023-08-11 06:18] LABS: Basophils % 0.4 %; Eosinophils # 0.3 10^3/uL (0.0-0.8); Hematocrit 30.1 % (37-53); Lymphocytes # 0.8 10^3/uL (0.8-4.8); Mean Corpuscular HGB Conc 31.2 g/dL (30-55); Mean Corpuscular Hemoglobin 29.3 pg (27-33); Mean Corpuscular Volume 93.8 fl (82-101); Mean Platelet Volume 10.4 fL (7.4-10.4); Monocytes # 0.7 10^3/uL (0.2-0.9); Monocytes % 11.1 %; Neutrophils # 4.81 10^3/uL (1.8-7.7); Neutrophils % 72.2 %; Nucleated Red Blood Cells % 0 %; Platelet Count 318 10^3/cmm (157-399); Red Blood Count 3.21 10^6/uL (3.85-5.65); Red Cell Distribution Width 14.4 % (12.1-15.1); White Blood Count 6.67 10^3/uL (3.29-11.43)
[2023-08-11 06:32] LABS: Calcium 8.3 mg/dL (8.5-10.5); Carbon Dioxide 21 mmol/L (22-29); Chloride 99 mmol/L (98-107); Creatinine Clr Calc Pharmacy 27.4101; Glomerular Filtration Rate 15.3 mL/min (90-130); Glucose 91 mg/dL (65-115); Osmolality Calculated 307 mOsm/kg (285-295); Sodium 134 mmol/L (136-145)
[2023-08-11 06:35] LABS: Blood Urea Nitrogen 94 mg/dL (8-23)
--- NOTE | 2023-08-11 07:05 | PC.NURSE ---
Verbal orders from physician to initiate medium sliding scale insulin
[2023-08-11 07:46] LABS: Glucose Point of Care 119 mg/dL (70-110)
--- NOTE | 2023-08-11 07:56 | P.PN_ITS ---
Subjective 2 Subjective: Patient endorsing feeling better Adequate response to diuresis Watch for contraction alkalosis Patient will need oxygen evaluation before discharge Does not use oxygen at home Echo unremarkable Diuretics on hold Patient was upset about not getting short acting insulin Vitals/I&O/Wt Last Vital Signs Temp 98.0 F 08/10/23 15:52 Pulse 72 08/10/23 15:52 Resp 20 H 08/10/23 15:52 BP 142/70 08/10/23 15:52 Pulse Ox 92 08/10/23 15:52 O2 Del Method Nasal Cannula 08/10/23 15:52 O2 Flow Rate 3 08/10/23 09:15 08/10/23 08/10/23 08/10/23 06:59 14:59 22:59 Intake Total 480 / 480 Output Total 350 / 1700 650 / 650 450 / 1100 Balance -350 / -1100 -170 / -170 -450 / -620 Weight last 48 hrs Weight 136.616 kg Weight 136.803 kg Weight 138.346 kg Physical Exam 2 Narrative: Pleasant and cooperative On 2 L oxygen Abdomen distended nontender Pleasant cough No active wheezing or crackles S1, S2 Nonfocal neuroexam Urinary Catheter Management: Banks: Cath Placed During This Visit: yes Reason for Continuing Indwelling Catheter: Accurate Measurement of Urinary Output in Critically Ill Patients Urinary Catheter Date of Insertion: 08/09/23 Urinary Catheter Time of Insertion: 14:01 Data 08/11/23 04:31 08/11/23 04:31 A&P Assessment and plan (1) Hypertension: Qualifiers: Hypertension type: unspecified Qualified Code(s): I10 - Essential (primary) hypertension (2) CHF (congestive heart failure): Qualifiers: Heart failure chronicity: chronic Heart failure type: unspecified Qualified Code(s): I50.9 - Heart failure, unspecified (3) NSTEMI (non-ST elevated myocardial infarction): (4) History of permanent cardiac pacemaker placement: (5) Poorly controlled type 2 diabetes mellitus: (6) Diabetic ulcer of left lower leg: (7) Acute kidney injury superimposed on CKD: (8) Diabetic peripheral neuropathy associated with type 2 diabetes mellitus: Plan Acute CHF exacerbation Preserved ejection fraction heart failure exacerbation Planning to continue IV diuresis Acute on chronic kidney disease Monitor contraction alkalosis Nonpurulent cellulitis of legs Continue antibiotics topical antibiotics currently wraps Acute hypoxia related to CHF exacerbation and hypoventilation Will need oxygen evaluation before discharge Non-STEMI: Likely type II [place]. for now History of gout continue allopurinol with diuresis Disposition plan: Will discharge him back home Medium dose intensity sliding scale along Lantus Lantus dose decreased because of worsening creatinine Attestations 2 Medical Necessity Statement*: dc likely once cr improves Diagnoses Hypertension, unspecified type I10 Hypertension type: unspecified Chronic congestive heart failure, unspecified heart failure type I50.9 Heart failure chronicity: chronic Heart failure type: unspecified NSTEMI (non-ST elevated myocardial infarction) I21.4 History of permanent cardiac pacemaker placement Z95.0 Poorly controlled type 2 diabetes mellitus E11.65 Diabetic ulcer of left lower leg E11.622; L97.929 Acute kidney injury superimposed on CKD N17.9; N18.9 Diabetic peripheral neuropathy associated with type 2 diabetes mellitus E11.42
[2023-08-11] MEDS: potassium chloride ER 20 mEq Tablet 40 MEQ PO (08:56)
[2023-08-11] MEDS: amoxicillin-clav 875-125 mg Tablet 1 TAB PO ×2 (08:56→17:40)
[2023-08-11] MEDS: aspirin 81 mg EC Tablet PO ×2 (08:56→17:40)
[2023-08-11] MEDS: allopurinol 300 mg Tablet 200 MG PO (08:56)
[2023-08-11] MEDS: sodium bicarbonate 650 mg Tablet PO ×3 (08:56→20:51)
[2023-08-11] MEDS: magnesium oxide 400 mg tablet PO (08:56)
[2023-08-11] MEDS: hyDRALAzine 50 mg Tablet PO ×3 (08:57→20:51)
[2023-08-11] MEDS: carvedilol 12.5 mg Tablet PO ×2 (08:57→17:40)
[2023-08-11] MEDS: bumetanide 1 mg Tablet PO (08:57)
[2023-08-11] MEDS: enoxaparin 150 mg/mL Syringe 140 MG SUBCUT (08:58)
[2023-08-11 11:37] LABS: Glucose Point of Care 139 mg/dL (70-110)
[2023-08-11 16:21] LABS: Glucose Point of Care 152 mg/dL (70-110)
[2023-08-11] MEDS: insulin lispro 100 unit/1 mL SUBCUT ×2 (17:39→20:52)
[2023-08-11] MEDS: insulin glargine 100 units/1 mL 30 UNIT SUBCUT (17:39)
[2023-08-11 20:30] LABS: Glucose Point of Care 144 mg/dL (70-110)
[2023-08-12] VITALS (8 sets, daily range): BP systolic 127–145; BP diastolic 57–70; PULSE 70–88; RESP 14–22; TEMP 36.7–37.2; O2SAT 87–95
[2023-08-12 01:20] LABS: Glucose Point of Care 62 mg/dL (70-110)
[2023-08-12 01:20] LABS: Glucose Point of Care 63 mg/dL (70-110)
--- NOTE | 2023-08-12 01:37 | PC.NURSE ---
Patient woke up feeling clammy states he feels like his blood glucose is dropping. Accucheck was 63 at the time. The patient was given orange juice and a sandwich and salvador crackers for a snack. notified. ordered to decrease lantus dose and change order to q12. Nurse to recheck blood glucose.
[2023-08-12 02:08] LABS: Glucose Point of Care 103 mg/dL (70-110)
[2023-08-12 03:47] LABS: Anion Gap 17.9 (5-19); Calcium 8.7 mg/dL (8.5-10.5); Carbon Dioxide 21 mmol/L (22-29); Chloride 100 mmol/L (98-107); Creatinine Clr Calc Pharmacy 31.3258; Glomerular Filtration Rate 17.8 mL/min (90-130); Glucose 136 mg/dL (65-115); Osmolality Calculated 306 mOsm/kg (285-295); Potassium 4.9 mmol/L (3.5-5.1); Sodium 134 mmol/L (136-145)
[2023-08-12 03:50] LABS: Blood Urea Nitrogen 86 mg/dL (8-23)
[2023-08-12 06:35] LABS: Glucose Point of Care 157 mg/dL (70-110)
[2023-08-12] MEDS: magnesium oxide 400 mg tablet PO (08:16)
[2023-08-12] MEDS: allopurinol 300 mg Tablet 200 MG PO (08:16)
[2023-08-12] MEDS: hyDRALAzine 50 mg Tablet PO (08:16)
[2023-08-12] MEDS: carvedilol 12.5 mg Tablet PO (08:16)
[2023-08-12] MEDS: sodium bicarbonate 650 mg Tablet PO (08:16)
[2023-08-12] MEDS: amoxicillin-clav 875-125 mg Tablet 1 TAB PO (08:16)
[2023-08-12] MEDS: insulin lispro 100 unit/1 mL SUBCUT ×2 (08:17→12:43)
[2023-08-12] MEDS: aspirin 81 mg EC Tablet PO (08:17)
[2023-08-12] MEDS: enoxaparin 150 mg/mL Syringe 140 MG SUBCUT (08:17)
[2023-08-12] MEDS: bumetanide 1 mg Tablet PO (08:17)
--- NOTE | 2023-08-12 12:19 | P.DS_ITS ---
Discharge Providers Date of Admission: 08/09/23 14:19 Date of Discharge: August 12, 2023 Attending Provider at Admission: Charlie Hernandez MD Attending Provider at Discharge: Charlie Hernandez MD Primary Care Provider: Leandra Reddy MD Diagnoses at Discharge Discharge Diagnosis (1) Hypertension: Status: Acute Qualifiers: Hypertension type: unspecified Qualified Code(s): I10 - Essential (primary) hypertension (2) CHF (congestive heart failure): Status: Acute Qualifiers: Heart failure type: unspecified Heart failure chronicity: chronic Qualified Code(s): I50.9 - Heart failure, unspecified (3) NSTEMI (non-ST elevated myocardial infarction): Status: Acute (4) History of permanent cardiac pacemaker placement: Status: Acute (5) Poorly controlled type 2 diabetes mellitus: Status: Acute (6) Diabetic ulcer of left lower leg: Status: Acute (7) Acute kidney injury superimposed on CKD: Status: Acute (8) Diabetic peripheral neuropathy associated with type 2 diabetes mellitus: Status: Acute Reason for Visit Reason for Visit: bret hartman, swelling and wounds on legs Hospital Course Hospital Course 62-year-old male who was admitted for management evaluation of anasarca, worsening kidney function, he was sent by his PCP, his creatinine peaked at 4 with diuresis his creatinine has started improving, his bicarb stayed around 21, at the time of discharge creatinine is 3.5, he is still in -3 L, His weight is 138 kg at the time of discharge I have asked him not to take Lasix, valsartan, he should follow-up with a practice professional for his chronic kidney disease seems to have a new baseline creatinine of 3 I also requested PT for compression wraps of lower extremity he has been assisted dermatitis and CHF related lower extremity swelling, he also has mild oozing without significant cellulitis I will give him referral to go see wound care clinic as well Patient overall did well with diuresis, I have recommended Bumex instead of Lasix. Potassium supplementation added as well. Added doxycycline for nonpurulent cellulitis of lower extremity Patient has been counseled on low sodium intake, he eats frozen food, he does not watch his fluid intake, I have explained him that his output has to be greater than his input of fluid His daughter was at the bedside at the time of discharge, she is also a nurse who works at [employer] Will arrange 2 to 3 L of oxygen before discharge Physical Exam Narrative: Awake and alert Signs of anasarca improving Compression wraps On 2 L S1, S2 Pleasant cooperative GCS 15 Urinary Catheter Management: Banks: Cath Placed During This Visit: yes Reason for Continuing Indwelling Catheter: Acute Urinary Retention or Obstruction Urinary Catheter Date of Insertion: 08/09/23 Urinary Catheter Time of Insertion: 14:01 Discharge Data Studies Completed and Pending Completed Studies During Hospitalization Category Date Time Status CV. echo complete* [id number] Routine Ultrasound 08/09/23 12:58 Completed US venous duplex lower extremity bilat [CV venous Ultrasound 08/09/23 12:41 [place] [id number]] Routine Pending at discharge Category Date Time Status Basic Metabolic Panel AM LABS Lab 08/13/23 04:00 Ordered Laboratory Results WBC 6.67 10^3/uL (3.29-11.43) 08/11/23 04:31 RBC 3.21 10^6/uL (3.85-5.65) L 08/11/23 04:31 Hgb 9.40 g/dL (11.27-16.99) L 08/11/23 04:31 Hct 30.1 % (37-53) L 08/11/23 04:31 MCV 93.8 fl (82-101) 08/11/23 04:31 MCH 29.3 pg (27-33) 08/11/23 04:31 MCHC 31.2 g/dL (30-55) 08/11/23 04:31 RDW 14.4 % (12.1-15.1) 08/11/23 04:31 Plt Count 318 10^3/cmm (157-399) 08/11/23 04:31 MPV 10.4 fL (7.4-10.4) 08/11/23 04:31 Neut % (Auto) 72.2 % 08/11/23 04:31 Lymph % (Auto) 12.0 % 08/11/23 04:31 [place] % (Auto) 11.1 % 08/11/23 04:31 Eos % (Auto) 4.0 % 08/11/23 04:31 Baso % (Auto) 0.4 % 08/11/23 04:31 Neut # (Auto) 4.81 10^3/uL (1.8-7.7) 08/11/23 04:31 Lymph # (Auto) 0.8 10^3/uL (0.8-4.8) 08/11/23 04:31 [place] # (Auto) 0.7 10^3/uL (0.2-0.9) 08/11/23 04:31 Eos # (Auto) 0.3 10^3/uL (0.0-0.8) 08/11/23 04:31 Baso # (Auto) 0.0 10^3/uL (0.0-0.1) 08/11/23 04:31 Nucleated RBC % (auto) 0 % 08/11/23 04:31 Nucleated RBCs # 0.0 /100WBC 08/11/23 04:31 D-Dimer 1.43 ug/mLFEU (0-0.59) H 08/09/23 13:06 Sodium 134 mmol/L (136-145) L 08/12/23 03:00 Potassium 4.9 mmol/L (3.5-5.1) 08/12/23 03:00 Chloride 100 mmol/L (98-107) 08/12/23 03:00 Carbon Dioxide 21 mmol/L (22-29) L 08/12/23 03:00 Anion Gap 17.9 (5-19) 08/12/23 03:00 BUN 86 mg/dL (8-23) H* 08/12/23 03:00 Creatinine 3.5 mg/dL (0.7-1.2) H 08/12/23 03:00 GFR Calculation 17.8 mL/min (90-130) L 08/12/23 03:00 Glucose 136 mg/dL (65-115) H 08/12/23 03:00 POC Glucose 157 mg/dL (70-110) H 08/12/23 06:20 Calculated Osmolality 306 mOsm/kg (285-295) H 08/12/23 03:00 Calcium 8.7 mg/dL (8.5-10.5) 08/12/23 03:00 Phosphorus 6.8 mg/dL (2.5-4.5) H 08/10/23 04:55 Magnesium 2.3 mg/dL (1.7-2.3) 08/10/23 04:55 Troponin T Baseline 112 ng/L (0-15) H* 08/09/23 09:23 Troponin T 120 Minute 99.64 ng/L (0-15) H 08/09/23 13:06 Delta Troponin T -12.36 ABS# (0-10) L 08/09/23 13:06 Troponin T Hi Sens 6Hr 92.08 ng/L (0-15) H 08/09/23 15:20 Troponin T Hi Sens 6Hr Delta -19.92 ng/L (0-12) L 08/09/23 15:20 TSH 4.31 uIU/mL (0.27-4.20) H 08/09/23 13:06 Vitals Last Vital Signs Temp 98.0 F 08/12/23 08:44 Pulse 85 08/12/23 09:11 Resp 16 08/12/23 09:11 BP 145/70 08/12/23 08:44 Pulse Ox 88 L 08/12/23 09:11 O2 Del Method Nasal Cannula 08/12/23 09:11 O2 Flow Rate 2 08/12/23 09:11 Discharge Plan Discharge Patient Disposition: Home Condition: Stable Prescriptions: New sodium bicarbonate 650 mg Tablet 650 mg PO TID Qty: 9 0RF bumetanide 2 mg tablet 2 mg PO DAILY Qty: 60 5RF potassium chloride 10 mEq tablet extended release 10 meq PO DAILY Qty: 60 4RF Continued aspirin 81 mg tablet,delayed release (DR/EC) 81 mg PO QAM vitamin K2 100 mcg capsule 100 mcg PO DAILY PRN (Reason: UNKNOWN) metolazone 5 mg tablet 5 mg PO DAILY Qty: 30 3RF black seed oil tablet 1 tab PO DAILY Rx Instructions: once daily (DME) diabetic shoes/inserts See Rx Instructions .Route .MEDSUPPLY Qty: 1 0RF Rx Instructions: As directed pyridoxine (vitamin B6) 200 mg Tablet Extended Release 200 mg PO DAILY ascorbic acid (vitamin C) [Vitamin C] 1,000 mg Tablet 1,000 mg PO DAILY multivitamin Tablet 1 tab PO QAM melatonin 10 mg Tablet 10 mg PO BEDTIME magnesium oxide 200 mg magnesium Tablet 400 mg PO DAILY vitamin B complex Tablet 1 tab PO DAILY allopurinol 300 mg tablet 300 mg PO DAILY Humulin R U-500 (Conc) Kwikpen 500 unit/mL (3 mL) insulin pen 40 unit SUBCUT .before meals Changed carvedilol 12.5 mg tablet 12.5 mg PO BID Qty: 60 0RF amlodipine 10 mg tablet 10 mg PO DAILY Qty: 60 3RF Discontinued potassium gluconate 595 mg (99 mg) tablet 1,190 mg PO TID furosemide 40 mg tablet See Rx Instructions .ROUTE .COMPLEX Rx Instructions: TAKE 2 TABLETS BY MOUTH IN THE MORNING AND 1 TABLET IN THE EVENING. valsartan 80 mg tablet 80 mg PO DAILY Discharge Orders: Discharge Order (Routine); Ordered 08/12/23 Ordered By: Charlie Hernandez Other Ambulatory Orders: Basic Metabolic Panel (Routine) Timeframe: 2 Days Facility: [facility] - Location: Lab - Main Lab Ordered By: Charlie Hernandez Referrals: Leandra Reddy MD [Primary Care Provider] - 7-10 days (We have notified your physician's clinic of the need for a follow-up appointment to be scheduled. If you have not heard from them within the next 2 business days, please call them directly. ) Cora Person MD [Referring] - 1-3 days Discharge Diet: Cardiac Patient Instructions: Bumetanide (By mouth) (Bumex), Potassium Chloride (By mouth) (K-Dur, K-Evelyn, K-Tab, Rigo Mur), Sodium Bicarbonate (By mouth), Heart Failure (DC), Chronic Kidney Disease (DC), CHF Stoplight, Opioid Safety, Post Heart Attack Stoplight Activity Restrictions/Additional Instructions: For your blood pressure I have discontinued valsartan which can make your kidney function worse For your diuretics I have prescribed Bumex which is a better medication for diuresis than Lasix I have given you potassium chloride supplementation which you should only take when you are taking Bumex You have chronic kidney disease I would like you to follow-up with a practice professional You seem to have achieved new baseline creatinine of 3 I am giving you referral to see Dr. Person who is a practice professional Discharge Attestations Time Spent in Discharge Care*: greater than 30 min Quality Metrics Clinical Quality Measures [ No reported AMI, CVA or VTE this stay] Coding Level of Care Code Acute Code for Chg Fwd Diagnoses Hypertension, unspecified type I10 Hypertension type: unspecified Chronic congestive heart failure, unspecified heart failure type I50.9 Heart failure type: unspecified Heart failure chronicity: chronic NSTEMI (non-ST elevated myocardial infarction) I21.4 History of permanent cardiac pacemaker placement Z95.0 Poorly controlled type 2 diabetes mellitus E11.65 Diabetic ulcer of left lower leg E11.622; L97.929 Acute kidney injury superimposed on CKD N17.9; N18.9 Diabetic peripheral neuropathy associated with type 2 diabetes mellitus E11.42
[2023-08-12 12:29] LABS: Glucose Point of Care 175 mg/dL (70-110)
--- NOTE | 2023-08-12 15:27 | PC.NURSE ---
Discharge Note Patient discharged to home via POV accompanied by daughter. Discharge instructions reviewed with patient and/or door to door sales representative. Mobile pharmacy medications and/or prescriptions provided. Belongings/home medications returned.
== END 2023-08-12 15:29 | disposition home or self-care (01) | DRG 280 ==
LOC: ER 13:23 → CSU 14:19
PROVIDERS: Admitting Provider Internal Medicine; Emergency Provider Family Medicine; PCP Family Medicine; Visit Provider Internal Medicine
DX: I13.0 Hypertensive heart and chronic kidney disease with heart failure and stage 1 through stage 4 chronic kidney disease, or unspecified chronic kidney disease (principal); I50.33 Acute on chronic diastolic (congestive) heart failure; I21.A1 Myocardial infarction type 2; N17.9 Acute kidney failure, unspecified; L03.116 Cellulitis of left lower limb; L03.115 Cellulitis of right lower limb; N18.30 Chronic kidney disease, stage 3 unspecified; E11.22 Type 2 diabetes mellitus with diabetic chronic kidney disease; I16.0 Hypertensive urgency; M1A.9XX1 Chronic gout, unspecified, with tophus (tophi); E78.00 Pure hypercholesterolemia, unspecified; E11.65 Type 2 diabetes mellitus with hyperglycemia; E11.610 Type 2 diabetes mellitus with diabetic neuropathic arthropathy; E11.42 Type 2 diabetes mellitus with diabetic polyneuropathy; E11.51 Type 2 diabetes mellitus with diabetic peripheral angiopathy without gangrene; L60.3 Nail dystrophy; R09.02 Hypoxemia; Z95.0 Presence of cardiac pacemaker; Z79.82 Long term (current) use of aspirin; Z79.4 Long term (current) use of insulin; Z86.16 Personal history of COVID-19; Z89.429 Acquired absence of other toe(s), unspecified side
CPT/HCPCS: 36415; 36416; 51702; 80048; 82962; 83735; 84100; 84443; 84484; 85025; 85378; 93005; 93306; 93970; 94760; 96372; 96376; 99285; J1650; J1815; J1940; J2405

== ENCOUNTER 2023-08-14 18:06 | Inpatient (IN) | payer MEDICARE, SELFPAY ==
--- OUTSIDE RECORDS SUMMARY | 2023-08-14 18:13 | XMS_ITS | Encounter Summary ---
Author Name Unknown Organization [facility] Address [address] [place] [id number] Encounter Details Date Type Department Care Team Description 2023-03-22 Telephone [facility] [address] [place] [id number] Mail Vendor DFS A Medication Reconciliation was successfully completed by the [facility]. ASSESSMENT No Information TREATMENT PLAN No Information
[2023-08-14 18:23] LABS: Glucose Point of Care 173 mg/dL (70-110)
[2023-08-14 18:54] VITALS: BP 161/88; PULSE 86; PULSE 87; RESP 17; TEMP 36.9; O2SAT 91
--- NOTE | 2023-08-14 19:03 | P.HP_ITS ---
Providers/Chief Complaint 2 Admitting Physician: Yasmin Laurent MD Primary Care Provider: Leandra Reddy MD Chief Complaint: CHF History of Present Illness Jack Springer is a 62 year old male Who was transferred to our hospital today with chief complaints of shortness of breath. Patient was recently admitted here until August 12, 2023 when we he had acute on chronic CHF exacerbation. He was treated with diuresis, was net negative at the time of discharge. He returned home with transition of Lasix to Bumex. Patient states he was taking the medication as prescribed but does not feel Bumex was working as well as Lasix. He went to the emergency room at [facility] today because as he was taking of his lower extremity wraps, his toenail of the fourth digit came off as well. It had some profuse bleeding which prompted his ER visit. At the ER then he was noted to be hypervolemic. Had signs of pulmonary edema on x-ray and clinical exam. Admission was recommended and he is being transferred here for further care. On his last admission patient was discharged on 2 L/min supplemental O2. Currently he is needing 3 L/min supplemental O2. States that it has been harder to exert and he has been unable to lie flat to sleep. Though this is a chronic issue, it appears to be more pronounced recently. Review of Systems 2 General: Reports: 10 or more systems reviewed and unremarkable except in HPI and below Const: Denies: fever(s), chills or body aches Eyes: Denies: change in vision, blurry vision or photophobia ENMT: Reports: hoarseness; Denies: throat pain, enlarged tonsils, odynophagia or nasal congestion Card: Denies: chest pain, palpitations, irregular heart rhythm, edema, swelling of feet/ankles, lightheadedness, pre-syncope, dyspnea on exertion or orthopnea Resp: Denies: dyspnea, productive cough, non-productive cough, wheezing, stridor, pain on inspiration, change in phlegm color, hemoptysis or chest congestion GI: Denies: abdominal pain, nausea, vomiting, hematemesis, coffee ground emesis, dysphagia, heartburn, diarrhea, constipation, GI cramping, change in stool character, hematochezia or melena : Denies: flank pain, dysuria, urinary frequency, urinary urgency, urinary hesitancy or hematuria Musc: Denies: neck pain, back pain, extremity pain, joint swelling, joint warmth or deformity Neuro: Denies: headache(s), numbness in extremities, weakness in extremities, sensory changes, difficulty walking, frequent falls, dizziness, vertigo, behavioral changes, Slurred speech present or seizure-like activity Psych: Denies: anxiety, depression, suicidal ideation or homicidal ideation Endo: Denies: polyuria, polydipsia, tired all the time, cold intolerance or hot flashes Mike/Lymph: Denies: easy bruising or easy bleeding Medications/Allergies Home Medications Medication Instructions Recorded Confirmed Last Taken Type aspirin 81 mg tablet,delayed 81 mg PO QAM 06/10/19 08/14/23 08/14/23 History release ascorbic acid (vitamin C) 1,000 mg 1,000 mg PO DAILY 05/04/20 08/14/23 08/14/23 History tablet (Vitamin C) magnesium oxide 400 mg PO DAILY 01/11/21 08/14/23 08/14/23 History melatonin 10 mg tablet 10 mg PO BEDTIME 01/11/21 08/14/23 08/13/23 History multivitamin 1 tab PO QAM 01/11/21 08/14/23 08/14/23 History vitamin K2 100 mcg capsule 100 mcg PO DAILY PRN UNKNOWN 05/17/21 08/14/23 08/14/23 History pyridoxine (vitamin B6) 200 mg 200 mg PO DAILY 05/25/21 08/14/23 08/14/23 History tablet,extended release black seed oil 1 tab PO DAILY 09/13/21 08/14/23 08/14/23 History metolazone 5 mg tablet 5 mg PO DAILY #30 tabs 07/31/23 08/14/23 08/09/23 Rx allopurinol 300 mg tablet 300 mg PO DAILY 08/09/23 08/14/23 08/14/23 History insulin regular hum U-500 conc 500 40 unit SUBCUT .before meals 08/09/23 08/14/23 08/14/23 History unit/mL(3 mL) subcut pen (Humulin R U-500 (Conc) Insulin Kwikpen) vitamin B complex 1 tab PO DAILY 08/09/23 08/14/23 08/14/23 History amlodipine 10 mg tablet 10 mg PO DAILY #60 tabs 08/12/23 08/14/23 08/14/23 Rx bumetanide 2 mg tablet 2 mg PO DAILY #60 tabs 08/12/23 08/14/23 08/14/23 Rx carvedilol 12.5 mg tablet 12.5 mg PO BID #60 tabs 08/12/23 08/14/23 08/14/23 Rx sodium bicarbonate 650 mg tablet 650 mg PO TID #9 tabs 08/12/23 08/14/23 08/13/23 Rx diabetic shoes/inserts 08/14/23 08/14/23 Unknown History potassium chloride 10 mEq 10 meq PO DAILY #60 tabs 08/14/23 08/14/23 08/14/23 Rx tablet,extended release Allergies Allergy/AdvReac Type Severity Reaction Status Date / Time No Known Allergies Allergy Verified 08/09/23 12:45 PFSH Acute 2 PFSH: Medical History Poorly controlled type 2 diabetes mellitus CHF (congestive heart failure) COPD (chronic obstructive pulmonary disease) NSTEMI (non-ST elevated myocardial infarction) Diabetic ulcer of left lower leg Acute kidney injury superimposed on CKD High risk medication use Positive LIZBETH (antinuclear antibody) Chronic tophaceous gout of both hands CKD (chronic kidney disease) stage 3, GFR 30-59 ml/min Inflammatory arthritis Somnolence, daytime Bradycardia Recurrent syncope COVID-19 virus infection Type 2 diabetes mellitus Hypercholesteremia PVD (peripheral vascular disease) Diabetic peripheral neuropathy associated with type 2 diabetes mellitus Tick fever Hypertension Cellulitis and abscess of foot Polyneuropathy, unspecified Hyperchylomicronemia Other deformities of toe(s) (acquired), left foot Controlled diabetes mellitus with diabetic polyneuropathy, with long-term current use of insulin Onychodystrophy Charcot ankle Acquired absence of other toe(s), unspecified side Closed displaced fracture of navicular bone of right foot with routine healing Surgical History History of permanent cardiac pacemaker placement Status post colonoscopy (05/05/20) normal History of foot surgery History of knee surgery Family History Mother CAD (coronary artery disease) in older years, pacemaker Other Cancer Diabetes Hypertension Lung disease Denies family history of Rheumatoid arthritis Lupus Clotting disorder Dementia Hyperlipidemia Psychiatric illness Chronic kidney disease (CKD) Suicide Anesthesia complication Bleeding disorder Family history of premature coronary artery disease Stroke Social History Smoking and tobacco/nicotine status: never used tobacco/nicotine Second hand smoke exposure: No Alcohol intake: never Substance/Drug Use: never Physical Exam 2 Narrative: General: No acute distress, AO x3 HEENT: PERRLA, pupils bilaterally equal and reactive, pallors not present Chest: rackles on exam crackles to auscultation bilateral infra axillary are CVS: S1-S2 regular, no murmurs, no tachycardia, no gallops, no rubs Abdomen: Soft, nontender, no organomegaly, bowel sounds present Neuro: No focal deficits, no facial deformity, AO x3, power 5/5 in all limbs Extremities: Bilateral 3+ edema on examination. Changes of stasis dermatitis involving bilateral lower extremities. Lower concern for cellulitis at this time. Few small ulcerations seen affecting both lower extremities, likely from pressure changes. Avulsed toenail of the right fourth and third digit, with some bleeding at site. Data 08/15/23 04:44 08/15/23 04:44 A&P Assessment and plan (1) CHF (congestive heart failure): Admit to CSU in view of acute on chronic diastolic CHF exacerbation with preserved ejection fraction. Patient currently has bilateral pitting edema, crackles on exam and chest x-ray at outside hospital with pulmonary edema. Echocardiogram from August 09, 2023 showing LVEF of 55% with mild LVH. No RWMA. Trace to mild mitral valve regurgitation and grade 3 diastolic dysfunction. States he has been compliant with his diuretics at home. Start Lasix 60 mg IV every 12 hours. Closely monitor urine output and kidney function Hold metolazone while undergoing IV diuresis. Continue home dose of carvedilol 12.5 mg p.o. twice daily Continue aspirin Qualifiers: Heart failure type: unspecified Heart failure chronicity: chronic Qualified Code(s): I50.9 - Heart failure, unspecified (2) CKD (chronic kidney disease) stage 3, GFR 30-59 ml/min: Patient has known CKD. Baseline appears to be ranging between 1.8-2.2. On his previous admission on August 11, 2023, creatinine had peaked at 4.0. Closely monitor creatinine with ongoing diuresis. Patient is scheduled to see outpatient nephrology soon. Qualifiers: Chronic kidney disease stage 3 subtype: stage 3b (GFR 30-44) Qualified Code(s): N18.32 - Chronic kidney disease, stage 3b (3) Diabetes mellitus: Medium dose insulin sliding scale while at the hospital. (4) Elevated troponin: Patient denies active chest pain at this time. Baseline troponin at outside hospital was noted to be at 83. Check EKG and troponin series here for 2 and 6-hour trend. Plan Hypertension: Continue amlodipine 10 mg p.o. daily. Attestations 2 Medical Necessity Statement*: Greater than 2 midnight stay is anticipated in view of acute on chronic diastolic CHF exacerbation needing IV diuresis. Coding Level of Care Code Acute Code for Chg Fwd High MDM includes number and complexity of problems actively addressed during encounter, amount and/or complexity of data reviewed/ordered and described risk of complication, morbidity or mortality of management as documented Diagnoses Chronic congestive heart failure, unspecified heart failure type I50.9 Heart failure type: unspecified Heart failure chronicity: chronic Stage 3b chronic kidney disease N18.32 Chronic kidney disease stage 3 subtype: stage 3b (GFR 30-44) Diabetes mellitus E11.9 Elevated troponin R79.89
[2023-08-14 19:27] LABS: Basophils % 0.6 %; Eosinophils # 0.4 10^3/uL (0.0-0.8); Eosinophils % 5.7 %; Hematocrit 30.3 % (37-53); Lymphocytes # 0.7 10^3/uL (0.8-4.8); Lymphocytes % 9.5 %; Mean Corpuscular HGB Conc 31.7 g/dL (30-55); Mean Corpuscular Hemoglobin 28.9 pg (27-33); Mean Corpuscular Volume 91.3 fl (82-101); Mean Platelet Volume 9.9 fL (7.4-10.4); Monocytes # 0.6 10^3/uL (0.2-0.9); Monocytes % 8.3 %; Neutrophils # 5.37 10^3/uL (1.8-7.7); Neutrophils % 75.1 %; Nucleated Red Blood Cells % 0 %; Platelet Count 289 10^3/cmm (157-399); Red Blood Count 3.32 10^6/uL (3.85-5.65); Red Cell Distribution Width 14.2 % (12.1-15.1); White Blood Count 7.15 10^3/uL (3.29-11.43)
[2023-08-14] MEDS: heparin 5,000 unit/mL INJ 1 mL 5000 UNIT SUBCUT (19:27)
[2023-08-14 19:39] LABS: Troponin(5th) Baseline 73 ng/L (0-15)
[2023-08-14 19:40] LABS: Alanine Aminotransferase 18 U/L (0-41); Albumin Level 3.7 g/dL (3.5-5.2); Alkaline Phosphatase 123 U/L (40-130); Anion Gap 19.8 (5-19); Aspartate Amino Transferase 20 U/L (0-40); Calcium 8.7 mg/dL (8.5-10.5); Carbon Dioxide 22 mmol/L (22-29); Chloride 98 mmol/L (98-107); Globulin 2.9 g/dL (1.3-4.6); Glucose 164 mg/dL (65-115); Osmolality Calculated 308 mOsm/kg (285-295); Potassium 4.8 mmol/L (3.5-5.1); Sodium 135 mmol/L (136-145); Total Bilirubin 0.5 mg/dL (0.15-1.2); Total Protein 6.6 g/dL (6.6-8.7)
[2023-08-14 19:59] LABS: Blood Urea Nitrogen 81 mg/dL (8-23)
[2023-08-14 20:00] VITALS: BP 161/88; PULSE 87; RESP 17; TEMP 36.9; O2SAT 91
[2023-08-14] MEDS: FUROsemide 10 mg/mL SDV 10mL 60 MG IVP (20:14)
[2023-08-14 20:40] LABS: Glucose Point of Care 295 mg/dL (70-110)
--- NOTE | 2023-08-14 20:57 | ECG_ITS ---
[facility] Test Date: 2023-08-14 Pat Name: Jack Springer Department: Room: 104 Gender: Male Functional Director: : 1960 Requested By: Yasmin Laurent Order Number: [id number] Reading MD: Cory Gomez M.D. Measurements Intervals [place] Rate: 85 P: 53 ME: 186 QRS: 31 QRSD: 104 T: 85 QT: 349 QTc: 416 Interpretive Statements SINUS RHYTHM NONSPECIFIC ST & T-WAVE ABNORMALITY Possible old inferior wall DE Compared to ECG 08/09/2023 20:30:41 Atrial-paced complex(es) or rhythm no longer present T-wave abnormality still present Electronically Signed On 08-15-2023 18:15:23 CDT by Cory Gomez M.D. [id number]
[2023-08-14 22:00] VITALS: PULSE 82
[2023-08-14 22:03] LABS: Troponin 5 2HR 73.91 ng/L (0-15); Troponin 5 2HR Delta 0.91 ABS# (0-10)
[2023-08-14] MEDS: insulin lispro 100 unit/1 mL SUBCUT (22:12)
[2023-08-14] MEDS: sodium bicarbonate 650 mg Tablet PO (22:13)
--- NOTE | 2023-08-14 23:26 | PC.RESP ---
STAT EKG ORDERED 08/14/23 AT 1857, RT NOT NOTIFIED, EKG NOT COMPLETED IN ER OR BY FLOOR RN.
[2023-08-14 23:37] VITALS: BP 151/70; PULSE 79; RESP 20; TEMP 37.2; O2SAT 94
[2023-08-15] VITALS (9 sets, daily range): BP systolic 115–149; BP diastolic 67–79; PULSE 65–83; RESP 16–22; TEMP 36.6–37.2; O2SAT 95–98; BMI 39.7
--- NOTE | 2023-08-15 00:57 | ECG_ITS ---
[facility] Test Date: 2023-08-15 Pat Name: Jack Springer Department: Room: 104 Gender: Male Harness Worker: : 1960 Requested By: Yasmin Laurent Order Number: [id number] Mary MD: Cory Gomez M.D. Measurements Intervals [place] Rate: 74 P: 55 [place]: 194 QRS: 37 QRSD: 97 T: 91 QT: 367 QTc: 409 Interpretive Statements SINUS RHYTHM ST DEVIATION AND MODERATE T-WAVE ABNORMALITY, CONSIDER ANTERIOR ISCHEMIA [-0.1+ mV T-WAVE IN V3/V4] Compared to ECG 08/14/2023 22:40:27 Possible ischemia now present T-wave abnormality still present Electronically Signed On 08-15-2023 18:15:41 CDT by Cory Gomez M.D. [id number]
[2023-08-15 01:11] LABS: Troponin 5 6HR 84.87 ng/L (0-15); Troponin 5 6HR Delta 11.87 ng/L (0-12)
[2023-08-15 05:01] LABS: Basophils # 0.1 10^3/uL (0.0-0.1); Basophils % 0.7 %; Eosinophils # 0.4 10^3/uL (0.0-0.8); Eosinophils % 6.3 %; Hematocrit 29.3 % (37-53); Lymphocytes # 0.7 10^3/uL (0.8-4.8); Lymphocytes % 10.2 %; Mean Corpuscular HGB Conc 31.7 g/dL (30-55); Mean Corpuscular Hemoglobin 29.1 pg (27-33); Mean Corpuscular Volume 91.6 fl (82-101); Monocytes # 0.8 10^3/uL (0.2-0.9); Monocytes % 11.5 %; Neutrophils # 4.71 10^3/uL (1.8-7.7); Neutrophils % 70.4 %; Nucleated Red Blood Cells % 0 %; Platelet Count 324 10^3/cmm (157-399); White Blood Count 6.69 10^3/uL (3.29-11.43)
[2023-08-15 05:23] LABS: Alanine Aminotransferase 16 U/L (0-41); Albumin Level 3.3 g/dL (3.5-5.2); Alkaline Phosphatase 107 U/L (40-130); Anion Gap 17.9 (5-19); Aspartate Amino Transferase 20 U/L (0-40); Blood Urea Nitrogen 80 mg/dL (8-23); Calcium 9.1 mg/dL (8.5-10.5); Carbon Dioxide 24 mmol/L (22-29); Chloride 100 mmol/L (98-107); Creatinine Clr Calc Pharmacy 46.9701; Globulin 3.5 g/dL (1.3-4.6); Glucose 130 mg/dL (65-115); Osmolality Calculated 310 mOsm/kg (285-295); Potassium 4.9 mmol/L (3.5-5.1); Sodium 137 mmol/L (136-145); Total Bilirubin 0.6 mg/dL (0.15-1.2); Total Protein 6.8 g/dL (6.6-8.7)
--- NOTE | 2023-08-15 06:23 | PC.RESP ---
pt not in room. ekg not completed
[2023-08-15 06:32] LABS: Glucose Point of Care 151 mg/dL (70-110)
[2023-08-15] MEDS: FUROsemide 10 mg/mL SDV 10mL 60 MG IVP ×2 (06:37→18:07)
[2023-08-15] MEDS: aspirin 81 mg EC Tablet PO (06:37)
[2023-08-15] MEDS: heparin 5,000 unit/mL INJ 1 mL 5000 UNIT SUBCUT ×2 (06:37→18:08)
[2023-08-15] MEDS: insulin lispro 100 unit/1 mL SUBCUT ×4 (08:40→20:37)
[2023-08-15] MEDS: sodium bicarbonate 650 mg Tablet PO ×3 (08:42→20:37)
[2023-08-15] MEDS: carvedilol 12.5 mg Tablet PO ×2 (08:42→18:07)
[2023-08-15] MEDS: magnesium oxide 400 mg tablet PO (08:42)
[2023-08-15] MEDS: allopurinol 300 mg Tablet PO (08:42)
[2023-08-15] MEDS: pantoprazole DR 40 mg Tablet PO (08:42)
[2023-08-15] MEDS: amlodipine 10 mg Tablet PO (08:42)
[2023-08-15] MEDS: acetaminophen 325 mg Tablet 650 MG PO (11:30)
[2023-08-15] MEDS: mupirocin oint 22 gm 1 APPLIC TOPICAL (11:31)
[2023-08-15 12:10] LABS: Glucose Point of Care 243 mg/dL (70-110)
--- NOTE | 2023-08-15 13:38 | P.PN_ITS ---
Subjective 2 Subjective: No new complaints today. Net -2.2 L since yesterday. Weight is stable at 132 kg. Oxygen requirement at 2 L/min today. Creatinine stable at 2.3. Medications: Reviewed: Yes Vitals/I&O/Wt Last Vital Signs Temp 98.5 F 08/15/23 11:33 Pulse 76 08/15/23 11:33 Resp 18 08/15/23 11:33 BP 138/75 08/15/23 11:33 Pulse Ox 95 08/15/23 11:33 O2 Del Method Nasal Cannula 08/15/23 11:33 08/14/23 08/15/23 08/15/23 22:59 06:59 14:59 Intake Total 300 / 300 720 / 720 Output Total 260 / 260 2400 / 2660 650 / 650 Balance 40 / 40 -2400 / -2360 70 / 70 Weight last 48 hrs Weight 132.903 kg Weight 132.903 kg Physical Exam 2 Narrative: General: No acute distress, AO x3 HEENT: PERRLA, pupils bilaterally equal and reactive, pallors not present Chest: rackles on exam crackles to auscultation bilateral infra axillary are CVS: S1-S2 regular, no murmurs, no tachycardia, no gallops, no rubs Abdomen: Soft, nontender, no organomegaly, bowel sounds present Neuro: No focal deficits, no facial deformity, AO x3, power 5/5 in all limbs Extremities: Bilateral 3+ edema on examination, unchanged over yesterday's exam. Data 08/15/23 04:44 08/15/23 04:44 A&P Assessment and plan (1) CHF (congestive heart failure): Admit to [facility] in view of acute on chronic diastolic CHF exacerbation with preserved ejection fraction. Patient currently has bilateral pitting edema, crackles on exam and chest x-ray at outside hospital with pulmonary edema. Echocardiogram from August 09, 2023 showing LVEF of 55% with mild LVH. No RWMA. Trace to mild mitral valve regurgitation and grade 3 diastolic dysfunction. States he has been compliant with his diuretics at home. Start Lasix 60 mg IV every 12 hours. Closely monitor urine output and kidney function Hold metolazone while undergoing IV diuresis. Continue home dose of carvedilol 12.5 mg p.o. twice daily Continue aspirin Qualifiers: Heart failure type: unspecified Heart failure chronicity: chronic Qualified Code(s): I50.9 - Heart failure, unspecified (2) CKD (chronic kidney disease) stage 3, GFR 30-59 ml/min: Patient has known CKD. Baseline appears to be ranging between 1.8-2.2. On his previous admission on August 11, 2023, creatinine had peaked at 4.0. Closely monitor creatinine with ongoing diuresis. Patient is scheduled to see outpatient nephrology soon. Qualifiers: Chronic kidney disease stage 3 subtype: stage 3b (GFR 30-44) Qualified Code(s): N18.32 - Chronic kidney disease, stage 3b (3) Diabetes mellitus: Medium dose insulin sliding scale while at the hospital. (4) Elevated troponin: Patient denies active chest pain at this time. Baseline troponin at outside hospital was noted to be at 83. Check EKG and troponin series here for 2 and 6-hour trend. Plan Hypertension: Continue amlodipine 10 mg p.o. daily. DVT prophylaxis: Heparin 5000 subcutaneous every 12 hours Full code Plan for today August 15, 2023 Net -2.2 L today. Diuresing well. Kidney function is stable with creatinine at 2.3. Continue IV diuresis with Lasix 60 mg IV every 12 hours today. Recheck kidney function in the morning. Lower extremity swelling is grossly unchanged compared to yesterday. Repeat x-ray in the morning. Troponin noted to be elevated with baseline at 73-->73.91---> 84.82 without significant delta is at 2 and 6 hours. Compared to his previous admission, troponins are trending down from 112. Recent echocardiogram did not show any regional wall motion abnormalities. Overall low suspicion for ACS. Will defer further ischemic evaluation to outpatient for now. Given his high creatinine and inability to lie flat, patient would not be a candidate for coronary intervention at this time. Continue medical management with aspirin 81 mg daily, beta-blockers as he is already doing. Depending on kidney function and urine output and clinical response, may transition IV to oral diuretics over the next 24 to 48 hours. Attestations 2 Medical Necessity Statement*: Continued need for IV diuresis, close monitoring of kidney function for the same. Coding Level of Care Code Acute Code for Chg Fwd High MDM includes number and complexity of problems actively addressed during encounter, amount and/or complexity of data reviewed/ordered and described risk of complication, morbidity or mortality of management as documented Diagnoses Chronic congestive heart failure, unspecified heart failure type I50.9 Heart failure type: unspecified Heart failure chronicity: chronic Stage 3b chronic kidney disease N18.32 Chronic kidney disease stage 3 subtype: stage 3b (GFR 30-44) Diabetes mellitus E11.9 Elevated troponin R79.89
[2023-08-15 17:08] LABS: Glucose Point of Care 228 mg/dL (70-110)
[2023-08-15 20:17] LABS: Glucose Point of Care 243 mg/dL (70-110)
[2023-08-15] MEDS: lactulose oral liq 20 gm/30 mL UDC PO (22:02)
[2023-08-16 03:40] VITALS: BP 124/68; PULSE 74; RESP 18; O2SAT 93
[2023-08-16 05:12] LABS: Basophils # 0.1 10^3/uL (0.0-0.1); Basophils % 0.9 %; Eosinophils # 0.4 10^3/uL (0.0-0.8); Eosinophils % 7.9 %; Hematocrit 29.9 % (37-53); Lymphocytes # 0.9 10^3/uL (0.8-4.8); Lymphocytes % 15.8 %; Mean Corpuscular HGB Conc 30.8 g/dL (30-55); Mean Corpuscular Hemoglobin 28.5 pg (27-33); Mean Corpuscular Volume 92.6 fl (82-101); Mean Platelet Volume 10.2 fL (7.4-10.4); Monocytes # 0.6 10^3/uL (0.2-0.9); Monocytes % 11.3 %; Nucleated Red Blood Cells % 0 %; Platelet Count 309 10^3/cmm (157-399); Red Blood Count 3.23 10^6/uL (3.85-5.65); Red Cell Distribution Width 14.2 % (12.1-15.1); White Blood Count 5.56 10^3/uL (3.29-11.43)
[2023-08-16 05:42] VITALS: PULSE 77
[2023-08-16 05:46] LABS: Alanine Aminotransferase 19 U/L (0-41); Albumin Level 3.2 g/dL (3.5-5.2); Alkaline Phosphatase 107 U/L (40-130); Anion Gap 16.7 (5-19); Aspartate Amino Transferase 18 U/L (0-40); Blood Urea Nitrogen 77 mg/dL (8-23); Calcium 8.9 mg/dL (8.5-10.5); Carbon Dioxide 27 mmol/L (22-29); Chloride 101 mmol/L (98-107); Globulin 3.5 g/dL (1.3-4.6); Glomerular Filtration Rate 25.1 mL/min (90-130); Glucose 158 mg/dL (65-115); Osmolality Calculated 316 mOsm/kg (285-295); Potassium 4.7 mmol/L (3.5-5.1); Sodium 140 mmol/L (136-145); Total Bilirubin 0.5 mg/dL (0.15-1.2); Total Protein 6.7 g/dL (6.6-8.7)
[2023-08-16 05:47] LABS: Creatinine Clr Calc Pharmacy 41.5505
--- NOTE | 2023-08-16 06:00 | XRR_ITS ---
PROCEDURE INFORMATION: Exam: XR Chest Exam date and time: 08/16/2023 4:55 AM Age: 62 years old Clinical indication: Other: Pulmonary edema; Additional info: Follow up pulmonary edema TECHNIQUE: Imaging protocol: Radiologic exam of the chest. Views: 1 view. COMPARISON: CR XR chest 2V* [id number] 08/14/2023 1:55 PM FINDINGS: Tubes, catheters and devices: Multi lead pacemaker/defibrillator. Lungs: Mild hypoventilatory changes in the lower lobes. Pleural spaces: Unremarkable. No pleural effusion. No pneumothorax. Heart/Mediastinum: See Vasculature finding. Vasculature: Mild cardiomegaly and uncoiling of the thoracic aorta each accentuated by the AP positioning. Bones/joints: Unremarkable. XR/XR chest 1V portable [id number] IMPRESSION: No acute findings.
[2023-08-16] MEDS: aspirin 81 mg EC Tablet PO (06:05)
[2023-08-16] MEDS: heparin 5,000 unit/mL INJ 1 mL 5000 UNIT SUBCUT (06:05)
[2023-08-16] MEDS: FUROsemide 10 mg/mL SDV 10mL 60 MG IVP (06:05)
[2023-08-16 06:29] LABS: Glucose Point of Care 195 mg/dL (70-110)
[2023-08-16 07:22] VITALS: BP 145/75; PULSE 77; RESP 13; TEMP 36.7; O2SAT 97
[2023-08-16] MEDS: sodium bicarbonate 650 mg Tablet PO ×2 (08:07→15:49)
[2023-08-16] MEDS: magnesium oxide 400 mg tablet PO (08:07)
[2023-08-16] MEDS: pantoprazole DR 40 mg Tablet PO (08:07)
[2023-08-16] MEDS: allopurinol 300 mg Tablet PO (08:07)
[2023-08-16] MEDS: carvedilol 12.5 mg Tablet PO (08:07)
[2023-08-16] MEDS: amlodipine 10 mg Tablet PO (08:07)
[2023-08-16] MEDS: insulin lispro 100 unit/1 mL SUBCUT ×2 (08:07→12:07)
[2023-08-16] MEDS: mupirocin oint 22 gm 1 APPLIC TOPICAL (10:52)
[2023-08-16 11:21] VITALS: BP 135/67; PULSE 72; RESP 15; TEMP 36.6; O2SAT 96
[2023-08-16 11:54] LABS: Glucose Point of Care 184 mg/dL (70-110)
--- NOTE | 2023-08-16 13:41 | PC.NURSE ---
Patient up to ambulate in [place]. Oxygen remained at 2L NC. Patient tolerated well. Denies any increased shortness of breath or other complaints at this time.. Will inform Dr Ya.
--- NOTE | 2023-08-16 14:59 | P.DS_ITS ---
Discharge Providers Date of Admission: 08/14/23 18:06 Date of Discharge: August 16, 2023 Attending Provider at Admission: Yasmin Laurent MD Attending Provider at Discharge: Denita Ya MD Primary Care Provider: Leandra Reddy MD Diagnoses at Discharge Discharge Diagnosis (1) CHF (congestive heart failure): Status: Acute Qualifiers: Heart failure chronicity: chronic Heart failure type: unspecified Qualified Code(s): I50.9 - Heart failure, unspecified (2) CKD (chronic kidney disease) stage 3, GFR 30-59 ml/min: Status: Acute Qualifiers: Chronic kidney disease stage 3 subtype: stage 3b (GFR 30-44) Qualified Code(s): N18.32 - Chronic kidney disease, stage 3b (3) Diabetes mellitus: Status: Acute (4) Elevated troponin: Status: Acute Reason for Visit Reason for Visit: CHF Brief History: Please review H&P for full details of presenting illness. Hospital Course Hospital Course Patient had acute on chronic HFrEF. His LVEF was 55% with grade 3/4 diastolic dysfunction and severely elevated filling pressures. He was started on IV diuretics and has had good response. He continues to be net negative. He has CKD stage III and his serum creatinine has been stable. His bumetanide was increased to 2 mg twice daily. I have also changed his metolazone to every other day. He will need to get repeat labs in 1 week to monitor his renal function. He did have elevated troponin which was thought to be due to demand ischemia. Low suspicion for ACS. Physical Exam Const: COMMON NORMALS: no acute distress and patient oriented x3 HENMT: COMMON NORMALS: normocephalic and atraumatic HEAD & SCALP: normocephalic and atraumatic Eye: COMMON NORMALS: Equal, round and reactive pupils present and EOMs intact bilaterally PUPIL: Yes Equal, round and reactive pupils present Neck/C-Spine: COMMON NORMALS: no JVD Chest: COMMONS NORMALS: normal inspection of the chest Resp: COMMON NORMALS: normal respiratory effort and clear to auscultation bilaterally AUSCULTATION: clear to auscultation bilaterally Cardio: COMMON NORMALS: no JVD, regular rhythm, S1 normal heart sound present, S2 normal heart sound present and No murmurs present (Cardio) RHYTHM: regular rhythm HEART SOUNDS: S1 normal heart sound present and S2 normal heart sound present GI: COMMON NORMALS: Normal to inspection, nondistended, normoactive bowel sounds present, Soft to palpation and non-tender PALPATION: Yes Soft to palpation Extremity: NARRATIVE EXTREMITY EXAM: Venous stasis dermatitis bilateral lower extremities. Legs wrapped in Martir bandages. Peripheral edema bilateral feet. Neuro: COMMON NORMALS: patient oriented x3 Discharge Data Studies Completed and Pending Completed Studies During Hospitalization Category Date Time Status CXRP [XR chest 1V portable [id number]] Routine Exams 08/16/23 06:00 Completed Radiology Impressions Chest X-Ray 08/16/23 06:00 IMPRESSION: No acute findings. Laboratory Results WBC 5.56 10^3/uL (3.29-11.43) 08/16/23 04:32 RBC 3.23 10^6/uL (3.85-5.65) L 08/16/23 04:32 Hgb 9.20 g/dL (11.27-16.99) L 08/16/23 04:32 Hct 29.9 % (37-53) L 08/16/23 04:32 MCV 92.6 fl (82-101) 08/16/23 04:32 MCH 28.5 pg (27-33) 08/16/23 04:32 MCHC 30.8 g/dL (30-55) 08/16/23 04:32 RDW 14.2 % (12.1-15.1) 08/16/23 04:32 Plt Count 309 10^3/cmm (157-399) 08/16/23 04:32 MPV 10.2 fL (7.4-10.4) 08/16/23 04:32 Neut % (Auto) 63.0 % 08/16/23 04:32 Lymph % (Auto) 15.8 % 08/16/23 04:32 Storey % (Auto) 11.3 % 08/16/23 04:32 Eos % (Auto) 7.9 % 08/16/23 04:32 Baso % (Auto) 0.9 % 08/16/23 04:32 Neut # (Auto) 3.50 10^3/uL (1.8-7.7) 08/16/23 04:32 Lymph # (Auto) 0.9 10^3/uL (0.8-4.8) 08/16/23 04:32 Storey # (Auto) 0.6 10^3/uL (0.2-0.9) 08/16/23 04:32 Eos # (Auto) 0.4 10^3/uL (0.0-0.8) 08/16/23 04:32 Baso # (Auto) 0.1 10^3/uL (0.0-0.1) 08/16/23 04:32 Nucleated RBC % (auto) 0 % 08/16/23 04:32 Nucleated RBCs # 0.0 /100WBC 08/16/23 04:32 Sodium 140 mmol/L (136-145) 08/16/23 04:32 Potassium 4.7 mmol/L (3.5-5.1) 08/16/23 04:32 Chloride 101 mmol/L (98-107) 08/16/23 04:32 Carbon Dioxide 27 mmol/L (22-29) 08/16/23 04:32 Anion Gap 16.7 (5-19) 08/16/23 04:32 BUN 77 mg/dL (8-23) H 08/16/23 04:32 Creatinine 2.6 mg/dL (0.7-1.2) H 08/16/23 04:32 GFR Calculation 25.1 mL/min (90-130) L 08/16/23 04:32 Glucose 158 mg/dL (65-115) H 08/16/23 04:32 POC Glucose 184 mg/dL (70-110) H 08/16/23 11:23 Calculated Osmolality 316 mOsm/kg (285-295) H 08/16/23 04:32 Calcium 8.9 mg/dL (8.5-10.5) 08/16/23 04:32 Total Bilirubin 0.5 mg/dL (0.15-1.2) 08/16/23 04:32 AST 18 U/L (0-40) 08/16/23 04:32 ALT 19 U/L (0-41) 08/16/23 04:32 Alkaline Phosphatase 107 U/L (40-130) 08/16/23 04:32 Troponin T Baseline 73 ng/L (0-15) H 08/14/23 19:11 Troponin T 120 Minute 73.91 ng/L (0-15) H 08/14/23 21:29 Delta Troponin T 0.91 ABS# (0-10) 08/14/23 21:29 Troponin T Hi Sens 6Hr 84.87 ng/L (0-15) H 08/15/23 00:36 Troponin T Hi Sens 6Hr Delta 11.87 ng/L (0-12) 08/15/23 00:36 Total Protein 6.7 g/dL (6.6-8.7) 08/16/23 04:32 Albumin 3.2 g/dL (3.5-5.2) L 08/16/23 04:32 Globulin 3.5 g/dL (1.3-4.6) 08/16/23 04:32 Vitals Last Vital Signs Temp 97.9 F 08/16/23 11:21 Pulse 72 08/16/23 11:21 Resp 15 08/16/23 11:21 BP 135/67 08/16/23 11:21 Pulse Ox 96 08/16/23 11:21 O2 Del Method Room Air 08/16/23 11:21 Discharge Plan Discharge Patient Disposition: Home Condition: Stable Prescriptions: New bumetanide 2 mg tablet 2 mg PO BID Qty: 60 0RF metolazone 5 mg tablet 5 mg PO EVERY OTHER DAY Qty: 15 0RF Continued aspirin 81 mg tablet,delayed release (DR/EC) 81 mg PO QAM vitamin K2 100 mcg capsule 100 mcg PO DAILY PRN (Reason: UNKNOWN) potassium chloride 10 mEq tablet extended release 10 meq PO DAILY Qty: 60 4RF black seed oil tablet 1 tab PO DAILY Rx Instructions: once daily pyridoxine (vitamin B6) 200 mg Tablet Extended Release 200 mg PO DAILY ascorbic acid (vitamin C) [Vitamin C] 1,000 mg Tablet 1,000 mg PO DAILY multivitamin Tablet 1 tab PO QAM melatonin 10 mg Tablet 10 mg PO BEDTIME magnesium oxide 200 mg magnesium Tablet 400 mg PO DAILY (DME) diabetic shoes/inserts 14 See Rx Instructions Rx Instructions: As directed vitamin B complex Tablet 1 tab PO DAILY allopurinol 300 mg tablet 300 mg PO DAILY Humulin R U-500 (Conc) Kwikpen 500 unit/mL (3 mL) insulin pen 40 unit SUBCUT .before meals sodium bicarbonate 650 mg Tablet 650 mg PO TID Qty: 9 0RF carvedilol 12.5 mg tablet 12.5 mg PO BID Qty: 60 0RF amlodipine 10 mg tablet 10 mg PO DAILY Qty: 60 3RF Discontinued metolazone 5 mg tablet 5 mg PO DAILY Qty: 30 3RF bumetanide 2 mg tablet 2 mg PO DAILY Qty: 60 5RF Discharge Orders: Discharge Order (Routine); Ordered 08/16/23 Ordered By: Denita Ya Referrals: Leandra Reddy MD [Primary Care Provider] - 1 week (You need an appointment with [facility] in 1week to follow up on the hospital stay. They should call you tomorrow with this appointment. If they do not call you by Sunday please give them a call. ) Barbara Irvin FNP [Nurse Practitioner] - 2 weeks (You will have a follow up appointment with Dr Jeremie Yancey on September 25 and 10:30am at [facility]. ) Discharge Diet: Usual diet Discharge Activity: Resume usual activity Patient Instructions: Metolazone (By mouth), Bumetanide (By mouth) (Bumex), Congestive Heart Failure, Opioid Safety Discharge Attestations Time Spent in Discharge Care*: greater than 30 min Specific Discharge Activities: educating and/or supporting family/caregiver, documenting/other paperwork and evaluating patient/reviewing data Quality Metrics Clinical Quality Measures [ No reported AMI, CVA or VTE this stay] Coding Level of Care Code 21254 Diagnoses Chronic congestive heart failure, unspecified heart failure type I50.9 Heart failure chronicity: chronic Heart failure type: unspecified Stage 3b chronic kidney disease N18.32 Chronic kidney disease stage 3 subtype: stage 3b (GFR 30-44) Diabetes mellitus E11.9 Elevated troponin R79.89
[2023-08-16 16:37] VITALS: BP 135/67; PULSE 72; RESP 15; TEMP 36.6; O2SAT 96
--- NOTE | 2023-08-16 16:50 | PC.NURSE ---
Addendum entered by Crystal Pritchett RN 08/16/23 16:54: Patient left with Ipad for his pacemaker and cell phone with all chargers. Original Note: Patient discharged to home. Ride arranged with [facility]. Instruction provided regarding medication changes and follow up appointments. Patient verbalized complete understanding. Patient taken by wheelchair to [facility] pharmacy and to front entrance for discharge.
== END 2023-08-16 16:55 | disposition home or self-care (01) | DRG 291 ==
PROVIDERS: Admitting Provider Student in an Organized Health Care Education/Training Program; PCP Family Medicine; Visit Provider Student in an Organized Health Care Education/Training Program
DX: I13.0 Hypertensive heart and chronic kidney disease with heart failure and stage 1 through stage 4 chronic kidney disease, or unspecified chronic kidney disease (principal); I50.33 Acute on chronic diastolic (congestive) heart failure; E11.9 Type 2 diabetes mellitus without complications; N18.30 Chronic kidney disease, stage 3 unspecified; Z79.4 Long term (current) use of insulin; Z79.82 Long term (current) use of aspirin; R79.89 Other specified abnormal findings of blood chemistry
CPT/HCPCS: 36415; 36416; 71045; 80048; 80053; 82962; 84484; 85025; 93005; 96372; J1644; J1815; J1940

== ENCOUNTER → 2023-08-28 10:26 | Outpatient (BNVA) | payer MEDICARE, SELFPAY | PROVIDERS: PCP Family Medicine; Visit Provider Family Medicine | DX: N18.32 Chronic kidney disease, stage 3b (principal); Z09 Encounter for follow-up examination after completed treatment for conditions other than malignant neoplasm; I50.9 Heart failure, unspecified; E11.65 Type 2 diabetes mellitus with hyperglycemia | CPT/HCPCS: 80053 ==

== ENCOUNTER → 2023-11-01 11:19 | Outpatient (BNVA) | payer MEDICARE, SELFPAY | PROVIDERS: PCP Family Medicine; Visit Provider Family Medicine | DX: N18.32 Chronic kidney disease, stage 3b (principal) | CPT/HCPCS: 80048 ==

== ENCOUNTER → 2023-12-13 11:30 | Outpatient (BNVA) | payer MEDICARE, SELFPAY | PROVIDERS: PCP Family Medicine; Visit Provider Family Medicine | DX: E11.65 Type 2 diabetes mellitus with hyperglycemia (principal) | CPT/HCPCS: 80053 ==

== ENCOUNTER → 2024-01-08 11:51 | Outpatient (BNVA) | payer MEDICARE, SELFPAY | PROVIDERS: PCP Family Medicine; Visit Provider Family Medicine | DX: I10 Essential (primary) hypertension (principal); I50.9 Heart failure, unspecified; E11.9 Type 2 diabetes mellitus without complications | CPT/HCPCS: 80053; 85025 ==

== ENCOUNTER → 2024-02-05 11:13 | Outpatient (BNVA) | payer MEDICARE, SELFPAY | PROVIDERS: PCP Family Medicine; Visit Provider Family Medicine | DX: N18.32 Chronic kidney disease, stage 3b (principal); E11.65 Type 2 diabetes mellitus with hyperglycemia; I10 Essential (primary) hypertension | CPT/HCPCS: 80048 ==

== ENCOUNTER 2024-03-09 18:24 | Inpatient (IN) | payer MEDICARE, SELFPAY ==
[2024-03-09 18:26] VITALS: BP 163/87; PULSE 80; RESP 18; TEMP 36.7; O2SAT 91
--- NOTE | 2024-03-09 18:29 | XRR_ITS ---
PROCEDURE INFORMATION: Exam: XR Chest Exam date and time: 03/09/2024 6:48 PM Age: 63 years old Clinical indication: Shortness of breath; Patient HX: SOB; Cough; Fever TECHNIQUE: Imaging protocol: Radiologic exam of the chest. Views: 1 view. COMPARISON: CR XR chest 1V portable [id number] 08/16/2023 4:55 AM FINDINGS: Limitations: Patient rotation. Tubes, catheters and devices: Left chest wall implantable pacer. Lungs: Patchy airspace opacities in the right mid lung and lung base concerning for consolidation in the setting of cough and fever. Linear opacities in the left lung base appears similar and may represent atelectasis and/or scarring. Pleural spaces: No pleural effusion or pneumothorax. Heart/Mediastinum: Heart size is poorly assessed. Bones/joints: No acute osseous abnormalities are seen. XR/XR chest 1V portable [id number] IMPRESSION: Patchy airspace opacities in the right mid lung and lung base concerning for consolidation/pneumonia in the setting of cough and fever.
--- NOTE | 2024-03-09 18:44 | W.ED.WEAKNES ---
HPI - Weakness General: Chief complaint: Weakness Stated complaint: sob Time Seen by Provider: 03/09/24 18:26 History of Present Illness: 63-year-old man with a history of hypertension, CHF, COPD, coronary artery disease, diabetes, chronic kidney disease, diabetic peripheral neuropathy, hyperlipidemia and peripheral vascular disease who presents to the emergency room by ambulance with shortness of breath. He says he has had about a 15 pound weight gain in the last few days. He is having severe orthopnea. He also reports cough and nausea for the last couple days. He was seen in urgent care for this and was sent to the emergency room because his oxygen saturations were low. EMS reports he was 91% on room air when they picked him up. Review of Systems Narrative: Constitutional symptoms: Negative except as documented in HPI. Skin symptoms: Negative except as documented in HPI. Eye symptoms: Negative except as documented in HPI. ENMT symptoms: Negative except as documented in HPI. Respiratory symptoms: Negative except as documented in HPI. Cardiovascular symptoms: Negative except as documented in HPI. Gastrointestinal symptoms: Negative except as documented in HPI. Genitourinary symptoms: Negative except as documented in HPI. Musculoskeletal symptoms: Negative except as documented in HPI. Neurologic symptoms: Negative except as documented in HPI. Psychiatric symptoms: Negative except as documented in HPI. Endocrine symptoms: Negative except as documented in HPI. PFSH ED PFSH: Medical History Hypertension Poorly controlled type 2 diabetes mellitus CHF (congestive heart failure) COPD (chronic obstructive pulmonary disease) NSTEMI (non-ST elevated myocardial infarction) Diabetic ulcer of left lower leg Acute kidney injury superimposed on CKD High risk medication use Positive LIZBETH (antinuclear antibody) Chronic tophaceous gout of both hands CKD (chronic kidney disease) stage 3, GFR 30-59 ml/min Inflammatory arthritis Somnolence, daytime Bradycardia Recurrent syncope COVID-19 virus infection Type 2 diabetes mellitus Hypercholesteremia PVD (peripheral vascular disease) Diabetic peripheral neuropathy associated with type 2 diabetes mellitus Tick fever Cellulitis and abscess of foot Polyneuropathy, unspecified Hyperchylomicronemia Other deformities of toe(s) (acquired), left foot Controlled diabetes mellitus with diabetic polyneuropathy, with long-term current use of insulin Onychodystrophy Charcot ankle Acquired absence of other toe(s), unspecified side Closed displaced fracture of navicular bone of right foot with routine healing Surgical History History of permanent cardiac pacemaker placement Status post colonoscopy (05/05/20) normal History of foot surgery History of knee surgery Family History Mother CAD (coronary artery disease) in older years, pacemaker Other Cancer Diabetes Hypertension Lung disease Denies family history of Rheumatoid arthritis Lupus Clotting disorder Dementia Hyperlipidemia Psychiatric illness Chronic kidney disease (CKD) Suicide Anesthesia complication Bleeding disorder Family history of premature coronary artery disease Stroke Social History Smoking and tobacco/nicotine status: unknown if used tobacco/nicotine Second hand smoke exposure: No Alcohol intake: never Substance/Drug Use: never Physical Exam Narrative: EXAM NARRATIVE: General: Alert, no acute distress. Skin: Warm, dry. Head: Normocephalic, atraumatic. Neck: Supple, trachea midline. Eye: Extraocular movements are intact. Ears, nose, mouth and throat: mucosa moist. Cardiovascular: Regular, Normal peripheral perfusion. Extensive lower extremity edema Respiratory: Coarse, some mild wheeze, mild tachypnea, mild increased work of breathing with any movement. Oxygen saturations drop with movement as well. Gastrointestinal: Soft, Nontender, Non distended Musculoskeletal: Normal ROM, no deformity. Neurological: Alert and oriented, No focal neurological deficit observed. Psychiatric: Cooperative, appropriate mood & affect. Course Vital Signs: Vital signs: Vital Signs Temperature 98.0 F 03/09/24 18:26 Pulse Rate 63 03/09/24 19:53 Respiratory Rate 25 H 03/09/24 19:53 Blood Pressure 150/75 03/09/24 19:53 Pulse Oximetry 92 03/09/24 19:53 Oxygen Delivery Me thod Room Air 03/09/24 19:53 MDM - Weakness Medical Decision Making Differential diagnosis for patient with shortness of breath includes but is not limited to and based on the above HPI, review of systems and physical exam: Pneumonia. Bronchitis. Asthma or COPD with acute exacerbation. Acute coronary syndrome / AL. Pulmonary embolism. Anxiety. Congestive heart failure. Viral infections including influenza and Covid-19. Atrial fibrillation. Anxiety. Pleural effusion. Pneumothorax. Orders placed to evaluate differential diagnosis based on the above differential, HPI and physical exam EKG: Time 184. Rate 78. Normal sinus rhythm, No ST-T changes, no ectopy, paced rhythm, this was reviewed and interpreted by myself the emergency room physician at 1850 AB.47/36/52 with an O2 sat of 86% on room air. Chest x-ray: Infiltrate in the right lung. Appears dense. A CT was ordered. This was reviewed and interpreted by myself the emergency room physician. I also reviewed the radiology report. CT of the chest without contrast: Density in the right lung. This could be infectious but also could be malignancy. Given a normal chest x-ray and his symptoms I am leaning towards pneumonia and we will treat as such for now. Lab Review: Laboratory results were reviewed and interpreted by myself the emergency room physician. No leukocytosis. No anemia. BUN and creatinine are little lower than his baseline at 59 and 2.3. His troponin is slightly elevated over his baseline at over 100. proBNP is elevated at 17,000. I reviewed the patient's medical record. Reexamination: Patient seems to be in quite a bit better on oxygen. No focal motor deficits. No altered mental status. Work of breathing has improved now that he is resting and on oxygen. Consultation: I spoke with Dr. Hernandez who is on-call for the hospitalist service who agrees to admission. Assessment and plan: Pneumonia Exacerbation of congestive heart failure Hypoxemia Hyperglycemia Poorly controlled diabetes Chronic kidney disease Chronic obstructive pulmonary disease ?Patient has had symptoms consistent with pneumonia. Shortness of breath, cough, difficulty getting up his secretions. Giving Rocephin and doxycycline for now. No evidence of sepsis. He has renal failure so I am avoiding Levaquin and Zosyn. ?Patient's proBNP is 17,000 which is significantly up above his normal and he had 15 pound weight gain. Heart looks slightly larger than usual. He is having orthopnea. 80 mg IV Lasix given. ?Some wheeze and hypoxemia, may be some component of his COPD so updraft and Solu-Medrol were given. -I discussed the patient with the hospitalist on-call who is admitting the patient. - Discussed findings and plan with patient. Answered any questions. - All laboratory values were reviewed and interpreted personally by myself, the ER physician - All imaging was reviewed and interpreted personally by myself, the ER physician. - Evaluation and treatment of this problem were appropriate in the emergency setting Critical care -I spent a total of >35 minutes of critical care time managing the patient, independent of any other practitioner. -The time involved in the performance of separately reportable procedures was not counted towards critical care time. Lab Data 03/09/24 18:43 12 18:43 Radiology Impressions Chest X-Ray 03/09/24 18:29 IMPRESSION: Patchy airspace opacities in the right mid lung and lung base concerning for consolidation/pneumonia in the setting of cough and fever. Chest CT 03/09/24 18:57 IMPRESSION: 1. Scattered clustered nodules as well as a more focal consolidative nodular opacity in the right upper lobe. While neoplasm is potential etiology, multifocal atypical infection is suspected and short interval follow-up is recommended. PET-CT or tissue sampling can also be considered. 2. Multiple enlarged mediastinal lymph nodes are nonspecific and could be reactive or metastatic in nature. COMMENTS: For patients at low risk (minimal or absent history of smoking and of other known risk factors), recommend CT Chest at 3-6 months, then consider CT Chest at 18-24 months. For patients at high risk (history of smoking or of other known risk factors), recommend CT Chest at 3-6 months, then CT Chest at 18-24 months. (Reference: Michael) REFERENCES: Michael Colindres, et al. Guidelines for Management of Incidental Pulmonary Nodules Detected on CT Images: From the Fleischner Society 2017. Radiology. 2017;284(1):228-243. Laboratory Results WBC 9.11 10^3/uL (3.29-11.43) 03/09/24 18:43 RBC 3.52 10^6/uL (3.85-5.65) L 03/09/24 18:43 Hgb 11.30 g/dL (11.27-16.99) 03/09/24 18:43 Hct 33.6 % (37-53) L 03/09/24 18:43 MCV 95.5 fl (82-101) 03/09/24 18:43 MCH 32.1 pg (27-33) 03/09/24 18:43 MCHC 33.6 g/dL (30-55) 03/09/24 18:43 RDW 13.5 % (12.1-15.1) 03/09/24 18:43 Plt Count 208 10^3/cmm (157-399) 03/09/24 18:43 MPV 11.1 fL (7.4-10.4) H 03/09/24 18:43 Neut % (Auto) 85.2 % 03/09/24 18:43 Lymph % (Auto) 4.7 % 03/09/24 18:43 Davie % (Auto) 8.7 % 03/09/24 18:43 Eos % (Auto) 0.3 % 03/09/24 18:43 Baso % (Auto) 0.4 % 03/09/24 18:43 Neut # (Auto) 7.76 10^3/uL (1.8-7.7) H 03/09/24 18:43 Lymph # (Auto) 0.4 10^3/uL (0.8-4.8) L 03/09/24 18:43 Davie # (Auto) 0.8 10^3/uL (0.2-0.9) 03/09/24 18:43 Eos # (Auto) 0.0 10^3/uL (0.0-0.8) 03/09/24 18:43 Baso # (Auto) 0.0 10^3/uL (0.0-0.1) 03/09/24 18:43 Nucleated RBC % (auto) 0 % 03/09/24 18:43 Nucleated RBCs # 0.0 /100WBC 03/09/24 18:43 Specimen Type Arterial 03/09/24 19:14 Sample Site Brachial, right 03/09/24 19:14 ABG pH 7.47 (7.35-7.45) H 03/09/24 19:14 ABG pCO2 36.4 mmHg (35-45) 03/09/24 19:14 ABG pO2 51.9 mmHg (80.0-100.0) L 03/09/24 19:14 ABG HCO3 26.4 mmol/L (22-26) H 03/09/24 19:14 ABG O2 Saturation 86.8 03/09/24 19:14 ABG Base Excess 2.8 mmol/L (-2.0-2.0) H 03/09/24 19:14 Jelani Test N/a 03/09/24 19:14 A-a O2 Gradient 6.9 mmHg (5-10) 03/09/24 19:14 Hematocrit 38.0 % (42-52) L 03/09/24 19:14 Hgb O2 Saturation 85.9 % (95-100) L 03/09/24 19:14 Carboxyhemoglobin 0.7 %THgb (0.4-20.1) 03/09/24 19:14 Methemoglobin 0.2 % (0.4-1.5) L 03/09/24 19:14 Total Hemoglobin 12.4 g/dL (14-18) L 03/09/24 19:14 Sodium 132.0 mmol/L (131-143) 03/09/24 19:14 Potassium 3.7 mmol/L (3.5-5.0) 03/09/24 19:14 Glucose 258.0 mg/dL (70-115) H 03/09/24 19:14 Ionized Calcium 1.1 mmol/L (1.1-1.4) 03/09/24 19:14 O2 Delivery Device None 03/09/24 19:14 Mental Health Specialist ID Hunter 03/09/24 19:14 Sodium 133 mmol/L (136-145) L 03/09/24 18:43 Potassium 4.0 mmol/L (3.5-5.1) 03/09/24 18:43 Chloride 90 mmol/L (98-107) L 03/09/24 18:43 Carbon Dioxide 24 mmol/L (22-29) 03/09/24 18:43 Anion Gap 23.0 (5-19) H 03/09/24 18:43 BUN 59 mg/dL (8-23) H 03/09/24 18:43 Creatinine 2.3 mg/dL (0.7-1.2) H 03/09/24 18:43 GFR Calculation 28.9 mL/min (90-130) L 03/09/24 18:43 Glucose 259 mg/dL (65-115) H 03/09/24 18:43 Calculated Osmolality 301 mOsm/kg (285-295) H 03/09/24 18:43 Lactic Acid 1.1 mmol/L (0.5-2.2) 03/09/24 18:43 Calcium 9.1 mg/dL (8.5-10.5) 03/09/24 18:43 Total Bilirubin 0.9 mg/dL (0.15-1.2) 03/09/24 18:43 AST 19 U/L (0-40) 03/09/24 18:43 ALT 28 U/L (0-41) 03/09/24 18:43 Alkaline Phosphatase 126 U/L (40-130) 03/09/24 18:43 Troponin T Baseline 104 ng/L (0-15) H* 03/09/24 18:43 NT-Pro-B Natriuret Pep 05962 pg/mL (0-125) H 03/09/24 18:43 Total Protein 6.6 g/dL (6.6-8.7) 03/09/24 18:43 Albumin 4.1 g/dL (3.5-5.2) 03/09/24 18:43 Globulin 2.5 g/dL (1.3-4.6) 03/09/24 18:43 Coronavirus (PCR) Negative (Negative) 03/09/24 18:48 Influenza A (PCR) Negative (Negative) 03/09/24 18:48 Influenza Type B (PCR) Negative (Negative) 03/09/24 18:48 RSV (PCR) Negative (Negative) 03/09/24 18:48 All radiology interpretation(s) finalized by discharge Discharge Plan Discharge Patient Disposition: Admitted As Inpatient Clinical Impression: Pneumonia, CHF (congestive heart failure), COPD (chronic obstructive pulmonary disease), Hypoxemia, Edema, CKD (chronic kidney disease) Condition: Stable Coding Level of Care Code ED Operations Research Director for g Fwd Related Data Home Medications Medication Instructions Recorded Confirmed aspirin 81 mg tablet,delayed 81 mg PO QAM 06/10/19 03/09/24 release ascorbic acid (vitamin C) 1,000 mg 1,000 mg PO DAILY 05/04/20 03/09/24 tablet (Vitamin C) magnesium oxide 400 mg PO DAILY 01/11/21 03/09/24 melatonin 10 mg tablet 10 mg PO BEDTIME 01/11/21 03/09/24 multivitamin 1 tab PO QAM 01/11/21 03/09/24 vitamin K2 100 mcg capsule 100 mcg PO DAILY PRN UNKNOWN 05/17/21 03/09/24 pyridoxine (vitamin B6) 200 mg 200 mg PO DAILY 05/25/21 03/09/24 tablet,extended release black seed oil 1 tab PO DAILY 09/13/21 03/09/24 insulin regular hum U-500 conc 500 40 unit SUBCUT .before meals 08/09/23 03/09/24 unit/mL(3 mL) subcut pen (Humulin R U-500 (Conc) Insulin Kwikpen) vitamin B complex 1 tab PO DAILY 08/09/23 03/09/24 diabetic shoes/inserts 08/14/23 03/09/24 Previous Rx's Medication Instructions Recorded amlodipine 10 mg tablet 10 mg PO DAILY #60 tabs 08/12/23 carvedilol 12.5 mg tablet 12.5 mg PO BID #60 tabs 08/12/23 sodium bicarbonate 650 mg tablet 650 mg PO TID #9 tabs 08/12/23 potassium chloride 10 mEq 10 meq PO DAILY #60 tabs 08/14/23 tablet,extended release lactulose 10 gram/15 mL (15 mL) 20 g (30 mL) PO BID #1,440 mL 10/04/23 oral solution bumetanide 2 mg tablet See Rx Instructions .Route 10/17/23 .COMPLEX #60 tabs metolazone 5 mg tablet See Rx Instructions .Route 10/17/23 .COMPLEX #30 tabs lidocaine HCl 2 % mucosal solution 1 applic mucous membrane TID PRN 11/13/23 (Lidocaine Viscous) pain #100 mL nystatin 100,000 unit/mL oral See Rx Instructions .Route 12/24/23 suspension .COMPLEX #30 mL allopurinol 300 mg tablet See Rx Instructions .Route 01/03/24 .COMPLEX #90 tabs Allergies Allergy/AdvReac Type Severity Reaction Status Date / Time No Known Allergies Allergy Verified 03/09/24 17:03
--- NOTE | 2024-03-09 18:45 | ECG_ITS ---
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 Measurements Intervals [place] Rate: 78 P: 141 PA: 226 QRS: 33 QRSD: 109 T: 37 QT: 371 QTc: 423 Interpretive Statements ELECTRONIC ATRIAL PACEMAKER NONSPECIFIC ST & T-WAVE ABNORMALITY ABNORMAL RHYTHM ECG Compared to ECG 08/15/2023 00:53:23 Sinus rhythm no longer present Possible ischemia no longer present T-wave abnormality still present Electronically Signed On 03-09-2024 22:29:31 LIFE SCIENCES TEACHER by Cory Gomez M.D. [email or web address]
--- NOTE | 2024-03-09 18:57 | CTR_ITS ---
PROCEDURE INFORMATION: Exam: CT Chest Without Contrast; Diagnostic Exam date and time: 03/09/2024 7:08 PM Age: 63 years old Clinical indication: Cough and shortness of breath; Prior surgery; Surgery date: 6+ months; Surgery type: Pacer; Patient HX: C/O cough with SOB. History of chf, copd, and ckd. ; Additional info: Abnormal chest xray TECHNIQUE: Imaging protocol: Diagnostic computed tomography of the chest without contrast. Radiation optimization: All CT scans at this facility use at least one of these dose optimization techniques: automated exposure control; mA and/or kV adjustment per patient size (includes targeted exams where dose is matched to clinical indication); or iterative reconstruction. COMPARISON: CR (CHEST, ) 03/09/2024 6:48 PM RADIATION DOSE METRICS: Total DLP (mGy-cm): 924.57 FINDINGS: Lungs: Focal nodular opacities in the anterolateral right upper lobe are nonspecific and are suspicious for focal consolidation. Clustered 4-6 mm nodules are noted in the anterior superior right lower lobe. There are few small tree-in-bud opacities in the posterior right middle lobe. Breathing artifact limits evaluation of the pulmonary parenchyma. There is suggested tree-in-bud or clustered nodular opacities in the inferior left lower lobe. Pleural spaces: No pleural effusion or pneumothorax. Heart: Mild cardiomegaly. No pericardial effusion or pericardial thickening. Coronary arteries: Severe coronary artery calcification. Lymph nodes: Multiple enlarged mediastinal lymph nodes. A right paratracheal lymph node measures 2.7 x 2.0 cm. An aortopulmonary window lymph node measures 1.7 x 2.9 cm. Sayra are not well evaluated in the absence of intravenous contrast. No definitively enlarged axillary lymph nodes. Vasculature: Atherosclerotic calcifications of the aorta are present. No aneurysm is identified. Bones/joints: No acute osseous abnormalities are seen. Soft tissues: The soft tissues are within normal limits. CT/CT chest wo con [id number] IMPRESSION: 1. Scattered clustered nodules as well as a more focal consolidative nodular opacity in the right upper lobe. While neoplasm is potential etiology, multifocal atypical infection is suspected and short interval follow-up is recommended. PET-CT or tissue sampling can also be considered. 2. Multiple enlarged mediastinal lymph nodes are nonspecific and could be reactive or metastatic in nature. COMMENTS: For patients at low risk (minimal or absent history of smoking and of other known risk factors), recommend CT Chest at 3-6 months, then consider CT Chest at 18-24 months. For patients at high risk (history of smoking or of other known risk factors), recommend CT Chest at 3-6 months, then CT Chest at 18-24 months. (Reference: Michael) REFERENCES: Michael Colindres, et al. Guidelines for Management of Incidental Pulmonary Nodules Detected on CT Images: From the Fleischner Society 2017. Radiology. 2017;284(1):228-243.
[2024-03-09 19:17] LABS: Lactic Sepsis W/Reflex 1.1 mmol/L (0.5-2.2)
[2024-03-09 19:20] LABS: Troponin(5th) Baseline 104 ng/L (0-15)
[2024-03-09 19:34] LABS: Covid PCR NEGATIVE (Negative); Influenza A NEGATIVE (Negative); Influenza B NEGATIVE (Negative); Respiratory Syncytial Virus Ce NEGATIVE (Negative)
[2024-03-09] MEDS: FUROsemide 10 mg/mL SDV 10mL 80 MG IVP (19:34)
[2024-03-09 19:46] LABS: Basophils % 0.4 %; Eosinophils % 0.3 %; Hematocrit 33.6 % (37-53); Lymphocytes # 0.4 10^3/uL (0.8-4.8); Lymphocytes % 4.7 %; Mean Corpuscular HGB Conc 33.6 g/dL (30-55); Mean Corpuscular Hemoglobin 32.1 pg (27-33); Mean Corpuscular Volume 95.5 fl (82-101); Mean Platelet Volume 11.1 fL (7.4-10.4); Monocytes # 0.8 10^3/uL (0.2-0.9); Monocytes % 8.7 %; Neutrophils # 7.76 10^3/uL (1.8-7.7); Neutrophils % 85.2 %; Nucleated Red Blood Cells % 0 %; Platelet Count 208 10^3/cmm (157-399); Red Blood Count 3.52 10^6/uL (3.85-5.65); Red Cell Distribution Width 13.5 % (12.1-15.1); White Blood Count 9.11 10^3/uL (3.29-11.43)
[2024-03-09 19:53] VITALS: BP 150/75; PULSE 63; RESP 25; O2SAT 92
--- NOTE | 2024-03-09 19:55 | PC.NURSE ---
Rounded on pt. Pt sitting up in bed. Reports feeling better at this time. Denies further needs
[2024-03-09 19:59] LABS: ABG PCO2 36.4 mmHg (35-45); ABG PH Result 7.47 (7.35-7.45); Alveolar-Arterial Oxygen Gradi 6.9 mmHg (5-10); Base Excess ABG 2.8 mmol/L (-2.0-2.0); Blood Gas Operator Identificat SAM; Blood Gas Sample Site Brachial, right; Blood Gas Sample Type Arterial; Carboxyhemoglobin 0.7 %THgb (0.4-20.1); HCO3 ABG 26.4 mmol/L (22-26); HGB O2 Sat 85.9 % (95-100); Ionized Calcium Level - ABG 1.1 mmol/L (1.1-1.4); Methemoglobin 0.2 % (0.4-1.5); Oxygen Saturation ABG 86.8; PO2 ABG 51.9 mmHg (80.0-100.0); Potassium Level - ABG 3.7 mmol/L (3.5-5.0); Total Hemoglobin 12.4 g/dL (14-18)
[2024-03-09 20:06] LABS: Alanine Aminotransferase 28 U/L (0-41); Albumin Level 4.1 g/dL (3.5-5.2); Alkaline Phosphatase 126 U/L (40-130); Aspartate Amino Transferase 19 U/L (0-40); Blood Urea Nitrogen 59 mg/dL (8-23); Calcium 9.1 mg/dL (8.5-10.5); Carbon Dioxide 24 mmol/L (22-29); Chloride 90 mmol/L (98-107); Creatinine Clr Calc Pharmacy 46.5366; Globulin 2.5 g/dL (1.3-4.6); Glomerular Filtration Rate 28.9 mL/min (90-130); Glucose 259 mg/dL (65-115); Osmolality Calculated 301 mOsm/kg (285-295); Sodium 133 mmol/L (136-145); Total Bilirubin 0.9 mg/dL (0.15-1.2); Total Protein 6.6 g/dL (6.6-8.7)
[2024-03-09 20:13] LABS: NT Pro B Type Natriuretic Pept 17080 pg/mL (0-125)
--- NOTE | 2024-03-09 20:39 | ECG_ITS ---
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 Measurements Intervals [place] Rate: 91 P: 48 CO: 195 QRS: 31 QRSD: 115 T: 66 QT: 365 QTc: 450 Interpretive Statements SINUS RHYTHM MODERATE INTRAVENTRICULAR CONDUCTION DELAY [110+ ms QRS DURATION] NONSPECIFIC ST & T-WAVE ABNORMALITY Compared to ECG 03/09/2024 18:45:14 Intraventricular conduction delay now present Atrial-paced complex(es) or rhythm no longer present T-wave abnormality still present Electronically Signed On 03-09-2024 22:37:44 COMMISSARY ASSISTANT by Cory Gomez M.D. [id number]
[2024-03-09 21:00] VITALS: BP 153/78; PULSE 89; RESP 24; O2SAT 94
[2024-03-09] MEDS: methylPREDNISolone sod succ 125 mg/2 mL INJ IVP (21:03)
[2024-03-09] MEDS: cefTRIAXone 1,000 mg SDV 1000 MG IVP (21:03)
--- NOTE | 2024-03-09 21:18 | PC.NURSE ---
Patient wanting to walk to toilet to void. Patient educated to use urinal in order for measurement of urinary output.
[2024-03-09 21:21] VITALS: PULSE 87; RESP 15; O2SAT 97
[2024-03-09] MEDS: albuterol 2.5 mg/3 mL Neb INHALATION (21:21)
--- NOTE | 2024-03-09 21:28 | P.HP_ITS ---
Providers/Chief Complaint 2 Admitting Physician: Charlie Hernandez MD Primary Care Provider: Leandra Reddy MD Chief Complaint: sob History of Present Illness Jack Springer is a 63 year old male who has multiple comorbid conditions CHF, chronic kidney disease, COPD, coronary disease, diabetes, neuropathy, peripheral vascular disease coming in for worsening of shortness of breath. Patient is stating that he normally sleeps in a recliner because he has significant orthopnea and PND, he is compliant with his Bumex 2 mg regimen. He has gained 15 to 20 pounds in last few days. He has not noticed any significant chest pain, he is endorsing fever 100.5 along sputum production, patient was 91% on room air as per the EMS. At the time of my evaluation he is requiring 2 L oxygen via nasal cannula. No active chest pain or complaining of shortness of breath. Patient is also constipated. In the ER he has been diagnosed with community-acquired pneumonia and CHF exacerbation. Review of Systems 2 Const: Reports: fever(s) Eyes: Denies: change in vision ENMT: Denies: throat pain Card: Reports: swelling of feet/ankles Resp: Reports: dyspnea GI: Reports: nausea : Denies: flank pain Medications/Allergies Home Medications Medication Instructions Recorded Confirmed Last Taken Type aspirin 81 mg tablet,delayed 81 mg PO QAM 06/10/19 03/09/24 08/14/23 History release ascorbic acid (vitamin C) 1,000 mg 1,000 mg PO DAILY 05/04/20 03/09/24 08/14/23 History tablet (Vitamin C) magnesium oxide 400 mg PO DAILY 01/11/21 03/09/24 08/14/23 History melatonin 10 mg tablet 10 mg PO BEDTIME 01/11/21 03/09/24 08/13/23 History multivitamin 1 tab PO QAM 01/11/21 03/09/24 08/14/23 History vitamin K2 100 mcg capsule 100 mcg PO DAILY PRN UNKNOWN 05/17/21 03/09/24 08/14/23 History pyridoxine (vitamin B6) 200 mg 200 mg PO DAILY 05/25/21 03/09/24 08/14/23 History tablet,extended release black seed oil 1 tab PO DAILY 09/13/21 03/09/24 08/14/23 History insulin regular hum U-500 conc 500 40 unit SUBCUT .before meals 08/09/23 03/09/24 08/14/23 History unit/mL(3 mL) subcut pen (Humulin R U-500 (Conc) Insulin Kwikpen) vitamin B complex 1 tab PO DAILY 08/09/23 03/09/24 08/14/23 History amlodipine 10 mg tablet 10 mg PO DAILY #60 tabs 08/12/23 03/09/24 08/14/23 Rx carvedilol 12.5 mg tablet 12.5 mg PO BID #60 tabs 08/12/23 03/09/24 08/14/23 Rx sodium bicarbonate 650 mg tablet 650 mg PO TID #9 tabs 08/12/23 03/09/24 08/13/23 Rx diabetic shoes/inserts 08/14/23 03/09/24 Unknown History potassium chloride 10 mEq 10 meq PO DAILY #60 tabs 08/14/23 03/09/24 08/14/23 Rx tablet,extended release lactulose 10 gram/15 mL (15 mL) 20 g (30 mL) PO BID #1,440 mL 10/04/23 03/09/24 Unknown Rx oral solution bumetanide 2 mg tablet See Rx Instructions .Route 10/17/23 03/09/24 Unknown Rx .COMPLEX #60 tabs metolazone 5 mg tablet See Rx Instructions .Route 10/17/23 03/09/24 Unknown Rx .COMPLEX #30 tabs lidocaine HCl 2 % mucosal solution 1 applic mucous membrane TID PRN 11/13/23 03/09/24 Unknown Rx (Lidocaine Viscous) pain #100 mL nystatin 100,000 unit/mL oral See Rx Instructions .Route 12/24/23 03/09/24 Unknown Rx suspension .COMPLEX #30 mL allopurinol 300 mg tablet See Rx Instructions .Route 01/03/24 03/09/24 Unknown Rx .COMPLEX #90 tabs Allergies Allergy/AdvReac Type Severity Reaction Status Date / Time No Known Allergies Allergy Verified 03/09/24 17:03 PFSH Acute 2 PFSH: Medical History Hypertension Poorly controlled type 2 diabetes mellitus CHF (congestive heart failure) COPD (chronic obstructive pulmonary disease) NSTEMI (non-ST elevated myocardial infarction) Diabetic ulcer of left lower leg Acute kidney injury superimposed on CKD High risk medication use Positive LIZBETH (antinuclear antibody) Chronic tophaceous gout of both hands CKD (chronic kidney disease) stage 3, GFR 30-59 ml/min Inflammatory arthritis Somnolence, daytime Bradycardia Recurrent syncope COVID-19 virus infection Type 2 diabetes mellitus Hypercholesteremia PVD (peripheral vascular disease) Diabetic peripheral neuropathy associated with type 2 diabetes mellitus Tick fever Cellulitis and abscess of foot Polyneuropathy, unspecified Hyperchylomicronemia Other deformities of toe(s) (acquired), left foot Controlled diabetes mellitus with diabetic polyneuropathy, with long-term current use of insulin Onychodystrophy Charcot ankle Acquired absence of other toe(s), unspecified side Closed displaced fracture of navicular bone of right foot with routine healing Surgical History History of permanent cardiac pacemaker placement Status post colonoscopy (05/05/20) normal History of foot surgery History of knee surgery Family History Mother CAD (coronary artery disease) in older years, pacemaker Other Cancer Diabetes Hypertension Lung disease Denies family history of Rheumatoid arthritis Lupus Clotting disorder Dementia Hyperlipidemia Psychiatric illness Chronic kidney disease (CKD) Suicide Anesthesia complication Bleeding disorder Family history of premature coronary artery disease Stroke Social History Smoking and tobacco/nicotine status: unknown if used tobacco/nicotine Second hand smoke exposure: No Alcohol intake: never Substance/Drug Use: never Vitals/I&O/Wt Last Vital Signs Temp 98.0 F 03/09/24 18:26 Pulse 87 03/09/24 21:21 Resp 15 03/09/24 21:21 BP 153/78 03/09/24 21:00 Pulse Ox 97 03/09/24 21:21 O2 Del Method Nasal Cannula 03/09/24 21:21 O2 Flow Rate 3 03/09/24 21:21 Weight last 48 hrs Weight 133.81 kg Physical Exam 2 Narrative: Morbidly obese male Currently on 2 L No active chest pain S1, S2 Signs of fluid overload present Distended nontender abdomen Pleasant and cooperative GCS 15 NIH 0 Data 03/09/24 18:43 03/09/24 18:43 Micro: Microbiology 03/09/24 18:45 Blood Culture - Preliminary Blood SPECIMEN COLLECTED 03/09/24 18:43 Blood Culture - Preliminary Blood SPECIMEN COLLECTED A&P Assessment and plan (1) Community acquired pneumonia: (2) CHF (congestive heart failure): Qualifiers: Heart failure type: unspecified Heart failure chronicity: chronic Qualified Code(s): I50.9 - Heart failure, unspecified (3) Poorly controlled type 2 diabetes mellitus: (4) CKD (chronic kidney disease) stage 3, GFR 30-59 ml/min: Qualifiers: Chronic kidney disease stage 3 subtype: stage 3b (GFR 30-44) Qualified Code(s): N18.32 - Chronic kidney disease, stage 3b (5) COPD (chronic obstructive pulmonary disease): (6) Hypoxemia: (7) Edema: (8) Non-STEMI (non-ST elevated myocardial infarction): Plan Acute CHF exacerbation Preserve ejection fraction heart failure exacerbation I will increase the dose of Bumex, check BMP 12 hours and add potassium supplementation Echo showed preserved action fraction, no active chest pain Non-STEMI: Type II IA? Previously troponins were elevated at 112 no active chest pain, hemodynamically stable EKG showing no active ischemic or infarctive changes, I would hold off on ACS protocol at this point Community-acquired pneumonia will use ceftriaxone and doxycycline Acute hypoxia requiring 2 to 3 L Secondary to fluid overload Will need oxygen evaluation before discharge Chronic kidney disease: Creatinine seems to be around baseline Will use cardiac consistent carb diet Sliding scale of insulin Full code Patient lives alone, uses a walker and a cane at home Attestations 2 Medical Necessity Statement*: Anticipating discharge within 48 hours Diagnoses Community acquired pneumonia J18.9 Chronic congestive heart failure, unspecified heart failure type I50.9 Heart failure type: unspecified Heart failure chronicity: chronic Poorly controlled type 2 diabetes mellitus E11.65 Stage 3b chronic kidney disease N18.32 Chronic kidney disease stage 3 subtype: stage 3b (GFR 30-44) COPD (chronic obstructive pulmonary disease) J44.9 Hypoxemia R09.02 Edema R60.9 Non-STEMI (non-ST elevated myocardial infarction) I21.4
[2024-03-09 21:31] LABS: Troponin 5 2HR Delta 7.6 ABS# (0-10)
[2024-03-09 21:34] LABS: Troponin 5 2HR 111.6 ng/L (0-15)
[2024-03-09] MEDS: doxycycline 100 MG in sodium chloride 0.9% (plus) 100 ML IV (21:34)
--- NOTE | 2024-03-09 21:56 | PC.NURSE ---
Dr. Hernandez notified that patient received IV Lasix in the ED and that he has IV Bumex ordered to start now. Ordered to start Bumex tomorrow. Also notified of blood pressure of 196/74. Ordered to give Hydralazine x1.
--- NOTE | 2024-03-09 21:59 | PC.NURSE ---
Unable to verify med rec at this time. Patient states all of his medications are in his car at urgent care. Patient states he fills all of his medications with our pharmacy on [facility] and that we should have the list.
[2024-03-09 22:00] VITALS: BP 196/74; PULSE 82; RESP 16; TEMP 37; O2SAT 95
[2024-03-09 22:03] LABS: Glucose Point of Care 315 mg/dL (70-110)
[2024-03-09] MEDS: heparin 5,000 unit/mL INJ 1 mL 5000 UNIT SUBCUT (22:14)
[2024-03-09] MEDS: hyDRALAzine 20 mg/mL INJ 1 mL 10 MG IVP (22:15)
[2024-03-09] MEDS: insulin lispro 100 unit/1 mL SUBCUT (22:15)
[2024-03-10] VITALS (9 sets, daily range): BP systolic 147–166; BP diastolic 72–85; PULSE 63–100; RESP 15–18; TEMP 36.5–36.9; O2SAT 87–96
--- NOTE | 2024-03-10 01:05 | ECG_ITS ---
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 Measurements Intervals [place] Rate: 84 P: 50 [place]: 217 QRS: 20 QRSD: 124 T: 65 QT: 349 QTc: 415 Interpretive Statements SINUS RHYTHM WITH FIRST DEGREE AV BLOCK WITH FREQUENT VENTRICULAR PREMATURE COMPLEXES POSSIBLE SEPTAL MYOCARDIAL INFARCTION , PROBABLY OLD [30 ms Q WAVE IN V1/V2] Compared to ECG 03/09/2024 20:39:40 Ventricular premature complex(es) now present First degree AV block now present Myocardial infarct finding now present Intraventricular conduction delay no longer present T-wave abnormality no longer present Electronically Signed On 03-10-2024 19:34:30 [employer] by Cory Gomez M.D. [email or web address]
[2024-03-10 01:31] LABS: Basophils % 0.2 %; Hematocrit 32.5 % (37-53); Lymphocytes # 0.4 10^3/uL (0.8-4.8); Lymphocytes % 4.4 %; Mean Corpuscular HGB Conc 33.5 g/dL (30-55); Mean Corpuscular Hemoglobin 31.5 pg (27-33); Mean Corpuscular Volume 93.9 fl (82-101); Mean Platelet Volume 10.4 fL (7.4-10.4); Monocytes # 0.2 10^3/uL (0.2-0.9); Monocytes % 2.2 %; Neutrophils # 7.83 10^3/uL (1.8-7.7); Neutrophils % 92.3 %; Nucleated Red Blood Cells % 0 %; Platelet Count 203 10^3/cmm (157-399); Red Blood Count 3.46 10^6/uL (3.85-5.65); Red Cell Distribution Width 13.4 % (12.1-15.1); White Blood Count 8.49 10^3/uL (3.29-11.43)
[2024-03-10 01:33] LABS: Troponin 5 6HR Delta 0.5 ng/L (0-12)
[2024-03-10 01:44] LABS: Troponin 5 6HR 104.5 ng/L (0-15)
[2024-03-10 02:07] LABS: Anion Gap 16.9 (5-19); Blood Urea Nitrogen 59 mg/dL (8-23); C Reactive Protein 32.5 mg/L (0.0-4.9); Calcium 8.9 mg/dL (8.5-10.5); Carbon Dioxide 27 mmol/L (22-29); Chloride 92 mmol/L (98-107); Creatinine Clr Calc Pharmacy 40.9879; Glomerular Filtration Rate 25.1 mL/min (90-130); Glucose 297 mg/dL (65-115); Magnesium 2.3 mg/dL (1.7-2.3); Osmolality Calculated 302 mOsm/kg (285-295); Potassium 3.9 mmol/L (3.5-5.1); Sodium 132 mmol/L (136-145)
[2024-03-10 03:54] LABS: Glucose Point of Care 325 mg/dL (70-110)
[2024-03-10] MEDS: insulin lispro 100 unit/1 mL SUBCUT ×4 (06:24→21:40)
[2024-03-10 06:26] LABS: Glucose Point of Care 407 mg/dL (70-110)
[2024-03-10] MEDS: magnesium oxide 400 mg tablet PO (08:49)
[2024-03-10] MEDS: doxycycline 100 mg Tablet PO ×2 (08:49→17:12)
[2024-03-10] MEDS: allopurinol 300 mg Tablet PO (08:49)
[2024-03-10] MEDS: aspirin 81 mg EC Tablet PO (08:49)
[2024-03-10] MEDS: heparin 5,000 unit/mL INJ 1 mL 5000 UNIT SUBCUT ×2 (08:49→21:41)
[2024-03-10] MEDS: carvedilol 12.5 mg Tablet PO ×2 (08:49→17:12)
[2024-03-10] MEDS: potassium chloride ER 20 mEq Tablet 40 MEQ PO (08:49)
[2024-03-10] MEDS: sennosides-docusate Tablet 1 TAB PO (08:49)
[2024-03-10] MEDS: sodium bicarbonate 650 mg Tablet PO ×3 (08:49→21:41)
[2024-03-10] MEDS: bumetanide 0.25 mg/mL SDV 10 mL 2 MG IVP ×2 (08:50→21:40)
[2024-03-10 11:28] LABS: Glucose Point of Care 380 mg/dL (70-110)
[2024-03-10 16:47] LABS: Glucose Point of Care 300 mg/dL (70-110)
--- NOTE | 2024-03-10 20:10 | P.PN_ITS ---
Subjective 2 Subjective: He overall feels slightly better. Still requiring oxygen. Not on oxygen normally. Desaturated down to 87% while getting up to walk. Vitals/I&O/Wt Last Vital Signs Temp 98.4 F 03/10/24 20:00 Pulse 63 03/10/24 20:00 Resp 16 03/10/24 20:00 BP 153/79 03/10/24 20:00 Pulse Ox 91 03/10/24 20:00 O2 Del Method Room Air 03/10/24 20:00 O2 Flow Rate 2 03/10/24 09:40 03/10/24 03/10/24 03/10/24 06:59 14:59 22:59 Intake Total 120 / 220 840 / 840 680 / 1520 Balance 120 / -580 840 / 840 680 / 1520 Weight last 48 hrs Weight 132.503 kg Weight 132.812 kg Weight 132.721 kg Weight 133.81 kg Physical Exam 2 Const: COMMON NORMALS: patient oriented x3 and alert GENERAL APPEARANCE: c ooperative ORIENTATION/CONSCIOUSNESS: Yes awake HENMT: COMMON NORMALS: oropharynx normal Neck/C-Spine: COMMON NORMALS: no JVD Resp: COMMON NORMALS: normal respiratory effort AUSCULTATION: diminished lung sounds Cardio: COMMON NORMALS: no JVD, regular rhythm, S1 normal heart sound present, S2 normal heart sound present and No murmurs present (Cardio) RHYTHM: regular rhythm HEART SOUNDS: S1 normal heart sound present and S2 normal heart sound present GI: COMMON NORMALS: Normal to inspection, nondistended, normoactive bowel sounds present, Soft to palpation and non-tender PALPATION: Yes Soft to palpation Extremity: COMMON NORMALS: no joint enlargement GENERAL: Yes edema (1+) Neuro: COMMON NORMALS: patient oriented x3 and moves all extremities S ENSORIUM/ORIENTATION: Yes alert Skin: COMMON NORMALS: no rashes or lesions noted GENERAL SKIN EXAM: no rashes or lesions noted Data 03/10/24 00:58 03/10/24 00:58 Micro: Microbiology 03/09/24 18:45 Blood Culture - Preliminary Blood NEGATIVE TO DATE 03/09/24 18:43 Blood Culture - Preliminary Blood NEGATIVE TO DATE A&P Assessment and plan (1) Community acquired pneumonia: (2) CHF (congestive heart failure): Qualifiers: Heart failure type: unspecified Heart failure chronicity: chronic Qualified Code(s): I50.9 - Heart failure, unspecified (3) Poorly controlled type 2 diabetes mellitus: (4) CKD (chronic kidney disease) stage 3, GFR 30-59 ml/min: Qualifiers: Chronic kidney disease stage 3 subtype: stage 3b (GFR 30-44) Qualified Code(s): N18.32 - Chronic kidney disease, stage 3b (5) COPD (chronic obstructive pulmonary disease): (6) Hypoxemia: (7) Edema: (8) Non-STEMI (non-ST elevated myocardial infarction): Plan Acute HFpEF exacerbation: Reviewed vitals, intake and output, CBC, BMP, potassium, magnesium, troponin series, CRP. Discussed with nursing, rn case mgr. Continue IV diuretic with Bumex, monitor for risk of electrolyte deficiency, MATEO. Reassess volume status, kidney function. Repeat chemistry, magnesium. Non-STEMI: Type II MT? Without chest pain. Troponin with a flat trend. Previously troponins were elevated at 112 no active chest pain, hemodynamically stable EKG showing no active ischemic or infarctive changes, Community-acquired pneumonia:ceftriaxone and doxycycline. Continue oxygen supplementation, wean off as tolerating. Not normally on oxygen. Desaturated to 87% while trying to ambulate. Discussed with respiratory therapy. Acute hypoxia requiring 2 to 3 L Will need oxygen evaluation before discharge Chronic kidney disease: Creatinine seems to be around baseline Will use cardiac consistent carb diet Sliding scale of insulin Full code Patient lives alone, uses a walker and a cane at home Attestations 2 Medical Necessity Statement*: Continue admission for assessment and management of HFpEF exacerbation, community-acquired pneumonia and gentleman with CKD not normally on. and High MDM includes amount and/or complexity of data reviewed/ordered [ resulted lab(s)/test(s), ordered lab(s)/test(s) and other healthcare professional discussion] and described risk of complication, morbidity or mortality of management as documented Diagnoses Community acquired pneumonia J18.9 Chronic congestive heart failure, unspecified heart failure type I50.9 Heart failure type: unspecified Heart failure chronicity: chronic Poorly controlled type 2 diabetes mellitus E11.65 Stage 3b chronic kidney disease N18.32 Chronic kidney disease stage 3 subtype: stage 3b (GFR 30-44) COPD (chronic obstructive pulmonary disease) J44.9 Hypoxemia R09.02 Edema R60.9 Non-STEMI (non-ST elevated myocardial infarction) I21.4
[2024-03-10 21:08] LABS: Glucose Point of Care 342 mg/dL (70-110)
[2024-03-10] MEDS: cefTRIAXone 1,000 MG in sodium chloride 0.9% (plus) 50 ML 100 MG IV (21:41)
[2024-03-10] MEDS: acetaminophen 500 mg Tablet PO (21:41)
[2024-03-11] VITALS (7 sets, daily range): BP systolic 147–168; BP diastolic 74–94; PULSE 50–79; RESP 15–18; TEMP 36.3–36.9; O2SAT 90–93
[2024-03-11 05:07] LABS: Basophils % 0.5 %; Eosinophils # 0.1 10^3/uL (0.0-0.8); Eosinophils % 0.6 %; Hematocrit 33.1 % (37-53); Lymphocytes # 1.4 10^3/uL (0.8-4.8); Lymphocytes % 18.2 %; Mean Corpuscular HGB Conc 32.9 g/dL (30-55); Mean Corpuscular Hemoglobin 31.8 pg (27-33); Mean Corpuscular Volume 96.5 fl (82-101); Mean Platelet Volume 10.7 fL (7.4-10.4); Monocytes # 0.7 10^3/uL (0.2-0.9); Monocytes % 8.9 %; Neutrophils # 5.54 10^3/uL (1.8-7.7); Neutrophils % 71.4 %; Nucleated Red Blood Cells % 0 %; Platelet Count 190 10^3/cmm (157-399); Red Blood Count 3.43 10^6/uL (3.85-5.65); Red Cell Distribution Width 13.5 % (12.1-15.1); White Blood Count 7.76 10^3/uL (3.29-11.43)
[2024-03-11 05:27] LABS: Blood Urea Nitrogen 75 mg/dL (8-23); Calcium 8.9 mg/dL (8.5-10.5); Carbon Dioxide 26 mmol/L (22-29); Chloride 94 mmol/L (98-107); Creatinine Clr Calc Pharmacy 38.1918; Glucose 132 mg/dL (65-115); Magnesium 2.1 mg/dL (1.7-2.3); Osmolality Calculated 302 mOsm/kg (285-295); Sodium 134 mmol/L (136-145)
[2024-03-11 06:29] LABS: Glucose Point of Care 158 mg/dL (70-110)
[2024-03-11] MEDS: insulin lispro 100 unit/1 mL SUBCUT ×4 (08:18→21:16)
[2024-03-11] MEDS: allopurinol 300 mg Tablet PO (08:19)
[2024-03-11] MEDS: potassium chloride ER 20 mEq Tablet 40 MEQ PO (08:19)
[2024-03-11] MEDS: doxycycline 100 mg Tablet PO ×2 (08:19→17:22)
[2024-03-11] MEDS: aspirin 81 mg EC Tablet PO (08:20)
[2024-03-11] MEDS: sodium bicarbonate 650 mg Tablet PO ×3 (08:20→19:59)
[2024-03-11] MEDS: sennosides-docusate Tablet 1 TAB PO (08:20)
[2024-03-11] MEDS: carvedilol 12.5 mg Tablet PO ×2 (08:20→17:22)
[2024-03-11] MEDS: magnesium oxide 400 mg tablet PO (08:20)
[2024-03-11] MEDS: bumetanide 0.25 mg/mL SDV 10 mL 2 MG IVP ×2 (10:47→21:15)
[2024-03-11] MEDS: heparin 5,000 unit/mL INJ 1 mL 5000 UNIT SUBCUT ×2 (10:47→21:15)
[2024-03-11 10:49] LABS: Glucose Point of Care 204 mg/dL (70-110)
[2024-03-11] MEDS: ipratropium-albuterol 3 mL Neb INHALATION (12:43)
--- NOTE | 2024-03-11 14:57 | PC.OT ---
OT EVALUATION INITIATED. PMH OBTAINED AND EXPLANATION OF LYMPHEDEMA, EVAL AND TREATMENT. PATIENT STATES THAT HE REQUESTED THIS BUT THIS WAS NOT WHAT HE WAS THINKING ABOUT. UPON FURTHER QUESTIONING HE IS REQUESTING [employer]OTS AND SCD PLACEMENT. DR AND CHARGE NURSE NOTIFIED.
[2024-03-11 17:38] LABS: Glucose Point of Care 168 mg/dL (70-110)
--- NOTE | 2024-03-11 18:49 | P.PN_ITS ---
Subjective 2 Subjective: He is overall feeling a bit better but gets very dyspneic with exertion. He has been elevating his legs, edema has been decreasing. Vitals/I&O/Wt Last Vital Signs Temp 98.0 F 03/11/24 15:13 Pulse 74 03/11/24 15:13 Resp 16 03/11/24 15:13 BP 163/85 03/11/24 15:13 Pulse Ox 90 03/11/24 15:13 O2 Del Method Room Air 03/11/24 15:13 O2 Flow Rate 2 03/10/24 09:40 03/11/24 03/11/24 03/11/24 06:59 14:59 22:59 Intake Total 1500 / 3620 270 / 270 250 / 520 Output Total 900 / 1375 400 / 400 1400 / 1800 Balance 600 / 2245 -130 / -130 -1150 / -1280 Weight last 48 hrs Weight 133.583 kg Weight 133.583 kg Weight 132.503 kg Weight 132.812 kg Weight 132.721 kg Physical Exam 2 Const: COMMON NORMALS: patient oriented x3 and alert GENERAL APPEARANCE: c ooperative ORIENTATION/CONSCIOUSNESS: Yes awake HENMT: COMMON NORMALS: oropharynx normal Neck/C-Spine: COMMON NORMALS: no JVD Resp: COMMON NORMALS: normal respiratory effort AUSCULTATION: diminished lung sounds Cardio: COMMON NORMALS: no JVD, regular rhythm, S1 normal heart sound present, S2 normal heart sound present and No murmurs present (Cardio) RHYTHM: regular rhythm HEART SOUNDS: S1 normal heart sound present and S2 normal heart sound present GI: COMMON NORMALS: Normal to inspection, nondistended, normoactive bowel sounds present, Soft to palpation and non-tender PALPATION: Yes Soft to palpation Extremity: COMMON NORMALS: no joint enlargement GENERAL: Yes edema (1+ with elevation) Neuro: COMMON NORMALS: patient oriented x3 and moves all extremities S ENSORIUM/ORIENTATION: Yes alert Skin: COMMON NORMALS: no rashes or lesions noted GENERAL SKIN EXAM: no rashes or lesions noted Data 03/11/24 04:50 03/11/24 04:50 Micro: Microbiology 03/09/24 18:45 Blood Culture - Preliminary Blood NEGATIVE TO DATE 03/09/24 18:43 Blood Culture - Preliminary Blood NEGATIVE TO DATE A&P Assessment and plan (1) Community acquired pneumonia: (2) CHF (congestive heart failure): Qualifiers: Heart failure type: unspecified Heart failure chronicity: chronic Qualified Code(s): I50.9 - Heart failure, unspecified (3) Poorly controlled type 2 diabetes mellitus: (4) CKD (chronic kidney disease) stage 3, GFR 30-59 ml/min: Qualifiers: Chronic kidney disease stage 3 subtype: stage 3b (GFR 30-44) Qualified Code(s): N18.32 - Chronic kidney disease, stage 3b (5) COPD (chronic obstructive pulmonary disease): (6) Hypoxemia: (7) Edema: (8) Non-STEMI (non-ST elevated myocardial infarction): Plan Acute HFpEF exacerbation: Still gets quite dyspneic with even light exertion. So far has come off of oxygen, but satting borderline, 90% on room air. Reviewed vitals, intake and output, CBC, BMP. Discussed with nursing, supervisor case loading. Continue IV diuretic with Bumex, monitor for risk of electrolyte deficiency, MATEO. Reassess volume status, kidney function. Repeat chemistry, magnesium. Discussed with OT compression dressing. However, on further consideration he declined. Non-STEMI: Type II MT? Without chest pain. Troponin with a flat trend. Previously troponins were elevated at 112 no active chest pain, hemodynamically stable EKG showing no active ischemic or infarctive changes, Community-acquired pneumonia: Add guaifenesin. Flutter valve. Ceftriaxone and doxycycline. Continue oxygen supplementation, wean off as tolerating. Not normally on oxygen. Desaturated to 87% while trying to ambulate. Discussed with respiratory therapy. Acute hypoxia requiring 2 to 3 L Will need oxygen evaluation before discharge Chronic kidney disease: Creatinine seems to be around baseline Will use cardiac consistent carb diet Sliding scale of insulin Full code Patient lives alone, uses a walker and a cane at home Attestations 2 Medical Necessity Statement*: Continue admission for assessment and management of HFpEF exacerbation, community-acquired pneumonia and gentleman with CKD not normally on. Diagnoses Community acquired pneumonia J18.9 Chronic congestive heart failure, unspecified heart failure type I50.9 Heart failure type: unspecified Heart failure chronicity: chronic Poorly controlled type 2 diabetes mellitus E11.65 Stage 3b chronic kidney disease N18.32 Chronic kidney disease stage 3 subtype: stage 3b (GFR 30-44) COPD (chronic obstructive pulmonary disease) J44.9 Hypoxemia R09.02 Edema R60.9 Non-STEMI (non-ST elevated myocardial infarction) I21.4
[2024-03-11] MEDS: guaiFENesin 600 mg Tablet PO (19:59)
[2024-03-11] MEDS: cefTRIAXone 1,000 MG in sodium chloride 0.9% (plus) 50 ML 100 MG IV (19:59)
[2024-03-11 20:23] LABS: Glucose Point of Care 177 mg/dL (70-110)
[2024-03-11] MEDS: hyDROXYzine 25 mg Capsule PO (23:30)
[2024-03-11] MEDS: acetaminophen 500 mg Tablet PO (23:30)
[2024-03-12 00:11] VITALS: BP 155/81; PULSE 68; RESP 16; TEMP 36.4; O2SAT 91
[2024-03-12 03:57] VITALS: BP 164/82; PULSE 78; RESP 18; TEMP 36.4; O2SAT 94
[2024-03-12 04:43] VITALS: BMI 39.7
[2024-03-12 05:14] LABS: Basophils % 0.6 %; Eosinophils # 0.2 10^3/uL (0.0-0.8); Eosinophils % 2.3 %; Hematocrit 34.7 % (37-53); Lymphocytes # 1.5 10^3/uL (0.8-4.8); Lymphocytes % 20.9 %; Mean Corpuscular HGB Conc 32.9 g/dL (30-55); Mean Corpuscular Volume 97.5 fl (82-101); Mean Platelet Volume 10.8 fL (7.4-10.4); Monocytes # 0.5 10^3/uL (0.2-0.9); Monocytes % 7.6 %; Neutrophils # 4.75 10^3/uL (1.8-7.7); Neutrophils % 68.2 %; Nucleated Red Blood Cells % 0 %; Platelet Count 189 10^3/cmm (157-399); Red Blood Count 3.56 10^6/uL (3.85-5.65); Red Cell Distribution Width 13.3 % (12.1-15.1); White Blood Count 6.97 10^3/uL (3.29-11.43)
[2024-03-12 05:36] LABS: Anion Gap 16.8 (5-19); Blood Urea Nitrogen 79 mg/dL (8-23); Calcium 9.3 mg/dL (8.5-10.5); Carbon Dioxide 27 mmol/L (22-29); Chloride 97 mmol/L (98-107); Creatinine Clr Calc Pharmacy 41.0178; Glomerular Filtration Rate 25.1 mL/min (90-130); Glucose 162 mg/dL (65-115); Osmolality Calculated 311 mOsm/kg (285-295); Potassium 3.8 mmol/L (3.5-5.1); Sodium 137 mmol/L (136-145)
[2024-03-12 06:17] LABS: Slide Review Slide Review Perform
[2024-03-12 06:36] LABS: Glucose Point of Care 168 mg/dL (70-110)
[2024-03-12 07:16] VITALS: BP 137/76; PULSE 81; RESP 17; TEMP 36.7; O2SAT 90
[2024-03-12] MEDS: doxycycline 100 mg Tablet PO (08:03)
[2024-03-12] MEDS: aspirin 81 mg EC Tablet PO (08:03)
[2024-03-12] MEDS: potassium chloride ER 20 mEq Tablet 40 MEQ PO (08:03)
[2024-03-12] MEDS: sodium bicarbonate 650 mg Tablet PO (08:03)
[2024-03-12] MEDS: sennosides-docusate Tablet 1 TAB PO (08:03)
[2024-03-12] MEDS: magnesium oxide 400 mg tablet PO (08:03)
[2024-03-12] MEDS: insulin lispro 100 unit/1 mL SUBCUT (08:03)
[2024-03-12] MEDS: carvedilol 12.5 mg Tablet PO (08:03)
[2024-03-12] MEDS: allopurinol 300 mg Tablet PO (08:03)
[2024-03-12] MEDS: guaiFENesin 600 mg Tablet PO (08:03)
[2024-03-12 08:09] VITALS: PULSE 83; RESP 18; O2SAT 93
[2024-03-12] MEDS: heparin 5,000 unit/mL INJ 1 mL 5000 UNIT SUBCUT (09:00)
[2024-03-12] MEDS: bumetanide 0.25 mg/mL SDV 10 mL 2 MG IVP (09:00)
--- NOTE | 2024-03-12 10:13 | PM.DCS ---
Discharge Providers Date of Admission: 03/10/24 20:10 Date of Discharge: March 12, 2024 Attending Provider at Admission: Charlie Hernandez MD Attending Provider at Discharge: Chato Nelson Primary Care Provider: Leandra Reddy MD Diagnoses at Discharge Discharge Diagnosis (1) Community acquired pneumonia: Status: Acute (2) CHF (congestive heart failure): Status: Acute Qualifiers: Heart failure chronicity: chronic Heart failure type: unspecified Qualified Code(s): I50.9 - Heart failure, unspecified (3) Poorly controlled type 2 diabetes mellitus: Status: Acute (4) CKD (chronic kidney disease) stage 3, GFR 30-59 ml/min: Status: Acute Qualifiers: Chronic kidney disease stage 3 subtype: stage 3b (GFR 30-44) Qualified Code(s): N18.32 - Chronic kidney disease, stage 3b (5) COPD (chronic obstructive pulmonary disease): Status: Acute (6) Hypoxemia: Status: Acute (7) Edema: Status: Acute (8) Non-STEMI (non-ST elevated myocardial infarction): Status: Acute Reason for Visit Reason for Visit: sob Brief History: Jack Springer is a 63 year old male who has multiple comorbid conditions CHF, chronic kidney disease, COPD, coronary disease, diabetes, neuropathy, peripheral vascular disease coming in for worsening of shortness of breath. Patient is stating that he normally sleeps in a recliner because he has significant orthopnea and PND, he is compliant with his Bumex 2 mg regimen. He has gained 15 to 20 pounds in last few days. He has not noticed any significant chest pain, he is endorsing fever 100.5 along sputum production, patient was 91% on room air as per the EMS. At the time of my evaluation he is requiring 2 L oxygen via nasal cannula. No active chest pain or complaining of shortness of breath. Patient is also constipated. In the ER he has been diagnosed with community-acquired pneumonia and CHF exacerbation. Hospital Course Hospital Course He was admitted to the hospital and received treatment with IV diuretics, fluid restriction. Troponin found with moderate elevation without rising trend. Remained free of chest pain. Received treatment for community-acquired pneumonia with ceftriaxone and doxycycline. Oxygenation showed gradual improvement, and he weaned off new oxygen requirement down to room air. Blood cultures so far have remained negative. Symptoms including edema improved with diuresis. Renal function remained stable. He is feeling much better, feels ready to discharge home. At discharge he is additionally referred for risk stratification with stress test. Please follow-up for resolution of pneumonia, stability of CHF. Please follow-up for incidentally noted scattered clustered nodules as well as more focal consolidative nodular opacity in right upper lobe to confirm resolution after recovery from pneumonia or consider further investigation in case of persistence. Incidentally noted multiple enlarged mediastinal lymph nodes which are nonspecific, could be reactive or metastatic in nature. Physical Exam Const: COMMON NORMALS: patient oriented x3 and alert GENERAL APPEARANCE: cooperative ORIENTATION/CONSCIOUSNESS: Yes awake HENMT: COMMON NORMALS: oropharynx normal Neck/C-Spine: COMMON NORMALS: no JVD Resp: COMMON NORMALS: normal respiratory effort AUSCULTATION: diminished lung sounds Cardio: COMMON NORMALS: no JVD, regular rhythm, S1 normal heart sound present, S2 normal heart sound present and No murmurs present (Cardio) RHYTHM: regular rhythm HEART SOUNDS: S1 normal heart sound present and S2 normal heart sound present GI: COMMON NORMALS: Normal to inspection, nondistended, normoactive bowel sounds present, Soft to palpation and non-tender PALPATION: Yes Soft to palpation Extremity: COMMON NORMALS: no joint enlargement GENERAL: No edema Neuro: COMMON NORMALS: patient oriented x3 and moves all extremities SENSORIUM/ORIENTATION: Yes alert Skin: COMMON NORMALS: no rashes or lesions noted GENERAL SKIN EXAM: no rashes or lesions noted Discharge Data Studies Completed and Pending Completed Studies During Hospitalization Category Date Time Status CT chest wo con [id number] Stat Cat Scan 03/09/24 18:57 Completed XR chest 1V portable [id number] Stat Exams 03/09/24 18:29 Completed Pending at discharge Category Date Time Status Basic Metabolic Panel AM LABS Lab 03/13/24 04:00 Ordered Blood Culture Stat Lab 03/09/24 18:45 Results Complete Blood Count w/Auto AM LABS Lab 03/13/24 04:00 Ordered Radiology Impressions Chest X-Ray 03/09/24 18:29 IMPRESSION: Patchy airspace opacities in the right mid lung and lung base concerning for consolidation/pneumonia in the setting of cough and fever. Chest CT 03/09/24 18:57 IMPRESSION: 1. Scattered clustered nodules as well as a more focal consolidative nodular opacity in the right upper lobe. While neoplasm is potential etiology, multifocal atypical infection is suspected and short interval follow-up is recommended. PET-CT or tissue sampling can also be considered. 2. Multiple enlarged mediastinal lymph nodes are nonspecific and could be reactive or metastatic in nature. COMMENTS: For patients at low risk (minimal or absent history of smoking and of other known risk factors), recommend CT Chest at 3-6 months, then consider CT Chest at 18-24 months. For patients at high risk (history of smoking or of other known risk factors), recommend CT Chest at 3-6 months, then CT Chest at 18-24 months. (Reference: Michael) REFERENCES: Michael Colindres, et al. Guidelines for Management of Incidental Pulmonary Nodules Detected on CT Images: From the Fleischner Society 2017. Radiology. 2017;284(1):228-243. Laboratory Results WBC 6.97 10^3/uL (3.29-11.43) 03/12/24 04:48 RBC 3.56 10^6/uL (3.85-5.65) L 03/12/24 04:48 Hgb 11.40 g/dL (11.27-16.99) 03/12/24 04:48 Hct 34.7 % (37-53) L 03/12/24 04:48 MCV 97.5 fl (82-101) 03/12/24 04:48 MCH 32.0 pg (27-33) 03/12/24 04:48 MCHC 32.9 g/dL (30-55) 03/12/24 04:48 RDW 13.3 % (12.1-15.1) 03/12/24 04:48 Plt Count 189 10^3/cmm (157-399) 03/12/24 04:48 MPV 10.8 fL (7.4-10.4) H 03/12/24 04:48 Neut % (Auto) 68.2 % 03/12/24 04:48 Lymph % (Auto) 20.9 % 03/12/24 04:48 [place] % (Auto) 7.6 % 03/12/24 04:48 Eos % (Auto) 2.3 % 03/12/24 04:48 Baso % (Auto) 0.6 % 03/12/24 04:48 Neut # (Auto) 4.75 10^3/uL (1.8-7.7) 03/12/24 04:48 Lymph # (Auto) 1.5 10^3/uL (0.8-4.8) 03/12/24 04:48 [place] # (Auto) 0.5 10^3/uL (0.2-0.9) 03/12/24 04:48 Eos # (Auto) 0.2 10^3/uL (0.0-0.8) 03/12/24 04:48 Baso # (Auto) 0.0 10^3/uL (0.0-0.1) 03/12/24 04:48 Nucleated RBC % (auto) 0 % 03/12/24 04:48 Nucleated RBCs # 0.0 /100WBC 03/12/24 04:48 Specimen Type Arterial 03/09/24 19:14 Sample Site Brachial, right 03/09/24 19:14 ABG pH 7.47 (7.35-7.45) H 03/09/24 19:14 ABG pCO2 36.4 mmHg (35-45) 03/09/24 19:14 ABG pO2 51.9 mmHg (80.0-100.0) L 03/09/24 19:14 ABG HCO3 26.4 mmol/L (22-26) H 03/09/24 19:14 ABG O2 Saturation 86.8 03/09/24 19:14 ABG Base Excess 2.8 mmol/L (-2.0-2.0) H 03/09/24 19:14 Jelani Test N/a 03/09/24 19:14 A-a O2 Gradient 6.9 mmHg (5-10) 03/09/24 19:14 Hematocrit 38.0 % (42-52) L 03/09/24 19:14 Hgb O2 Saturation 85.9 % (95-100) L 03/09/24 19:14 Carboxyhemoglobin 0.7 %THgb (0.4-20.1) 03/09/24 19:14 Methemoglobin 0.2 % (0.4-1.5) L 03/09/24 19:14 Total Hemoglobin 12.4 g/dL (14-18) L 03/09/24 19:14 Sodium 132.0 mmol/L (131-143) 03/09/24 19:14 Potassium 3.7 mmol/L (3.5-5.0) 03/09/24 19:14 Glucose 258.0 mg/dL (70-115) H 03/09/24 19:14 Ionized Calcium 1.1 mmol/L (1.1-1.4) 03/09/24 19:14 O2 Delivery Device None 03/09/24 19:14 Office Clerk ID Hunter 03/09/24 19:14 Sodium 137 mmol/L (136-145) 03/12/24 04:48 Potassium 3.8 mmol/L (3.5-5.1) 03/12/24 04:48 Chloride 97 mmol/L (98-107) L 03/12/24 04:48 Carbon Dioxide 27 mmol/L (22-29) 03/12/24 04:48 Anion Gap 16.8 (5-19) 03/12/24 04:48 BUN 79 mg/dL (8-23) H 03/12/24 04:48 Creatinine 2.6 mg/dL (0.7-1.2) H 03/12/24 04:48 GFR Calculation 25.1 mL/min (90-130) L 03/12/24 04:48 Glucose 162 mg/dL (65-115) H 03/12/24 04:48 POC Glucose 168 mg/dL (70-110) H 03/12/24 06:24 Calculated Osmolality 311 mOsm/kg (285-295) H 03/12/24 04:48 Lactic Acid 1.1 mmol/L (0.5-2.2) 03/09/24 18:43 Calcium 9.3 mg/dL (8.5-10.5) 03/12/24 04:48 Magnesium 2.1 mg/dL (1.7-2.3) 03/11/24 04:50 Total Bilirubin 0.9 mg/dL (0.15-1.2) 03/09/24 18:43 AST 19 U/L (0-40) 03/09/24 18:43 ALT 28 U/L (0-41) 03/09/24 18:43 Alkaline Phosphatase 126 U/L (40-130) 03/09/24 18:43 Troponin T Baseline 104 ng/L (0-15) H* 03/09/24 18:43 Troponin T 120 Minute 111.6 ng/L (0-15) H 03/09/24 20:39 Delta Troponin T 7.6 ABS# (0-10) 03/09/24 20:39 Troponin T Hi Sens 6Hr 104.5 ng/L (0-15) H 03/10/24 00:58 Troponin T Hi Sens 6Hr Delta 0.5 ng/L (0-12) 03/10/24 00:58 C-Reactive Protein 32.5 mg/L (0.0-4.9) H 03/10/24 00:58 NT-Pro-B Natriuret Pep 65007 pg/mL (0-125) H 03/09/24 18:43 Total Protein 6.6 g/dL (6.6-8.7) 03/09/24 18:43 Albumin 4.1 g/dL (3.5-5.2) 03/09/24 18:43 Globulin 2.5 g/dL (1.3-4.6) 03/09/24 18:43 Coronavirus (PCR) Negative (Negative) 03/09/24 18:48 Influenza A (PCR) Negative (Negative) 03/09/24 18:48 Influenza Type B (PCR) Negative (Negative) 03/09/24 18:48 RSV (PCR) Negative (Negative) 03/09/24 18:48 Vitals Last Vital Signs Temp 98.0 F 03/12/24 07:16 Pulse 83 03/12/24 08:09 Resp 18 03/12/24 08:09 BP 137/76 03/12/24 07:16 Pulse Ox 93 03/12/24 08:09 O2 Del Method Room Air 03/12/24 08:09 O2 Flow Rate 2 03/10/24 09:40 Discharge Plan Discharge Patient Disposition: Home Condition: Stable Prescriptions: New doxycycline monohydrate 100 mg Tablet 100 mg PO BID 5 Days Qty: 10 0RF cefdinir 300 mg capsule 300 mg PO BID 5 Days Qty: 10 0RF guaifenesin [Mucinex] 600 mg Tablet Extended Release 12hr 600 mg PO BID Qty: 30 0RF Continued aspirin 81 mg tablet,delayed release (DR/EC) 81 mg PO QAM potassium chloride 10 mEq tablet extended release 10 meq PO DAILY Qty: 60 4RF lactulose 10 gram/15 mL (15 mL) solution 20 g PO BID Qty: 1440 2RF black seed oil tablet 1 tab PO DAILY Rx Instructions: once daily allopurinol 300 mg tablet See Rx Instructions .ROUTE .COMPLEX Qty: 90 2RF Dose Instruction: TAKE 1 TABLET BY MOUTH EVERY DAY Rx Instructions: TAKE 1 TABLET BY MOUTH EVERY DAY ascorbic acid (vitamin C) [Vitamin C] 1,000 mg Tablet 1,000 mg PO DAILY Humulin R U-500 (Conc) Kwikpen 500 unit/mL (3 mL) insulin pen 40 unit SUBCUT .before meals carvedilol 12.5 mg tablet 12.5 mg PO BID Qty: 60 0RF amlodipine 10 mg tablet 10 mg PO DAILY Qty: 60 3RF bumetanide 2 mg tablet 2 mg PO BID Rx Instructions: TAKE 1 TABLET BY MOUTH TWICE DAILY valsartan 80 mg tablet 80 mg PO DAILY No Action (DME) diabetic shoes/inserts 14 See Rx Instructions Rx Instructions: As directed Discharge Orders: Discharge Order (Routine); Ordered 03/12/24 Ordered By: Chato Nelson Other Ambulatory Orders: Sestamibi Stress Test Request (Routine) Timeframe: 2 Days Facility: [facility] - Location: [facility] Ordered By: Chato Nelson Referrals: Leandra Reddy MD [Primary Care Provider] - 4-7 days (We have notified your physician's clinic of the need for a follow-up appointment to be scheduled. If you have not heard from them within the next 2 business days, please call them directly. ) Discharge Diet: Cardiac and Diabetic Discharge Activity: Increase activity as tolerated Patient Instructions: Decongestant/Expectorant (By mouth), Doxycycline (By mouth), Cefdinir (By mouth), Heart Failure (GEN), Community Acquired Pneumonia (GEN), CHF Stoplight Activity Restrictions/Additional Instructions: Continue diuretic, please limit total fluid intake to below 1500 mL in a day. Please complete antibiotic course. Please follow-up with your primary provider for reassessment of recovery from pneumonia and stability of congestive heart failure. Please follow-up for a stress test As discussed seek medical attention in case of any worsening or new concerning symptoms. Discharge Attestations Time Spent in Discharge Care*: greater than 30 min Quality Metrics Clinical Quality Measures [ No reported AMI, CVA or VTE this stay] Coding Level of Care Code 20289 Total time (in minutes) for Discharge: 45 Diagnoses Community acquired pneumonia J18.9 Chronic congestive heart failure, unspecified heart failure type I50.9 Heart failure chronicity: chronic Heart failure type: unspecified Poorly controlled type 2 diabetes mellitus E11.65 Stage 3b chronic kidney disease N18.32 Chronic kidney disease stage 3 subtype: stage 3b (GFR 30-44) COPD (chronic obstructive pulmonary disease) J44.9 Hypoxemia R09.02 Edema R60.9 Non-STEMI (non-ST elevated myocardial infarction) I21.4
[2024-03-12 10:53] VITALS: O2SAT 93; O2SAT 96
[2024-03-12 10:56] LABS: Glucose Point of Care 222 mg/dL (70-110)
[2024-03-12 11:03] VITALS: BP 137/76; PULSE 65; RESP 16; TEMP 36.7; O2SAT 93
--- NOTE | 2024-03-12 11:04 | PC.SOCIAL ---
IMM Update pg 2 of IMM Updated and reviewed w/ patient. Copy provided and copy dated, initialed and placed in chart.
== END 2024-03-12 11:17 | disposition home or self-care (01) | DRG 291 ==
LOC: ER 20:36 → MEDSURG 03-10 00:04
PROVIDERS: Admitting Provider Internal Medicine; Emergency Provider Emergency Medicine; PCP Family Medicine; Visit Provider Internal Medicine
DX: I13.0 Hypertensive heart and chronic kidney disease with heart failure and stage 1 through stage 4 chronic kidney disease, or unspecified chronic kidney disease (principal); I50.33 Acute on chronic diastolic (congestive) heart failure; J18.9 Pneumonia, unspecified organism; J44.0 Chronic obstructive pulmonary disease with (acute) lower respiratory infection; N18.32 Chronic kidney disease, stage 3b; E11.22 Type 2 diabetes mellitus with diabetic chronic kidney disease; E11.51 Type 2 diabetes mellitus with diabetic peripheral angiopathy without gangrene; E11.42 Type 2 diabetes mellitus with diabetic polyneuropathy; K59.00 Constipation, unspecified; I25.10 Atherosclerotic heart disease of native coronary artery without angina pectoris; E78.00 Pure hypercholesterolemia, unspecified; R91.8 Other nonspecific abnormal finding of lung field; R09.02 Hypoxemia; E66.01 Morbid (severe) obesity due to excess calories; Z68.39 Body mass index [BMI] 39.0-39.9, adult; Z79.4 Long term (current) use of insulin; Z79.82 Long term (current) use of aspirin; Z95.0 Presence of cardiac pacemaker; R79.89 Other specified abnormal findings of blood chemistry
CPT/HCPCS: 0241U; 36415; 36416; 36600; 71045; 71250; 80048; 80051; 80053; 82330; 82805; 82962; 83605; 83735; 83880; 84484; 85025; 86140; 87040; 87400; 93005; 94640; 94760; 96365; 96372; 96375; 97161; 99285; G0378; J0360; J0696; J1644; J1815; J1940; J2919; J3490; J7613

== ENCOUNTER → 2024-03-24 09:48 | Outpatient (BNVA) | payer MEDICARE, SELFPAY | PROVIDERS: PCP Family Medicine; Visit Provider Family Medicine | DX: E11.65 Type 2 diabetes mellitus with hyperglycemia (principal); I10 Essential (primary) hypertension; E11.9 Type 2 diabetes mellitus without complications | CPT/HCPCS: 80048; 83036 ==

== ENCOUNTER → 2024-04-17 10:01 | Outpatient (BNVA) | payer MEDICARE, SELFPAY | PROVIDERS: PCP Family Medicine; Visit Provider Family Medicine | DX: N18.9 Chronic kidney disease, unspecified (principal); I10 Essential (primary) hypertension; E11.9 Type 2 diabetes mellitus without complications | CPT/HCPCS: 80048 ==

== ENCOUNTER → 2024-05-12 10:10 | Outpatient (BNVA) | payer MEDICARE, SELFPAY | PROVIDERS: PCP Family Medicine; Visit Provider Family Medicine | DX: N18.32 Chronic kidney disease, stage 3b (principal) | CPT/HCPCS: 80048 ==

== ENCOUNTER → 2024-06-23 09:32 | Outpatient (BNVA) | payer MEDICARE, SELFPAY | PROVIDERS: PCP Family Medicine; Visit Provider Family Medicine | DX: E11.65 Type 2 diabetes mellitus with hyperglycemia (principal) | CPT/HCPCS: 80048; 83036; 85025 ==

== ENCOUNTER → 2024-08-11 08:54 | Outpatient (BNVA) | payer MEDICARE, SELFPAY | PROVIDERS: PCP Family Medicine; Visit Provider Family Medicine | DX: E11.9 Type 2 diabetes mellitus without complications (principal); N18.32 Chronic kidney disease, stage 3b | CPT/HCPCS: 80048 ==

== ENCOUNTER 2024-09-10 22:32 | Emergency (ER) | payer MEDICARE, SELFPAY ==
[2024-09-10 22:39] VITALS: BP 142/67; PULSE 67; RESP 18; TEMP 36.5; O2SAT 94
[2024-09-11] VITALS (7 sets, daily range): BP systolic 143–158; BP diastolic 76–86; PULSE 72–79; O2SAT 91–95
--- NOTE | 2024-09-11 00:09 | XRR_ITS ---
PROCEDURE INFORMATION: Exam: XR Chest Exam date and time: 09/11/2024 12:30 AM Age: 63 years old Clinical indication: Shortness of breath; Prior surgery; Surgery date: 6+ months; Surgery type: Pacemaker TECHNIQUE: Imaging protocol: Radiologic exam of the chest. Views: 1 view. COMPARISON: [facility] [id number] 03/09/2024 7:08 PM FINDINGS: Tubes, catheters and devices: Stable left pacemaker. Lungs: Unremarkable. No consolidation. Pleural spaces: Unremarkable. No pleural effusion. No pneumothorax. Heart/Mediastinum: Borderline to mild cardiomegaly. Bones/joints: Unremarkable. XR/XR chest 1V portable [id number] IMPRESSION: Borderline to mild cardiomegaly.
--- NOTE | 2024-09-11 00:13 | W.ED.EXTPRO ---
HPI - Extremity Problem General: Chief complaint: Extremity Problem,Nontraumatic Stated complaint: legs swollen blistered open sores Time Seen by Provider: 09/11/24 00:08 History of Present Illness: 63-year-old man with a history of congestive heart failure and lower extremity edema who presents emergency room with worsening swelling, weeping and redness of his legs with wounds. Nurse neighbor had stopped and check on him and said she thought it might be infected and told him to come to the emergency room. No fevers. No altered mental status. He has chronic orthopnea. No worsening shortness of breath. No fevers. No altered mental status. No chest pain. No abdominal pain. No nausea or vomiting. Related Data Home Medications ?Medication ?Instructions ?Recorded ?Confirmed aspirin 81 mg tablet,delayed 81 mg PO QAM 06/10/19 08/11/24 release ascorbic acid (vitamin C) 1,000 mg 1,000 mg PO DAILY 05/04/20 08/11/24 tablet (Vitamin C) diabetic shoes/inserts 08/14/23 08/11/24 Previous Rx's ?Medication ?Instructions ?Recorded potassium chloride 10 mEq 10 meq PO DAILY #60 tabs 08/14/23 tablet,extended release allopurinol 300 mg tablet See Rx Instructions .Route 01/03/24 .COMPLEX #90 tabs carvedilol 12.5 mg tablet 12.5 mg PO BID #60 tabs 03/17/24 insulin regular hum U-500 conc 500 40 unit (0.08 mL) SUBCUT .before 04/03/24 unit/mL(3 mL) subcut pen (Humulin meals #6 mL R U-500 (Conc) Insulin Kwikpen) lactulose 10 gram/15 mL oral See Rx Instructions .Route 04/07/24 solution (Constulose) .COMPLEX #1,440 mL bumetanide 2 mg tablet See Rx Instructions .Route 06/06/24 .COMPLEX #60 tabs hydrocodone 5 mg-acetaminophen 325 1 tab PO Q6H PRN pain 7 days #28 06/23/24 mg tablet tabs amoxicillin 875 mg tablet See Rx Instructions .Route 07/07/24 .COMPLEX #20 tabs amlodipine 10 mg tablet 10 mg PO DAILY #90 tabs 08/11/24 doxycycline monohydrate 100 mg 100 mg PO BID 10 days #20 caps 09/11/24 capsule Allergies Allergy/AdvReac Type Severity Reaction Status Date / Time No Known Allergies Allergy Verified 09/10/24 22:45 Review of Systems Narrative: Constitutional symptoms: Negative except as documented in HPI. Skin symptoms: Negative except as documented in HPI. Eye symptoms: Negative except as documented in HPI. ENMT symptoms: Negative except as documented in HPI. Respiratory symptoms: Negative except as documented in HPI. Cardiovascular symptoms: Negative except as documented in HPI. Gastrointestinal symptoms: Negative except as documented in HPI. Genitourinary symptoms: Negative except as documented in HPI. Musculoskeletal symptoms: Negative except as documented in HPI. Neurologic symptoms: Negative except as documented in HPI. Psychiatric symptoms: Negative except as documented in HPI. Endocrine symptoms: Negative except as documented in HPI. PFSH ED PFSH: Medical History Hypertension Poorly controlled type 2 diabetes mellitus CHF (congestive heart failure) COPD (chronic obstructive pulmonary disease) NSTEMI (non-ST elevated myocardial infarction) Diabetic ulcer of left lower leg Acute kidney injury superimposed on CKD High risk medication use Positive LIZBETH (antinuclear antibody) Chronic tophaceous gout of both hands CKD (chronic kidney disease) stage 3, GFR 30-59 ml/min Inflammatory arthritis Somnolence, daytime Bradycardia Recurrent syncope COVID-19 virus infection Type 2 diabetes mellitus Hypercholesteremia PVD (peripheral vascular disease) Diabetic peripheral neuropathy associated with type 2 diabetes mellitus Tick fever Cellulitis and abscess of foot Polyneuropathy, unspecified Hyperchylomicronemia Other deformities of toe(s) (acquired), left foot Controlled diabetes mellitus with diabetic polyneuropathy, with long-term current use of insulin Onychodystrophy Charcot ankle Acquired absence of other toe(s), unspecified side Closed displaced fracture of navicular bone of right foot with routine healing Surgical History History of permanent cardiac pacemaker placement Status post colonoscopy (05/05/20) normal History of foot surgery History of knee surgery Family History Mother CAD (coronary artery disease) in older years, pacemaker Other Cancer Diabetes Hypertension Lung disease Denies family history of Rheumatoid arthritis Lupus Clotting disorder Dementia Hyperlipidemia Psychiatric illness Chronic kidney disease (CKD) Suicide Anesthesia complication Bleeding disorder Family history of premature coronary artery disease Stroke Social History Smoking and tobacco/nicotine status: never used tobacco/nicotine Second hand smoke exposure: No Alcohol intake: never Substance/Drug Use: never Physical Exam Narrative: EXAM NARRATIVE: General: Alert, no acute distress. Skin: Warm, dry. Head: Normocephalic, atraumatic. Neck: Supple, trachea midline. Eye: Extraocular movements are intact. Ears, nose, mouth and throat: mucosa moist. Cardiovascular: Regular, Normal peripheral perfusion. 2+ bilateral tibial edema. Venous stasis changes. Redness. Warmth. There is a wound on the right redman. Respiratory: Lungs are clear to auscultation, respirations are non-labored, breath sounds are equal, Symmetrical chest wall expansion. Gastrointestinal: Soft, Nontender, Non distended Musculoskeletal: Normal ROM, no deformity. Neurological: Alert and oriented, No focal neurological deficit observed. Psychiatric: Cooperative, appropriate mood & affect. Course Vital Signs: Vital signs: Vital Signs Temperature 97.7 F 09/10/24 22:39 Pulse Rate 78 09/11/24 02:00 Respiratory Rate 18 09/10/24 22:39 Blood Pressure 155/79 09/11/24 02:00 Pulse Oximetry 95 09/11/24 02:00 Oxygen Delivery Me thod Room Air 09/10/24 22:39 MDM - Extremity (Nontraumatic) Medical Decision Making Medical decision making: Differential diagnosis including but not limited to and based on the above HPI, review of systems and physical exam: for patient with edema: Congestive heart failure. Kidney failure. DVT / Pulmonary embolism. Protein malnutrition. Cirrhosis. Orders placed to evaluate differential diagnosis based on the above differential, HPI and physical exam Chest x-ray: Cardiomegaly. No acute process. No infiltrate. No pneumothorax. This was reviewed and interpreted by myself the emergency room physician. I also reviewed the radiology report. Lab Review: Laboratory results were reviewed and interpreted by myself the emergency room physician. No leukocytosis. No anemia. Stable chronic renal insufficiency with a BUN/creatinine of 76 and 3.7. He ranges between 2.5 and 4. Elevated troponin at 1003 but no significant change on repeat and this is his usual baseline secondary to his kidney function. Minimal elevation inflammatory markers I reviewed the patient's medical record. Reexamination: Discussed with patient admission versus going home. He wants to try to take antibiotics at home. No oxygen requirements. Assessment and plan: Edema Cellulitis Chronic kidney disease ?IV cefepime and Zyvox. IV Lasix. - Discharged home - Discussed findings and plan with patient. Answered any questions. - All laboratory values were reviewed and interpreted personally by myself, the ER physician - All imaging was reviewed and interpreted personally by myself, the ER physician. - Evaluation and treatment of this problem were appropriate in the emergency setting Lab Data 09/11/24 00:32 09/11/24 00:32 Radiology Impressions Chest X-Ray 09/11/24 00:09 IMPRESSION: Borderline to mild cardiomegaly. Laboratory Results WBC 9.77 10^3/uL (3.29-11.43) 09/11/24 00:32 RBC 3.47 10^6/uL (3.85-5.65) L 09/11/24 00:32 Hgb 10.70 g/dL (11.27-16.99) L 09/11/24 00:32 Hct 31.9 % (37-53) L 09/11/24 00:32 MCV 91.9 fl (82-101) 09/11/24 00:32 MCH 30.8 pg (27-33) 09/11/24 00:32 MCHC 33.5 g/dL (30-55) 09/11/24 00:32 RDW 14.9 % (12.1-15.1) 09/11/24 00:32 Plt Count 249 10^3/cmm (157-399) 09/11/24 00:32 MPV 10.6 fL (7.4-10.4) H 09/11/24 00:32 Neut % (Auto) 75.3 % 09/11/24 00:32 Lymph % (Auto) 13.5 % 09/11/24 00:32 [place] % (Auto) 6.2 % 09/11/24 00:32 Eos % (Auto) 4.1 % 09/11/24 00:32 Baso % (Auto) 0.4 % 09/11/24 00:32 Neut # (Auto) 7.35 10^3/uL (1.8-7.7) 09/11/24 00:32 Lymph # (Auto) 1.3 10^3/uL (0.8-4.8) 09/11/24 00:32 [place] # (Auto) 0.6 10^3/uL (0.2-0.9) 09/11/24 00:32 Eos # (Auto) 0.4 10^3/uL (0.0-0.8) 09/11/24 00:32 Baso # (Auto) 0.0 10^3/uL (0.0-0.1) 09/11/24 00:32 Nucleated RBC % (auto) 0 % 09/11/24 00:32 Nucleated RBCs # 0.0 /100WBC 09/11/24 00:32 ESR 21 mm/hr (0-10) H 09/11/24 00:32 Sodium 137 mmol/L (136-145) 09/11/24 00:32 Potassium 4.1 mmol/L (3.5-5.1) 09/11/24 00:32 Chloride 95 mmol/L (98-107) L 09/11/24 00:32 Carbon Dioxide 26 mmol/L (22-29) 09/11/24 00:32 Anion Gap 20.1 (5-19) H 09/11/24 00:32 BUN 76 mg/dL (8-23) H 09/11/24 00:32 Creatinine 3.7 mg/dL (0.7-1.2) H 09/11/24 00:32 GFR Calculation 16.7 mL/min (90-130) L 09/11/24 00:32 Glucose 215 mg/dL (65-115) H 09/11/24 00:32 Calculated Osmolality 313 mOsm/kg (285-295) H 09/11/24 00:32 Lactic Acid 0.9 mmol/L (0.5-2.2) 09/11/24 00:32 Calcium 9.7 mg/dL (8.5-10.5) 09/11/24 00:32 Total Bilirubin 0.6 mg/dL (0.15-1.2) 09/11/24 00:32 AST 25 U/L (0-40) 09/11/24 00:32 ALT 27 U/L (0-41) 09/11/24 00:32 Alkaline Phosphatase 129 U/L (40-130) 09/11/24 00:32 Troponin T Baseline 103 ng/L (0-15) H* 09/11/24 00:32 Troponin T 120 Minute 93.74 ng/L (0-15) H 09/11/24 02:00 Delta Troponin T -9.26 ABS# (0-10) L 09/11/24 02:00 C-Reactive Protein 7.0 mg/L (0.0-4.9) H 09/11/24 00:32 NT-Pro-B Natriuret Pep 77363 pg/mL (0-125) H 09/11/24 00:32 Total Protein 6.6 g/dL (6.6-8.7) 09/11/24 00:32 Albumin 4.0 g/dL (3.5-5.2) 09/11/24 00:32 Globulin 2.6 g/dL (1.3-4.6) 09/11/24 00:32 All radiology interpretation(s) finalized by discharge Discharge Plan Discharge Patient Disposition: Home Clinical Impression: Bilateral cellulitis of lower leg, Edema, Chronic kidney disease Condition: Stable Prescriptions: New doxycycline monohydrate 100 mg capsule 100 mg PO BID 10 Days Qty: 20 0RF No Action aspirin 81 mg tablet,delayed release (DR/EC) 81 mg PO QAM potassium chloride 10 mEq tablet extended release 10 meq PO DAILY Qty: 60 4RF carvedilol 12.5 mg tablet 12.5 mg PO BID Qty: 60 5RF amlodipine 10 mg tablet 10 mg PO DAILY Qty: 90 3RF Humulin R U-500 (Conc) Kwikpen 500 unit/mL (3 mL) insulin pen 40 unit SUBCUT .before meals Qty: 6 8RF hydrocodone-acetaminophen 5-325 mg tablet 1 tab PO Q6H PRN (Reason: pain) 7 Days Qty: 28 0RF allopurinol 300 mg tablet See Rx Instructions .ROUTE .COMPLEX Qty: 90 2RF Dose Instruction: TAKE 1 TABLET BY MOUTH EVERY DAY Rx Instructions: TAKE 1 TABLET BY MOUTH EVERY DAY lactulose [Constulose] 10 gram/15 mL solution See Rx Instructions .ROUTE .COMPLEX Qty: 1440 2RF Dose Instruction: TAKE 30ML (20GM) BY MOUTH TWICE DAILY Rx Instructions: TAKE 30ML (20GM) BY MOUTH TWICE DAILY bumetanide 2 mg tablet See Rx Instructions .ROUTE .COMPLEX Qty: 60 5RF Dose Instruction: TAKE 1 TABLET BY MOUTH TWICE DAILY Rx Instructions: TAKE 1 TABLET BY MOUTH TWICE DAILY amoxicillin 875 mg tablet See Rx Instructions .ROUTE .COMPLEX Qty: 20 1RF Dose Instruction: TAKE 1 TABLET BY MOUTH TWICE DAILY Rx Instructions: TAKE 1 TABLET BY MOUTH TWICE DAILY ascorbic acid (vitamin C) [Vitamin C] 1,000 mg Tablet 1,000 mg PO DAILY (DME) diabetic shoes/inserts 14 See Rx Instructions Rx Instructions: As directed Discharge Orders: Discharge ED (Routine); Ordered 09/11/24 Ordered By: Nona Russell Referrals: Leandra Reddy MD [Primary Care Provider, Family Practice] Patient Instructions: Cellulitis (ED), Opioid Safety, Pain Management Activity Restrictions/Additional Instructions: Thank you for choosing [facility] for your healthcare needs today. You have been screened and evaluated and felt safe for discharge. Health conditions do change or evolve sometimes and as such it is important that you follow up with your Primary Doctor to be re checked, 3-5 days is a general good time frame for follow up. You are always welcome to return to the ED for re assessment if your symptoms are worsening or you have new concerns Print Language: [place] Coding Level of Care Code ED Arc Furnace Operator for Shira Gamboa
--- NOTE | 2024-09-11 00:18 | ECG_ITS ---
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 Measurements Intervals [place] Rate: 77 P: 51 DC: 200 QRS: 26 QRSD: 117 T: 65 QT: 398 QTc: 451 Interpretive Statements SINUS RHYTHM LOW QRS VOLTAGE IN PRECORDIAL LEADS [QRS DEFLECTION < 1.0 mV IN CHEST LEADS] SEPTAL MYOCARDIAL INFARCTION , PROBABLY OLD [40+ ms Q WAVE IN V1/V2] Compared to ECG 03/10/2024 01:05:28 Low QRS voltage now present Ventricular premature complex(es) no longer present First degree AV block no longer present Myocardial infarct finding still present Electronically Signed On 09-11-2024 05:57:19 CDT by Cory Gomez M.D. [email or web address]
[2024-09-11 00:41] LABS: Basophils % 0.4 %; Eosinophils # 0.4 10^3/uL (0.0-0.8); Eosinophils % 4.1 %; Hematocrit 31.9 % (37-53); Lymphocytes # 1.3 10^3/uL (0.8-4.8); Lymphocytes % 13.5 %; Mean Corpuscular HGB Conc 33.5 g/dL (30-55); Mean Corpuscular Hemoglobin 30.8 pg (27-33); Mean Corpuscular Volume 91.9 fl (82-101); Mean Platelet Volume 10.6 fL (7.4-10.4); Monocytes # 0.6 10^3/uL (0.2-0.9); Monocytes % 6.2 %; Neutrophils # 7.35 10^3/uL (1.8-7.7); Neutrophils % 75.3 %; Nucleated Red Blood Cells % 0 %; Platelet Count 249 10^3/cmm (157-399); Red Blood Count 3.47 10^6/uL (3.85-5.65); Red Cell Distribution Width 14.9 % (12.1-15.1); White Blood Count 9.77 10^3/uL (3.29-11.43)
[2024-09-11] MEDS: linezolid premix 600 MG/300 ML PREMIX 300 MG IV (00:51)
[2024-09-11] MEDS: cefepime 2,000 mg SDV 2000 MG IVP (00:52)
[2024-09-11 00:53] LABS: Erythrocyte Sedimentation Rate 21 mm/hr (0-10)
[2024-09-11 01:01] LABS: Lactic Sepsis W/Reflex 0.9 mmol/L (0.5-2.2)
[2024-09-11 01:10] LABS: Alanine Aminotransferase 27 U/L (0-41); Alkaline Phosphatase 129 U/L (40-130); Anion Gap 20.1 (5-19); Aspartate Amino Transferase 25 U/L (0-40); Blood Urea Nitrogen 76 mg/dL (8-23); Calcium 9.7 mg/dL (8.5-10.5); Carbon Dioxide 26 mmol/L (22-29); Chloride 95 mmol/L (98-107); Creatinine Clr Calc Pharmacy 28.4038; Globulin 2.6 g/dL (1.3-4.6); Glomerular Filtration Rate 16.7 mL/min (90-130); Glucose 215 mg/dL (65-115); NT Pro B Type Natriuretic Pept 14974 pg/mL (0-125); Osmolality Calculated 313 mOsm/kg (285-295); Potassium 4.1 mmol/L (3.5-5.1); Sodium 137 mmol/L (136-145); Total Bilirubin 0.6 mg/dL (0.15-1.2); Total Protein 6.6 g/dL (6.6-8.7)
[2024-09-11 01:16] LABS: Troponin(5th) Baseline 103 ng/L (0-15)
[2024-09-11] MEDS: FUROsemide 10 mg/mL SDV 4mL 40 MG IVP (01:56)
--- NOTE | 2024-09-11 02:11 | ECG_ITS ---
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 Measurements Intervals [place] Rate: 80 P: 62 NE: 218 QRS: 35 QRSD: 117 T: 90 QT: 412 QTc: 478 Interpretive Statements SINUS RHYTHM WITH FIRST DEGREE AV BLOCK LOW QRS VOLTAGE IN PRECORDIAL LEADS [QRS DEFLECTION < 1.0 mV IN CHEST LEADS] ANTEROSEPTAL MYOCARDIAL INFARCTION , PROBABLY OLD [40+ ms Q WAVE IN V1-V4] Compared to ECG 09/11/2024 00:18:01 First degree AV block now present Myocardial infarct finding still present Electronically Signed On 09-11-2024 06:23:21 CDT by Cory Gomez M.D. [email or web address]
[2024-09-11 02:29] LABS: Troponin 5 2HR 93.74 ng/L (0-15)
[2024-09-11 02:37] LABS: Troponin 5 2HR Delta -9.26 ABS# (0-10)
== END 2024-09-11 02:58 | disposition home or self-care (01) ==
PROVIDERS: Emergency Provider Emergency Medicine; PCP Family Medicine
DX: L03.116 Cellulitis of left lower limb (principal); L03.115 Cellulitis of right lower limb; R60.0 Localized edema; Z79.82 Long term (current) use of aspirin; E11.22 Type 2 diabetes mellitus with diabetic chronic kidney disease; I13.0 Hypertensive heart and chronic kidney disease with heart failure and stage 1 through stage 4 chronic kidney disease, or unspecified chronic kidney disease; N18.9 Chronic kidney disease, unspecified; I50.9 Heart failure, unspecified; J44.9 Chronic obstructive pulmonary disease, unspecified
CPT/HCPCS: 36415; 71045; 80053; 83605; 83880; 84484; 85025; 85651; 86140; 87040; 93005; 96365; 96375; 99285; J0692; J1938; J2020

== ENCOUNTER → 2024-10-20 09:48 | Outpatient (BNVA) | payer MEDICARE, SELFPAY | PROVIDERS: PCP Family Medicine; Visit Provider Family Medicine | DX: E11.22 Type 2 diabetes mellitus with diabetic chronic kidney disease (principal); N18.32 Chronic kidney disease, stage 3b; E11.65 Type 2 diabetes mellitus with hyperglycemia | CPT/HCPCS: 80048; 83036 ==

== ENCOUNTER → 2024-12-23 09:17 | Outpatient (BNVA) | payer MEDICARE, SELFPAY | PROVIDERS: PCP Family Medicine; Visit Provider Family Medicine | DX: I10 Essential (primary) hypertension (principal); E11.65 Type 2 diabetes mellitus with hyperglycemia; N18.32 Chronic kidney disease, stage 3b | CPT/HCPCS: 80053; 83036; 85025 ==

== ENCOUNTER → 2025-01-26 12:08 | Outpatient (BNVA) | payer MEDICARE, SELFPAY | PROVIDERS: PCP Family Medicine; Visit Provider Family Medicine | DX: E11.65 Type 2 diabetes mellitus with hyperglycemia (principal); N18.32 Chronic kidney disease, stage 3b | CPT/HCPCS: 80053; 85025 ==

== ENCOUNTER 2025-02-13 10:26 | Outpatient (RCR) | payer MEDICARE, SELFPAY | END 2025-02-22 23:59 | disposition home or self-care (01) | LOC: SPT 10:26 | PROVIDERS: PCP Family Medicine; Visit Provider Family Medicine | DX: I50.9 Heart failure, unspecified (principal) | CPT/HCPCS: 97161 ==

== ENCOUNTER 2025-02-23 05:00 | Outpatient (RCR) | payer MEDICARE, SELFPAY | END 2025-03-25 23:59 | disposition home or self-care (01) | LOC: SPT 05:00 | PROVIDERS: PCP Family Medicine; Visit Provider Family Medicine | DX: I50.9 Heart failure, unspecified (principal) | CPT/HCPCS: 97110 ==

== ENCOUNTER → 2025-02-23 16:07 | Outpatient (BNVA) | payer MEDICARE, SELFPAY | PROVIDERS: PCP Family Medicine; Visit Provider Family Medicine | DX: E11.65 Type 2 diabetes mellitus with hyperglycemia (principal) | CPT/HCPCS: 80048 ==